=== PATIENT | male | born 1980 | race Caucasian/White ===

== ENCOUNTER 2023-04-11 19:41 | Outpatient (OUT) | payer OTHER, SELFPAY | END 2023-04-11 19:42 | disposition home or self-care (01) | LOC: SLEEP 19:42 | PROVIDERS: PCP Family Medicine; Visit Provider Family Medicine | DX: G47.33 Obstructive sleep apnea (adult) (pediatric) (principal) | CPT/HCPCS: 95810 ==

== ENCOUNTER 2023-05-09 20:54 | Outpatient (OUT) | payer OTHER, SELFPAY ==
--- OUTSIDE RECORDS SUMMARY | 2023-05-09 20:58 | XMS_ITS | CCD ---
Author Name Unknown Address [address] [place] [address] Organization [facility] Care Team Providers Care Birth Attendant Name Role Phone DORON MONTAÑO Unavailable Unavailable KARMEN LUNDBERG Unavailable Unavailable DORON MONTAÑO Unavailable Unavailable KARMEN LUNDBERG Unavailable Unavailable Salbador Ramirez Primary Care Provider JAMES, DR SALBADOR Glover Primary Care Unavailable MABLE, DR PERAZA Attending Unavailable GRILLIS, DR PERAZA Consulting Unavailable GRILLIS, DR PERAZA Admitting Unavailable GRILLIS, DR PERAZA Admitting Unavailable NADERER, DR SALBADOR Glover Primary Care Unavailable MABLE, DR PREAZA Attending Unavailable MABLE, DR PERAZA Consulting Unavailable AGUBOSIM, LUMA Consulting Unavailable SHEILA GUTIERREZ Consulting Unavailable Salbador Ramirez Primary Care Provider Salbador Ramirez Primary Care Provider CHANA CHANDRA Attending Unavailable SALBADOR RAMIREZ Primary Care Unavailable LOKI BASURTO Referring Unavailable LOKI BASURTO Attending Unavailable SALBADOR RAMIREZ Primary Care Unavailable TOAN CHU Admitting Unavailable SALBADOR RAMIREZ Primary Care Unavailable TOAN CHU Attending Unavailable SALBADOR RAMIREZ Attending Unavailable MD Salbador Ramirez Primary Care Provider MD Salbador Ramirez Attending Provider Salbador Ramirez Primary Care Unavailable Salbador Ramirez Attending Unavailable Salbador Ramirez Admitting Unavailable Salbador Ramirez Primary Care Unavailable Salbador Ramirez Consulting Unavailable Shaikh Larsen Admitting Unavailable Shaikh Larsen Attending Unavailable Salbador Ramirez Attending Unavailable Salbador Ramirez Admitting Unavailable Salbador Ramirez Primary Care Unavailable Medications Current Medications Medication Drug Class(es) Dates Sig (Normalized) Sig (Original) acetaminophen 500 mg oral tablet (12 sources) Start: 01-31-2022 End: 02-15-2022 take 2 tablets by mouth every six hours as needed for pain, then take 1-2 tablets by mouth every six hours as needed for pain acetaminophen (TYLENOL) 500 mg tablet Take 2 tablets by mouth every 6 hours for 5 days, THEN 1-2 tablets every 6 hours as needed for pain for up to 10 days. 90 tablet 0 01/31/2022 02/15/2022 Active Start: 03-07-2021 take 2 tablets by mo uth every four hours as needed acetaminophen (TYLENOL) 325 mg tablet Take 2 tablets by mouth every 4 hours as needed for pain. Two (2) X 325 mg tablets = 650 mg 0 03/07/2021 Active take 2 tablets by mo uth every six hours as needed acetaminophen (TYLENOL) 325 mg tablet Take 650 mg by mouth every 6 hours as needed. 0 Active Comment on above: Take 650 mg by mouth every 6 hours as needed. Take 2 tablets by mo uth every 4 hours as needed for pain. Two (2) X 325 mg tablets = 650 mg Take 2 tablets by mo uth every 6 hours for 5 days, THEN 1-2 tablets every 6 hours as needed for pain for up to 10 days. ibuprofen 200 mg oral tablet (7 sources) Nonsteroidal Anti-inflammatory Drug Start: 2 End: 2 take 3 tablets by mouth every eight hours as needed for pain, then take 1-3 tablets by mouth every six hours as needed for pain, then take 1 tablet by mouth at mealtime as needed for pain ibuprofen (MOTRIN) 200 mg tablet Take 3 tablets by mouth every 8 hours for 3 days, THEN 1-3 tablets every 6 hours as needed for pain for up to 10 days. Can start taking 8 hours after your surgery (slight delay to reduce risk of bleeding). Can alternate with Tylenol (i.e.taking one or the other every 3-4 hours to stay ahead of pain). Do not take if also taking other NSAIDs (aspirin, Toradol, Naproxyn/Aleve, meloxicam/Mobic). Do not take on an empty stomach (take with food).. 90 tablet 0 01/31/2022 02/13/2022 Active ibuprofen (MOTRI N) 200 mg tablet Take 200 mg by mouth as needed. 0 Active Comment on above: Take 200 mg by mouth as needed. Take 3 tablets by mo uth every 8 hours for 3 days, THEN 1-3 tablets every 6 hours as needed for pain for up to 10 days. Can start taking 8 hours after your surgery (slight delay to reduce risk of bleeding). Can alternate with Tylenol (i.e.taking one or the other every 3-4 hours to stay ahead of pain). Do not take if also taking other NSAIDs (aspirin, Toradol, Naproxyn/Aleve, meloxicam/Mobic). Do not take on an empty stomach (take with food).. ondansetron 4 mg oral tablet (1 source) Serotonin-3 Receptor Antagonist Start: 2 End: 2 take 1 tablet by mouth every eight hours as needed ondansetron (ZOFRAN) 4 mg tablet Take 1 tablet by mouth every 8 hours as needed for nausea/vomiting for up to 5 days. 8 tablet 0 01/31/2022 02/05/2022 Active Comment on above: Take 1 tablet by gavin th every 8 hours as needed for nausea/vomiting for up to 5 days. perflutren lipid microspheres 1.3 mL in NaCl (PF) 0.9% 10 mL injection (DEFINITY) (3 sources) Start: 1 End: 3 perflutren lipid microspheres 1.3 mL in NaCl (PF) 0.9% 10 mL injection (DEFINITY) sennosides, mcc 8.6 mg oral tablet (2 sources) Start: 2 End: 2 take 1 tablet by mouth every twelve hours as needed senna (SENOKOT) 8.6 mg tab Take 1 tablet by mouth twice daily as needed for constipation for up to 15 days. 30 tablet 0 01/31/2022 02/15/2022 Active Comment on above: Take 1 tablet by gavin th twice daily as needed for constipation for up to 15 days. 125 ml sodium chloride 9 mg/ml prefilled syringe (3 sources) Start: 1 End: 3 sodium chloride 0.9 % (flush) 10 mL (BD POSIFLUSH) Completed/Discontinued Medications Medication Drug Class(es) Dates Sig (Normalized) Sig (Original) alpha lipoic acid-biotin 600 mg- 450 mcg TbER (5 sources) alpha lipoic acid-biotin 600 mg- 450 mcg TbER Take by mouth. 0 Active Comment on above: Take by mouth. atorvastatin 40 mg oral tablet (5 sources) HMG-CoA Reductase Inhibitor atorvastatin (LIPITOR) 40 mg tablet Take 40 mg by mouth. 0 Active Comment on above: Take 40 mg by mouth. cephalexin 500 mg oral capsule (5 sources) Cephalosporin Antibacterial Start: 02-18-2021 cephALEXin (KEFLEX) 500 mg capsule Take 1 capsule daily for 10 days 20 capsule 0 02/18/2021 Active Comment on above: Take 1 capsule daily for 10 days dapagliflozin 10 mg oral tablet (5 sources) Sodium-Glucose Cotransporter 2 Inhibitor take 1 tablet by mouth once daily at breakfast dapagliflozin (FARXIGA) 10 mg tablet Take by mouth daily with breakfast. 0 Active Comment on above: Take by mouth daily with breakfast. docusate sodium 100 mg oral capsule (5 sources) Start: 03-07-2021 take 1 capsule by mouth every twelve hours as needed docusate sodium (COLACE) 100 mg capsule Take 1 capsule by mouth twice daily as needed for constipation. 10 capsule 0 03/07/2021 Active Comment on above: Take 1 capsule by mo [facility] twice daily as needed for constipation. glipiZIDE 10 mg oral tablet (5 sources) Sulfonylurea take 2 tablets by mouth twice daily before mealtime glipiZIDE (GLUCOTROL) 10 mg tablet Take 20 mg by mouth twice daily before meals. 0 Active Comment on above: Take 20 mg by mouth twice daily before meals. lisinopril 10 mg oral tablet (5 sources) Angiotensin Converting Enzyme Inhibitor take 1 tablet by mouth once daily lisinopril (ZESTRIL, PRINIVIL) 10 mg tablet Take 10 mg by mouth once daily. 0 Active Comment on above: Take 10 mg by mouth once daily. 24 hr metFORMIN hydrochloride 500 mg extended release oral tablet (5 sources) Biguanide Start: 02-07-2021 take 1 tablet by mouth twice daily metFORMIN ER (GLUCOPHAGE XR) 500 mg 24 hr tablet Take 1 tablet by mouth twice daily. 0 02/07/2021 Active Comment on above: Take 1 tablet by gavin th twice daily. oxyCODONE hydrochloride 5 mg oral tablet (3 sources) Opioid Agonist Start: 01-31-2022 take 1 tablet by mouth every six hours as needed for pain oxyCODONE IR (ROXICODONE) 5 mg immediate release tablet Indications: Acute post-operative pain Take 1 tablet by mouth every 6 hours as needed for pain. 5 tablet 0 01/31/2022 Active Comment on above: Take 1 tablet by gavin th every 6 hours as needed for pain. pioglitazone 15 mg oral tablet (5 sources) Peroxisome Proliferator Receptor alpha Agonist, Peroxisome Proliferator Receptor gamma Agonist, Thiazolidinedione take 1 tablet by mouth once daily pioglitazone (ACTOS) 15 mg tablet Take 15 mg by mouth once daily. 0 Active Comment on above: Take 15 mg by mouth once daily. Problems Active Problems Problem Classification Problem Date Documented Date Episodic/Chronic Diabetes mellitus without complication (6 sources) Type 2 diabetes mellitus without complication; Translations: [Type 2 diabetes mellitus without complications] Onset: 10-14-2020 12-15-2020 Chronic Disorders of lipid metabolism (6 sources) Hyperlipidemia; Translations: [Hyperlipidemia, unspecified] Onset: 10-14-2020 12-15-2020 Chronic Essential hypertension (6 sources) Hypertensive disorder; Translations: [Essential (primary) hypertension] Onset: 10-14-2020 12-15-2020 Chronic Other and unspecified benign neoplasm (1 source) Other benign neoplasm of skin of trunk; Translations: [Dermatofibroma of back] Onset: 09-12-2022 Episodic Other nutritional; endocrine; and metabolic disorders (5 sources) Severe obesity; Translations: [Morbid (severe) obesity due to excess calories] Onset: 12-15-2020 12-15-2020 Chronic Other nutritional; endocrine; and metabolic disorders (1 source) Morbid (severe) obesity due to excess calories; Translations: [MORBID SEVERE OBES D/T EXCESS DANIKA] Onset: 10-14-2020 Chronic Other nutritional; endocrine; and metabolic disorders (1 source) Body mass index (BMI) 40.0-44.9, adult; Translations: [BODY MASS INDEX BMI 40.0-44.9 ADULT] Onset: 10-14-2020 Chronic Residual codes; unclassified (1 source) Postoperative state; Translations: [Other specified postprocedural states] Episodic Unclassified (1 source) CONTACT W/AND (SUSP) EXPOS COVID-19; Translations: [CONTACT W/AND (SUSP) EXPOS COVID-19] Onset: 10-08-2020 Unclassified (1 source) Encounter for general adult medical examination without abnormal findings; Translations: [Encounter for general adult medical examination without abnormal findings] Onset: 03-30-2023 Unclassified (1 source) Low back pain, unspecified; Translations: [Low back pain, unspecified] Onset: 08-03-2022 Past or Other Problems Problem Classification Problem Date Documented Date Episodic/Chronic Complications of surgical procedures or medical care (5 sources) Difficult intubation; Translations: [Failed or difficult intubation, subsequent encounter] Onset: 02-25-2021 02-25-2021 Episodic Inflammatory conditions of male genital organs (2 sources) Orchitis; Translations: [Epididymitis] Onset: 11-16-2016 Episodic Other aftercare (1 source) detention (current) use of oral hypoglycemic drugs; Translations: [PANTOGRAPH I ENGRAVER USE ORAL HYPOGLYCEMIC DX] Onset: 10-14-2020 Episodic Other aftercare (1 source) Other predatory animal exterminator (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 therapy; Translations: [OTH [facility] CURRENT DRUG THERAPY] Onset: 10-14-2020 Episodic Other nervous system disorders (6 sources) Acute postoperative pain; Translations: [Other acute postprocedural pain] Onset: 03-07-2021 03-07-2021 Episodic Other non-epithelial cancer of skin (4 sources) Malignant neoplasm of scalp; Translations: [Other specified malignant neoplasm of skin of scalp and neck] Onset: 10-14-2020 Episodic Other skin disorders (3 sources) Epidermal cyst; Translations: [EPIDERMAL CYST] Onset: 10-06-2020 Episodic Other skin disorders (1 source) Pilar cyst; Translations: [PILAR CYST] Onset: 10-08-2020 Episodic Residual codes; unclassified (5 sources) History of clinical finding in subject; Translations: [Personal history of other specified conditions] Onset: 02-25-2021 02-25-2021 Episodic Residual codes; unclassified (1 source) Other specified postprocedural states; Translations: [S/P flap graft] Onset: 01-31-2022 Episodic Screening and history of mental health and substance abuse codes (5 sources) Ex-smoker; Translations: [Personal history of nicotine dependence] Onset: 02-25-2021 02-25-2021 Episodic Results Test Name Value Interpretation Reference Range Facility A1C with Estimated Average Megan patton 03-30-2023 Glucose [Mass/Vol] 255 mg/dL Normal [facility] Comment on above: Result Comment: PERF ORMED BY: [place] [address] PATHOLOGIST DEICER INSPECTOR PNEUMATIC MARII BRO M.D. Performed By: #### D IFF CBC, [id number], A1C WTH eA, TSH3, BMP, HEPATIC, LDLD, URMACRERAT, LIPID #### [facility] [address] HbA1c (Bld) [Mass fraction] 10.5 % High 4.3-5.6 [facility] Comment on above: Result Comment: Incr eased risk for diabetes: 5.7 - 6.4 diabetes: >6.4 glycemic control for adults with diabetes: <7.0 Performed By: #### D IFF CBC, [id number], A1C WTH eA, TSH3, BMP, HEPATIC, LDLD, URMACRERAT, LIPID #### [facility] [address] Alanine aminotransferase [En zymatic activity/volume] in Serum or PlasmaOrdered By: Salbador Ramirez on 03-30-2023 ALT [Catalytic activity/Vol] 35 U/L 7-52 [facility] Albumin [Mass/volume] in Ser um or Plasma by Bromocresol green (BCG) dye binding methoOrdered By: Salbador Ramirez on 03-30-2023 Albumin BCG dye [Mass/Vol] 4.6 g/dL 3.5-5.7 [facility] Alkaline phosphatase [Enzyma tic activity/volume] in Serum or PlasmaOrdered By: Salbador Ramirez on 03-30-2023 ALP [Catalytic activity/Vol] 56 U/L 34-104 [facility] Aspartate aminotransferase [ Enzymatic activity/volume] in Serum or PlasmaOrdered By: Salbador Ramirez on 03-30-2023 AST [Catalytic activity/Vol] 24 U/L 13-39 [facility] Band form neutrophils/100 WB C Manual cnt (Bld)Ordered By: Salbador Ramirez on 03-30-2023 Band form neutrophils/100 WBC (Bld) 8 % 0-5 [facility] Basic Metabolic Panelon 03-19 Anion gap [Moles/Vol] 14.2 mmol/L Normal 6.0-15.0 [facility] Comment on above: Performed By: #### D IFF CBC, [id number], A1C WTH eA, TSH3, BMP, HEPATIC, LDLD, URMACRERAT, LIPID #### [facility] [address] Calcium [Mass/Vol] 10.2 mg/dL Normal 8.6-10.3 [facility] Comment on above: Performed By: #### D IFF CBC, [id number], A1C WTH eA, TSH3, BMP, HEPATIC, LDLD, URMACRERAT, LIPID #### [facility] [address] Chloride [Moles/Vol] 105 mmol/L Normal 98-107 [facility] Comment on above: Performed By: #### D IFF CBC, [id number], A1C WTH eA, TSH3, BMP, HEPATIC, LDLD, URMACRERAT, LIPID #### [facility] [address] CO2 [Moles/Vol] 22.3 mmol/L Normal 21.0-31.0 [facility] Comment on above: Performed By: #### D IFF CBC, [id number], A1C WTH eA, TSH3, BMP, HEPATIC, LDLD, URMACRERAT, LIPID #### [facility] [address] [place] [address] [place] Creatinine [Mass/Vol] 0.82 mg/dL Normal 0.70-1.30 [facility] Comment on above: Performed By: #### D IFF CBC, [id number], A1C WTH eA, TSH3, BMP, HEPATIC, LDLD, URMACRERAT, LIPID #### [facility] [address] [place] [address] [place] GFR/1.73 sq M.predicted MDRD (S/P/Bld) [Vol rate/Area] mL/min/{1.73_m2} Normal [facility] Comment on above: Performed By: #### D IFF CBC, [id number], A1C WTH eA, TSH3, BMP, HEPATIC, LDLD, URMACRERAT, LIPID #### [facility] [address] [place] [address] [place] Glucose [Mass/Vol] 161 mg/dL High 70-100 [facility] Comment on above: Result Comment: [facility] Glucose Reference Range is dependent on time and content of last meal. Glucose of more than 200 mg/dL in a nonstressed, ambulatory subject supports the diagnosis of Diabetes Mellitus. ADA recommended reference range Performed By: #### D IFF CBC, [id number], A1C WTH eA, TSH3, BMP, HEPATIC, LDLD, URMACRERAT, LIPID #### [facility] [address] [place] [address] [place] Potassium [Moles/Vol] 4.5 mmol/L Normal 3.5-5.1 [facility] Comment on above: Performed By: #### D IFF CBC, [id number], A1C WTH eA, TSH3, BMP, HEPATIC, LDLD, URMACRERAT, LIPID #### [facility] [address] [place] [address] [place] Sodium [Moles/Vol] 137 mmol/L Normal 136-145 [facility] Comment on above: Performed By: #### D IFF CBC, [id number], A1C WTH eA, TSH3, BMP, HEPATIC, LDLD, URMACRERAT, LIPID #### [facility] [address] [place] [address] [place] Urea nitrogen [Mass/Vol] 26 mg/dL High 7-25 [facility] Comment on above: Performed By: #### D IFF CBC, [id number], A1C WTH eA, TSH3, BMP, HEPATIC, LDLD, URMACRERAT, LIPID #### [place] [address] [facility] Basophils Auto (Bld) [#/Vol] Ordered By: Salbador Ramirez on 03-30-2023 Basophils (Bld) [#/Vol] N/A [facility] Basophils/100 WBC Auto (Bld) Ordered By: Salbador Ramirez on 03-30-2023 Basophils/100 WBC (Bld) N/A [facility] Basophils/100 WBC Manual cnt (Bld)Ordered By: Salbador Ramirez on 03-30-2023 Basophils/100 WBC (Bld) 1 % 0-2 [facility] Bilirubin.direct [Mass/volum e] in Serum or PlasmaOrdered By: Salbador Ramirez on 03-30-2023 Bilirubin.direct [Mass/Vol] 0.10 mg/dL 0.03-0.18 [facility] Bilirubin.total [Mass/volume ] in Serum or PlasmaOrdered By: Salbador Ramirez on 03-30-2023 Bilirubin [Mass/Vol] 0.7 mg/dL 0.3-1.0 [facility] Calcium [Mass/volume] in Ser um or PlasmaOrdered By: Salbador Ramirez on 03-30-2023 Calcium [Mass/Vol] 10.2 mg/dL 8.6-10.3 [facility] Carbon dioxide, total [Moles /volume] in Serum or PlasmaOrdered By: Salbador Ramirez on 03-30-2023 CO2 [Moles/Vol] 22.3 mmol/L 21.0-31.0 [facility] Chloride [Moles/volume] in S gianni or PlasmaOrdered By: Salbador Ramirez on 03-30-2023 Chloride [Moles/Vol] 105 mmol/L 98-107 [facility] Cholesterol [Mass/volume] in Serum or PlasmaOrdered By: Salbador Ramirez on 03-30-2023 Cholesterol [Mass/Vol] 140 mg/dL 140-200 [facility] Comment on above: Chol less than 200 m g/dl low riskChol 201-239 mg/dl borderline riskChol 240 mg/dl and greater high risk Cholesterol in LDL Calc [Mas s/Vol]Ordered By: Salbador Ramirez on 03-30-2023 Cholesterol in LDL [Mass/Vol] TNP [facility] Comment on above: Test not performed Cholesterol in LDL [Mass/vol ume] in Serum or PlasmaOrdered By: Salbador Ramirez on 03-30-2023 Cholesterol in LDL [Mass/Vol] 56 mg/dL 0-100 [facility] Comment on above: LDL ATP III CLASSIFI CATIONLDL less than 100 mg/dL OptimalLDL 100-129 mg/dL Near or above optimalLDL 130-159 mg/dL Borderline highLDL 160-189 mg/dL HighLDL greater than 189 mg/dL Very high Cholesterol in VLDL Calc [Ma ss/Vol]Ordered By: Salbador Ramirez on 03-30-2023 Cholesterol in VLDL [Mass/Vol] 93 mg/dL [facility] Creatinine [Mass/volume] in Serum or PlasmaOrdered By: Salbador Ramirez on 03-30-2023 Creatinine [Mass/Vol] 0.82 mg/dL 0.70-1.30 [facility] Creatinine [Mass/volume] in UrineOrdered By: Salbador Ramirez on 03-30-2023 Creatinine (U) [Mass/Vol] 115.0 mg/dL 14.0-26.0 [facility] Diff and CBCon 03-30-2023 Band form neutrophils/100 WBC (Bld) 8 % High 0-5 [facility] Comment on above: Performed By: #### D IFF CBC, [id number], A1C WTH eA, TSH3, BMP, HEPATIC, LDLD, URMACRERAT, LIPID #### [facility] [address] [place] [address] [place] Basophils/100 WBC (Bld) 1 % Normal 0-2 [facility] Comment on above: Performed By: #### D IFF CBC, [id number], A1C WTH eA, TSH3, BMP, HEPATIC, LDLD, URMACRERAT, LIPID #### [facility] [address] [place] [address] [place] Eosinophils/100 WBC (Bld) 1 % Normal 1-3 [facility] Comment on above: Performed By: #### D IFF CBC, [id number], A1C WTH eA, TSH3, BMP, HEPATIC, LDLD, URMACRERAT, LIPID #### [facility] [address] Erythrocyte distribution width (RBC) [Ratio] 12.7 % Normal 12.0-14.8 [facility] Comment on above: Performed By: #### D IFF CBC, [id number], A1C WTH eA, TSH3, BMP, HEPATIC, LDLD, URMACRERAT, LIPID #### [facility] [address] Giant Platelet Tally 1 /100{WBC} Normal [facility] Comment on above: Performed By: #### D IFF CBC, [id number], A1C WTH eA, TSH3, BMP, HEPATIC, LDLD, URMACRERAT, LIPID #### [address] Hematocrit (Bld) [Volume fraction] 46.1 % Normal 38.8-50.0 [facility] Comment on above: Performed By: #### D IFF CBC, [id number], A1C WTH eA, TSH3, BMP, HEPATIC, LDLD, URMACRERAT, LIPID #### [facility] [address] [place] [address] Hemoglobin (Bld) [Mass/Vol] 15.9 g/dL Normal 13.0-17.0 [facility] Comment on above: Performed By: #### D IFF CBC, [id number], A1C WTH eA, TSH3, BMP, HEPATIC, LDLD, URMACRERAT, LIPID #### [address] Lymphocytes/100 WBC (Bld) 24 % Normal 18-42 [facility] Comment on above: Performed By: #### D IFF CBC, [id number], A1C WTH eA, TSH3, BMP, HEPATIC, LDLD, URMACRERAT, LIPID #### [address] MCH (RBC) [Entitic mass] 29.6 pg Normal 27.5-35.2 [facility] Comment on above: Performed By: #### D IFF CBC, [id number], A1C WTH eA, TSH3, BMP, HEPATIC, LDLD, URMACRERAT, LIPID #### [facility] [address] MCV (RBC) [Entitic vol] 85.9 fL Normal 83.5-101 [facility] Comment on above: Performed By: #### D IFF CBC, [id number], A1C WTH eA, TSH3, BMP, HEPATIC, LDLD, URMACRERAT, LIPID #### [facility] [address] Mean Corpuscular HGB Conc 34.5 g/dL Normal 32.5-35.6 [facility] Comment on above: Performed By: #### D IFF CBC, [id number], A1C WTH eA, TSH3, BMP, HEPATIC, LDLD, URMACRERAT, LIPID #### [place] [address] [place] Monocytes/100 WBC (Bld) 13 % High 2-11 [facility] Comment on above: Performed By: #### D IFF CBC, [id number], A1C WTH eA, TSH3, BMP, HEPATIC, LDLD, URMACRERAT, LIPID #### [address] Platelet Estimate Normal Normal Normal [facility] Comment on above: Performed By: #### D IFF CBC, [id number], A1C WTH eA, TSH3, BMP, HEPATIC, LDLD, URMACRERAT, LIPID #### [address] Platelet mean volume (Bld) [Entitic vol] 9.6 fL Normal 6.6-10.1 [facility] Comment on above: Performed By: #### D IFF CBC, [id number], A1C WTH eA, TSH3, BMP, HEPATIC, LDLD, URMACRERAT, LIPID #### [address] Platelet Morphology Normal Normal Normal [facility] Comment on above: Result Comment: PERF ORMED BY: [place] [address] PATHOLOGIST DEICER INSPECTOR PNEUMATIC MARII BRO M.D. Performed By: #### D IFF CBC, [id number], A1C WTH eA, TSH3, BMP, HEPATIC, LDLD, URMACRERAT, LIPID #### [facility] [address] [place] [address] Platelets (Bld) [#/Vol] 149 10*3/uL Low 150-450 [facility] Comment on above: Performed By: #### D IFF CBC, [id number], A1C WTH eA, TSH3, BMP, HEPATIC, LDLD, URMACRERAT, LIPID #### [facility] [address] [place] [address] RBC (Bld) [#/Vol] 5.37 10*6/uL Normal 3.90-5.[address] [facility] Comment on above: Performed By: #### D IFF CBC, [id number], A1C WTH eA, TSH3, BMP, HEPATIC, LDLD, URMACRERAT, LIPID #### [facility] [address] [place] [address] RBC morphology finding Nom (Bld) Normal Normal Normal [facility] Comment on above: Performed By: #### D IFF CBC, [id number], A1C WTH eA, TSH3, BMP, HEPATIC, LDLD, URMACRERAT, LIPID #### [facility] [address] [place] [address] Reactive Lymphocytes 3 % Normal 0-12 [facility] Comment on above: Performed By: #### D IFF CBC, [id number], A1C WTH eA, TSH3, BMP, HEPATIC, LDLD, URMACRERAT, LIPID #### [facility] [address] [place] [address] Segmented neutrophils/100 WBC (Bld) 51 % Normal 50-70 [facility] Comment on above: Performed By: #### D IFF CBC, [id number], A1C WTH eA, TSH3, BMP, HEPATIC, LDLD, URMACRERAT, LIPID #### [facility] [address] [place] [address] [place] WBC (Bld) [#/Vol] 5.2 10*3/uL Normal 4.1-10.5 [facility] Comment on above: Performed By: #### D IFF CBC, [id number], A1C WTH eA, TSH3, BMP, HEPATIC, LDLD, URMACRERAT, LIPID #### [facility] [address] Eosinophils Auto (Bld) [#/Vo l]Ordered By: Salbador Ramirez on 03-30-2023 Eosinophils (Bld) [#/Vol] N/A [facility] Eosinophils/100 WBC Auto (Bl d)Ordered By: Salbador Ramirez on 03-30-2023 Eosinophils/100 WBC (Bld) N/A [facility] Eosinophils/100 WBC Manual c nt (Bld)Ordered By: Salbador Ramirez on 03-30-2023 Eosinophils/100 WBC (Bld) 1 % 1-3 [facility] Erythrocyte distribution wid th Auto (RBC) [Ratio]Ordered By: Salbador Ramirez on 03-30-2023 Erythrocyte distribution width (RBC) [Ratio] 12.7 % 12.0-14.8 [facility] Giant platelets/100 leukocyt es [Ratio] in Blood by Manual countOrdered By: Salbador Ramirez on 03-30-2023 Giant platelets/100 WBC Manual cnt (Bld) [Ratio] 1 /100{WBC} [facility] Globulin Calc (S) [Mass/Vol] Ordered By: Salbador Ramirez on 03-30-2023 Globulin (S) [Mass/Vol] 2.3 g/dL [facility] Glucose [Mass/volume] in Ser um or PlasmaOrdered By: Salbador Ramirez on 03-30-2023 Glucose [Mass/Vol] 161 mg/dL 70-100 [facility] Comment on above: ADA recommended refe rence rangeRandom Glucose Reference Range is dependent on time and content of last meal. Glucose of more than 200 mg/dL in a nonstressed, ambulatory subject supports the diagnosis of Diabetes Mellitus. Glucose mean value [Mass/vol ume] in Blood Estimated from glycated hemoglobinOrdered By: Salbador Ramirez on 03-30-2023 Average glucose Estimated from glycated hemoglobin (Bld) [Mass/Vol] 255 mg/dL [facility] Hematocrit Auto (Bld) [Volum e fraction]Ordered By: Salbador Ramirez on 03-30-2023 Hematocrit (Bld) [Volume fraction] 46.1 % 38.8-50.0 [facility] Hemoglobin A1c percentageOrd ered By: Salbador Ramirez on 03-30-2023 HbA1c (Bld) [Mass fraction] 10.5 % 4.3-5.6 [facility] Comment on above: Increased risk for d iabetes: 5.7 - 6.4diabetes: >6.4glycemic control for adults with diabetes: <7.0 Hemoglobin [Mass/volume] in BloodOrdered By: Salbador Ramirez on 03-30-2023 Hemoglobin (Bld) [Mass/Vol] 15.9 g/dL 13.0-17.0 [facility] Hepatic Panelon 03-30-2023 Albumin [Mass/Vol] 4.6 g/dL Normal 3.5-5.7 [facility] Comment on above: Performed By: #### D IFF CBC, [id number], A1C WTH eA, TSH3, BMP, HEPATIC, LDLD, URMACRERAT, LIPID #### [facility] [address] Albumin/Globulin [Mass ratio] 2.0 {ratio} Normal [facility] Comment on above: Performed By: #### D IFF CBC, [id number], A1C WTH eA, TSH3, BMP, HEPATIC, LDLD, URMACRERAT, LIPID #### [facility] [address] [place] [address] [place] ALP [Catalytic activity/Vol] 56 U/L Normal 34-104 [facility] Comment on above: Performed By: #### D IFF CBC, [id number], A1C WTH eA, TSH3, BMP, HEPATIC, LDLD, URMACRERAT, LIPID #### [facility] [address] [place] [address] [place] ALT [Catalytic activity/Vol] 35 U/L Normal 7-52 [facility] Comment on above: Performed By: #### D IFF CBC, [id number], A1C WTH eA, TSH3, BMP, HEPATIC, LDLD, URMACRERAT, LIPID #### [facility] [address] AST [Catalytic activity/Vol] 24 U/L Normal 13-39 [facility] Comment on above: Performed By: #### D IFF CBC, [id number], A1C WTH eA, TSH3, BMP, HEPATIC, LDLD, URMACRERAT, LIPID #### [facility] [address] Bilirubin [Mass/Vol] 0.7 mg/dL Normal 0.3-1.0 [facility] Comment on above: Performed By: #### D IFF CBC, [id number], A1C WTH eA, TSH3, BMP, HEPATIC, LDLD, URMACRERAT, LIPID #### [facility] [address] Bilirubin,Indirect 0.6 mg/dL Normal [facility] Comment on above: Performed By: #### D IFF CBC, [id number], A1C WTH eA, TSH3, BMP, HEPATIC, LDLD, URMACRERAT, LIPID #### [facility] [address] Bilirubin.indirect [Mass/Vol] 0.10 mg/dL Normal 0.03-0.18 [facility] Comment on above: Performed By: #### D IFF CBC, [id number], A1C WTH eA, TSH3, BMP, HEPATIC, LDLD, URMACRERAT, LIPID #### [facility] [address] Globulin (S) [Mass/Vol] 2.3 g/dL Normal [facility] Comment on above: Performed By: #### D IFF CBC, [id number], A1C WTH eA, TSH3, BMP, HEPATIC, LDLD, URMACRERAT, LIPID #### [facility] [address] [place] [id number] [facility] Protein [Mass/Vol] 6.9 g/dL Normal 6.4-8.9 [facility] Comment on above: Performed By: #### D IFF CBC, [id number], A1C WTH eA, TSH3, BMP, HEPATIC, LDLD, URMACRERAT, LIPID #### [facility] [address] [place] [id number] [facility] LDL Cholesterol Measuredon 0 03-30-2023 LDL Cholesterol Measured 56 mg/dL Normal 0-100 [facility] Comment on above: Result Comment: LDL ATP III CLASSIFICATION LDL less than 100 mg/dL Optimal LDL 100-129 mg/dL Near or above optimal LDL 130-159 mg/dL Borderline high LDL 160-189 mg/dL High LDL greater than 189 mg/dL Very high Performed By: #### D IFF CBC, [id number], A1C WTH eA, TSH3, BMP, HEPATIC, LDLD, URMACRERAT, LIPID #### [facility] [address] [place] [id number] [facility] Leukocytes [#/volume] correc nicolás for nucleated erythrocytes in Blood by Automated counOrdered By: Salbador Ramirez on 03-30-2023 WBC corrected for nucl RBC Auto (Bld) [#/Vol] 5.2 10*3/uL 4.1-10.5 [facility] Lipid Panelon 03-30-2023 Cholesterol [Mass/Vol] 140 mg/dL Normal 140-200 [facility] Comment on above: Result Comment: Chol less than 200 mg/dl low risk Chol 201-239 mg/dl borderline risk Chol 240 mg/dl and greater high risk Performed By: #### D IFF CBC, [id number], A1C WTH eA, TSH3, BMP, HEPATIC, LDLD, URMACRERAT, LIPID #### [facility] [address] [place] [id number] [facility] Cholesterol in HDL [Mass/Vol] 24 mg/dL Normal 23-92 [facility] Comment on above: Result Comment: HDL CHOL ATP-III CLASSIFICATION Cardiovascular Risk HDL > or equal to 60 mg/dL LOW HDL < 40 mg/dL HIGH Performed By: #### D IFF CBC, [id number], A1C WTH eA, TSH3, BMP, HEPATIC, LDLD, URMACRERAT, LIPID #### [facility] [address] Cholesterol.total/Sofi sterol in HDL [Mass ratio] 5.8 {ratio} Normal <5.0 [facility] Comment on above: Performed By: #### D IFF CBC, [id number], A1C WTH eA, TSH3, BMP, HEPATIC, LDLD, URMACRERAT, LIPID #### [facility] [address] LDL Cholesterol,Calculated Not performed Normal 0-100 [facility] Comment on above: Performed By: #### D IFF CBC, [id number], A1C WTH eA, TSH3, BMP, HEPATIC, LDLD, URMACRERAT, LIPID #### [facility] [address] Triglyceride w/Reflex 467 mg/dL High 0-149 [facility] Comment on above: Result Comment: TRIG ATP III CLASSIFICATION TRIG less than 150 mg/dL Normal TRIG 150-199 mg/dL Borderline high TRIG 200-500 mg/dL High TRIG greater than 500 mg/dL Very high Standard traceable to the Center for Disease Conrtrol and Prevention (CDC) test method. If the triglyceride result is greater than 400, LDLC and related calculations cannot be calculated and resulted. Performed By: #### D IFF CBC, [id number], A1C WTH eA, TSH3, BMP, HEPATIC, LDLD, URMACRERAT, LIPID #### [facility] [address] [place] [id number] [facility] VLDL CHOLESTEROL 93 mg/dL Normal [facility] Comment on above: Performed By: #### D IFF CBC, [id number], A1C WTH eA, TSH3, BMP, HEPATIC, LDLD, URMACRERAT, LIPID #### [facility] [address] [place] [id number] [facility] Lymphocytes Auto (Bld) [#/Vo l]Ordered By: Salbador Ramirez on 03-30-2023 Lymphocytes (Bld) [#/Vol] N/A [facility] Lymphocytes/100 WBC Auto (Bl d)Ordered By: Salbador Ramirez on 03-30-2023 Lymphocytes/100 WBC (Bld) N/A [facility] Lymphocytes/100 WBC Manual c nt (Bld)Ordered By: Salbador Ramirez on 03-30-2023 Lymphocytes/100 WBC (Bld) 24 % 18-42 [facility] MCH Auto (RBC) [Entitic mass ]Ordered By: Salbador Ramirez on 03-30-2023 MCH (RBC) [Entitic mass] 29.6 pg 27.5-35.2 [facility] MCHC Auto (RBC) [Mass/Vol]Or dered By: Salbador Ramirez on 03-30-2023 MCHC (RBC) [Mass/Vol] 34.5 g/dL 32.5-35.6 [facility] MCV Auto (RBC) [Entitic vol] Ordered By: Salbador Ramirez on 03-30-2023 MCV (RBC) [Entitic vol] 85.9 fL 83.5-101 [facility] MicroAlb Creat Ratio,Uon Albumin DL <= 20 mg/L (U) [Mass/Vol] 2.1 mg/dL High 0.0-1.8 [facility] Comment on above: Performed By: #### D IFF CBC, [id number], A1C WTH eA, TSH3, BMP, HEPATIC, LDLD, URMACRERAT, LIPID #### [facility] [address] [place] [address] [place] Creatinine, Urine (Random) 115.0 mg/dL High 14.0-26.0 [facility] Comment on above: Performed By: #### D IFF CBC, [id number], A1C WTH eA, TSH3, BMP, HEPATIC, LDLD, URMACRERAT, LIPID #### [facility] [address] [place] [id number] [facility] Microalbumin/Creatinine Ratio 18.0 mg/g Normal 0.0-30.0 [facility] Comment on above: Result Comment: 30-3 00 mg/g indicates an increased risk for diabetic nephropathy. Greater than 300 mg/g is consistent with clinical nephropathy. (Am. J. Kidney Disease 1995, 25:107) PERFORMED BY: [facility] [address] [place] [address] PATHOLOGIST DEICER INSPECTOR PNEUMATIC MARII BRO M.D. Performed By: #### D IFF CBC, [id number], A1C WTH eA, TSH3, BMP, HEPATIC, LDLD, URMACRERAT, LIPID #### [facility] [address] Microalbumin [Mass/volume] i n UrineOrdered By: Salbador Ramirez on 03-30-2023 Albumin DL <= 20 mg/L (U) [Mass/Vol] 2.1 mg/dL 0.0-1.8 [facility] Monocytes Auto (Bld) [#/Vol] Ordered By: Salbador Ramirez on 03-30-2023 Monocytes (Bld) [#/Vol] N/A [facility] Monocytes/100 WBC Auto (Bld) Ordered By: Salbador Ramirez on 03-30-2023 Monocytes/100 WBC (Bld) N/A [facility] Monocytes/100 WBC Manual cnt (Bld)Ordered By: Salbador Ramirez on 03-30-2023 Monocytes/100 WBC (Bld) 13 % 2-11 [facility] Neutrophils Auto (Bld) [#/Vo l]Ordered By: Salbador Ramirez on 03-30-2023 Neutrophils (Bld) [#/Vol] N/A [facility] Neutrophils/100 WBC Auto (Bl d)Ordered By: Salbador Ramirez on 03-30-2023 Neutrophils/100 WBC (Bld) N/A [facility] No Panel InformationOrdered By: Salbador Ramirez on 03-30-2023 Estimated GFR (CKD-EPI) > 60.0 mL/Min [facility] Creatinine Clearance (Chem N/A [facility] Nucleated erythrocytes [Pres ence] in Blood by Automated countOrdered By: Salbador Ramirez on 03-30-2023 Nucleated RBC Auto Ql (Bld) N/A [facility] Platelet adequacy [Presence] in Blood by Light microscopyOrdered By: Salbador Ramirez on 03-30-2023 Platelets LM Ql (Bld) Normal Normal [facility] Platelet mean volume Auto (B ld) [Entitic vol]Ordered By: Salbador Ramirez on 03-30-2023 Platelet mean volume (Bld) [Entitic vol] 9.6 fL 6.6-10.1 [facility] Platelet morphology finding [Identifier] in BloodOrdered By: Salbador Ramirez on 03-30-2023 Platelet morphology finding Nom (Bld) Normal Normal [facility] Platelets Auto (Bld) [#/Vol] Ordered By: Salbador Ramirez on 03-30-2023 Platelets (Bld) [#/Vol] 149 10*3/uL 150-450 [facility] Potassium [Moles/volume] in Serum or PlasmaOrdered By: Salbador Ramirez on 03-30-2023 Potassium [Moles/Vol] 4.5 mmol/L 3.5-5.1 [facility] Protein [Mass/volume] in Ser um or PlasmaOrdered By: Salbador Ramirez on 03-30-2023 Protein [Mass/Vol] 6.9 g/dL 6.4-8.9 [facility] RBC Auto (Bld) [#/Vol]Ordere d By: Salbador Ramirez on 03-30-2023 RBC (Bld) [#/Vol] 5.37 10*6/uL 3.90-5.[address] [facility] RBC morphologyOrdered By: Gabi Ramirez on 03-30-2023 RBC morphology finding Nom (Bld) Normal Normal [facility] Segmented neutrophils/100 WB C Manual cnt (Bld)Ordered By: Salbador Ramirez on 03-30-2023 Segmented neutrophils/100 WBC (Bld) 51 % 50-70 [facility] Serum or plasma albumin/glob ulin mass ratioOrdered By: Salbador Ramirez on 03-30-2023 Albumin/Globulin [Mass ratio] 2.0 {ratio} [facility] Serum or plasma anion gap de terminationOrdered By: Salbador Ramirez on 03-30-2023 Anion gap [Moles/Vol] 14.2 mmol/L 6.0-15.0 [facility] Serum or plasma high density lipoprotein (HDL) cholesterol measurementOrdered By: Salbador Ramirez on 03-30-2023 Cholesterol in HDL [Mass/Vol] 24 mg/dL 23-92 [facility] Comment on above: HDL CHOL ATP-III CLA SSIFICATION Cardiovascular RiskHDL > or equal to 60 mg/dL LOWHDL < 40 mg/dL HIGH Serum or plasma non-glucuron idated bilirubin measurement (mass/volume)Ordered By: Salbador Ramirez on 03-30-2023 Bilirubin.indirect [Mass/Vol] 0.6 mg/dL [facility] Serum or plasma total choles terol/high density lipoprotein (HDL) cholesterol mass ratOrdered By: Salbador Ramirez on 03-30-2023 Cholesterol.total/Sofi sterol in HDL [Mass ratio] 5.8 {ratio} <5.0 [facility] Sodium [Moles/volume] in Ser um or PlasmaOrdered By: Salbador Ramirez on 03-30-2023 Sodium [Moles/Vol] 137 mmol/L 136-145 [facility] Thyroid Stimulating Hormoneo n 03-30-2023 TSH Qn 1.53 m[IU]/L Normal 0.45-5.33 [facility] Comment on above: Performed By: #### D IFF CBC, [id number], A1C WTH eA, TSH3, BMP, HEPATIC, LDLD, URMACRERAT, LIPID #### [facility] [address] [place] [address] Thyrotropin [Units/volume] i n Serum or PlasmaOrdered By: Salbador Ramirez on 03-30-2023 TSH Qn 1.53 m[IU]/L 0.45-5.33 [facility] Triglyceride [Mass/volume] i n Serum or PlasmaOrdered By: Salbador Ramirez on 03-30-2023 Triglyceride [Mass/Vol] 467 mg/dL 0-149 [facility] Comment on above: If the triglyceride result is greater than 400, LDLC and related calculations cannot be calculated and resulted.TRIG ATP III CLASSIFICATIONTRIG less than 150 mg/dL NormalTRIG 150-199 mg/dL Borderline highTRIG 200-500 mg/dL High TRIG greater than 500 mg/dL Very highStandard traceable to the Center for Disease Conrtrol and Prevention (CDC) test method. Urea nitrogen [Mass/volume] in Serum or PlasmaOrdered By: Salbador Ramirez on 03-30-2023 Urea nitrogen [Mass/Vol] 26 mg/dL 7 [facility] Urine microalbumin/creatinin e mass ratioOrdered By: Salbador Ramirez on 03-30-2023 Albumin/Creatinine DL <= 20 mg/L (U) [Mass ratio] 18.0 mg/g 0.0-30.0 [facility] Comment on above: 30-300 mg/g indicate s an increased risk for diabetic nephropathy. Greater than 300 mg/g is consistent with clinical nephropathy. (Am. J. Kidney Disease 1995, 25:107) Variant lymphocytes/100 WBC Manual cnt (Bld)Ordered By: Salbador Ramirez on 03-30-2023 Variant lymphocytes/100 WBC (Bld) 3 % 0-12 [facility] Vitamin D 25 Hydroxy Totalon 03-30-2023 Vitamin D 25 Hydroxy Total 28.2 ng/mL Low 30-100 [facility] Comment on above: Result Comment: JE MIN D STATUS 25(OH)VITAMIN D RANGE (ng/mL) Deficient <20 Insufficient 20 to <30 Sufficient 30 to 100 Reference: Faiza MF,Christina NC, Marisol CASTILLO, et al. Evaluation,treatment, and prevention of vitamin D deficiency; an Endocrine Society clinical practice guideline. JCEM. 2010; 96(7):1911-30. PERFORMED BY: [place] [address] PATHOLOGIST DEICER INSPECTOR PNEUMATIC MARII BRO M.D. Performed By: #### D IFF CBC, [id number], A1C WTH eA, TSH3, BMP, HEPATIC, LDLD, URMACRERAT, LIPID #### [facility] [address] Vitamin D+Metabolites [Mass/ volume] in Serum or PlasmaOrdered By: Salbador Ramirez on 03-30-2023 Vitamin D+Metabolites [Mass/Vol] 28.2 ng/mL 30-100 [facility] Comment on above: VITAMIN D STATUS 25( [place])VITAMIN D RANGE (ng/mL) Deficient <20 Insufficient 20 to <30Sufficient 30 to 100Reference: Faiza MF,Christina NC, Marisol CASTILLO, et al. Evaluation,treatment, and prevention of vitamin D deficiency; an Endocrine Society clinical practice guideline. JCEM. 2010; 96(7):1911-30. WBC Auto (Bld) [#/Vol]Ordere d By: Salbador Ramirez on 03-30-2023 WBC (Bld) [#/Vol] 5.2 10*3/uL 4.1-10.5 [facility] CNOVon 09-12-2022 CNOV Office Visit (DERBMN ) KARMEN CARLOS ([id number]) 1980 M Date Time Provider Department 09/12/22 6:40 PM LOKI BASURTO During your visit today, we recorded the following information about you: Loki Basurto MD 09/23/2022 1:37 PM Signed EST PATIENT LV: 07/26/2021- Dr. Basurto Chief Complaint: Lesion of concern History of Present Ilness: Karmen Carlos is a 42 year old male Patient is here for: Lesion of concern 1) growth of concern Location: right upper back Duration: few months Symptoms: betancur, itchy Current treatment: none Past treatments: none Patient went to a primary care provider and was given a muscle relaxer. Xray was performed. 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 Skin per HPI. No other new/concerning skin growth. Physical Exam: General: well appearing, of stated age, in no acute distress Neurology: alert and oriented times three Psychiatry: in a happy mood Skin: Brady skin type: II Skin exam performed of face, scalp, ears, eyelids, lips, neck, chest, abdomen, back, bilateral upper extremities, hands, fingers, fingernails, bilateral lower extremities, feet, toes, toenails. Skin exam normal with the exception of: - His right scalp has a well healing flap with redundant skin at the point of rotation - the surrounding skin is unremarkable - His left lateral scalp has a well healing STSG - His right lateral upper back has a < 1cm firm brown papule with a dimple sign Assessment and Plan: 1. 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 Dermatofibroma, right upper back -Discussed benign etiology in length -likely not related to the discomfort in his back 3. Sensation of burning and pain on the back -No evidence of concerning lesion on exam today -Recommend following up with PCP Return to clinic every 1 year for a follow up or sooner if something concerning arises. The documentation for this note was completed by Yasmine Smith RN acting as scribe for Loki Basurto MD. September 12, 2022 5:37 PM. I agree with the Chief Complaint, ROS, and Past Histories independently gathered by the clinical support associate and the remaining scribed note accurately describes my personal service to the patient. Loki Basurto MD September 12, 2022 Referring Provider: LOKI BASURTO [[id number]] Allergies As of Date: 09/12/2022 (No Known Allergies) Date Reviewed: 09/12/2022 Reviewed by: Yasmine Smith RN - Fully Assessed Reason for Visit: LESION, SKIN [936] Primary Visit Diagnosis:Dermatofibro ma of back [D23.5] Other Visit Diagnosis:Dermatofibro sarcoma protuberans of scalp [C44.49] Prescriptions as of 09/23/2022 - oxyCODONE IR (ROXICODONE) 5 mg immediate release tablet Take 1 tablet by mouth every 6 hours as needed for pain. - acetaminophen (TYLENOL) 325 mg tablet Take 2 tablets by mouth every 4 hours as needed for pain. Two (2) X 325 mg tablets = 650 mg - docusate sodium (COLACE) 100 mg capsule Take 1 capsule by mouth twice daily as needed for constipation. - dapagliflozin (FARXIGA) 10 mg tablet Take by mouth daily with breakfast. - acetaminophen (TYLENOL) 325 mg tablet Take 650 mg by mouth every 6 hours as needed. - metFORMIN ER (GLUCOPHAGE XR) 500 mg 24 hr tablet Take 1 tablet by mouth twice daily. - cephALEXin (KEFLEX) 500 mg capsule Take 1 capsule daily for 10 days - alpha lipoic acid-biotin 600 mg- 450 mcg TbER Take by mouth. - atorvastatin (LIPITOR) 40 mg tablet Take 40 mg by mouth. - glipiZIDE (GLUCOTROL) 10 mg tablet Take 20 mg by mouth twice daily before meals. - ibuprofen (MOTRIN) 200 mg tablet Take 200 mg by mouth as needed. - lisinopril (ZESTRIL, PRINIVIL) 10 mg tablet Take 10 mg by mouth once daily. - pioglitazone (ACTOS) 15 mg tablet Take 15 mg by mouth once daily. Problem List As Of Date 09/12/2022 Noted Resolved HTN (hypertension) [I10] 12/15/2020 HLD (hyperlipidemia) [E78.5] 12/15/2020 Type 2 diabetes mellitus without complication, *12/15/2020 Class 3 severe obesity due to excess calories w*12/15/2020 Former smoker [Z87.891] 02/25/2021 History of tachycardia [Z87.898] 02/25/2021 At risk for difficult intubation, subsequent en*02/25/2021 Acute post-operative pain [G89.18] 03/07/2021 Disposition: Return in about 1 year (around 09/13/2023), or if symptoms worsen or fail to improve. Follow-up and Disposition History for Encounter Date Provider Department Center 09/12/2022 [id number] BASURTOdg Mayela (more content not included)... [facility] A[facility] with Estimated Average G pooja 08-04-2022 Glucose [Mass/Vol] 292 mg/dL Normal [facility] Comment on above: Order Comment: PT IS FASTING Result Comment: PERF ORMED BY: [facility] [address] [place] [address] PATHOLOGIST DEICER INSPECTOR PNEUMATIC MARII BRO M.D. Performed By: #### D IFF CBC, [id number], A1C WTH eA, TSH3, BMP, HEPATIC, LDLD, URMACRERAT, LIPID #### [facility] [address] HbA1c (Bld) [Mass fraction] 11.8 % High 4.3-5.6 [facility] Comment on above: Order Comment: PT IS FASTING Result Comment: Incr eased risk for diabetes: 5.7 - 6.4 diabetes: >6.4 glycemic control for adults with diabetes: <7.0 Performed By: #### D IFF CBC, [id number], A1C WTH eA, TSH3, BMP, HEPATIC, LDLD, URMACRERAT, LIPID #### [facility] [address] Basic Metabolic Panelon 05-1 Anion gap [Moles/Vol] 12.1 mmol/L Normal 6.0-15.0 [facility] Comment on above: Order Comment: PT IS FASTING Performed By: #### D IFF CBC, [id number], A1C WTH eA, TSH3, BMP, HEPATIC, LDLD, URMACRERAT, LIPID #### [facility] [address] Calcium [Mass/Vol] 9.2 mg/dL Normal 8.6-10.3 [facility] Comment on above: Order Comment: PT IS FASTING Performed By: #### D IFF CBC, [id number], A1C WTH eA, TSH3, BMP, HEPATIC, LDLD, URMACRERAT, LIPID #### [facility] [address] Chloride [Moles/Vol] 102 mmol/L Normal 98-107 [facility] Comment on above: Order Comment: PT IS FASTING Performed By: #### D IFF CBC, [id number], A1C WTH eA, TSH3, BMP, HEPATIC, LDLD, URMACRERAT, LIPID #### [facility] [address] CO2 [Moles/Vol] 27.8 mmol/L Normal 21.0-31.0 [facility] Comment on above: Order Comment: PT IS FASTING Performed By: #### D IFF CBC, [id number], A1C WTH eA, TSH3, BMP, HEPATIC, LDLD, URMACRERAT, LIPID #### [facility] [address] Creatinine [Mass/Vol] 0.76 mg/dL Normal 0.70-1.30 [facility] Comment on above: Order Comment: PT IS FASTING Performed By: #### D IFF CBC, [id number], A1C WTH eA, TSH3, BMP, HEPATIC, LDLD, URMACRERAT, LIPID #### [facility] [address] [place] [address] [place] GFR/1.73 sq M.predicted MDRD (S/P/Bld) [Vol rate/Area] mL/min/{1.73_m2} [facility] Comment on above: Order Comment: PT IS FASTING Performed By: #### D IFF CBC, [id number], A1C WTH eA, TSH3, BMP, HEPATIC, LDLD, URMACRERAT, LIPID #### [facility] [address] Glucose [Mass/Vol] 256 mg/dL High 70-100 [facility] Comment on above: Order Comment: PT IS FASTING Result Comment: [place] Glucose Reference Range is dependent on time and content of last meal. Glucose of more than 200 mg/dL in a nonstressed, ambulatory subject supports the diagnosis of Diabetes Mellitus. ADA recommended reference range Performed By: #### D IFF CBC, [id number], A1C WTH eA, TSH3, BMP, HEPATIC, LDLD, URMACRERAT, LIPID #### [facility] [address] [place] [address] [place] Potassium [Moles/Vol] 4.9 mmol/L Normal 3.5-5.1 [facility] Comment on above: Order Comment: PT IS FASTING Performed By: #### D IFF CBC, [id number], A1C WTH eA, TSH3, BMP, HEPATIC, LDLD, URMACRERAT, LIPID #### [facility] [address] Sodium [Moles/Vol] 137 mmol/L Normal 136-145 [facility] Comment on above: Order Comment: PT IS FASTING Performed By: #### D IFF CBC, [id number], A1C WTH eA, TSH3, BMP, HEPATIC, LDLD, URMACRERAT, LIPID #### [facility] [address] Urea nitrogen [Mass/Vol] 17 mg/dL Normal 7-25 [facility] Comment on above: Order Comment: PT IS FASTING Performed By: #### D IFF CBC, [id number], A1C WTH eA, TSH3, BMP, HEPATIC, LDLD, URMACRERAT, LIPID #### [address] Complete Blood Count Auto Di ffon 08-04-2022 Basophils (Bld) [#/Vol] 0.0 10*3/uL Normal 0.0-0.2 [facility] Comment on above: Order Comment: PT IS FASTING Result Comment: PERF ORMED BY: [place] [address] PATHOLOGIST DEICER INSPECTOR PNEUMATIC MARII BRO M.D. Performed By: #### P SAS, [id number], LDLD, A1C WTH eA, LIPID, BMP, HEPATIC, TSH3, CBC #### [address] Basophils/100 WBC (Bld) 1.0 % Normal . [facility] Comment on above: Order Comment: PT IS FASTING Performed By: #### P SAS, [id number], LDLD, A1C WTH eA, LIPID, BMP, HEPATIC, TSH3, CBC #### [address] Eosinophils (Bld) [#/Vol] 0.1 10*3/uL Normal 0.0-0.45 [facility] Comment on above: Order Comment: PT IS FASTING Performed By: #### P SAS, [id number], LDLD, A1C WTH eA, LIPID, BMP, HEPATIC, TSH3, CBC #### [place] [address] [place] Eosinophils/100 WBC (Bld) 1.8 % Normal . [facility] Comment on above: Order Comment: PT IS FASTING Performed By: #### P SAS, [id number], LDLD, A1C WTH eA, LIPID, BMP, HEPATIC, TSH3, CBC #### [address] Erythrocyte distribution width (RBC) [Ratio] 12.9 % Normal 12.0-14.8 [facility] Comment on above: Order Comment: PT IS FASTING Performed By: #### P SAS, [id number], LDLD, A1C WTH eA, LIPID, BMP, HEPATIC, TSH3, CBC #### [address] Hematocrit (Bld) [Volume fraction] 42.8 % Normal 38.8-50.0 [facility] Comment on above: Order Comment: PT IS FASTING Performed By: #### P SAS, [id number], LDLD, A1C WTH eA, LIPID, BMP, HEPATIC, TSH3, CBC #### [address] Hemoglobin (Bld) [Mass/Vol] 14.9 g/dL Normal 13.0-17.0 [facility] Comment on above: Order Comment: PT IS FASTING Performed By: #### P SAS, [id number], LDLD, A1C WTH eA, LIPID, BMP, HEPATIC, TSH3, CBC #### [address] Lymphocytes (Bld) [#/Vol] 1.4 10*3/uL Normal 1.00-4.8 [facility] Comment on above: Order Comment: PT IS FASTING Performed By: #### P SAS, [id number], LDLD, A1C WTH eA, LIPID, BMP, HEPATIC, TSH3, CBC #### [place] [address] [place] Lymphocytes/100 WBC (Bld) 32.7 % Normal . [facility] Comment on above: Order Comment: PT IS FASTING Performed By: #### P SAS, [id number], LDLD, A1C WTH eA, LIPID, BMP, HEPATIC, TSH3, CBC #### [facility] [address] MCH (RBC) [Entitic mass] 29.1 pg Normal 27.5-35.2 [facility] Comment on above: Order Comment: PT IS FASTING Performed By: #### P SAS, [id number], LDLD, A1C WTH eA, LIPID, BMP, HEPATIC, TSH3, CBC #### [facility] [address] MCV (RBC) [Entitic vol] 83.4 fL Low 83.5-101 [facility] Comment on above: Order Comment: PT IS FASTING Performed By: #### P SAS, [id number], LDLD, A1C WTH eA, LIPID, BMP, HEPATIC, TSH3, CBC #### [facility] [address] Mean Corpuscular HGB Conc 34.9 g/dL Normal 32.5-35.6 [facility] Comment on above: Order Comment: PT IS FASTING Performed By: #### P SAS, [id number], LDLD, A1C WTH eA, LIPID, BMP, HEPATIC, TSH3, CBC #### [facility] [address] Monocytes (Bld) [#/Vol] 0.3 10*3/uL Normal 0.0-0.8 [facility] Comment on above: Order Comment: PT IS FASTING Performed By: #### P SAS, [id number], LDLD, A1C WTH eA, LIPID, BMP, HEPATIC, TSH3, CBC #### [facility] [address] Monocytes/100 WBC (Bld) 7.5 % Normal . [facility] Comment on above: Order Comment: PT IS FASTING Performed By: #### P SAS, [id number], LDLD, A1C WTH eA, LIPID, BMP, HEPATIC, TSH3, CBC #### [facility] [address] Neutrophils (Bld) [#/Vol] 2.5 10*3/uL Normal 1.8-7.7 [facility] Comment on above: Order Comment: PT IS FASTING Performed By: #### P SAS, [id number], LDLD, A1C WTH eA, LIPID, BMP, HEPATIC, TSH3, CBC #### [facility] [address] Neutrophils/100 WBC (Bld) 57.0 % Normal . [facility] Comment on above: Order Comment: PT IS FASTING Performed By: #### P SAS, [id number], LDLD, A1C WTH eA, LIPID, BMP, HEPATIC, TSH3, CBC #### [facility] [address] NRBC% 0.2 /100{WBC} Normal 0-0.5 [facility] Comment on above: Order Comment: PT IS FASTING Performed By: #### P SAS, [id number], LDLD, A1C WTH eA, LIPID, BMP, HEPATIC, TSH3, CBC #### [address] Platelet mean volume (Bld) [Entitic vol] 9.0 fL Normal 6.6-10.1 [facility] Comment on above: Order Comment: PT IS FASTING Performed By: #### P SAS, [id number], LDLD, A1C WTH eA, LIPID, BMP, HEPATIC, TSH3, CBC #### [facility] [address] [place] [address] [place] Platelets (Bld) [#/Vol] 134 10*3/uL Low 150-450 [facility] Comment on above: Order Comment: PT IS FASTING Performed By: #### P SAS, [id number], LDLD, A1C WTH eA, LIPID, BMP, HEPATIC, TSH3, CBC #### [address] RBC (Bld) [#/Vol] 5.13 10*6/uL Normal 3.90-5.[address] [facility] Comment on above: Order Comment: PT IS FASTING Performed By: #### P SAS, [id number], LDLD, A1C WTH eA, LIPID, BMP, HEPATIC, TSH3, CBC #### [facility] [address] WBC (Bld) [#/Vol] 4.3 10*3/uL Normal 4.1-10.5 [facility] Comment on above: Order Comment: PT IS FASTING Performed By: #### P SAS, [id number], LDLD, A1C WTH eA, LIPID, BMP, HEPATIC, TSH3, CBC #### [facility] [address] Hepatic Panelon 08-04-2022 Albumin [Mass/Vol] 4.0 g/dL Normal 3.5-5.7 [facility] Comment on above: Order Comment: PT IS FASTING Performed By: #### D IFF CBC, [id number], A1C WTH eA, TSH3, BMP, HEPATIC, LDLD, URMACRERAT, LIPID #### [facility] [address] Albumin/Globulin [Mass ratio] 2.0 {ratio} Normal [facility] Comment on above: Order Comment: PT IS FASTING Performed By: #### D IFF CBC, [id number], A1C WTH eA, TSH3, BMP, HEPATIC, LDLD, URMACRERAT, LIPID #### [facility] [address] ALP [Catalytic activity/Vol] 48 U/L Normal 34-104 [facility] Comment on above: Order Comment: PT IS FASTING Performed By: #### D IFF CBC, [id number], A1C WTH eA, TSH3, BMP, HEPATIC, LDLD, URMACRERAT, LIPID #### [facility] [address] [place] [id number] [facility] ALT [Catalytic activity/Vol] 28 U/L Normal 7-52 [facility] Comment on above: Order Comment: PT IS FASTING Performed By: #### D IFF CBC, [id number], A1C WTH eA, TSH3, BMP, HEPATIC, LDLD, URMACRERAT, LIPID #### [facility] [address] AST [Catalytic activity/Vol] 16 U/L Normal 13-39 [facility] Comment on above: Order Comment: PT IS FASTING Performed By: #### D IFF CBC, [id number], A1C WTH eA, TSH3, BMP, HEPATIC, LDLD, URMACRERAT, LIPID #### [facility] [address] Bilirubin [Mass/Vol] 0.7 mg/dL Normal 0.3-1.0 [facility] Comment on above: Order Comment: PT IS FASTING Performed By: #### D IFF CBC, [id number], A1C WTH eA, TSH3, BMP, HEPATIC, LDLD, URMACRERAT, LIPID #### [facility] [address] Bilirubin,Indirect 0.6 mg/dL Normal [facility] Comment on above: Order Comment: PT IS FASTING Performed By: #### D IFF CBC, [id number], A1C WTH eA, TSH3, BMP, HEPATIC, LDLD, URMACRERAT, LIPID #### [facility] [address] Bilirubin.indirect [Mass/Vol] 0.10 mg/dL Normal 0.03-0.18 [facility] Comment on above: Order Comment: PT IS FASTING Performed By: #### D IFF CBC, [id number], A1C WTH eA, TSH3, BMP, HEPATIC, LDLD, URMACRERAT, LIPID #### [facility] [address] Globulin (S) [Mass/Vol] 2.0 g/dL Normal [facility] Comment on above: Order Comment: PT IS FASTING Performed By: #### D IFF CBC, [id number], A1C WTH eA, TSH3, BMP, HEPATIC, LDLD, URMACRERAT, LIPID #### [facility] [address] Protein [Mass/Vol] 6.0 g/dL Low 6.4-8.9 [facility] Comment on above: Order Comment: PT IS FASTING Performed By: #### D IFF CBC, [id number], A1C WTH eA, TSH3, BMP, HEPATIC, LDLD, URMACRERAT, LIPID #### [facility] [address] [place] [address] [facility] LDL Cholesterol Measuredon 0 08-04-2022 LDL Cholesterol Measured 55 mg/dL Normal 0-100 [facility] Comment on above: Order Comment: PT IS FASTING Result Comment: LDL ATP III CLASSIFICATION LDL less than 100 mg/dL Optimal LDL 100-129 mg/dL Near or above optimal LDL 130-159 mg/dL Borderline high LDL 160-189 mg/dL High LDL greater than 189 mg/dL Very high Performed By: #### D IFF CBC, [id number], A1C WTH eA, TSH3, BMP, HEPATIC, LDLD, URMACRERAT, LIPID #### [facility] [address] [place] [id number] [facility] Lipid Panelon 08-04-2022 Cholesterol [Mass/Vol] 133 mg/dL Low 140-200 [facility] Comment on above: Order Comment: PT IS FASTING Result Comment: Chol less than 200 mg/dl low risk Chol 201-239 mg/dl borderline risk Chol 240 mg/dl and greater high risk Performed By: #### D IFF CBC, [id number], A1C WTH eA, TSH3, BMP, HEPATIC, LDLD, URMACRERAT, LIPID #### [facility] [address] [place] [id number] [facility] Cholesterol in HDL [Mass/Vol] 26 mg/dL Low 29-71 [facility] Comment on above: Order Comment: PT IS FASTING Result Comment: HDL CHOL ATP-III CLASSIFICATION Cardiovascular Risk HDL > or equal to 60 mg/dL LOW HDL < 40 mg/dL HIGH Performed By: #### D IFF CBC, [id number], A1C WTH eA, TSH3, BMP, HEPATIC, LDLD, URMACRERAT, LIPID #### [facility] [address] [place] [id number] [facility] Cholesterol.total/Sofi sterol in HDL [Mass ratio] 5.1 {ratio} Normal <5.0 [facility] Comment on above: Order Comment: PT IS FASTING Performed By: #### D IFF CBC, [id number], A1C WTH eA, TSH3, BMP, HEPATIC, LDLD, URMACRERAT, LIPID #### [facility] [address] LDL Cholesterol,Calculated Not performed Normal 0-100 [facility] Comment on above: Order Comment: PT IS FASTING Performed By: #### D IFF CBC, [id number], A1C WTH eA, TSH3, BMP, HEPATIC, LDLD, URMACRERAT, LIPID #### [facility] [address] Triglyceride w/Reflex 483 mg/dL High 0-149 [facility] Comment on above: Order Comment: PT IS FASTING Result Comment: TRIG ATP III CLASSIFICATION TRIG less than 150 mg/dL Normal TRIG 150-199 mg/dL Borderline high TRIG 200-500 mg/dL High TRIG greater than 500 mg/dL Very high Standard traceable to the Center for Disease Conrtrol and Prevention (CDC) test method. If the triglyceride result is greater than 400, LDLC and related calculations cannot be calculated and resulted. Performed By: #### D IFF CBC, [id number], A1C WTH eA, TSH3, BMP, HEPATIC, LDLD, URMACRERAT, LIPID #### [facility] [address] VLDL CHOLESTEROL 96 mg/dL Normal [facility] Comment on above: Order Comment: PT IS FASTING Performed By: #### D IFF CBC, [id number], A1C WTH eA, TSH3, BMP, HEPATIC, LDLD, URMACRERAT, LIPID #### [facility] [address] [place] [address] [place] Microalbumin, Urine (Random) on 08-04-2022 Albumin DL <= 20 mg/L (U) [Mass/Vol] 3.9 mg/dL High 0.0-1.8 [facility] Comment on above: Result Comment: PERF ORMED BY: [place] [address] PATHOLOGIST DEICER INSPECTOR PNEUMATIC MARII BRO M.D. Performed By: #### D IFF CBC, [id number], A1C WTH eA, TSH3, BMP, HEPATIC, LDLD, URMACRERAT, LIPID #### [address] PSA Screen (Yearly Only)on 0 08-04-2022 PSA Screen (Yearly Only) 0.300 ng/mL Normal 0.000-4.000 [facility] Comment on above: Order Comment: PT IS FASTING Result Comment: PERF ORMED BY: [place] [address] PATHOLOGIST DEICER INSPECTOR PNEUMATIC MARII BRO M.D. Performed By: #### D IFF CBC, [id number], A1C WTH eA, TSH3, BMP, HEPATIC, LDLD, URMACRERAT, LIPID #### [facility] [address] [place] [address] Thyroid Stimulating Hormoneo n 08-04-2022 TSH Qn 2.22 m[IU]/L Normal 0.45-5.33 [facility] Comment on above: Order Comment: PT IS FASTING Performed By: #### D IFF CBC, [id number], A1C WTH eA, TSH3, BMP, HEPATIC, LDLD, URMACRERAT, LIPID #### [place] [id number] [facility] Vitamin D 25 Hydroxy Totalon 08-04-2022 Vitamin D 25 Hydroxy Total 17.2 ng/mL Low 30-100 [facility] Comment on above: Order Comment: PT IS FASTING Result Comment: JE MIN D STATUS 25(OH)VITAMIN D RANGE (ng/mL) Deficient <20 Insufficient 20 to <30 Sufficient 30 to 100 Reference: Faiza MF,Christina NC, Marisol CASTILLO, et al. Evaluation,treatment, and prevention of vitamin D deficiency; an Endocrine Society clinical practice guideline. JCEM. 2010; 96(7):1911-30. PERFORMED BY: [place] [id number] PATHOLOGIST DEICER INSPECTOR PNEUMATIC MARII BRO M.D. Performed By: #### D IFF CBC, [id number], A1C WTH eA, TSH3, BMP, HEPATIC, LDLD, URMACRERAT, LIPID #### [facility] [address] [place] [id number] [facility] XR lumbar spine 2-3V*on 07-17 XR lumbar spine 2-3V* [facility] [address] [place] [address] [place] [address] XRay Report Signed Patient: Karmen Carlos MR#: [id number] : 1980 Acct:[id number] Age/Sex: 42 / M ADM Date: 08/03/22 Loc: XD Room: Type: [facility] Attending Dr: Shaikh Chava RINCON Copies to: Shaikh Cahva MD Ordering Provider: Shaikh Chava MD Date of Service: 08/03/22 XR/XR lumbar spine 2-3V*: .. ([id number]) XR/XR thoracic spine 3V*: /// THORACIC SPINE - - 2 views, lumbar spine 2 views CLINICAL HISTORY: Mid to lower back pain for one month COMPARISON: None FINDINGS: Thoracic spine: Vertebral body heights appear maintained. Scattered endplate degenerative changes. Pedicles appear intact. Lumbar spine: Vertebral body heights appear maintained. Scattered endplate and facet joint degenerative changes with mild disc space narrowing L2-L3. XR/XR thoracic spine 3V* IMPRESSION: DEGENERATIVE CHANGES INVOLVING THE THORACIC AND LUMBAR SPINE WITHOUT ACUTE BONY PROCESS. Impression dictated by: Giancarlo Wolf Jr., D.ONatalia08/03/2022 3:41 PM Dictation Location: [place] [address] Transcribed By: [facility] 08/03/22 154 Dictated By: Giancarlo Wolf Jr, DO 08/03/22 154 Signed By: 08/03/22 154 [facility] Eyad 06-29-2022 DHARMESH Telephone (DPQ) KARMEN CARLOS ([id number]) 1980 M Date Time Provider Department 06/29/22 LOKI BASURTO During your visit today, we recorded the following information about you: Asia Carrizales 06/29/2022 3:17 PM Signed Left VM / Sent MyCharts About getting a appt with per Staff Message Allergies As of Date: 06/29/2022 (No Known Allergies) Date Reviewed: 01/31/2022 Reviewed by: Felecia Hoff RN - Fully Assessed Reason for Visit: Appointment [186] Prescriptions as of 06/29/2022 - oxyCODONE IR (ROXICODONE) 5 mg immediate release tablet Take 1 tablet by mouth every 6 hours as needed for pain. - acetaminophen (TYLENOL) 325 mg tablet Take 2 tablets by mouth every 4 hours as needed for pain. Two (2) X 325 mg tablets = 650 mg - docusate sodium (COLACE) 100 mg capsule Take 1 capsule by mouth twice daily as needed for constipation. - dapagliflozin (FARXIGA) 10 mg tablet Take by mouth daily with breakfast. - acetaminophen (TYLENOL) 325 mg tablet Take 650 mg by mouth every 6 hours as needed. - metFORMIN ER (GLUCOPHAGE XR) 500 mg 24 hr tablet Take 1 tablet by mouth twice daily. - cephALEXin (KEFLEX) 500 mg capsule Take 1 capsule daily for 10 days - alpha lipoic acid-biotin 600 mg- 450 mcg TbER Take by mouth. - atorvastatin (LIPITOR) 40 mg tablet Take 40 mg by mouth. - glipiZIDE (GLUCOTROL) 10 mg tablet Take 20 mg by mouth twice daily before meals. - ibuprofen (MOTRIN) 200 mg tablet Take 200 mg by mouth as needed. - lisinopril (ZESTRIL, PRINIVIL) 10 mg tablet Take 10 mg by mouth once daily. - pioglitazone (ACTOS) 15 mg tablet Take 15 mg by mouth once daily. Problem List As Of Date 06/29/2022 Noted Resolved HTN (hypertension) [I10] 12/15/2020 HLD (hyperlipidemia) [E78.5] 12/15/2020 Type 2 diabetes mellitus without complication, *12/15/2020 Class 3 severe obesity due to excess calories w*12/15/2020 Former smoker [Z87.891] 02/25/2021 History of tachycardia [Z87.898] 02/25/2021 At risk for difficult intubation, subsequent en*02/25/2021 Acute post-operative pain [G89.18] 03/07/2021 Encounter Status:Closed by ASIA CARRIZALES on 06/29/22 [facility] CNOVSPon 02-13-2022 CNOVSP Visit (SP) Office ([place]) KARMEN CARLOS ([id number]) 1980 M Date Time Provider Department 02/13/22 9:00 AM CHANA CHANDRA During your visit today, we recorded the following information about you: Temperature Pulse Respiration Blood pressure 97.6 degrees 94/minute 20/minute 162/111 Chana Chandra APRN.CNP 02/13/2022 9:20 AM Signed Post-op Note DATE: February 13, 2022 CHIEF COMPLAINT: Post-op evaluation HPI: Karmen Carlos is a 41 year old male who is here for follow-up 13 days s/p 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 Patient presents today and is doing well since surgery. He is happy with how things are progressing. His biggest concern is his graft site from initial surgery in 02/2021 where there is a surgical clip that is protruding. He feels it is becoming more visible/noticeable over the last month. He has had mild discomfort and has noticed some drainage, clear-white in color. He denies any fevers or chills. He has been applying Bacitracin to the incision daily. REVIEW OF SYSTEMS: GENERAL:Negative for malaise, significant weight loss and fever SKIN: See HPI PAIN: No pain presently Denies fevers, chills, erythema, induration, fluctuance, hematoma, seroma, purulent drainage, odor. PHYSICAL EXAM: BP 162/111 Pulse 94 Temp 36.4 ?C (97.6 ?F) (Oral) Resp 20 SpO2 96% GENERAL: Patient is a well-nourished , appearing stated age, resting comfortably, breathing regularly. No acute distress. Lymph: No Submandibular, cervical, supraclavicular, or axillary lymphadenopathy present Right scalp incision well approximated, c/d/i, absorbable sutures intact Left scalp former skin graft site fully healed No erythema, drainage, seroma/hematoma No s/s of infection No s/s of DVT: No redness, swelling or warmth, no calf/foot/leg pain or pain with ambulation. ASSESSMENT/PLAN: Karmen Carlos is a 41 year old male who is here for follow-up 13 days s/p 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 -Sutures are absorbable -Discussed that the ligaclip at the skin graft site will continue to work its way out, and can be removed once it is more visible. Patient to contact office if the clip hasn't worked its way out in the next month -No heavy lifting > 10 lbs x 2 weeks -No swimming or bathing or submerging in water until wounds are completely healed -May shower gently wash with baby shampoo or gentle soap and water, pat dry. -May discontinue use of bacitracin and switch to Vaseline/Aquaphor -Apply Vaseline/Aquaphor to incisions and leave open to air. May apply gauze to protect clothes -Wash and change dressings daily -Apply Sunscreen daily -May apply silicone scar gel at 3-4 weeks post op as long as incision is healing well -May massage scar at 3-4 weeks post op to help break down scar tissue and help soften/flatten any raised or puckered edges -Continue follow up with Dr. Basurto [facility]: - recommend regular dermatology follow-up for FBSE - Q3 months for 2 years, Q6 months for 5 years and Q1 year for the rest of his/her life Call [phone] or go to the Emergency Department if any of these symptoms arise: -Fever or chills -Increased drainage -Green, yellow or pus like drainage -Foul odor -Increased pain -Hardness around the wound -Redness, warmth or swelling of the surrounding tissue -Color change to the wound Follow up PRN with any questions/concerns or if the clip at graft site doesn't work its way out Office number: [phone] (option 3) The patient is seen and examined by Chana Chandra APRN.CNP and the following reflects her service. Scribed by Citlaly Padgett RN I agree with the Chief Complaint, ROS, and Past Histories independently gathered by the clinical support associate and the remaining scribed note accurately describes my personal service to the patient. Chana Chandra APRN.CNP February 13, 2022 9:20 AM Chana Chandra APRN.CNP 02/13/2022 9:16 AM Signed -Sutures are absorbable -Discussed that the ligaclip at the skin graft site will continue to work its way out, and can be removed once it is more visible. Patient to contact office if the clip hasn't worked its way out in the next month -No heavy lifting > 10 lbs x 2 weeks -No swimming or bathing or submerging in water until wounds are completely healed -May shower gently wash with baby shampoo or gentle soap and water, pat dry. -May discontinue use of bacitracin and switch to Vaseline/Aquaphor -Apply Vaseline/Aquaphor to incisions and leave open to air. May apply gauze to protect clothes -Wash and change dressings daily -Apply Sunscreen daily -May apply silicone scar gel at 3-4 weeks post op as long as incision is healing well -May massage scar at 3-4 weeks post op to help b (more content not included)... Normal [facility] BRIEF OP NOTon 01-31-2022 BRIEF OP NOT HNO ID: [id number] Author: Agatha Rawls MD Service: Plastic Surgery Author Type: Resident Type: Brief Op Note Filed: 01/31/2022 8:38 AM Note Text: BRIEF OPERATIVE NOTE PLASTIC AND RECONSTRUCTIVE SURGERY LOG ID: [id number] Surgery/Procedure Date: 01/31/2022 Incision/Procedure Start Time: 8:04 AM Incision Close/Procedure End Time: 8:29 AM Surgeon(s)/Procedurali st(s) and Tar Roofer(s): Surgeon(s) and Role: * Toan Chu MD - Primary * Agatha Rawls MD - Resident - Assisting No Additional Staff Procedure(s): Excision of scalp standing cone Anesthesia: Local Findings: Standing cone of right scalp measuring 8 cm in length Estimated Blood Loss: 5 mL IV Fluids: none Mckeon: No Urine Output: Not Measured Drains: None Specimens: None Implants: None Complications: None Pre-Op/Pre-Procedure Diagnosis: Right scalp standing cone Post-Op/Post-Procedure Diagnosis: Same Post-operative Plan: Discharge home Bacitracin and primapore SIGNATURE: Agatha Rawls MD, MPH PATIENT NAME: Karmen Carlos DATE: January 31, 2022 TIME: 8:33 AM PAGER/CONTACT #: [phone] Normal [facility] HISTORY PHYSICALon HISTORY PHYSICAL HNO ID: [id number] Author: Toan Chu MD Service: Plastic Surgery Author Type: Physician Type: HANDP Filed: 01/31/2022 7:43 AM Note Text: UPDATED HISTORY AND PHYSICAL EXAMINATION SERVICE DATE: 01/31/2022 SERVICE TIME: 7:00am PHYSICAL EXAM MUST BE COMPLETED ON ADMISSION The History and Physical (completed in the past 30 days) has been reviewed and the patient has been examined. The contents accurately reflect the patient's condition with the following additions or revisions since the HANDP was completed. Examination indicates no changes. CV: RRR. Normal S1 and S2 Pulm: CTAB. No wheezing or rhonchi This HANDP can be found in the Electronic Medical Record attached below. 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 Patient presents today to discuss revision of scalp flap. States he is doing well. Patient was evaluated by Dr. Basurto in July 2021 where he was cleared to wear a hat and stop using ointment on the scalp. Patient is accompanied today by spouse, they are happy with how the graft site and flap have healed. They deny any concerns aside from seeking revision of the puckered/raised area of the scalp flap. Previously underwent: 02/18/2021: MOHS with Dr. Basurto. Clear margins achieved. 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 Basurto. Margins were not clear Meds and allergies reviewed in [facility]. REVIEW OF SYSTEMS: PAIN ASSESSMENT: Negative for pain, history of chronic pain, or current treatment for a chronic pain condition. GENERAL: No weight loss, malaise or fevers RESPIRATORY: Negative for cough, hemoptysis, wheezing, COPD, dyspnea or shortness of breath CARDIOVASCULAR: Negative for chest pain, leg swelling, hypertension, CHF or palpitations MUSCULOSKELETAL: Negative for joint pain or swelling, back pain or muscle pain SKIN: See HPI NEURO: No history of headaches, syncope, paralysis, seizures or tremorsREVIEW OF SYSTEMS PMH: PAST MEDICAL HISTORY No past medical history on file. PSH: PAST SURGICAL HISTORY PAST SURGICAL HISTORY Procedure Laterality Date VASECTOMY UNI/BI SPX W/POSTOP SEMEN EXAMS MEDICATIONS: Current Outpatient Medications on File Prior to Visit Medication Sig acetaminophen (TYLENOL) 325 mg tablet Take 2 tablets by mouth every 4 hours as needed for pain. Two (2) X 325 mg tablets = 650 mg docusate sodium (COLACE) 100 mg capsule Take 1 capsule by mouth twice daily as needed for constipation. dapagliflozin (FARXIGA) 10 mg tablet Take by mouth daily with breakfast. acetaminophen (TYLENOL) 325 mg tablet Take 650 mg by mouth every 6 hours as needed. metFORMIN ER (GLUCOPHAGE XR) 500 mg 24 hr tablet Take 1 tablet by mouth twice daily. cephALEXin (KEFLEX) 500 mg capsule Take 1 capsule daily for 10 days alpha lipoic acid-biotin 600 mg- 450 mcg TbER Take by mouth. atorvastatin (LIPITOR) 40 mg tablet Take 40 mg by mouth. glipiZIDE (GLUCOTROL) 10 mg tablet Take 20 mg by mouth twice daily before meals. ibuprofen (MOTRIN) 200 mg tablet Take 200 mg by mouth as needed. lisinopril (ZESTRIL, PRINIVIL) 10 mg tablet Take 10 mg by mouth once daily. pioglitazone (ACTOS) 15 mg tablet Take 15 mg by mouth once daily. Current Facility-Administered Medications on File Prior to Visit Medication perflutren lipid microspheres 1.3 mL in NaCl (PF) 0.9% 10 mL injection (DEFINITY) sodium chloride 0.9 % (flush) 10 mL (BD POSIFLUSH) ALLERGIES: ALLERGIES ALLERGIES No Known Allergies PHYSICAL EXAM: BP 157/91 Pulse 96 Temp 36.6 ?C (97.8 ?F) (Oral) Resp 20 SpO2 99% GENERAL: Patient is a well-nourished , appearing stated age, resting comfortably, breathing regularly. No acute distress. Lymph: No Submandibular, cervical, supraclavicular, axillary, or inguinal lymphadenopathy present Skin: Skin color, texture, turgor normal. 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 Patient's surgical sites are well healed. He is 6 months out from most recent surgery and presents today to discuss scalp flap revision. At this time, after discussing with the patient and reviewing their history, I believe the patient is a good candidate for surgical intervention. I discussed modalities of operative intervention and (more content not included)... Normal [facility] OPERATIVE NOon 01-31-2022 OPERATIVE NO HNO ID: [id number] Author: Agatha Rawls MD Service: Plastic Surgery Author Type: Resident Type: Operative Report Filed: 01/31/2022 8:49 AM Note Text: Attestation signed by Toan Chu MD at 01/31/2022 9:26 AM Teaching statement: I was active and involved in all critical portions of the case. Toan Chu MD OPERATIVE REPORT PLASTIC AND RECONSTRUCTIVE SURGERY Log ID: [id number] Surgery/Procedure Date: 01/31/2022 Incision/Procedure Start Time: 8:04 AM Incision Close/Procedure End Time: 8:29 AM Surgeon(s)/Procedurali st(s) and Tar Roofer(s): Surgeon(s) and Role: * Toan Chu MD - Primary * Agatha Rawls MD - Resident - Assisting No Additional Staff Pre-Op/Pre-Procedure Diagnosis: Right scalp flap standing cone deformity Post-Op/Post-Procedure Diagnosis: Same as preoperative diagnosis. Anesthesia: Local Procedure/Operation: Excision of right scalp standing cone deformity Complex primary closure, 8cm Operative Indications: The patient is a 41 year old male with history of dermatofibrosarcoma s/p Mohs and reconstruction with right superficial temporal fasciocutaneous scalp pedicled flap and STSG to left scalp donor site on 03/07/21. He now presents with right scalp standing cone deformity. Patient elected to undergo aforementioned procedure following discussion of risks, benefits, and alternatives. Description of Procedure: The patient was brought to the operating room and placed in supine position. Timeouts were performed using both pre-induction and pre-incision safety checklists to verify correct patient, procedure, site, and additional critical information prior to beginning the procedure. Local anesthesia was performed with injection of 10 mL of 1:100,00 lidocaine with epinephrine circumferentially around the standing cone deformity. Surgical sites were prepped and draped in the normal sterile fashion. Attention was turned to the standing cone deformity. A 15 blade was used to incision the anterior portion of the deformity. Dissection was carried out to the periosteum. Care was taken to not violate the periosteum. The remaining incision was carried out throughout the posterior portion of the deformity, again to the level of the periosteum. The skin and underlying subcutaneous and soft tissue was excised with ease. Electrocautery was utilized to ensure meticulous hemostasis. 3-0 vicryl sutures were placed in a buried fashion to bring the wound edges together with minimal tension. Several 3-0 chromic sutures were placed in a horizontal mattress fashion and the skin edges were brought together with no tension. Bacitracin ointment and a primapore dressing were placed on the incision. All counts were correct. A debriefing checklist was completed to share information critical to postoperative care of the patient. The patient tolerated the procedure well and was taken to the postanesthesia care unit in stable condition. Operative Findings: Right scalp flap standing cone deformity measuring 2cm x 8 cm Estimated Blood Loss: 5 mL Specimens: None Drains: None Implantable Devices: None Complications: None Participation in Procedure: Dictated on behalf of the primary surgeon, Dr. Chu, who was present in the operating room for the olea components of the operation. I performed the remainder of the procedure, without direct supervision but with the primary surgeon readily available. SIGNATURE: Agatha Rawls MD PATIENT NAME: Karmen Carlos DATE: January 31, 2022 TIME: 8:42 AM PAGER/CONTACT #: [facility] KARMEN CARLOS ([id number]) 1980 Date Time Provider Department 03/02/21 TOAN CHU During your visit today, we recorded the following information about you: Keya Nielsen Ma 03/02/2021 1:17 PM Signed Patient needs to have an echo done possibly before his surgery scheduled for Sunday03/07/2021. He prefers to go to the [facility] and on a Sunday if possible. Can you see what you can do? Kapil Alberts 03/02/2021 1:55 PM Signed Called and lm for pt. Scheduled only available echo (other than tow) before 03/07/21. Pt is scheduled for 03/03/21 at [facility]. Sent [employer] message with this information as well Allergies As of Date: 03/02/2021 (No Known Allergies) Date Reviewed: 02/25/2021 Reviewed by: Evette Weldon PA-C - Fully Assessed Reason for Visit: Title Examiner - Other [3602] Prescriptions as of 03/02/2021 - dapagliflozin (FARXIGA) 10 mg tablet Take by mouth daily with breakfast. - acetaminophen (TYLENOL) 325 mg tablet Take 650 mg by mouth every 6 hours as needed. - metFORMIN ER (GLUCOPHAGE XR) 500 mg 24 hr tablet Take 1 tablet by mouth twice daily. - cephALEXin (KEFLEX) 500 mg capsule Take 1 capsule daily for 10 days - alpha lipoic acid-biotin 600 mg- 450 mcg TbER Take by mouth. - atorvastatin (LIPITOR) 40 mg tablet Take 40 mg by mouth. - glipiZIDE (GLUCOTROL) 10 mg tablet Take 20 mg by mouth twice daily before meals. - ibuprofen (MOTRIN) 200 mg tablet Take 200 mg by mouth as needed. - lisinopril (ZESTRIL, PRINIVIL) 10 mg tablet Take 10 mg by mouth once daily. - pioglitazone (ACTOS) 15 mg tablet Take 15 mg by mouth once daily. Facility-Administered Medications as of 03/02/2021 - perflutren lipid microspheres 1.3 mL in NaCl (PF) 0.9% 10 mL injection (DEFINITY) - sodium chloride 0.9 % (flush) 10 mL (BD POSIFLUSH) Problem List As Of Date 03/02/2021 Noted Resolved HTN (hypertension) [I10] 12/15/2020 HLD (hyperlipidemia) [E78.5] 12/15/2020 Type 2 diabetes mellitus without complication, *12/15/2020 Class 3 severe obesity due to excess calories w*12/15/2020 Former smoker [Z87.891] 02/25/2021 History of tachycardia [Z87.898] 02/25/2021 At risk for difficult intubation, subsequent en*02/25/2021 Encounter Status:Closed by KAPIL ALBERTS on 03/02/21 Normal [id number] Author: LEEANN Roche Service: Radiology Author Type: Certified Corporate [employer] Executive Type: Allied Health Filed: 12/15/2020 3:50 PM Note Text: Radiology Service Progress Note DATE OF SERVICE: December 15, 2020 TIME: 3:44 PM PATIENT IDENTITY VERIFICATION COMPLETED USING TWO (2) STANDARD IDENTIFIERS: Name and Date of confirmed by patient verbally and Name and Date of confirmed by identification band. FALL SCREENING: Has the patient had 2 falls in the last year or 1 fall with injury or currently using an Ambulatory Assistive Device (Walker, Cane, Wheelchair, Crutches, etc.)? No PATIENT GENDER DATA: Male PATIENT RELEVANT IMPLANT DATA REVIEWED: Yes ALLERGIES: Reviewed and unchanged CONTRAST ALLERGY: NO. EXAM: MRI - CONTRAST TYPE: GROUP II PERIPHERAL IV DATA: Ambulatory: A peripheral IV was started in the Right hand with a Angio cath: 24 gauge. RADIOLOGY DEPARTMENT: MR; Exam(s) Completed: Head: Routine Brain SIGNATURE: Jazzmine Hull Weixinhai PATIENT NAME: Karmen Carlos DATE: December 15, 2020 TIME: 3:44 PM [facility] MRI SKULL BASE WO/W IVCONon 12-15-2020 MRI SKULL BASE WO/W IVCON * * *Final Report* * * DATE OF EXAM: Dec 15 2020 3:52PM [id number] - MRI SKULL BASE WO/W IVCON / PROCEDURE REASON: multiple diagnoses * * * * Physician Interpretation * * * * EXAMINATION: MRI SKULL BASE WO/W IVCON HISTORY: Dermatofibrosarcoma protuberans Localized swelling, mass, and lump of head. TECHNIQUE: MRI brain routine protocol without and with contrast. M: [id number] MR Contrast: Dotarem Contrast Dose: 20 cc Route of Administration: IV COMPARISON: None. RESULT: No areas of restricted diffusion to suggest an acute parenchymal infarct. No evidence of acute intracranial hemorrhage within the constraints of the acquisition. There is heterogeneous T2 hyperintensity and fat stranding in the right parietal scalp. There is a more nodular area of T2 hyperintensity superficial to the outer table of the right parietal calvarium demonstrate enhancing on the fat-saturated postgadolinium T1 pulse sequence measuring up to 1.6 x 0.5 x 1.1 cm in greatest orthogonal dimensions (series 3 image 16). There are areas of cutaneous defect along the more superior right parietal scalp (series 8 image 54) that may be related to reported prior surgical removal/biopsy. There is normal signal intensity and subjacent right parietal calvarium and elsewhere within the imaged calvarium. There is no substantial brain parenchymal volume loss for patient's age. The ventricular system is normal in caliber. There is no midline shift. There are no extra-axial fluid collections. There is no evidence of enhancing intracranial mass or mass effect. The pituitary gland is not enlarged. The sellar region is within normal limits. Craniocervical junction is normal. Small retention cyst in the left maxillary antrum. Trivial mucosal thickening of the ethmoid complexes. There is minimal fluid in the right mastoid tip. The mastoid air cells are otherwise clear. Small, 0.5 cm cystic focus in the left pterygoid musculature without corresponding enhancement of indeterminate etiology. The imaged arterial and dural venous structures demonstrate presumed patency as evidenced by flow voids on spin echo sequence. IMPRESSION: Heterogeneous soft tissue stranding in the right parietal scalp with more nodular lesion along the outer table of the right parietal calvarium as outlined. Normal signal intensity in the parietal calvarium. Changes likely in part related to reported prior surgical removal/biopsy of reported dermatofibrosarcoma protuberans . No acute intracranial findings. Frame Bender: [facility] Transcribe Date/Time: Dec 15 2020 4:44P Dictated by : EVELYN JEROME DO This examination was interpreted and the report reviewed and electronically signed by: EVELYN JEROME DO on Dec 15 2020 4:56PM EST [id number] Normal [facility] POINT OF CARE GLUCOSEon 07-2 Glucose [Mass/Vol] 250 mg/dL Critically high 74-106 [facility] Comment on above: Performed By: #### P OCGLUC #### [facility] [address], [place] [address] Fariba Chrissy Glucose [Mass/Vol] 240 mg/dL Critically high -106 [facility] Comment on above: Performed By: #### P OCGLUC #### [facility] [address], [place] [address] Fariba Chrissy Glucose [Mass/Vol] 257 mg/dL Critically high 74-106 [facility] Comment on above: Performed By: #### P OCGLUC #### [facility] [address], [place] [address] Fariba Lowe [facility]on 09-16 SARS-CoV-2 (COVID-19) RNA SHAY+probe Ql (Unsp spec) Not detected Normal NOT DETECTED [facility] Comment on above: Result Comment: This test is not yet approved or cleared by the [place] FDA. When there are no FDA-approved or cleared tests available, and other criteria are met, FDA can make tests available under an emergency access mechanism called an Emergency Use Authorization (EUA). The EUA for this test is supported by the [place] of Health and Human Service's (HHS's) declaration that circumstances exist to justify the emergency use of in vitro diagnostics for the detection and/or diagnosis of the virus that causes COVID-19. This EUA will remain in effect (meaning this test can be used) for the duration of the COVID-19 declaration justifying emergency of IVDs, unless it is terminated or revoked by FDA (after which the test may no longer be used). When diagnostic testing is negative, the possibility of a false negative should be considered in the context of a patient's recent exposures and the presence of clinical signs and symptoms consistent with SARS-CoV-2. Performed By: #### C VDTBH #### [facility] [address], [place] [address] Fariba Lowe US SCROTUM AND TESTICLESon 0 11-17-2016 US SCROTUM AND TESTICLES FINAL REPORTEXAM: US SCROTUM AND TESTICLESHISTORY: Orchitis TECHNIQUE: Real time ultrasonographic imaging of the testicles and scrotum was formed.PRIORS: None.FINDINGS: The testicles are normal in size and shape bilaterally measuring 4.8 x 4.0 x 2.6 cm on the right and 5.1 x 3.5 x 2.6 cm on the left. There is normal flow to both testes without evidence of torsion.There is no evidence of testicular mass, cyst, or calcifications. The epididymides are normal in size and vascularity bilaterally. There is a complex right hydrocele. There is no significant varicocele. IMPRESSION: Impression: 1. Unremarkable testes without torsion or mass. 2. Complex right hydrocele. Interpreted by:Katy MonsivaisSigned by:Katy Monsivais11/17/16Final result Normal [facility] Cult,Urine,CCon 11-15-2016 Cult,Urine,CC Specimen Description .URINE Performed at [address] [place] [address] Special Requests .CLEAN CATCH URINE Performed at [address] [place] [address] Culture NO SIGNIFICANT GROWTH Performed at [address] [address] Report Status FINAL 11/15/2016 [facility] Comment on above: Performed By: #### C DOMONIQUE ####[address] [phone] [place] [address] Urinalysis w/ Microon 2016 ----- Normal [facility] Comment on above: Performed By: #### U AMIC ####[address] [place] [address] Acetaminophen mass conc TRACE Abnormal NEG [facility] Comment on above: Performed By: #### U AMIC ####[address] [place] [address] Bilirubin (direct) Negative Normal NEG [facility] Comment on above: Performed By: #### U AMIC ####[address] [place] [address] Hemoglobin mass conc (Bld) Negative Normal NEG [facility] Comment on above: Performed By: #### U AMIC ####[address] [place] [address] Nitrite,Ur Negative Normal NEG [facility] Comment on above: Performed By: #### U AMIC ####[facility] [place] [address] Turbidity CLEAR Normal CLEAR [facility] Comment on above: Performed By: #### U AMIC ####[address] [place] [address] Urine WBC's 0 TO 2 Normal 0-5 [facility] Comment on above: Performed By: #### U AMIC ####[address] [place] [address] Urine, color YELLOW Normal YEL [facility] Comment on above: Performed By: #### U AMIC ####[address] [place] [address] Urine, epithelial cells in sediment None Normal 0-5 [facility] Comment on above: Result Comment: Perf ormed at [facility] [address] [place] [address] Performed By: #### U AMIC ####[address] [place] [address] Urine, erythrocytes 0 TO 2 Normal 0-2 [facility] Comment on above: Performed By: #### U AMIC ####[address] [place] [address] Urine, glucose presence 3+ Abnormal NEG M [facility] Comment on above: Performed By: #### U AMIC ####[address] [place] [address] Urine, leukocyte esterase presence Negative Normal NEG [facility] Comment on above: Performed By: #### U AMIC ####[address] [place] [address] Urine, pH 5.5 [pH] Normal 5.0-9.0 [facility] Comment on above: Performed By: #### U AMIC ####[address] [place] [address] Urine, protein presence Negative Normal NEG M [facility] Comment on above: Performed By: #### U AMIC ####[address] [place] [address] Urine, specific gravity 1.020 Normal 1.010-1.020 [facility] Comment on above: Performed By: #### U AMIC ####[address] [place] [address] Urobilinogen,Ur Normal Normal NORM [facility] Comment on above: Performed By: #### U AMIC ####[address] [place] [address] Comment NOT REPORTED Normal [facility] Comment on above: Performed By: #### U AMIC ####[address] [place] [address] Epithelial, Renal NOT REPORTED Normal 0 [facility] Comment on above: Performed By: #### U AMIC ####[address] [place] [address] Mucus Strands NOT REPORTED Normal NONE [facility] Comment on above: Performed By: #### U AMIC ####[address] [place] [address] Other Observations NOT REPORTED Normal NREQ [facility] Comment on above: Performed By: #### U AMIC ####[address] [place] [address] Trichomonas NOT REPORTED Normal NONE [facility] Comment on above: Performed By: #### U AMIC ####[address] [place] [address] Urine, amorphous sediment presence in sediment NOT REPORTED Normal NONE [facility] Comment on above: Performed By: #### U AMIC ####[facility] [place] [address] Urine, bacteria in sediment NOT REPORTED Normal NONE [facility] Comment on above: Performed By: #### U AMIC ####[facility] [place] [address] Urine, casts in sediment NOT REPORTED Normal [facility] Comment on above: Performed By: #### U AMIC ####[facility] [place] [address] Urine, crystals in sediment NOT REPORTED Normal NONE [facility] Comment on above: Performed By: #### U AMIC ####[facility] [place] [address] Urine, yeast presence in sediment NOT REPORTED Normal NONE [facility] Comment on above: Performed By: #### U AMIC ####[address] [place] [address] Vital Signs Date Time Vital Sign Value Performing Clinician Faizan witt 02-13-2022 08:48-0500 Body temperature 97.59 [degF] Chana Chandra APRN.CNP Work Phone: [facility] 02-13-2022 08:48-0500 Diastolic blood pressure 111 mm[Hg] Chana Chandra APRN.LAW ENFORCEMENT DIRECTOR Work Phone: [facility] 02-13-2022 08:48-0500 Heart rate 94 /min Chana Chandra APRN.LAW ENFORCEMENT DIRECTOR Work Phone: [facility] 02-13-2022 08:48-0500 Respiratory rate 20 /min Chana Chandra APRN.LAW ENFORCEMENT DIRECTOR Work Phone: [facility] 02-13-2022 08:48-0500 SaO2% (BldA) [Mass fraction] 96 % Chana Chandra APRN.LAW ENFORCEMENT DIRECTOR Work Phone: [facility] 02-13-2022 08:48-0500 Systolic blood pressure 162 mm[Hg] Chana Chandra JABARI Work Phone: [facility] 01-31-2022 08:45-0500 Body temperature 97.7 [degF] Toan Chu MD Work Phone: [facility] 01-31-2022 08:45-0500 Diastolic blood pressure 76 mm[Hg] Toan Chu MD Work Phone: [facility] 01-31-2022 08:45-0500 Heart rate 96 /min Toan Chu MD Work Phone: [facility] 01-31-2022 08:45-0500 Respiratory rate 16 /min Toan Chu MD Work Phone: [facility] 01-31-2022 08:45-0500 Systolic blood pressure 139 mm[Hg] Toan Chu MD Work Phone: [facility] 01-31-2022 08:25-0500 SaO2% (BldA) [Mass fraction] 92 % Toan Chu MD Work Phone: [facility] 01-31-2022 07:32-0500 Body weight 147.5 kg Toan Chu MD Work Phone: [facility] 09-07-2021 08:34-0400 Body temperature 97.81 [degF] Toan Chu MD Work Phone: [facility] 09-07-2021 08:34-0400 Diastolic blood pressure 91 mm[Hg] Toan Chu MD Work Phone: [facility] 09-07-2021 08:34-0400 Heart rate 96 /min Toan Chu MD Work Phone: [facility] 09-07-2021 08:34-0400 Respiratory rate 20 /min Toan Chu MD Work Phone: [facility] 09-07-2021 08:34-0400 SaO2% (BldA) [Mass fraction] 99 % Toan Chu MD Work Phone: [facility] 09-07-2021 08:34-0400 Systolic blood pressure 157 mm[Hg] Toan Chu MD Work Phone: [facility] Encounters Encounter Date Encounter Type Care Provider Facility Start: 03-30-2023 End: 03-30-2023 ambulatory Salbador Ramirez Facility:[facility] Start: 03-30-2023 End: 03-30-2023 ambulatory MD Salbador Ramirez Work Phone: [facility] Work Phone: Start: 03-30-2023 End: 03-30-2023 Patient encounter procedure MD Salbador Ramirez Work Phone: [facility] [place] Work Phone: Start: 03-26-2023 End: 03-26-2023 ambulatory SALBADOR RAMIREZ Not Available Start: 09-12-2022 End: 09-13-2022 ambulatory LOKI BASURTO Facility:[facility] Start: 08-04-2022 End: 08-04-2022 ambulatory Salbador Ramirez Facility:[facility] Start: 08-03-2022 End: 08-03-2022 ambulatory Salbador Ramirez Facility:[facility] Start: 06-29-2022 Telephone encounter Loki casiano MD Work Phone: [facility] [place] Comment on above: Appointment Start: 02-13-2022 End: 02-13-2022 ambulatory Chana Chandra APRN.LAW ENFORCEMENT DIRECTOR Work Phone: Pl[facility] Surgery Comment on above: Post-operative state (Primary Dx) Start: 02-13-2022 End: 02-13-2022 Patient encounter procedure Chana Chandra APRN.LAW ENFORCEMENT DIRECTOR Work Phone: [facility] Start: 01-31-2022 ambulatory TOAN CHU Facility: [facility] Start: 01-31-2022 End: 01-31-2022 Subsequent hospital visit by physician Toan Chu MD Work Phone: Ambulatory Surgery Comment on above: 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] Start: 09-07-2021 End: 09-07-2021 ambulatory Toan Chu MD Work Phone: Plastic Surgery Comment on above: Dermatofibrosarcoma protuberans (Primary Dx); S/P flap graft Start: 09-07-2021 End: 09-07-2021 Patient encounter procedure Toan Chu MD Work Phone: [facility] Start: 07-26-2021 End: 07-26-2021 Patient encounter procedure Loki Basurto MD Work Phone: Dermatology Comment on above: Dermatofibrosarcoma protuberans of scalp (Primary Dx) Start: 10-08-2020 Encounter for prepro cedural cardiovascular examination DR KARMEN AKINS [facility] Start: 10-08-2020 Encounter for prepro cedural laboratory examination DR KARMEN AKINS [facility] Start: 10-06-2020 End: 10-06-[address] KARMEN AKINS Facility:[facility] Start: 10-01-2020 End: 10-02-[address] SALBADOR RAMIREZ Facility:[facility] Start: 10-01-2020 End: 10-02-2020 Encounter for preprocedural laboratory examination DR SALBADOR RAMIREZ Facility:[facility] Start: 11-16-2016 End: 11-17-2016 [facility] Start: 11-13-2016 End: 11-14-2016 [facility] Procedures Date Procedure Procedure Detail Performing Clinician Start: 01-31-2022 End: 01-31-2022 Delay flap/sectioning flap scalp arms/legs Toan Chu MD Work Phone: Start: 11-16-2016 Us scrotum & contents T EMMY MONTAÑO Start: 11-13-2016 URINE CULTURE CLEAN CATCH DORON MONTAÑO Start: 11-13-2016 URINALYSIS WITH MICROSCOPIC DORON MONTAÑO H/O: surgery S/P flap graft Toan Chu MD Work Phone: Plan of Treatment Date Care Activity Detail Author Start: 11-17-2022 Influenza vaccination INFLUENZA (Sea son Ended) [facility] Start: 03-19-2022 DEPRESSION ASSESSMENT DEPRESSION ASS ESSMENT [facility] Start: 11-17-2021 Influenza vaccination C [facility] Start: 04-27-2021 Hemoglobin A1c/Hemoglobin.total in Blood HBA1C [facility] Start: 03-19-2021 [facility] Start: 1997 HEPATITIS B (1 of 3 - Risk 3-dose series) HEPATITIS B (1 of 3 - Risk 3-dose series) [facility] Start: 1997 Urine microalbumin profile DTAP,TDAP,TD (1 - Tdap) [facility] Start: 1996 ANNUAL PCP TEAM CHRONIC DISEASE VISIT ANNUAL PCP TEAM CHRONIC DISEASE VISIT [facility] Start: 1996 BP CONTROLLED (<130/80) BP CONTROLLED (<130/80) [facility] Start: 1996 Hepatitis B surface antibody level LDL CHOLESTEROL [facility] Start: 1996 HEPATITIS C SCREENING HEPATITIS C SC REENING [facility] Start: 1996 HIV SCREENING HIV SCREENING [facility] Start: 1994 ONE PNEUMOVAX PRIOR TO AGE 65 ONE PNEUMOVAX PRIOR TO AGE 63 [facility] Start: 1990 Adult depression screening assessment DEPRESSION SCREENING [facility] Start: 1988 3 comp foot exam completed DIABETIC FOOT EXAM [facility] Start: 1988 Hepatitis B screening URINE AL BUMIN:CREATININE RATIO [facility] Start: 1988 Hepatitis C antibody , confirmatory test DILATED RETINAL EXAM [facility] Start: 1984 PNEUMOCOCCAL (1 - PCV) PNEUMOCOCCAL (1 - PCV) [facility] Start: 08-01-1983 COVID-19 VACCINE (#1) COVID-19 VACCI NE (#1) [facility] Start: 01-31-1979 COVID-19 VACCINE (#1) COVID-19 VACCI NE (#1) [facility] Start: 1978 HEPATITIS B (1 of 3 - 3-dose series) HEPATITIS B (1 of 3 - 3-dose series) [facility] End: 10-07-2022 Mri brain brain stem w/o contrast material MRI BRAIN WO IVCON Radiology Routine Dermatofibrosarcoma protuberans S/P flap graft 1 Occurrences starting 09/07/2021 until 10/07/2022 [facility] Work Phone: Comment on above: 1 Occurrences starti ng 09/07/2021 until 10/07/2022 [facility] Payers Date Payer Category Payer Self-pay 2020 Unknown MMO MMO [employer] [id number] 2020-Present [phone] [address] [place] [address] PPO [id number] 2020 Unknown [id number] 2016 Unknown [id number] 1978 Unknown [id number] 1978 Unknown [id number] 1978 Unknown [id number] 1959 Unknown [id number] Unknown [id number] Unknown [id number] Unknown [id number] Social History Date Type Detail Facility Start: 11-25-2020 Tobacco smoking stat us NHIS Ex-smoker [facility] End: 03-19-1999 History of tobacco use Current smoker [facility] End: 03-19-1999 History of tobacco use Cigarette Smoker [facility] Start: 11-25-2020 End: 03-31-2021 Cigarettes smoked current (pack per day) - Reported 1 [facility] Start: 11-25-2020 Tobacco use and exposure Maykel grimm smokeless tobacco user [facility] End: 09-23-2020 History of tobacco use User of smokeless tobacco [facility] Start: 03-31-2021 Alcohol intake Current drinke r of alcohol (finding) [facility] Start: 02-25-2021 History SDOH Alcohol Comment 6-7 beers several times per week [facility] Start: 1978 Sex Assigned At Male [facility] Start: 07-16-2021 End: 02-13-2022 Exposure to SARS-CoV-2 (event) Not sure [facility] Medical Equipment Procedure Code Equipment Code Equipment Origin al Text Equipment Identifier Dates Graft Soft Tissu e Frozen Cadaver - [id number] Start: 02-04-2021 Clinical Notes 07-26-2021 to 09-12-2022 Telephone Encounter - Asia Belllatrice - 06/29/2022 3:17 PM EDTPatient Dom Chandra APRN.LAW ENFORCEMENT DIRECTOR - 02/13/2022 9:00 AM ESTDischarge Instr - Other OrdersLoki Basurto MD - 07/26/2021 8:50 AM EDT Note Date & Type Note Facility 09-12-2022 Note HNO ID: [id number] Author: Loki Basurto MD Service: ? Author Type: Physician Type: Progress Notes Filed: 09/23/2022 1:37 PM Note Text: EST PATIENT LV: 07/26/2021- Dr. Basurto Chief Complaint: Lesion of concern History of Present Ilness: Karmen Carlos is a 42 year old male Patient is here for: Lesion of concern 1) growth of concern Location: right upper back Duration: few months Symptoms: betancur, itchy Current treatment: none Past treatments: none Patient went to a primary care provider and was given a muscle relaxer. Xray was performed. 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 Skin per HPI. No other new/concerning skin growth. Physical Exam: General: well appearing, of stated age, in no acute distress Neurology: alert and oriented times three Psychiatry: in a happy mood Skin: Brady skin type: II Skin exam performed of face, scalp, ears, eyelids, lips, neck, chest, abdomen, back, bilateral upper extremities, hands, fingers, fingernails, bilateral lower extremities, feet, toes, toenails. Skin exam normal with the exception of: - His right scalp has a well healing flap with redundant skin at the point of rotation - the surrounding skin is unremarkable - His left lateral scalp has a well healing STSG - His right lateral upper back has a < 1cm firm brown papule with a dimple sign Assessment and Plan: 1. 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 Dermatofibroma, right upper back -Discussed benign etiology in length -likely not related to the discomfort in his back 3. Sensation of burning and pain on the back -No evidence of concerning lesion on exam today -Recommend following up with PCP Return to clinic every 1 year for a follow up or sooner if something concerning arises. The documentation for this note was completed by Yasmine Smith RN acting as scribe for Loki Basurto MD. September 12, 2022 5:37 PM. I agree with the Chief Complaint, ROS, and Past Histories independently gathered by the clinical support associate and the remaining scribed note accurately describes my personal service to the patient. Loki Basurto MD September 12, 2022 [facility] 06-29-2022 Miscellaneous Notes Left VM / Sent MyCharts About getting a appt with per Staff Message documented in this encounter [facility] 02-13-2022 Note HNO ID: [id number] Author: Chana Chandra APRN.TONNY Service: ? Author Type: Nurse Practitioner Type: Progress Notes Filed: 02/13/2022 9:20 AM Note Text: Post-op Note DATE: February 13, 2022 CHIEF COMPLAINT: Post-op evaluation HPI: Karmen Carlos is a 41 year old male who is here for follow-up 13 days s/p 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 Patient presents today and is doing well since surgery. He is happy with how things are progressing. His biggest concern is his graft site from initial surgery in 02/2021 where there is a surgical clip that is protruding. He feels it is becoming more visible/noticeable over the last month. He has had mild discomfort and has noticed some drainage, clear-white in color. He denies any fevers or chills. He has been applying Bacitracin to the incision daily. REVIEW OF SYSTEMS: GENERAL:Negative for malaise, significant weight loss and fever SKIN: See HPI PAIN: No pain presently Denies fevers, chills, erythema, induration, fluctuance, hematoma, seroma, purulent drainage, odor. PHYSICAL EXAM: BP 162/111 Pulse 94 Temp 36.4 ?C (97.6 ?F) (Oral) Resp 20 SpO2 96% GENERAL: Patient is a well-nourished , appearing stated age, resting comfortably, breathing regularly. No acute distress. Lymph: No Submandibular, cervical, supraclavicular, or axillary lymphadenopathy present Right scalp incision well approximated, c/d/i, absorbable sutures intact Left scalp former skin graft site fully healed No erythema, drainage, seroma/hematoma No s/s of infection No s/s of DVT: No redness, swelling or warmth, no calf/foot/leg pain or pain with ambulation. ASSESSMENT/PLAN: Karmen Carlos is a 41 year old male who is here for follow-up 13 days s/p 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 -Sutures are absorbable -Discussed that the ligaclip at the skin graft site will continue to work its way out, and can be removed once it is more visible. Patient to contact office if the clip hasn't worked its way out in the next month -No heavy lifting > 10 lbs x 2 weeks -No swimming or bathing or submerging in water until wounds are completely healed -May shower gently wash with baby shampoo or gentle soap and water, pat dry. -May discontinue use of bacitracin and switch to Vaseline/Aquaphor -Apply Vaseline/Aquaphor to incisions and leave open to air. May apply gauze to protect clothes -Wash and change dressings daily -Apply Sunscreen daily -May apply silicone scar gel at 3-4 weeks post op as long as incision is healing well -May massage scar at 3-4 weeks post op to help break down scar tissue and help soften/flatten any raised or puckered edges -Continue follow up with Dr. Basurto Multi-Dimensional Care: - recommend regular dermatology follow-up for FBSE - Q3 months for 2 years, Q6 months for 5 years and Q1 year for the rest of his/her life Call [phone] or go to the Emergency Department if any of these symptoms arise: -Fever or chills -Increased drainage -Green, yellow or pus like drainage -Foul odor -Increased pain -Hardness around the wound -Redness, warmth or swelling of the surrounding tissue -Color change to the wound Follow up PRN with any questions/concerns or if the clip at graft site doesn't work its way out Office number: [phone] (option 3) The patient is seen and examined by Chana Chandra APRN.CNP and the following reflects her service. Scribed by Citlaly Padgett RN I agree with the Chief Complaint, ROS, and Past Histories independently gathered by the clinical support associate and the remaining scribed note accurately describes my personal service to the patient. Chana Chandra APRN.CNP February 13, 2022 9:20 AM [facility] 02-13-2022 Instructions Chana Chandra APRN.CNP - 02/13/2022 9:16 AM EST -Sutures are absorbable -Discussed that the ligaclip at the skin graft site will continue to work its way out, and can be removed once it is more visible. Patient to contact office if the clip hasn't worked its way out in the next month -No heavy lifting > 10 lbs x 2 weeks -No swimming or bathing or submerging in water until wounds are completely healed -May shower gently wash with baby shampoo or gentle soap and water, pat dry. -May discontinue use of bacitracin and switch to Vaseline/Aquaphor -Apply Vaseline/Aquaphor to incisions and leave open to air. May apply gauze to protect clothes -Wash and change dressings daily -Apply Sunscreen daily -May apply silicone scar gel at 3-4 weeks post op as long as incision is healing well -May massage scar at 3-4 weeks post op to help break down scar tissue and help soften/flatten any raised or puckered edges -Continue follow up with Dr. Basurto Multi-Dimensional Care: - recommend regular dermatology follow-up for FBSE - Q3 months for 2 years, Q6 months for 5 years and Q1 year for the rest of his/her life Call [phone] or go to the Emergency Department if any of these symptoms arise: -Fever or chills -Increased drainage -Green, yellow or pus like drainage -Foul odor -Increased pain -Hardness around the wound -Redness, warmth or swelling of the surrounding tissue -Color change to the wound Follow up PRN with any questions/concerns or if the clip at graft site doesn't work its way out Office number: [phone] (option 3) documented in this encounter [facility] 02-13-2022 History of Present illness Narrative Post-op Note DATE: February 13, 2022 CHIEF COMPLAINT: Post-op evaluation HPI: Karmen Carlos is a 41 year old male who is here for follow-up 13 days s/p 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 Patient presents today and is doing well since surgery. He is happy with how things are progressing. His biggest concern is his graft site from initial surgery in 02/2021 where there is a surgical clip that is protruding. He feels it is becoming more visible/noticeable over the last month. He has had mild discomfort and has noticed some drainage, clear-white in color. He denies any fevers or chills. He has been applying Bacitracin to the incision daily. REVIEW OF SYSTEMS: GENERAL:Negative for malaise, significant weight loss and fever SKIN: See HPI PAIN: No pain presently Denies fevers, chills, erythema, induration, fluctuance, hematoma, seroma, purulent drainage, odor. PHYSICAL EXAM: BP 162/111 Pulse 94 Temp 36.4 C (97.6 F) (Oral) Resp 20 SpO2 96% GENERAL: Patient is a well-nourished , appearing stated age, resting comfortably, breathing regularly. No acute distress. Lymph: No Submandibular, cervical, supraclavicular, or axillary lymphadenopathy present Right scalp incision well approximated, c/d/i, absorbable sutures intact Left scalp former skin graft site fully healed No erythema, drainage, seroma/hematoma No s/s of infection No s/s of DVT: No redness, swelling or warmth, no calf/foot/leg pain or pain with ambulation. ASSESSMENT/PLAN: Karmen Carlos is a 41 year old male who is here for follow-up 13 days s/p 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 -Sutures are absorbable -Discussed that the ligaclip at the skin graft site will continue to work its way out, and can be removed once it is more visible. Patient to contact office if the clip hasn't worked its way out in the next month -No heavy lifting > 10 lbs x 2 weeks -No swimming or bathing or submerging in water until wounds are completely healed -May shower gently wash with baby shampoo or gentle soap and water, pat dry. -May discontinue use of bacitracin and switch to Vaseline/Aquaphor -Apply Vaseline/Aquaphor to incisions and leave open to air. May apply gauze to protect clothes -Wash and change dressings daily -Apply Sunscreen daily -May apply silicone scar gel at 3-4 weeks post op as long as incision is healing well -May massage scar at 3-4 weeks post op to help break down scar tissue and help soften/flatten any raised or puckered edges -Continue follow up with Dr. Basurto Multi-Dimensional Care: - recommend regular dermatology follow-up for FBSE - Q3 months for 2 years, Q6 months for 5 years and Q1 year for the rest of his/her life Call [phone] or go to the Emergency Department if any of these symptoms arise: -Fever or chills -Increased drainage -Green, yellow or pus like drainage -Foul odor -Increased pain -Hardness around the wound -Redness, warmth or swelling of the surrounding tissue -Color change to the wound Follow up PRN with any questions/concerns or if the clip at graft site doesn't work its way out Office number: [phone] (option 3) The patient is seen and examined by Chana Chandra APRN.CNP and the following reflects her service. Scribed by Citlaly Padgett RN I agree with the Chief Complaint, ROS, and Past Histories independently gathered by the clinical support associate and the remaining scribed note accurately describes my personal service to the patient. Chana Chandra APRN.CNP February 13, 2022 9:20 AM documented in this encounter [facility] 01-31-2022 Hospital Discharge instructions Agatha Rawls MD - 01/31/2022 8:41 AM EST My Hospital Stay and Summary This is a summary of your hospital stay. Please read it carefully and share it with your family and healthcare providers. Date of Admission: 01/31/2022 Date of Discharge: 01/31/2022 Where I Will be Going after Discharge: Home My Doctors and Medical Team: My Main Hospital Doctor: Toan Chu MD My Primary Care Physician (Family Doctor): Salbador Ramirez MD Operations Performed While in the Hospital: 01/31/2022 - Procedure(s): Excision of right scalp standing cone Instructions for My Care at Home or Healthcare Facility These instructions explain what you or your critical care paramedic need to do to continue your care at home or at another healthcare facility Please go over these instructions with your nurse and critical care paramedic. If you are not sure about something, please ask. Symptoms or health problems to watch for after I leave the hospital: fever; chills; worsening pain; difficulty breathing; racing heartbeat; increasing incisional redness; incisional pus or drainage; nausea; vomiting; blood in stool; black or tarry stool; constipation; or other concerning symptom. Seek medical attention immediately. Pain management & Medications: Take Tylenol (acetaminophen) for pain. For severe pain, you may take prescription pain medication as directed, but please note that this may also contain Tylenol (e.g. Percocet). Do not take more than 4000mg of Tylenol (acetaminophen) from all sources daily. Do not drive or operate heavy machinery while taking narcotic pain medications (Percocet, Vicodin, Oxycodone, Hydrocodone). Note that all narcotic pain medication increase problems with constipation. Stool softeners and mild laxatives may be helpful. Do not take Motrin/Advil if you have a history of ulcer or stomach problems. If prescribed oral antibiotics (Keflex, Clindamycin, or others), please take prescription for full duration as instructed. You should not have any pills remaining once completed (refills are written for your convenience should the course need to be extended, but generally they are not required). Wound care: Keep surgical site clean and dry. You may remove the white dressing in 24 hours. After this it is okay to shower. Shower daily, letting soap and water run down over incisions, rinse and pat dry with a clean towel. Do not scrub your incisions. Reapply clean dressings. Do not submerge your incisions under water for 1-2 weeks (no swimming or baths, no dirty dish water). Some incisions are closed small adhesive strips (Steri-Strips) applied across the wound which should stay in place until they fall off on their own; you may shower with Steri-strips in place, but do not try to remove them. Alternatively, your incision may be covered with only a sterile medical glue, which will fall off on its own. Any non-absorbable sutures or chayito will be removed in clinic. You may use bacitracin or other anti-bacterial ointment as instructed. You may replace gauze over incisions if you have oozing, but leave underlying adhesive strips in place. It is normal to have oozing for 24-48 hours after surgery. Bandages are optional when they are no longer needed to protect your clothing from drainage. Some bruising/discoloration is to be anticipated at the surgical site (blue/purple to yellow) - this is normal. You may be discharged home with surgical drains. The nursing staff will instruct you and your family on the care and recording of drainage and more detailed information can be found at the end of this document. Avoid smoking or other tobacco products. Smoking tobacco impairs wound healing and increases the risks of post-operative complications. Diet (what I can eat): Regular Resume pre-hospital diet Activity and exercise: (When I can drive, return to work) Avoid strenuous activity. No heavy lifting (more than 10 lbs). OK to resume other usual activities as tolerated. Walking is encouraged and it's OK to use stairs. Do not drive while taking prescription pain medication. Additional instructions related to your procedure: Remove white primapore dressing in 24 hrs. Then okay to shower. Apply bacitracin to incision twice daily Follow-up appointment reminders: (A list of any scheduled appointments is at the end of this document) At your earliest convenience, please call [phone] to confirm or schedule a follow-up appointment with the office of Dr. Chu to be seen in clinic. Your existing appointments are listed below: Future Appointments Date Time [facility] 02/13/2022 9:00 AM Chana Chandra APRN.TONNY [place] When to call your surgeon: - If any signs of surgical site infection develop: redness, pus, pain, increased swelling or foul odor at the incision site, fever, cold and clammy skin, or confusion. - Consistent temperature above 101 F (38.3 C). Note that a low-grade temperature (less than 101 F) is normal after surgery and can be managed with Tylenol. - Rapid onset of severe pain. - Excessive bleeding (soaking through dressing). If you experience difficulty breathing and/or shortness of breath, seek immediate medical attention. If experiencing any of the above complications or if you have any questions, during business hours (8am to 5pm) call [phone] or after hours (including weekends) call [phone] ([facility]) and ask for the Plastic Surgery Resident / Fellow vocational rehabilitation administrator. If calling long distance, please use [phone] ([phone]). Test results not currently available (to be reviewed at follow-up): No pending results. documented in this encounter [facility] 01-31-2022 Surgical operation note BRIEF OPERATIVE NOTE PLASTIC & RECONSTRUCTIVE SURGERY LOG ID: [id number] Surgery/Procedure Date: 01/31/2022 Incision/Procedure Start Time: 8:04 AM Incision Close/Procedure End Time: 8:29 AM Surgeon(s)/Proceduralist(s) and Tar Roofer(s): Surgeon(s) and Role: * Toan Chu MD - Primary * Agatha Rawls MD - Resident - Assisting No Additional Staff Procedure(s): Excision of scalp standing cone Anesthesia: Local Findings: Standing cone of right scalp measuring 8 cm in length Estimated Blood Loss: 5 mL IV Fluids: none Mckeon: No Urine Output: Not Measured Drains: None Specimens: None Implants: None Complications: None Pre-Op/Pre-Procedure Diagnosis: Right scalp standing cone Post-Op/Post-Procedure Diagnosis: Same Post-operative Plan: Discharge home Bacitracin and primapore SIGNATURE: Agatha Rawls MD, MPH PATIENT NAME: Karmen Carlos DATE: January 31, 2022 TIME: 8:33 AM PAGER/CONTACT #: [phone] OPERATIVE REPORT PLASTIC & RECONSTRUCTIVE SURGERY Log ID: [id number] Surgery/Procedure Date: 01/31/2022 Incision/Procedure Start Time: 8:04 AM Incision Close/Procedure End Time: 8:29 AM Surgeon(s)/Proceduralist(s) and Tar Roofer(s): Surgeon(s) and Role: * Toan Chu MD - Primary * Agatha Rawls MD - Resident - Assisting No Additional Staff Pre-Op/Pre-Procedure Diagnosis: Right scalp flap standing cone deformity Post-Op/Post-Procedure Diagnosis: Same as preoperative diagnosis. Anesthesia: Local Procedure/Operation: Excision of right scalp standing cone deformity Complex primary closure, 8cm Operative Indications: The patient is a 41 year old male with history of dermatofibrosarcoma s/p Mohs and reconstruction with right superficial temporal fasciocutaneous scalp pedicled flap and STSG to left scalp donor site on 03/07/21. He now presents with right scalp standing cone deformity. Patient elected to undergo aforementioned procedure following discussion of risks, benefits, and alternatives. Description of Procedure: The patient was brought to the operating room and placed in supine position. Timeouts were performed using both pre-induction and pre-incision safety checklists to verify correct patient, procedure, site, and additional critical information prior to beginning the procedure. Local anesthesia was performed with injection of 10 mL of 1:100,00 lidocaine with epinephrine circumferentially around the standing cone deformity. Surgical sites were prepped and draped in the normal sterile fashion. Attention was turned to the standing cone deformity. A 15 blade was used to incision the anterior portion of the deformity. Dissection was carried out to the periosteum. Care was taken to not violate the periosteum. The remaining incision was carried out throughout the posterior portion of the deformity, again to the level of the periosteum. The skin and underlying subcutaneous and soft tissue was excised with ease. Electrocautery was utilized to ensure meticulous hemostasis. 3-0 vicryl sutures were placed in a buried fashion to bring the wound edges together with minimal tension. Several 3-0 chromic sutures were placed in a horizontal mattress fashion and the skin edges were brought together with no tension. Bacitracin ointment and a primapore dressing were placed on the incision. All counts were correct. A debriefing checklist was completed to share information critical to postoperative care of the patient. The patient tolerated the procedure well and was taken to the postanesthesia care unit in stable condition. Operative Findings: Right scalp flap standing cone deformity measuring 2cm x 8 cm Estimated Blood Loss: 5 mL Specimens: None Drains: None Implantable Devices: None Complications: None Participation in Procedure: Dictated on behalf of the primary surgeon, Dr. Chu, who was present in the operating room for the olea components of the operation. I performed the remainder of the procedure, without direct supervision but with the primary surgeon readily available. SIGNATURE: Agatha Rawls MD PATIENT NAME: Karmen Carlos DATE: January 31, 2022 TIME: 8:42 AM PAGER/CONTACT #: Associated attestation - Toan Chu MD - 01/31/2022 9:26 AM EST Teaching statement: I was active and involved in all critical portions of the case. Toan Chu MD documented in this encounter [facility] 01-31-2022 History and physical note UPDATED HISTORY AND PHYSICAL EXAMINATION SERVICE DATE: 01/31/2022 SERVICE TIME: 7:00am PHYSICAL EXAM MUST BE COMPLETED ON ADMISSION The History and Physical (completed in the past 30 days) has been reviewed and the patient has been examined. The contents accurately reflect the patient's condition with the following additions or revisions since the H&P was completed. Examination indicates no changes. CV: RRR. Normal S1 and S2 Pulm: CTAB. No wheezing or rhonchi This H&P can be found in the Electronic Medical Record attached below. 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 Patient presents today to discuss revision of scalp flap. States he is doing well. Patient was evaluated by Dr. Basurto in July 2021 where he was cleared to wear a hat and stop using ointment on the scalp. Patient is accompanied today by spouse, they are happy with how the graft site and flap have healed. They deny any concerns aside from seeking revision of the puckered/raised area of the scalp flap. Previously underwent: 02/18/2021: MOHS with Dr. Basurto. Clear margins achieved. 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 Basurto. Margins were not clear Meds and allergies reviewed in [facility]. REVIEW OF SYSTEMS: PAIN ASSESSMENT: Negative for pain, history of chronic pain, or current treatment for a chronic pain condition. GENERAL: No weight loss, malaise or fevers RESPIRATORY: Negative for cough, hemoptysis, wheezing, COPD, dyspnea or shortness of breath CARDIOVASCULAR: Negative for chest pain, leg swelling, hypertension, CHF or palpitations MUSCULOSKELETAL: Negative for joint pain or swelling, back pain or muscle pain SKIN: See HPI NEURO: No history of headaches, syncope, paralysis, seizures or tremorsREVIEW OF SYSTEMS PMH: PAST MEDICAL HISTORY No past medical history on file. PSH: PAST SURGICAL HISTORY PAST SURGICAL HISTORY Procedure Laterality Date VASECTOMY UNI/BI SPX W/POSTOP SEMEN EXAMS MEDICATIONS: Current Outpatient Medications on File Prior to Visit Medication Sig acetaminophen (TYLENOL) 325 mg tablet Take 2 tablets by mouth every 4 hours as needed for pain. Two (2) X 325 mg tablets = 650 mg docusate sodium (COLACE) 100 mg capsule Take 1 capsule by mouth twice daily as needed for constipation. dapagliflozin (FARXIGA) 10 mg tablet Take by mouth daily with breakfast. acetaminophen (TYLENOL) 325 mg tablet Take 650 mg by mouth every 6 hours as needed. metFORMIN ER (GLUCOPHAGE XR) 500 mg 24 hr tablet Take 1 tablet by mouth twice daily. cephALEXin (KEFLEX) 500 mg capsule Take 1 capsule daily for 10 days alpha lipoic acid-biotin 600 mg- 450 mcg TbER Take by mouth. atorvastatin (LIPITOR) 40 mg tablet Take 40 mg by mouth. glipiZIDE (GLUCOTROL) 10 mg tablet Take 20 mg by mouth twice daily before meals. ibuprofen (MOTRIN) 200 mg tablet Take 200 mg by mouth as needed. lisinopril (ZESTRIL, PRINIVIL) 10 mg tablet Take 10 mg by mouth once daily. pioglitazone (ACTOS) 15 mg tablet Take 15 mg by mouth once daily. Current Facility-Administered Medications on File Prior to Visit Medication perflutren lipid microspheres 1.3 mL in NaCl (PF) 0.9% 10 mL injection (DEFINITY) sodium chloride 0.9 % (flush) 10 mL (BD POSIFLUSH) ALLERGIES: ALLERGIES ALLERGIES No Known Allergies PHYSICAL EXAM: BP 157/91 Pulse 96 Temp 36.6 C (97.8 F) (Oral) Resp 20 SpO2 99% GENERAL: Patient is a well-nourished , appearing stated age, resting comfortably, breathing regularly. No acute distress. Lymph: No Submandibular, cervical, supraclavicular, axillary, or inguinal lymphadenopathy present Skin: Skin color, texture, turgor normal. 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 Patient's surgical sites are well healed. He is 6 months out from most recent surgery and presents today to discuss scalp flap revision. At this time, after discussing with the patient and reviewing their history, I believe the patient is a good candidate for surgical intervention. I discussed modalities of operative intervention and rationale for excision of right scalp standing cone, to address scalp flap deformity. They were counseled on perioperative routine and surgical plan, and all of their questions were addressed to their understanding prior to electing for surgery. I answered all the patient's questions in detail and addressed their concerns; patient showed clear understanding prior to electing for surgery. I also reviewed the risks, benefits, alternatives, and recovery of surgery. PLAN: Plan will be for excision of right scalp standing cone IC obtained Under local Will order an MRI brain for patient to obtain 1 year out, ~February 2022 Follow up 7-10 days after surgery UPDATED HISTORY AND PHYSICAL EXAMINATION SERVICE DATE: 01/31/2022 SERVICE TIME: 7:43 AM PHYSICAL EXAM MUST BE COMPLETED ON ADMISSION The History and Physical (completed in the past 30 days) has been reviewed and the patient has been examined. The contents accurately reflect the patient's condition with the following additions or revisions since the H&P was completed. Examination indicates no changes. This H&P can be found in the attached. SIGNATURE: Toan Chu MD PATIENT NAME: Karmen Carlos DATE: January 31, 2022 TIME: 7:43 AM documented in this encounter [facility] 09-07-2021 History of Present illness Narrative Images from the original note were not included. 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 Patient presents today to discuss revision of scalp flap. States he is doing well. Patient was evaluated by Dr. Basurto in July 2021 where he was cleared to wear a hat and stop using ointment on the scalp. Patient is accompanied today by spouse, they are happy with how the graft site and flap have healed. They deny any concerns aside from seeking revision of the puckered/raised area of the scalp flap. Previously underwent: 02/18/2021: MOHS with Dr. Basurto. Clear margins achieved. 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 Basurto. Margins were not clear Meds and allergies reviewed in [facility]. REVIEW OF SYSTEMS: PAIN ASSESSMENT: Negative for pain, history of chronic pain, or current treatment for a chronic pain condition. GENERAL: No weight loss, malaise or fevers RESPIRATORY: Negative for cough, hemoptysis, wheezing, COPD, dyspnea or shortness of breath CARDIOVASCULAR: Negative for chest pain, leg swelling, hypertension, CHF or palpitations MUSCULOSKELETAL: Negative for joint pain or swelling, back pain or muscle pain SKIN: See HPI NEURO: No history of headaches, syncope, paralysis, seizures or tremorsREVIEW OF SYSTEMS PMH: No past medical history on file. PSH: PAST SURGICAL HISTORY Procedure Laterality Date VASECTOMY UNI/BI SPX W/POSTOP SEMEN EXAMS MEDICATIONS: Current Outpatient Medications on File Prior to Visit Medication Sig acetaminophen (TYLENOL) 325 mg tablet Take 2 tablets by mouth every 4 hours as needed for pain. Two (2) X 325 mg tablets = 650 mg docusate sodium (COLACE) 100 mg capsule Take 1 capsule by mouth twice daily as needed for constipation. dapagliflozin (FARXIGA) 10 mg tablet Take by mouth daily with breakfast. acetaminophen (TYLENOL) 325 mg tablet Take 650 mg by mouth every 6 hours as needed. metFORMIN ER (GLUCOPHAGE XR) 500 mg 24 hr tablet Take 1 tablet by mouth twice daily. cephALEXin (KEFLEX) 500 mg capsule Take 1 capsule daily for 10 days alpha lipoic acid-biotin 600 mg- 450 mcg TbER Take by mouth. atorvastatin (LIPITOR) 40 mg tablet Take 40 mg by mouth. glipiZIDE (GLUCOTROL) 10 mg tablet Take 20 mg by mouth twice daily before meals. ibuprofen (MOTRIN) 200 mg tablet Take 200 mg by mouth as needed. lisinopril (ZESTRIL, PRINIVIL) 10 mg tablet Take 10 mg by mouth once daily. pioglitazone (ACTOS) 15 mg tablet Take 15 mg by mouth once daily. Current Facility-Administered Medications on File Prior to Visit Medication perflutren lipid microspheres 1.3 mL in NaCl (PF) 0.9% 10 mL injection (DEFINITY) sodium chloride 0.9 % (flush) 10 mL (BD POSIFLUSH) ALLERGIES: ALLERGIES No Known Allergies PHYSICAL EXAM: BP 157/91 Pulse 96 Temp 36.6 C (97.8 F) (Oral) Resp 20 SpO2 99% GENERAL: Patient is a well-nourished , appearing stated age, resting comfortably, breathing regularly. No acute distress. Lymph: No Submandibular, cervical, supraclavicular, axillary, or inguinal lymphadenopathy present Skin: Skin color, texture, turgor normal. 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 Patient's surgical sites are well healed. He is 6 months out from most recent surgery and presents today to discuss scalp flap revision. At this time, after discussing with the patient and reviewing their history, I believe the patient is a good candidate for surgical intervention. I discussed modalities of operative intervention and rationale for excision of right scalp standing cone, to address scalp flap deformity. They were counseled on perioperative routine and surgical plan, and all of their questions were addressed to their understanding prior to electing for surgery. I answered all the patient's questions in detail and addressed their concerns; patient showed clear understanding prior to electing for surgery. I also reviewed the risks, benefits, alternatives, and recovery of surgery. PLAN: 1. Plan will be for excision of right scalp standing cone 2. IC obtained 3. Under local 4. Will order an MRI brain for patient to obtain 1 year out, ~February 2022 5. Follow up 7-10 days after surgery Citlaly Padgett RN Staff note: I reviewed the information obtained and documented by the nurse. I examined the patient and evaluated all available films and pertinent documents. We discussed the case and I agree with the plans as outlined in this note. Scribe Attestation: By signing my name below, I, Giancarlo Mihaela, attest that this documentation has been prepared under the direction and in the presence of Toan Chu M.D. Electronically Signed:buddy Conley, September 07, 2021 8:26 AM I, Toan Chu MD, personally performed the services described in this documentation. All medical record entries made by the scribe were at my direction and in my presence. I have reviewed the chart and agree that the record reflects my personal performance and is accurate and complete 09/08/2021 9:09 AM documented in this encounter [facility] 07-26-2021 History of Present illness Narrative Chief Complaint: follow up LV: 02/18/21 for MOHS on posterior scalp for DERMATOFIBROSARCOMA PROTUBERANS History of Present Ilness: Karmen Carlos is a 40 year old male Patient is here for: 1) Follow up DERMATOFIBROSARCOMA PROTUBERANS - posterior scalp - MOHS on 02/18/21 - repaired with fasciocutaneous scalp rotation flap and split thickness skin graft to flap donor site with Dr. Chu - healing well Current treatment: vaseline Specialty Problems None Review of Systems: Constitutional: Denies fever, chills, night sweats, unintentional weight loss. Skin per HPI. No other new/concerning skin growth. Physical Exam: General: well appearing, of stated age, in no acute distress Neurology: alert and oriented times three Psychiatry: in a happy mood Skin: Brady skin type: II Skin exam performed of face, scalp, ears, eyelids, lips, neck, chest, abdomen, back, bilateral upper extremities, hands, fingers, fingernails, bilateral lower extremities, feet, toes, toenails. Skin exam normal with the exception of: - His right scalp has a well healing flap with redundant skin at the point of rotation - the surrounding skin is unremarkable - His left lateral scalp has a well healing STSG - No lymphadenopathy in bilateral neck Assessment and Plan: 1. 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 Chu in the next 1-2 months Plan: - recommend returning in 6 months for a wound check - every 6 mo for 2 years The documentation for this note was completed by Sarah Whalen RN acting as scribe for Loki Basurto MD. July 26, 2021 8:52 AM. Sarah Whalen RN I agree with the Chief Complaint, ROS, and Past Histories independently gathered by the clinical support associate and the remaining scribed note accurately describes my personal service to the patient. Loki Basurto MD July 26, 2021 documented in this encounter [facility] Evaluation note Diagnosis Dermatofibrosarcoma protuberans of scalp- Primary Other specified malignant neoplasm of scalp and skin of neck [facility] Diagnosis Dermatofibrosarcoma protuberans- Primary Other specified malignant neoplasm of skin, site unspecified S/P flap graft Other postprocedural status [facility] Diagnosis Acute post-operative pain- Primary [facility] Diagnosis Post-operative state- Primary Other postprocedural status [facility] noteNo assessment information availableProm[facility] Work Phone: Reason for visit Narrative* Auth/Cert Specialty Diagnoses / Procedures Referred By Diane t Referred To Contact [facility] Diagnoses Dermatofibrosarcoma protuberans S/P flap graft Procedures DELAY/SECTN FLAP SCALP,ARM,LEG FLAP DELAY SCALP OR SECTIONING [facility] [address] [place] [address] Referral ID Status Reason Start Date Expiration Date Visits Re quested Visits Authorized [id number] 1 1 [facility] Summary Purpose Family History No Family History Records FoundNo Family History Records FoundNo Family History Records FoundNo Family History Records FoundNo Family History Records FoundNo Family History Records Found Advance Directives No Advanced Directives Records FoundDocuments on File Type Date Recorded 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 Advance Directive(s) 02/25/2021 2:56 PM Advance Directive(s) 01/19/2021 12:12 PM Advance Directive(s) 12/15/2020 11:53 AM Advance Directive(s) 12/15/2020 10:47 AM Documents on File Type Date Recorded 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 Advance Directive(s) 02/25/2021 2:56 PM Advance Directive(s) 01/19/2021 12:12 PM Advance Directive(s) 12/15/2020 11:53 AM Advance Directive(s) 12/15/2020 10:47 AM Documents on File Type Date Recorded 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 Advance Directive(s) 12/15/2020 10:47 AM Documents on File Type Date Recorded 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 Advance Directive(s) 12/15/2020 10:47 AM Advance Directive Response Recorded Date/ Time Advance Directives No August 03 8:17am Reason for Referral Specialty Diagnoses / Procedures Referred By Diane mayers Referred To Contact [facility] Diagnoses Dermatofibrosarcoma protuberans S/P flap graft Procedures MRI BRAIN WO IVCON MRI BRAIN BRAIN [place] [id number] [place] [id number] [facility] Referral ID Status Reason Start Date Expiration Date Visits Requested Visits Authorized [id number] Pending Review Auto-Generat ed Referral 09/07/2021 10/07/2022 1 1 Chief Complaint and Reason for Visit Chief Complaint z00.00/e55.9/e11.65 Additional Source Comments (unrecognized sect ion and content) No Status Records FoundNo Status Records FoundNo Status Records FoundNo Status Records FoundNo Status Records FoundNo Status Records Found INFORMATION SOURCE (unrecogn ized section and content) DATE CREATED AUTHOR 09/12/2017 [facility] DATE CREATED AUTHOR AUTHOR'S ORGANIZ ATION 03/03/2021 [facility] DATE CREATED AUTHOR AUTHOR'S ORGANIZ ATION 08/19/2021 [facility] DATE CREATED AUTHOR AUTHOR'S ORGANIZ ATION 09/23/2022 [facility] DATE CREATED AUTHOR AUTHOR'S ORGANIZ ATION 03/27/2023 [facility] DATE CREATED AUTHOR AUTHOR'S ORGANIZ ATION 04/09/2023 [facility] Source Comments (unrecognize d section and content) In the event this informatio n is protected by the Federal Confidentiality of Alcohol and Drug Abuse Patient Records regulations: The Federal rules restrict any use of the information to criminally investigate or prosecute any alcohol or drug abuse patient.[facility] the event this information is protected by the Federal Confidentiality of Alcohol and Drug Abuse Patient Records regulations: The Federal rules restrict any use of the information to criminally investigate or prosecute any alcohol or drug abuse patient.[facility] the event this information is protected by the Federal Confidentiality of Alcohol and Drug Abuse Patient Records regulations: The Federal rules restrict any use of the information to criminally investigate or prosecute any alcohol or drug abuse patient.[facility] the event this information is protected by the Federal Confidentiality of Alcohol and Drug Abuse Patient Records regulations: The Federal rules restrict any use of the information to criminally investigate or prosecute any alcohol or drug abuse patient.[facility] the event this information is protected by the Federal Confidentiality of Alcohol and Drug Abuse Patient Records regulations: The Federal rules restrict any use of the information to criminally investigate or prosecute any alcohol or drug abuse patient.[facility] Reason for Visit (unrecogniz ed section and content) Reason Comments Follow Up Reason Comments Established Patient Reason Comments Appointment Care Teams (unrecognized sec tion and content) Birth Attendant Relationship Specialty Start Date End Date JamesSalbador [address] [place] [address] PCP - General Family Practice 12/15/20 Birth Attendant Relationship Specialty Start Date End Date Salbador Ramirez [address] [place] [address] PCP - General Family Practice 12/15/20 Birth Attendant Relationship Specialty Start Date End Date Salbador Ramirez [address] [place] [address] PCP - General Family Medicine 12/15/20 Birth Attendant Relationship Specialty Start Date End Date Salbador Ramirez [address] [place] [address] PCP - General Family Medicine 12/15/20 Birth Attendant Relationship Specialty Start Date End Date Nickogopisirisha Salbador Glover [address] [place] [address] PCP - General Family Medicine 12/15/20 Team Status: Active Member Role Status Dates Salbador Ramirez MD Primary Care Provider Active Team Status: Inactive Member Role Status Dates Salbador Ramirez MD Primary Care Provider, Attending Pro vider Active PRN Active and Recently Administ ered Medications (unrecognized section and content) Medication Order 01/29/2022 01/30/2022 01/31/2022 bacitracin 500 unit/gram topical ointment (CANCELED) X (OR/PROCEDURE) PRN, Starting on Sun01/31/22 at 0815, Until Sun01/31/22 at 0844, Intraprocedure 0815 (Given - Provid er: Agatha Rawls MD - Comment: topically applied to surgical site, scalp) lidocaine 1%-EPINEPHrine 1:100,000 injection (CANCELED) X (OR/PROCEDURE) PRN, Starting on Sun01/31/22 at 0758, Until Sun01/31/22 at 0844, Intraprocedure 0758 (Given - Provid er: Agatha Rawls MD - Comment: right scalp)0829 (Given - Provider: Agatha Rawls MD - Comment: right scalp) NaCl 0.9% irrigation solution (CANCELED) X (OR/PROCEDURE) PRN, Starting on Sun01/31/22 at 0802, Until Sun01/31/22 at 0844, Intraprocedure 0802 (Given - Provid er: Agatha Rawls MD) Goals (unrecognized section and content) Goals may be documented in a n alternate section FOR RECORDS PERTAINING TO PATIENTS WHO ARE OR HAVE BEEN ENROLLED IN A CHEMICAL DEPENDENCY/SUBSTANCEABUSE PROGRAM, SOME INFORMATION MAY BE OMITTED. This clinical summary was aggregated from multiple sources. Caution should be exercised in using it in the provision of clinical care. This summary normalizes information from multiple sources, and as a consequence, information in this document may materially change the coding, format and clinical context of patient data. In addition, data may be omitted in some cases. CLINICAL DECISIONS SHOULD BE BASED ON THE PRIMARY CLINICAL RECORDS. [facility]. provides no warranty or guarantee of the accuracy or completeness of information in this document.
== END 2023-05-09 20:55 | disposition home or self-care (01) ==
LOC: SLEEP 20:55
PROVIDERS: PCP Family Medicine; Visit Provider Family Medicine
DX: G47.33 Obstructive sleep apnea (adult) (pediatric) (principal)
CPT/HCPCS: 95811

== ENCOUNTER 2024-11-06 11:19 | Outpatient (OUT) | payer OTHER, SELFPAY ==
--- OUTSIDE RECORDS SUMMARY | 2024-11-04 15:15 | XMS_ITS | Encounter Summary ---
Author Organization [facility] Address [address] [place] [address] Care Team Providers Care Glaucoma Specialist Name Role Phone Salbador Mcnally MD Unavailable Salbador Mcnally MD Primary Care Provider [phone] Reason for Visit * Reason Comments Arm Pain Right arm Encounter Details Date Type Department Care Team (Late st Contact Info) Description 11/04/2024 3:15 PM EDT Office Visit [facility] [address] [place] [address] Salbador Mcnally MD [address] [place] [address] Cervical spondylosis with radiculopathy (Primary Dx); Type 2 diabetes mellitus with hyperglycemia, without long-term current use of insulin (HCC); Benign hypertension ; Annual physical exam Social History Tobacco Use Types Packs/Day Years Used Date Smoking Tobacco: Former Cigarettes 2 - 2011 Smokeless Tobacco: Never Sex and Gender Information Value Date Recorded Sex Assigned at Not on file Legal Sex Male 7:31 PM EDT Gender Identity Not on file Sexual Orientation Not on file documented as of this encounter Last Filed Vital Signs Vital Sign Reading Time Taken Comments Blood Pressure 168/86 11/04/2024 3:04 PM EDT Pulse 103 11/04/2024 3:04 PM EDT Temperature 36.4 C (97.5 F) 11/04/2024 3:04 PM EDT Respiratory Rate 22 11/04/2024 3:04 PM EDT Oxygen Saturation 97% 11/04/2024 3:04 PM EDT Inhaled Oxygen Concentration - - Weight 140 kg (309 lb) 11/04/2024 3:04 PM EDT Height 182.9 cm (6') 11/04/2024 3:04 PM EDT Body Mass Index 41.91 11/04/2024 3:04 PM EDT documented in this encounter Progress Notes * Salbador Mcnally MD - 11/04/2024 4:36 PM EDTAssociated Problem(s): Type 2 diabetes mellitus with hyperglycemia, without long-term current use of insulin (HCC) Not checking BS and due for A1C. * Salbador Mcnally MD - 11/04/2024 4:36 PM EDTAssociated Problem(s): Benign hypertension BP elevated but c/o pain. Monitor BP PRN. Discussed DASH diet. * Salbador Mcnally MD - 11/04/2024 4:36 PM EDTAssociated Problem(s): Cervical spondylosis with radiculopathy Symptoms likely related to cervical pathology and suggestive of pinched nerve. Check x-ray neck andstart PT. Start celebrex and lycrica for pain. If no improvement will need MRI. * Salbador Mcnally MD - 11/04/2024 3:15 PM EDT Images from the original note were not included. Subjective Patient ID: Jonas Clark is a 44 y.o. male who presents for Arm Pain (Right arm). C/o right arm pain for several weeks. Seen 05/22 complaining of pain in right shoulder after tossing a bucket in back truck. At the time given prednisone and had x-ray shoulder. Pain improved after fewdays and did not take prednisone. X- ray with mild OA. 10/17 stretched and felt severe pain in right shoulder and side of neck. Stiffness in neck and decreased ROM. Pain on side neck down into top shoulder. C/o pain in upper arm and down to elbow. Pain radiates down forearm into wrist. Right thumb, index, and middle finger constantly numb. Notice if sit with arms at side or resting in vehicle pain and numbness worse. Feels better if up and moving. Reports history of cervical DDD and previously told vertebrae moved in relationship to another. Review of Systems Constitutional: Negative for fatigue. Respiratory: Negative for cough, shortness of breath and wheezing. Cardiovascular: Negative for chest pain and palpitations. Gastrointestinal: Negative for abdominal pain, diarrhea, nausea and vomiting. Genitourinary: Negative for dysuria. Objective Physical Exam Constitutional: General: He is not in acute distress. Appearance: Normal appearance. HENT: Head: Normocephalic. Right Ear: Tympanic membrane and ear canal normal. Left Ear: Tympanic membrane and ear canal normal. Eyes: Extraocular Movements: Extraocular movements intact. Pupils: Pupils are equal, round, and reactive to light. Cardiovascular: Rate and Rhythm: Normal rate and regular rhythm. Heart sounds: No murmur heard. No friction rub. No gallop. Pulmonary: Breath sounds: Normal breath sounds. No wheezing, rhonchi or rales. Abdominal: General: Bowel sounds are normal. There is no distension. Palpations: Abdomen is soft. Tenderness: There is no abdominal tenderness. There is no guarding or rebound. Musculoskeletal: Left lower leg: No edema. Neurological: Mental Status: He is alert. Assessment/Plan Problem List Items Addressed This Visit Benign hypertension BP elevated but c/o pain. Monitor BP PRN. Discussed DASH diet. Annual physical exam Relevant Orders Comprehensive metabolic panel CBC and differential Lipid panel PSA TSH Type 2 diabetes mellitus with hyperglycemia, without long-term current use of insulin (HCC) Not checking BS and due for A1C. Relevant Orders Microalbumin / creatinine, urine ratio Hemoglobin A1c Cervical spondylosis with radiculopathy - Primary Symptoms likely related to cervical pathology and suggestive of pinched nerve. Check x-ray neck andstart PT. Start celebrex and lycrica for pain. If no improvement will need MRI. Relevant Medications celecoxib (CeleBREX) 200 MG capsule pregabalin (Lyrica) 75 MG capsule Other Relevant Orders XR cervical spine 2 or 3 views documented in this encounter Plan of Treatment Upcoming Encounters Date Type Department Care Team (Late st Contact Info) Description 12/16/2024 10:30 AM EDT Office Visit [facility] [address] [place] [address] Salbador Mcnally MD [address] [place] [address] Scheduled Orders Name Type Priority Associated Diagnoses Orde r Schedule XR cervical spine 2 or 3 views Imaging Routine Cervical spondylosis with radiculopathy Expected: 11/04/2024, Expires: 11/04/2025 Microalbumin / creatinine, urine ratio Lab Routine Type 2 diabetes mellitus with hyperglycemia, without long-term current use of insulin (HCC) Expected: 11/04/2024 (Approximate), Expires: 11/04/2025 Comprehensive metabolic panel Lab Routine Annual physical exam Expected: 11/04/2024 (Approximate), Expires: 11/04/2025 CBC and differential Lab Routine Annual physical exam Expected: 11/04/2024 (Approximate), Expires: 11/04/2025 Lipid panel Lab Routine Annual physical exam Expected: 11/04/2024 (Approximate), Expires: 11/04/2025 PSA Lab Routine Annual physical exam Expected: 11/04/2024 (Approximate), Expires: 11/04/2025 TSH Lab Routine Annual physical exam Expected: 11/04/2024 (Approximate), Expires: 11/04/2025 Hemoglobin A1c Lab Routine Type 2 diabetes mellitus with hyperglycemia, without long-term current use of insulin (HCC) Expected: 11/04/2024 (Approximate), Expires: 11/04/2025 documented as of this encounter Visit Diagnoses Diagnosis Cervical spondylosis with radiculopathy- Primary Cervical spondylosis with myelopathy Type 2 diabetes mellitus with hyperglycemia, without long-term current use of insulin (HCC) Benign hypertension Essential hypertension, benign Annual physical exam Routine general medical examination at a health care facility documented in this encounter Care Teams Glaucoma Specialist Relationship Specialty Start Date End Date Salbador Mcnally MD [address] [place] [id number] PCP - Medical [place] [employer] 03/19/22 03/18/99 Salbador Mcnally MD [address] [place] [phone] PCP - General Family Medicine 05/22/24 documented as of this encounter
--- OUTSIDE RECORDS SUMMARY | 2024-11-06 11:23 | XMS_ITS | Clinical Summary ---
Author Organization [facility] Address [address] [place] [address] Care Team Providers Care Navigating Officer Name Role Phone Salbador Mcnally MD Unavailable Salbador Mcnally MD Primary Care Provider [phone] Allergies No known active allergies Medications cholecalciferol (Vitamin D-3) 50 MCG (1999) tablet Take 2,000 Units by mouth in the morning. Active atorvastatin (Lipitor) 40 MG tabletIndications :Type 2 diabetes mellitus with microalbuminuria, without long-term current use of insulin (HCC) Take 1 tablet (40 mg) by mouth at bedtime 30 tablet 09/11/19 24 Active pioglitazone (Actos) 45 MG tabletIndications :Type 2 diabetes mellitus with hyperglycemia, without long-term current use of insulin (HCC) TAKE 1 TABLET BY MOUTH ONCE DAILY IN THE MORNING 30 tablet 10/29/19 24 Active glipiZIDE (Glucotrol) 10 MG tabletIndications :Type 2 diabetes mellitus with hyperglycemia (HCC) TAKE 2 TABLETS BY MOUTH TWICE DAILY 120 tablet 5 03/04/20 24 Active metFORMIN XR (Glucophage-XR) 500 MG 24 hr tabletIndications :Type 2 diabetes mellitus with hyperglycemia (HCC) TAKE 2 TABLETS BY MOUTH TWICE DAILY 120 tablet 5 04/22/19 25 Active lisinopril 30 MG tabletIndications :Benign hypertension TAKE 1 TABLET BY MOUTH ONCE DAILY IN THE MORNING 30 tablet 5 06/24/19 25 Active celecoxib (CeleBREX) 200 MG capsuleIndication s:Cervical spondylosis with radiculopathy Take 1 capsule (200 mg) by mouth in the morning and 1 capsule (200 mg) before bedtime. Take with food. 60 capsule 3 11/05/19 25 Active pregabalin (Lyrica) 75 MG capsuleIndication s:Cervical spondylosis with radiculopathy Take 1 capsule (75 mg) by mouth in the morning and 1 capsule (75 mg) before bedtime. 60 capsule 2 11/05/19 25 025 Active dapagliflozin (Farxiga) 10 MG Take 10 mg by mouth in the morning. 025 Discontinued semaglutide (Ozempic, 0.25 or 0.5 MG/DOSE,) 2 MG/1.5ML solution pen-injectorIndic ations:Type 2 diabetes mellitus with microalbuminuria, without long-term current use of insulin (HCC) 0.25 mg SC weekly x 4 weeks, then 0.5 mg weekly 1 each 3 04/02/19 24 025 Discontinued Active Problems Problem Noted Date Diagnosed Date Cervical spondylosis with radiculopathy 11/05/19 Assessment & Plan (11/04/2024 4:36 PM EDT): Symptoms likely related to cervical pathology and suggestive of pinched nerve. Check x-ray neck and start PT. Start celebrex and lycrica for pain. If no improvement will need MRI. Rotator cuff injury, right, initial encounter Assessment & Plan (05/22/2024 4:26 PM EST): Appears to have rotator cuff injury and check x-ray to assess for OA or signs of impingement. Treat with prednisone. Handout with ROM exercises to patient. If no improvement will need MRI or ortho. Class 3 severe obesity due t o excess calories with serious comorbidity and body mass index (BMI) of 40.0 to 44.9 in adult 05/22/2024 Assessment & Plan (05/22/2024 4:26 PM EST): Weight loss indicated. Type 2 diabetes mellitus wit h hyperglycemia, without long-term current use of insulin 05/22/2024 Assessment & Plan (11/04/2024 4:36 PM EDT): Not checking BS and due for A1C. Assessment & Plan (05/22/2024 4:27 PM EST): Warned prednisone will elevated BS. Dyslipidemia 05/22/2024 Benign hypertension 03/26/2023 Assessment & Plan (11/04/2024 4:36 PM EDT): BP elevated but c/o pain. Monitor BP PRN. Discussed DASH diet. Assessment & Plan (03/26/2023 3:30 PM EST): BP very high and increase lisinopril. Monitor BP PRN. Discussed DASH diet. DDD (degenerative disc disease), thoracic 2023 Type 2 diabetes mellitus wit h microalbuminuria, without long-term current use of insulin 03/26/2023 Assessment & Plan (03/26/2023 3:31 PM EST): Not checking BS and due for A1C. Stick to ADA diet and limit carbs. Vitamin D deficiency 03/26/2023 Annual physical exam 03/26/2023 Assessment & Plan (03/26/2023 3:30 PM EST): Due for labs. Discussed proper diet and regular aerobic exercise. Need aerobic exercise 5-6 days a week for 30 minutes at a time. Smaller portions and limit total calories. Colonoscopy after age 45. Tetanus every 10 years. Advised not to smoke. Discussed daily Aspirin therapy. WOO (obstructive sleep apnea) 03/26/2023 Assessment & Plan (03/26/2023 3:31 PM EST): Diagnosed years ago and having worsening symptoms. Refer for sleep study. Resolved Problems Problem Noted Date Diagnosed Date Resolved Date Internal derangement of right shoulder 05/22/2024 11/04/2024 Assessment & Plan (05/22/2024 4:26 PM EST): Appears to have rotator cuff injury and check x-ray to assess for OA or signs of impingement. Treat with prednisone. Handout with ROM exercises to patient. If no improvement will need MRI or ortho. Encounters Date Type Department Care Team Description 11/04/2024 3:15 PM EDT Office Visit [facility] [address] [place] [phone] Salbador Mcnally MD Cervical spondylosis with radiculopathy (Primary Dx); Type 2 diabetes mellitus with hyperglycemia, without long-term current use of insulin (HCC); Benign hypertension ; Annual physical exam 11/04/2024 Bamboo flowsheet [facility] [address] [phone] Salbador Mcnally MD from Last 3 Months Family History Medical History Relation Name Comments No Known Problems Father No Known Problems Mother Relation Name Status Comments Father Mother Social History Tobacco Use Types Packs/Day Years Used Date Smoking Tobacco: Former Cigarettes 2 2011 Smokeless Tobacco: Never Tobacco Cessation:Counseling Given: Not Answered Sex and Gender Information Value Date Recorded Sex Assigned at Not on file Legal Sex Male 7:31 PM EDT Gender Identity Not on file Sexual Orientation Not on file Last Filed Vital Signs Vital Sign Reading [...] Mass Index 41.91 11/04/2024 3:04 PM EDT Plan of Treatment Upcoming Encounters Date Type Department Care Team (Late st Contact Info) Description 12/16/2024 10:30 AM EDT Office Visit [facility] [address] [place] [address] Salbador Mcnally MD [address] [place] [place] [address] Health Maintenance Due Date Last Done Comments CT Colonography 1978 Colonoscopy 1978 Colorectal Cancer Screening 1978 FIT-DNA 1978 FIT 1978 FOBT 1978 Sigmoidoscopy 1978 Diabetes: Retinopathy Screening 1988 Diabetes: Hemoglobin A1C 09/28/2023 024, 03/30/2023, 01/25/2021, Additional history exists Diabetes: Urine Protein Screening 03/30/2024 024, 03/30/2023 Influenza Vaccine (#1) 2024 Procedures Procedure Name Priority Date/Time Associated Diagnosis Comments MICROALBUMIN / CREATININE URINE RATIO Routine 03/30/2023 11:33 AM EST HEMOGLOBIN A1C WITH EAG Routine 03/30/2023 11:33 AM EST from Last 3 Months or Most Recently Relevant to Health Maintenance Results * (ABNORMAL) Hemoglobin a1c with eag (03/30/2023 11:33 AM EST) HEMOGLOBIN A1C 10.5(H) 4.3 - 5.6 % 03/30/2023 1:10 PM [facility] Comment: Increased risk for diabetes: 5.7 - 6.4 diabetes: >6.4 glycemic control for adults with diabetes: <7.0 ESTIMATED AVERAGE GLUCOSE 255 mg/dL 03/30/2023 1:10 PM [facility] Other 03/30/2023 11:3 3 AM EST 03/30/2023 11:33 AM EST Salbador Mcnally MD LAB BLOOD ORDERABLES Final Resul t [facility] [address] [place] [address], [facility] [address] [place] [address] * (ABNORMAL) Microalbumin / creatinine urine ratio (03/30/2023 11:33 AM EST) MICROALBUMIN, URINE 2.1(H) 0.0 - 1.8 mg/dL 03/30/2023 1:31 PM [facility] CREATININE, URINE (RANDOM) 115.0(H) 14.0 - 26.0 mg/dL 03/30/2023 1:31 PM [facility] MICROALBUMIN/CR EATININE RATIO 18.0 0.0 - 30.0 mg/g 03/30/2023 1:31 PM [facility] Comment: 30-300 mg/g indicates an increased risk for diabetic nephropathy. Greater than 300 mg/g is consistent with clinical nephropathy. (Am. J. Kidney Disease 1995, 25:107) Other 03/30/2023 11:3 3 AM EST 03/30/2023 11:33 AM EST Salbador Mcnally MD LAB URINE ORDERABLES Final Resul t [facility] [address] [place] [address], [facility] [address] [place] [address] from Last 3 Months or Most Recently Relevant to Health Maintenance Insurance [employer] Care Teams Navigating Officer Relationship Specialty Start Date End Date Salbador Mcnally MD [address] [place] [address] PCP - Medical [place] [employer] 03/19/22 03/18/99 Salbador Mcnally MD [address] [place] [address] PCP - General Family Medicine 05/22/24
--- OUTSIDE RECORDS SUMMARY | 2024-11-06 11:23 | XMS_ITS | Encounter Summary ---
Author Organization [facility] Address [address] [place] [address] Care Team Providers Care Loft Worker Name Role Phone Salbador Mcnally MD Primary Care Provider [phone] Source Comments In the event this information is protected by the Federal Confidentiality of Alcohol and Drug AbusePatient Records regulations: The Federal rules restrict any use of the information to criminally investigate or prosecute any alcohol or drug abuse patient.[facility] Encounter Details Date Type Department Care Team (Late st Contact Info) Description 02/25/2021 Get Medical Advice Plastic Surgery [address] [place] [id number] Lewis Adair MD [address] [place] [address] Scheduled Procedure for 03/07/21 Social History Tobacco Use Types Packs/Day Years Used Date Smoking Tobacco: Former Cigarettes 1 10 0 03/19/1989 - 03/19/1999 Smokeless Tobacco: Former Quit: 09/23/2020 Alcohol Use Standard Drinks/Week Comments Yes 2 (1 standard drink = 0.6 oz pure alcohol) 6-7 beers several times per week Area Deprivation Index Answer Date Deon rded National Score (1-100), lower number is lower ri sk Not on file 12/15/2020 State Score (1-10), lower number is lower risk N ot on file 12/15/2020 Data from: https://www.neighborhoodatlas.medicine.[facility].edu/. Last address used for calculation Not on file 12/15/2020 Sex and Gender Information Value Date Recorded Sex Assigned at Male 01/27/2021 10:03 AM EST Legal Sex Male 10:58 AM EST Gender Identity Male 01/27/2021 10:03 AM EST Sexual Orientation Straight 01/27/2021 10 :03 AM EST COVID-19 Exposure Response Date Recorded In the last month, have you been in contact with someone who was confirmed or suspected to have Coronavirus / COVID-19? No / Unsure 02/25/2021 11:37 AM EST documented as of this encounter Plan of Treatment Not on file documented as of this encounter Visit Diagnoses Not on filedocumented in this encounter Care Teams Loft Worker Relationship Specialty Start Date End Date Salbador Mcnally MD [address] [place] [address] PCP - General Family Medicine 12/15/20 documented as of this encounter
--- OUTSIDE RECORDS SUMMARY | 2024-11-06 11:23 | XMS_ITS | Clinical Summary ---
Author Organization [email or web address] Address [id number] [address] [place] [address] Care Team Providers Care Seaming Inspector Name Role Phone Salbador Mcnally MD Primary Care Provider Allergies No known active allergies Medications ibuprofen (ADVIL,MOTRIN) 200 mg tablet Take 200 mg by mouth. Active metFORMIN (GLUCOPHAGE) 500 mg tablet Take 500 mg by mouth. Active glipiZIDE (GLUCOTROL) 10 mg tablet Take 20 mg by mouth 2 (two) times a day before meals. Active lisinopriL (PRINIVIL,ZESTRI L) 10 mg tablet Take 10 mg by mouth daily. Active atorvastatin (LIPITOR) 40 mg tablet Take 40 mg by mouth daily. Active pioglitazone (ACTOS) 15 mg tablet Take 15 mg by mouth daily. Active calcium citrate-vitamin D2 250 mg-2.5 mcg (100 unit) per tablet Take 1 tablet by mouth 2 (two) times a day. Active alpha lipoic acid-biotin 600 mg- 450 mcg tablet extended release Take by mouth. Active Active Problems No known active problems Family History Relation Name Status Comments Brother Alive Daughter Alive Father Alive Mother Alive Sister Alive Son 1 Alive Son 2 Alive Social History Tobacco Use Types Packs/Day Years Used Date Smoking Tobacco: Former Smokeless Tobacco: Current Snuff Alcohol Use Standard Drinks/Week Comments Yes 15 (1 standard drink = 0.6 oz pu re alcohol) Childcare Answer Date Recorded Childcare Unknown 08/28/2018 Employment Answer Date Recorded Employment Unknown 08/28/2018 Sex and Gender Information Value Date Recorded Sex Assigned at Not on file Legal Sex Male 11:56 AM EDT Gender Identity Not on file Sexual Orientation Not on file Last Filed Vital Signs Vital Sign Reading Time Taken Comments Blood Pressure 126/78 09/27/2020 3:29 PM EDT Pulse - - Temperature 35.8 C (96.4 F) 10/14/2020 9:46 AM EDT Respiratory Rate - - Oxygen Saturation - - Inhaled Oxygen Concentration - - Weight 146.1 kg (322 lb) 10/14/2020 9:46 AM EDT Height 182.9 cm (6') 10/14/2020 9:46 AM EDT Body Mass Index 43.67 10/14/2020 9:46 AM EDT Plan of Treatment Health Maintenance Due Date Last Done Comments Depression Screening 1990 Tobacco Screening 1990 Adult BMI Screening 1996 DTaP,Tdap and Td Vaccines (1 - Tdap) 1997 Influenza Vaccine 11/17/2024 Medical Devices Not on file Insurance [employer] Care Teams Seaming Inspector Relationship Specialty Start Date End Date Salbador Mcnally MD PCP - General Family Medicine 09/02/20
--- OUTSIDE RECORDS SUMMARY | 2024-11-06 11:23 | XMS_ITS | Encounter Summary ---
Author Organization [facility] Address [address] [place], [place] [id number] Care Team Providers Care Machine I Coremaker Name Role Phone Salbador Mcnally MD Primary Care Provider [phone] Source Comments In the event this information is protected by the Federal Confidentiality of Alcohol and Drug AbusePatient Records regulations: The Federal rules restrict any use of the information to criminally investigate or prosecute any alcohol or drug abuse patient.[facility] Encounter Details Date Type Department Care Team (Late st Contact Info) Description 07/19/2022 Get Medical Advice Dermatology [address] [place] [address] Angus Basurto MD [address] [place] [address] Follow Up Social History Tobacco Use Types Packs/Day Years Used Date Smoking Tobacco: Former Cigarettes 1 10 0 03/19/1989 - 03/19/1999 Smokeless Tobacco: Former Quit: 09/23/2020 Alcohol Use Standard Drinks/Week Comments Yes 2 (1 standard drink = 0.6 oz pure alcohol) 6-7 beers several times per week Area Deprivation Index Answer Date Deon rded National Score (1-100), lower number is lower ri 87 04/01/2022 State Score (1-10), lower number is lower risk N ot on file 04/01/2022 Data from: https://www.neighborhoodatlas.medicine.[facility].edu/. Last address used for calculation [address] 04/01/2022 Sex and Gender Information Value Date Recorded Sex Assigned at Male 01/27/2021 10:03 AM EST Legal Sex Male 10:58 AM EST Gender Identity Male 01/27/2021 10:03 AM EST Sexual Orientation Straight 01/27/2021 10 :03 AM EST documented as of this encounter Plan of Treatment Not on file documented as of this encounter Visit Diagnoses Not on filedocumented in this encounter Care Teams Machine I Coremaker Relationship Specialty Start Date End Date Salbador Mcnally MD [address] [place] [address] PCP - General Family Medicine 12/15/20 documented as of this encounter
--- OUTSIDE RECORDS SUMMARY | 2024-11-06 11:23 | XMS_ITS | Encounter Summary ---
Author Organization [facility] Address [address] [place] [address] Care Team Providers Care Boilermaker Fitter Name Role Phone Salbador Mcnally MD Primary Care Provider [phone] Salbador Mcnally MD Unavailable Salbador Mcnally MD Primary Care Provider [phone] Encounter Details Date Type Department Care Team (Late Contact Info) Description 04/23/2023 Orders Only [facility] [address] [place] [address] Salbador Mcnally MD [address] [place] [address] Social History Tobacco Use Types Packs/Day Years Used Date Smoking Tobacco: Former Cigarettes 2 15 7 - 2011 Smokeless Tobacco: Never Sex and Gender Information Value Date Recorded Sex Assigned at Not on file Legal Sex Male 7:31 PM EDT Gender Identity Not on file Sexual Orientation Not on file documented as of this encounter Plan of Treatment Upcoming Encounters Date Type Department Care Team (Late st Contact Info) Description 12/16/2024 10:30 AM EDT Office Visit [facility] [address] [place] [address] Salbador Mcnally MD [address] [place] [address] documented as of this encounter Procedures Procedure Name Priority Date/Time Associated Diagnosis Comments C-PAP TITRATION SLEEP STUDY Routine 04/23/2023 2:39 PM EST documented in this encounter Results * C-PAP TITRATION SLEEP STUDY (04/23/2023 2:39 PM EST) Anatomical Region Laterality Modality Radiographic Hilaria ging Salbador Mcnally MD IMG XR PROCEDURES Final Result documented in this encounter Visit Diagnoses Not on filedocumented in this encounter Care Teams Boilermaker Fitter Relationship Specialty Start Date End Date Salbador Mcnally MD PCP - General Family Medicine 02/21/23 05/21/24 Salbador Mcnally MD [address] [place] [address] PCP - Medical [employer] 03/19/22 03/18/99 Salbador Mcnally MD [address] [place] [address] PCP - General Family Medicine 05/22/24 documented as of this encounter
--- OUTSIDE RECORDS SUMMARY | 2024-11-06 11:23 | XMS_ITS | Encounter Summary ---
Author Organization [facility] Address [address] [place] [address] Care Team Providers Care Die Cutter Name Role Phone Salbador Mcnally MD Unavailable Salbador Mcnally MD Primary Care Provider [phone] Encounter Details Date Type Department Care Team (Late Contact Info) Description 05/28/2024 External Result Encounter [facility] External Department Unsolicited Salbador Mcnally MD [address] [place] [address] Social History Tobacco Use Types Packs/Day Years [...] Encounters Date Type Department Care Team (Late Contact Info) Description 12/16/2024 10:30 AM EDT [facility] [address] [place] [address] Salbador Mcnally MD [address] [place] [address] documented as of this encounter Procedures Procedure Name Priority Date/Time Associated Diagnosis Comments XR SHOULDER 2+ VIEWS RIGHT 05/28/2024 4:11 PM EDT documented in this encounter Results * XR shoulder 2+ views right (05/28/2024 4:11 PM EDT) Anatomical Region Laterality Modality Upper Extremities, Shoulder Right Radi ographic Imaging 05/28/2024 4:11 PM EDT Impressions 05/28/2024 4:15 PM EDT MILD DEGENERATIVE CHANGES OF THE RIGHT SHOULDER WITHOUT ACUTE BONY PROCESS. Impression dictated by: Giancarlo Wolf Jr., D.ONatalia05/28/2024 4:12 PM Dictation Location: [id number]-[id number] Transcribed By: PWS 05/28/24 1612 Dictated By: Giancarlo Wolf Jr, DO 05/28/24 1611 Signed By: <Electronically signed by Giancarlo Wolf Jr, DO in OV> 05/28/24 1612 Narrative 05/28/2024 4:[address] [facility] [place] [id number] XRay Report Signed Patient: Jonas Clark MR#: [id number] : 1980 Acct:[id number] Age/Sex: 43 / M ADM Date: 05/28/24 Loc: XD Room: Type: REG CLI Attending Dr: Salbador Mcnally MD Copies to: Salbador Mcnally MD Ordering Provider: Salbador Mcnally MD Date of Service: 05/28/24 XR/XR shoulder RT min 2V*: [id number] RIGHT SHOULDER - - 3 views CLINICAL HISTORY: Pain in right shoulder radiating down right arm for 2 weeks COMPARISON: None FINDINGS: Mild degenerative changes of the AC joint. Mild degenerative changes along the humeral head without acute bony process. XR/XR shoulder RT min 2V* Procedure Note Giancarlo Wolf Jr., MD - 05/28/2024 [place] [address] XRay Report Signed Patient: Jonas Clark JMR#: [id number] : 1980Acct:[id number] Age/Sex: 43 / MADM Date: 05/28/24 Loc: XD Room:Type: REG CLI Attending Dr: Salbador Mcnally MD Copies to: Salbador Mcnally MD Ordering Provider: Salbador Mcnally MD Date of Service: 05/28/24 XR/XR shoulder RT min 2V*: [id number] RIGHT SHOULDER - - 3 views CLINICAL HISTORY: Pain in right shoulder radiating down right arm for 2weeks COMPARISON: None FINDINGS: Mild degenerative changes of the AC joint. Mild degenerative changesalong the humeral head without acute bony process. XR/XR shoulder RT min 2V* IMPRESSION: MILD DEGENERATIVE CHANGES OF THE RIGHT SHOULDER WITHOUT ACUTE BONYPROCESS. Impression dictated by: Giancarlo Wolf Jr., D.ONatalia05/28/2024 4:12 PM Dictation Location: [facility]--19 Transcribed By: [facility] 05/28/24 1612 Dictated By: Giancarlo Wolf Jr, DO 05/28/24 1611 Signed By: <Electronically signed by Giancarlo Wolf Jr, DO inOV> 05/28/24 1612 Salbador Mcnally MD IMG XR PROCEDURES Final Result documented in this encounter Visit Diagnoses Not on filedocumented in this encounter Care Teams Die Cutter Relationship Specialty Start Date End Date Salbador Mcnally MD [address] [place] [address] PCP - Medical [employer] 03/19/22 03/18/99 Salbador Mcnally MD [address] [place] [address] PCP - General Family Medicine 05/22/24 documented as of this encounter
--- OUTSIDE RECORDS SUMMARY | 2024-11-06 11:23 | XMS_ITS | Encounter Summary ---
Author Organization [facility] Address [facility] [place] [address] Care Team Providers Care Power Plant Technician Name Role Phone Salbador Mcnally MD Primary Care Provider [phone] Source Comments In the event this information is protected by the Federal Confidentiality of Alcohol and Drug AbusePatient Records regulations: The Federal rules restrict any use of the information to criminally investigate or prosecute any alcohol or drug abuse patient.[facility] Encounter Details Date Type Department Care Team (Late st Contact Info) Description 05/27/2021 Get Medical Advice Plastic Surgery [address] [place] [address] Romy Banks APRN.[employer] [address] [place] [address] Follow up with dermatology Social History Tobacco Use Types Packs/Day Years [...] N ot on file 12/15/2020 Data from: https://www.neighborhoodatlas.medicine.[facility].edu/. Last address used for calculation Not on [...] have Coronavirus / COVID-19? No / Unsure 05/11/2021 2:11 PM EST documented as of this encounter Plan of Treatment Not on file documented as of this encounter Visit Diagnoses Not on filedocumented in this encounter Care Teams Power Plant Technician Relationship Specialty Start Date End Date Salbador Mcnally MD [address] [place] [address] PCP - General Family Medicine 12/15/20 documented as of this encounter
--- OUTSIDE RECORDS SUMMARY | 2024-11-06 11:23 | XMS_ITS | Clinical Summary ---
Author Organization [facility] Address [address] [place], [place] [address] Care Team Providers Care Biological Lab Technician Name Role Phone Salbador Mcnally MD Primary Care Provider [phone] Allergies No known active allergies Medications alpha lipoic acid-biotin 600 mg- 450 mcg TbER Take by mouth. Active atorvastatin (LIPITOR) 40 mg tablet Take 40 mg by mouth. Active glipiZIDE (GLUCOTROL) 10 mg tablet Take 20 mg by mouth twice daily before meals. Active ibuprofen (MOTRIN) 200 mg tablet Take 200 mg by mouth as needed. Active lisinopril (ZESTRIL, PRINIVIL) 10 mg tablet Take 10 mg by mouth once daily. Active pioglitazone (ACTOS) 15 mg tablet Take 15 mg by mouth once daily. Active cephALEXin (KEFLEX) 500 mg capsule Take 1 capsule daily for 10 days 20 capsule 02/18/2021 Active dapagliflozin (FARXIGA) 10 mg tablet Take by mouth daily with breakfast. Active acetaminophen (TYLENOL) 325 mg tablet Take 650 mg by mouth every 6 hours as needed. Active metFORMIN ER (GLUCOPHAGE XR) 500 mg 24 hr tablet Take 1 tablet by mouth twice daily. 02/07/2021 Active acetaminophen (TYLENOL) 325 mg tablet Take 2 tablets by mouth every 4 hours as needed for pain. Two (2) X 325 mg tablets = 650 mg 0 03/07/2021 Active docusate sodium (COLACE) 100 mg capsule Take 1 capsule by mouth twice daily as needed for constipation . 10 capsule 03/07/2021 Active oxyCODONE IR (ROXICODONE) 5 mg immediate release tabletIndicatio ns:Acute post-operative pain Take 1 tablet by mouth every 6 hours as needed for pain. 5 tablet 01/31/2022 Active Active Problems Problem Noted Date Diagnosed Date Acute post-operative pain 03/07/2021 Former smoker 02/25/2021 Assessment & Plan (02/25/2021 4:48 PM EST): Assessment: quit 1999, 1 ppd x 10 years History of tachycardia 02/25/2021 Assessment & Plan (02/25/2021 5:01 PM EST): Assessment: patient has a history of post-op tachycardia after 02/04/2021 surgery. Required prolonged PACU stay. Patient's HR 93 BPM today on pulse oximeter. Clinically on exam with mild tachycardia, regular rhythm. Asymptomatic. At risk for difficult intubation, subsequent enc ounter 02/25/2021 Assessment & Plan (02/25/2021 4:55 PM EST): Assessment: patient denies history of difficult intubation, but does report that he had an awake intubation for his most recent surgery. Does have thick neck, MP3-4 airway. Per records reviewed 02/04/2021 - MP4, full ROM, short thyromental distance, small mouth opening, noncompliant submandibular space on pre-op assessment. Record states George ETT, oral 7.5, fiberoptic HTN (hypertension) 12/15/2020 Assessment & Plan (02/25/2021 4:45 PM EST): Assessment: on Lisinopril. BP today 136/76. Stable to proceed Assessment & Plan (12/15/2020 11:30 AM EDT): Assessment: on Lisinopril BP today: 154/98 HLD (hyperlipidemia) 12/15/2020 Assessment & Plan (02/25/2021 4:44 PM EST): Assessment: on Lipitor Assessment & Plan (12/15/2020 11:31 AM EDT): Assessment: Lipitor Type 2 diabetes mellitus wit hout complication, without long-term current use of insulin 12/15/2020 Assessment & Plan (02/25/2021 4:56 PM EST): Assessment: on Metformin, Actos, Farxiga and Glipizide. Most recent Hgb A1C 01/25/2021 was 8.9% which prompted patient starting Farxiga. Patient does not check home glucose readings. Encouraged patient to start to do so whilst explaining the risks and concerns with uncontrolled diabetes. Random glucose checked today was 225. Patient will be pending DOS glucose. Assessment & Plan (12/17/2020 1:20 PM EDT): Assessment: managed with Actos and metformin. HgbA1c: 9.0 (12/15/2020) TE sent to Dr Adair and Ms Banks to see if OK to proceed. Class 3 severe obesity due t o excess calories without serious comorbidity with body mass index (BMI) of 40.0 to 44.9 in adult 12/15/2020 Assessment & Plan (02/25/2021 4:44 PM EST): Assessment: BMI 43 Assessment & Plan (12/15/2020 11:47 AM EDT): Assessment: Body mass index is 44.35 kg/m . Family History Medical History Relation Comments No Known Problems Father No Known Problems Mother Relation Status Comments Father Alive Mother Alive Social History Tobacco Use Types Packs/Day Years Used Date Smoking Tobacco: Former Cigarettes 1 10 0 03/19/1989 - 03/19/1999 Smokeless Tobacco: Former Quit: 09/23/2020 Alcohol Use Standard Drinks/Week Comments Yes 2 (1 standard drink = 0.6 oz pure alcohol) 6-7 beers several times per week Area Deprivation Index Answer Date Deon rded National Score (1-100), lower number is lower ri sk 84 09/12/2022 State Score (1-10), lower number is lower risk 8 09/12/2022 Data from: https://www.neighborhoodatlas.medicine.[facility].edu/. Last address used for calculation [address] 09/12/2022 Sex and Gender Information Value Date Recorded Sex Assigned at Male 01/27/2021 10:03 AM EST Legal Sex Male 10:58 AM EST Gender Identity Male 01/27/2021 10:03 AM EST Sexual Orientation Straight 01/27/2021 10 :03 AM EST Last Filed Vital Signs Vital Sign Reading Time Taken Comments Blood Pressure 162/111 02/13/2022 8:48 AM EST Pulse 94 02/13/2022 8:48 AM EST Temperature 36.4 C (97.6 F) 02/13/2022 8:48 AM EST Respiratory Rate 20 02/13/2022 8:48 AM EST Oxygen Saturation 96% 02/13/2022 8:4 8 AM EST Inhaled Oxygen Concentration - - Weight 147.5 kg (325 lb 2.9 oz) 01/31/2022 7:32 AM EST Height 182.9 cm (6') 03/07/2021 7:10 AM EST Per patient Body Mass Index 44.1 03/07/2021 7:10 AM EST Plan of Treatment Health Maintenance Due Date Last Done Comments Diabetic Foot Exam 1988 Dilated Retinal Exam 1988 Urine Albumin:Creatinine Ratio 1988 Annual PCP Team Chronic Disease Visit 1996 Anxiety Screening 1996 Depression Screening 1996 HIV Screening 1996 Hepatitis C Screening 1996 LDL Cholesterol 1996 DTaP,Tdap,Td Vaccine (1 - Tdap) 1997 Hepatitis B Vaccine (1 of 3 - 19+ 3-dose series) 1997 Pneumococcal Vaccine (1 of 2 - PCV) 1997 HbA1C 04/27/2021 01/25/2021, 12/15/2020 CT Colonography 08/01/2023 Cologuard (FIT-DNA) 08/01/2023 Colonoscopy 08/01/2023 Colorectal Cancer Screening 08/01/2023 Fecal Occult Blood 08/01/2023 Sigmoidoscopy 08/01/2023 Influenza Vaccine (#1) 2024 Medical Devices Implanted Type Area Tobacco Classer Device Identifier Shelf Expiration Date Model / Serial / Lot Graft Soft Tissue Frozen Cadaver - [id number] Implanted:Qty: 1 on 02/04/2021 by Ness Hardy DO at [facility] Graft Right: Scalp [employer]O [employer]OURCE 08/22/2025 [id number] / [id number] / [id number] Procedures Procedure Name Priority Date/Time Associated Diagnosis Comments HEMOGLOBIN A1C Routine 01/25/2021 1:32 PM EST 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 Hypertension, unspecified type Hyperlipidemia, unspecified hyperlipidemia type Type 2 diabetes mellitus without complication, without long-term current use of insulin ([facility]) Class 3 severe obesity due to excess calories without serious comorbidity with body mass index (BMI) of 40.0 to 44.9 in adult (HCC) from Last 3 Months or Most Recently Relevant to Health Maintenance Results * (ABNORMAL) HGB A1C (01/25/2021 1:32 PM EST) Hemoglobin A1C 8.9(H) 4.3 - 5.6 % 01/26/2021 5:14 AM EST [facility] [employer] Comment: [place] Diabetes Association guidelines indicate that patients with HgbA1c in the range 5.7-6.4% are at increased risk for development of diabetes, and intervention by lifestyle modification may be beneficial. HgbA1c greater or equal to 6.5% is considered diagnostic of diabetes. Estimated Average Glucose 209 mg/dL 01/26/2021 5:14 AM EST [facility] [employer] Comment: eAG: (Estimated average glucose) is a calculated value from HgbA1c and is outreach representative of the average blood glucose level in the last 2-3 month period. Blood WHOLE BLOOD SPECIMEN / Unknown 01/25/2021 1:32 PM EST 01/25/2021 1:34 PM EST us Rosalina Ward MICROWAVE SUPERVISOR.[employer]CR[employer] SUPERINTENDENT LABORATORY Fin al Result [facility] [address] [place] [address] [facility] [address] [place] [address] from Last 3 Months or Most Recently Relevant to Health Maintenance Insurance O [employer] PPO Advance Directives Documents on File Type Date Recorded Patient Maintenance Mechanic Elevators Expl anation Advance Directive(s) 12/15/2020 10:47 AM Care Teams Biological Lab Technician Relationship Specialty Start Date End Date Salbador Mcnally MD [address] [place] [address] PCP - General Family Medicine 12/15/20
--- OUTSIDE RECORDS SUMMARY | 2024-11-06 11:23 | XMS_ITS | Encounter Summary ---
Author Organization [facility] Address [address] [place], [place] [address] Care Team Providers Care Car Detailer Name Role Phone Salbador Mcnally MD Primary Care Provider [phone] Source Comments In the event this information is protected by the Federal Confidentiality of Alcohol and Drug AbusePatient Records regulations: The Federal rules restrict any use of the information to criminally investigate or prosecute any alcohol or drug abuse patient.[facility] Encounter Details Date Type Department Care Team (Late st Contact Info) Description 05/29/2021 Get Medical Advice Dermatology [address] [place] [address] Angus Basurto MD [address] [place] [address] Follow up appointment Social History Tobacco Use Types Packs/Day Years [...] N ot on file 12/15/2020 Data from: https://www.neighborhoodatlas.medicine.[facility].edu/. Last address used for calculation Not [...] on filedocumented in this encounter Care Teams Car Detailer Relationship Specialty Start Date End Date Salbador Mcnally MD [address] [place] [address] PCP - General Family Medicine 12/15/20 documented as of this encounter
--- OUTSIDE RECORDS SUMMARY | 2024-11-06 11:23 | XMS_ITS | Encounter Summary ---
Author Organization [facility] Address [address] [place] [address] Care Team Providers Care Clock Repairer Name Role Phone Salbador Mcnally MD Primary Care Provider [phone] Source Comments In the event this information is protected by the Federal Confidentiality of Alcohol and Drug AbusePatient Records regulations: The Federal rules restrict any use of the information to criminally investigate or prosecute any alcohol or drug abuse patient.[facility] Encounter Details Date Type Department Care Team (Late st Contact Info) Description 05/30/2021 Patient Msg Plastic Surgery [address] [place] [id number] Provider, [facility] revision of scalp Social History Tobacco Use Types Packs/Day Years [...] N ot on file 12/15/2020 Data from: https://www.neighborhoodatlas.[facility]/. Last address used for calculation Not on [...] on filedocumented in this encounter Care Teams Clock Repairer Relationship Specialty Start Date End Date Salbador Mcnally MD [address] [place] [address] PCP - General Family Medicine 12/15/20 documented as of this encounter
--- OUTSIDE RECORDS SUMMARY | 2024-11-06 11:23 | XMS_ITS | Encounter Summary ---
Author Organization [facility] Address [id number] [place] [address] Care Team Providers Care Ultrasound Applications Specialist Name Role Phone Salbador Mcnally MD Primary Care Provider [phone] Encounter Details Date Type Department Care Team (Late st Contact Info) Description 10/27/2020 [facility] [address] [place] [phone] External, Scanning Provider Social History Tobacco Use Types Packs/Day Years [...] on file Sexual Orientation Not on file COVID-19 Exposure Response Date Recorded In the last month, have you been in contact with someone who was confirmed or suspected to have Coronavirus / COVID-19? No / Unsure 10/14/2020 9:29 AM EDT documented as of this encounter Miscellaneous Notes * Telephone Encounter - Jazzmine Whelan - 10/27/2020 9:36 AM EDT Message was left to change appointment to 10.28.20 due to needed to be seen by pfk. Pt never received the message and came for appt originally scheduled on 10.27.20. Pt was unhappy, drove an hour and a half to get here and patients took the day off. I left appt on 10.28.20 just in case they choose to come back. I was going to reach out to them a little bit later today to try to get them rescheduled but they were adamant that they were going to go back to their original doctor. Will update accordingly documented in this encounter Plan of Treatment Not on file documented as of this encounter Visit Diagnoses Not on filedocumented in this encounter Care Teams Ultrasound Applications Specialist Relationship Specialty Start Date End Date Salbador Mcnally MD PCP - General Family Medicine 09/02/20 documented as of this encounter
--- OUTSIDE RECORDS SUMMARY | 2024-11-06 11:23 | XMS_ITS | Encounter Summary ---
Author Organization [facility] Address [address] [place], [place] [address] Care Team Providers Care Returned Telephone Equipment Appraiser Name Role Phone Salbador Mcnally MD Primary Care Provider [phone] Source Comments In the event this information is protected by the Federal Confidentiality of Alcohol and Drug AbusePatient Records regulations: The Federal rules restrict any use of the information to criminally investigate or prosecute any alcohol or drug abuse patient.[facility] Encounter Details Date Type Department Care Team (Late st Contact Info) Description 03/02/2021 Patient Msg Cardiology [address] [place] [address] ProviderIke Echo scheduled 03/03/21 at [facility] Social History Tobacco Use Types Packs/Day Years [...] N ot on file 12/15/2020 Data from: https://www.neighborhoodatlas.medicine.[facility].edu/. Last address used for calculation Not on [...] on filedocumented in this encounter Care Teams Returned Telephone Equipment Appraiser Relationship Specialty Start Date End Date Salbador Mcnally MD [address] [place] [address] PCP - General Family Medicine 12/15/20 documented as of this encounter
--- OUTSIDE RECORDS SUMMARY | 2024-11-06 11:23 | XMS_ITS | Encounter Summary ---
Author Organization [facility] Address [address] [facility] [place] [address] Care Team Providers Care Adult Ministries Director Name Role Phone Salbador Mcnally MD Unavailable Salbador Mcnally MD Primary Care Provider [phone] Encounter Details Date Type Department Care Team (Late Contact Info) Description 11/04/2024 Bamboo flowsheet [facility] [address] [place] [phone] Salbador Mcnally MD [address] [place] [address] Social History Tobacco Use Types Packs/Day Years Used Date Smoking Tobacco: Former Cigarettes 2 2011 Smokeless Tobacco: Never Sex and Gender Information Value Date Recorded Sex Assigned at Not on file Legal Sex Male 7:31 PM EDT Gender Identity Not on file Sexual Orientation Not on file documented as of this encounter Plan of Treatment Upcoming Encounters Date Type Department Care Team (Late Contact Info) Description 12/16/2024 10:30 AM EDT Office Visit [facility] [address] [place] [address] Salbador Mcnally MD [address] [place] [address] documented as of this encounter Visit Diagnoses Not on filedocumented in this encounter Care Teams Adult Ministries Director Relationship Specialty Start Date End Date Salbador Mcnally MD [address] [place] [address] PCP - Medical [employer] 03/19/22 03/18/99 Salbador Mcnally MD [address] [place] [address] PCP - General Family Medicine 05/22/24 documented as of this encounter
--- OUTSIDE RECORDS SUMMARY | 2024-11-06 11:23 | XMS_ITS | Clinical Summary ---
Author Organization [facility] Address [address] [place] [address], [address] [place] [address] Care Team Providers Care Informatics Manager Name Role Phone NeerajJonas Megan CALERO Primary Care Provider [phone] Allergies No known active allergies Medications SITagliptin (JANUVIA) 100 MG tablet Take 100 mg by mouth daily Active ibuprofen (ADVIL;MOTRIN) 200 MG tablet Take 200 mg by mouth every 6 hours as needed for Pain Active glimepiride (AMARYL) 1 MG tablet Take 1 mg by mouth every morning (before breakfast) Active metFORMIN (GLUCOPHAGE) 500 MG tablet Take 500 mg by mouth 2 times daily (with meals) Active glucose blood test strips (ASCENSIA AUTODISC ;ONE TOUCH ULTRA TEST ) strip 1 each by In Vitro route daily As needed. Active Cyanocobalamin (VITAMIN B 12 PO) Take by mouth Active Active Problems Problem Noted Date Diagnosed Date Testicular discomfort 11/01/2016 Epididymitis 11/01/2016 Family History Relation Name Status Comments Father Alive Maternal Grandfather Maternal Grandmother Alive Mother Alive Paternal Grandfather Paternal Grandmother Social History Tobacco Use Types Packs/Day Years Used Date Smoking Tobacco: Former Cigarettes 2 12 Smokeless Tobacco: Current Chew Tobacco Cessation:Ready to Q uit: Yes Alcohol Use Standard Drinks/Week Comments Yes 0 (1 standard drink = 0.6 oz pur e alcohol) weekly Sex and Gender Information Value Date Recorded Sex Assigned at Not on file Legal Sex Male 7:39 PM EST Gender Identity Not on file Sexual Orientation Not on file Last Filed Vital Signs Vital Sign Reading Time Taken Comments Blood Pressure 112/80 11/13/2016 3:58 PM EDT Pulse - - Temperature 36.9 C (98.5 F) 11/13/2016 3:58 PM EDT Respiratory Rate - - Oxygen Saturation - - Inhaled Oxygen Concentration - - Weight 140.2 kg (309 lb) 11/13/2016 3:58 PM EDT Height 182.9 cm (6') 11/13/2016 3:58 PM EDT Body Mass Index 41.91 11/13/2016 3:58 PM EDT Plan of Treatment Not on file Insurance [facility] Care Teams Informatics Manager Relationship Specialty Start Date End Date Jonas Pickard DO [address] [place] [id number] PCP - General Family Medicine 11/13/16
--- OUTSIDE RECORDS SUMMARY | 2024-11-06 11:23 | XMS_ITS | Encounter Summary ---
Author Organization [facility] Address [address] [facility] [place] [address] Care Team Providers Care Supervisor [employer] Name Role Phone Salbador Mcnally MD Primary Care Provider [phone] Salbador Mcnally MD Unavailable Salbador Mcnally MD Primary Care Provider [phone] Encounter Details Date Type Department Care Team (Late Contact Info) Description 05/16/2023 Orders Only [facility] [address] [place] [id number] Salbador Mcnally MD [address] [place] [phone] Social History Tobacco Use Types Packs/Day Years [...] Office Visit [facility] [address] [place] [phone] Salbador Mcnally MD [address] [place] [phone] documented as of this encounter Procedures Procedure Name Priority Date/Time Associated Diagnosis Comments SCANNED LABS Routine 05/16/2023 2:00 PM EST documented in this encounter Results * SCANNED LABS (05/16/2023 2:00 PM EST) Salbador Mcnally MD LAB CHG PERFORMABLES Final Resul t documented in this encounter Visit Diagnoses Not on filedocumented in this encounter Care Teams Supervisor [employer] Relationship Specialty Start Date End Date Salbador Mcnally MD PCP - General Family Medicine 02/21/23 05/21/24 Salbador Mcnally MD [address] [place] [address] PCP - Medical [facility] 03/19/22 03/18/99 Salbador Mcnally MD [address] [place] [address] PCP - General Family Medicine 05/22/24 documented as of this encounter
--- OUTSIDE RECORDS SUMMARY | 2024-11-06 11:26 | XMS_ITS | CCD ---
Author Organization [facility] Care Team Providers Care M48 M60 Armor Crewman Name Role Phone DORON MONTAÑO Unavailable Unavailable KARMEN LUNDBERG Unavailable Unavailable DORON MONTAÑO Unavailable Unavailable KARMEN LUNDBERG Unavailable Unavailable Salbador Ramirez Primary Care Provider [phone] JAMES, DR FUENTES A Primary Care Unavailable MABLE, DR PERAZA Attending Unavailable GRILLIS, DR PERAZA Consulting Unavailable GRILLIS, DR PERAZA Admitting Unavailable GRILLIS, DR PERAZA Admitting Unavailable NADERER, DR SALBADOR Glover Primary Care Unavailable GRILLIS, DR PERAZA Attending Unavailable GRILLIS, DR PERAZA Consulting Unavailable AGUBOSIM, LUMA Consulting Unavailable LONG, SHEILA Consulting Unavailable Salbador Ramirez Primary Care Provider Salbador Ramirez Primary Care Provider CHANA CHANDRA Attending Unavailable SALBADOR RAMIREZ Primary Care Unavailable LOKI BASURTO Referring Unavailable LOKI BASURTO Attending Unavailable SALBADOR RAMIREZ Primary Care Unavailable TOAN CHU Admitting Unavailable SALBADOR RAMIREZ Primary Care Unavailable TOAN CHU Attending Unavailable MD Salbador Ramirez Primary Care Provider [phone] MD Salbador Ramirez Attending Provider Salbador Ramirez MD Primary Care Provider Salbador Ramirez MD Attending Provider Salbador Ramirez Attending Unavailable Salbador Ramirez Primary Care Unavailable Salbador Ramirez Admitting Unavailable Salbador Ramirez MD Unavailable Salbador Ramirez MD Primary Care Provider SALBADOR RAMIREZ Attending Unavailable SALBADOR RAMIREZ Attending Unavailable Medications Current Medications Medication Drug Class(es) [...] for pain for up to 10 days. atorvastatin 40 mg oral tablet (8 sources) HMG-CoA Reductase Inhibitor Start: 4 take 1 tablet by mouth at bedtime atorvastatin (Lipitor) 40 MG tablet Indications: Type 2 diabetes mellitus with microalbuminuria, without long-term current use of insulin (HCC) Take 1 tablet (40 mg) by mouth at bedtime 30 tablet 11 09/11/2023 Active atorvastatin (LI PITOR) 40 mg tablet Take 40 mg by mouth. 0 Active Comment on above: Take 40 mg by mouth. celecoxib 200 mg oral capsule (2 sources) Nonsteroidal Anti-inflammatory Drug Start: 025 take 1 capsule by mouth in the morning celecoxib (CeleBREX) 200 MG capsule Indications: Cervical spondylosis with radiculopathy Take 1 capsule (200 mg) by mouth in the morning and 1 capsule (200 mg) before bedtime. Take with food. 60 capsule 3 11/04/2024 Active cholecalciferol 0.05 mg oral tablet (3 sources) Vitamin D take 1 tablet by mouth in the morning cholecalciferol (Vitamin D-3) 50 MCG (1999 UT) tablet Take 2,000 Units by mouth in the morning. Active glipiZIDE 10 mg oral tablet (8 sources) Sulfonylurea Start: 024 take 2 tablets by mouth twice daily glipiZIDE (Glucotrol) 10 MG tablet Indications: Type 2 diabetes mellitus with hyperglycemia (HCC) TAKE 2 TABLETS BY MOUTH TWICE DAILY 120 tablet 5 03/04/2024 Active take 2 tablets by mo uth twice daily before mealtime glipiZIDE (GLUCOTROL) 10 mg tablet Take 20 mg by mouth twice daily before meals. 0 Active Comment on above: Take 20 mg by mouth twice daily before meals. ibuprofen 200 mg oral tablet (7 sources) [...] on an empty stomach (take with food).. lisinopril 30 mg oral tablet (8 sources) Angiotensin Converting Enzyme Inhibitor Start: 5 take 1 tablet by mouth once daily in the morning lisinopril 30 MG tablet Indications: Benign hypertension TAKE 1 TABLET BY MOUTH ONCE DAILY IN THE MORNING 30 tablet 5 06/23/2024 Active take 1 tablet by mouth once amrik y lisinopril (ZESTRIL, PRINIVIL) 10 mg tablet Take 10 mg by mouth once daily. 0 Active Comment on above: Take 10 mg by mouth once daily. 24 hr metFORMIN hydrochloride 500 mg extended release oral tablet (8 sources) Biguanide Start: 5 take 2 tablets by mouth twice daily metFORMIN XR (Glucophage-XR) 500 MG 24 hr tablet Indications: Type 2 diabetes mellitus with hyperglycemia (HCC) TAKE 2 TABLETS BY MOUTH TWICE DAILY 120 tablet 5 04/22/2024 Active Start: 02-07-2021 take 1 tablet by gavin th twice daily metFORMIN ER (GLUCOPHAGE XR) 500 mg 24 hr tablet Take 1 tablet by mouth twice daily. 0 02/07/2021 Active Comment on above: Take 1 tablet by gavin th twice daily. ondansetron 4 mg oral tablet (1 source) Serotonin-3 Receptor Antagonist Start: End: take 1 tablet by mouth every eight [...] 10 mL injection (DEFINITY) (3 sources) Start: End: perflutren lipid microspheres 1.3 mL in NaCl (PF) 0.9% 10 mL injection (DEFINITY) pioglitazone 45 mg oral tablet (8 sources) Peroxisome Proliferator Receptor alpha Agonist, Peroxisome Proliferator Receptor gamma Agonist, Thiazolidinedione Start: take 1 tablet by mouth once daily in the morning pioglitazone (Actos) 45 MG tablet Indications: Type 2 diabetes mellitus with hyperglycemia, without long-term current use of insulin (HCC) TAKE 1 TABLET BY MOUTH ONCE DAILY IN THE MORNING 30 tablet 5 10/29/2023 Active take 1 tablet by mouth once amrik y pioglitazone (ACTOS) 15 mg tablet Take 15 mg by mouth once daily. 0 Active Comment on above: Take 15 mg by mouth once daily. pregabalin 75 mg oral capsule (2 sources) Start: 5 End: 5 take 1 capsule by mouth in the morning pregabalin (Lyrica) 75 MG capsule Indications: Cervical spondylosis with radiculopathy Take 1 capsule (75 mg) by mouth in the morning and 1 capsule (75 mg) before bedtime. 60 capsule 2 11/04/2024 02/02/2025 Active sennosides, intermediate 8.6 mg oral tablet (2 sources) Start: 2 End: 2 take 1 tablet by mouth every twelve hours as needed senna (SENOKOT) 8.6 mg tab Take 1 tablet by mouth twice daily as needed for constipation for up to 15 days. 30 tablet 0 01/31/2022 02/15/2022 Active Comment on above: Take 1 tablet by gavin twice daily as needed for constipation for [...] Active Comment on above: Take by mouth. cephalexin 500 mg oral capsule (5 sources) Cephalosporin Antibacterial Start: 02-18-2021 cephALEXin (KEFLEX) 500 mg capsule Take 1 capsule daily for 10 days 20 capsule 0 02/18/2021 Active Comment on above: Take 1 capsule daily for 10 days dapagliflozin 10 mg oral tablet (8 sources) Sodium-Glucose Cotransporter 2 Inhibitor End: 11-04-2024 take 10 mg by mouth in the morning dapagliflozin (Farxiga) 10 MG Take 10 mg by mouth in the morning. 11/04/2024 Discontinued Comment on above: Take by mouth daily with breakfast. docusate sodium 100 mg oral capsule (5 sources) Start: 03-07-2021 take 1 capsule by mouth every twelve hours as needed docusate sodium (COLACE) 100 mg capsule Take 1 capsule by mouth twice daily as needed for constipation. 10 capsule 0 03/07/2021 Active Comment on above: Take 1 capsule by mo [facility] twice daily as needed for constipation. oxyCODONE hydrochloride 5 mg oral tablet (3 sources) Opioid Agonist Start: 01-31-2022 take 1 tablet by mouth every six hours as needed for pain oxyCODONE IR (ROXICODONE) 5 mg immediate release tablet Indications: Acute post-operative pain Take 1 tablet by mouth every 6 hours as needed for pain. 5 tablet 0 01/31/2022 Active Comment on above: Take 1 tablet by gavin every 6 hours as needed for pain. 0.25 mg, 0.5 mg dose 1.5 ml semaglutide 1.34 mg/ml pen injector (3 sources) Start: 04-02-2023 End: 11-04-2024 semaglutide (Ozempic, 0.25 or 0.5 MG/DOSE,) 2 MG/1.5ML solution pen-injector Indications: Type 2 diabetes mellitus with microalbuminuria, without long-term current use of insulin (HCC) 0.25 mg SC weekly x 4 weeks, then 0.5 mg weekly 1 each 3 04/02/2023 11/04/2024 Discontinued Problems Active Problems Problem Classification Problem Date Documented Date Episodic/Chronic Diabetes mellitus with complications (8 sources) Type 2 diabetes mellitus; Translations: [Type 2 diabetes mellitus with other diabetic kidney complication] Onset: 03-26-2023 04-02-2023 Chronic Diabetes mellitus without complication (6 sources) Type 2 diabetes mellitus without complication; Translations: [Type 2 diabetes mellitus without complications] Onset: 10-14-2020 12-15-2020 Chronic Disorders of lipid metabolism (9 sources) Hyperlipidemia; Translations: [Hyperlipidemia, unspecified] Onset: 10-14-2020 12-15-2020 Chronic Essential hypertension (11 sources) Hypertensive disorder; Translations: [Essential (primary) hypertension] Onset: 10-14-2020 12-15-2020 Chronic Nutritional deficiencies (3 sources) Vitamin D deficiency; Translations: [Vitamin D deficiency, unspecified] Onset: 03-26-2023 03-26-2023 Chronic Other and unspecified benign neoplasm (1 source) Other benign neoplasm of skin of trunk; Translations: [Dermatofibroma of back] Onset: 09-12-2022 Episodic Other injuries and conditions due to external causes (1 source) Unspecified injury of muscle(s) and tendon(s) of the rotator cuff of right shoulder, initial encounter; Translations: [Unspecified injury of muscle(s) and tendon(s) of the rotator cuff of right shoulder, initial encounter] Onset: 05-28-2024 Episodic Other nutritional; endocrine; and metabolic disorders (8 sources) Severe obesity; Translations: [Morbid (severe) obesity [...] ADULT] Onset: 10-14-2020 Chronic Residual codes; unclassified (3 sources) Obstructive sleep apnea syndrome; Translations: [Obstructive sleep apnea (adult) (pediatric)] Onset: 03-26-2023 03-26-2023 Chronic Residual codes; unclassified (1 source) Postoperative state; Translations: [Other specified postprocedural states] Episodic Spondylosis; intervertebral disc disorders; other back problems (7 sources) Degeneration of thoracic intervertebral disc; Translations: [Other intervertebral disc degeneration, thoracic region] Onset: 03-26-2023 03-26-2023 Chronic Unclassified (1 source) CONTACT W/AND (SUSP) EXPOS COVID-19; Translations: [CONTACT W/AND (SUSP) EXPOS COVID-19] Onset: 10-08-2020 Past or Other Problems Problem Classification Problem Date Documented Date Episodic/Chronic Complications of surgical procedures or medical care (5 sources) Difficult intubation; Translations: [Failed or difficult intubation, subsequent encounter] Onset: 02-25-2021 02-25-2021 Episodic Inflammatory conditions of male genital organs (2 sources) Orchitis; Translations: [Epididymitis] Onset: 11-16-2016 Episodic Other aftercare (1 source) manager terminal (current) use of oral hypoglycemic drugs; Translations: [FPC USE ORAL HYPOGLYCEMIC DX] Onset: 10-14-2020 Episodic Other aftercare (1 source) Other skilled nursing (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 therapy; Translations: [OTH LINE DRIVER CURRENT DRUG THERAPY] Onset: 10-14-2020 Episodic Other injuries and conditions due to external causes (3 sources) Injury of right rotator cuff; Translations: [Unspecified injury of muscle(s) and tendon(s) of the rotator cuff of right shoulder, initial encounter] Onset: 05-22-2024 05-22-2024 Episodic Other nervous system disorders (6 sources) Acute postoperative pain; Translations: [Other acute postprocedural pain] Onset: 03-07-2021 03-07-2021 Episodic Other non-epithelial cancer of skin (4 sources) Malignant neoplasm of scalp; Translations: [Other specified malignant neoplasm of skin of scalp and neck] Onset: 10-14-2020 Episodic Other non-traumatic joint disorders (3 sources) Derangement of right shoulder joint; Translations: [Other specific joint derangements of right shoulder, not elsewhere classified] Onset: 05-22-2024 Resolved: 11-04-2024 05-22-2024 Chronic Other skin disorders (3 sources) Epidermal cyst; [...] Test Name Value Interpretation Reference Range Facility X-ray reportOrdered By: Augustine Wolf on 05-28-2024 Study report [facility] Main [address] [address] XRay Report Signed Patient: Karmen Carlos MR#: [id number] : 1980 Acct:[id number] Age/Sex: 43 / M ADM Date: 2 5 Loc: XD Room: Type: [facility] CLI Attending Dr: Salbador Ramirez MD Copies to: Salbador Ramirez MD~ Ordering Provider: Salbador Ramirez MD Date of Service: 05/28/24 XR/XR shoulder [...] PROCESS. Impression dictated by: Giancarlo Wolf Jr., D.O.05/28/2024 4:12 PM Dictation Location: [place] [address] Transcribed By: [facility] 05/28/24 1612 Dictated By: Giancarlo Wolf Jr, DO 05/28/24 1611 Signed By: 05/28/24 1612 [facility] XR shoulder RT min 2V*on XR shoulder RT min 2V* [address] [address] XRay Report Signed Patient: Karmen Carlos MR#: [id number] : 1980 Acct:[id number] Age/Sex: 43 / M ADM Date: 05/28/24 Loc: XD Room: Type: [facility] CLI Attending Dr: Salbador Ramirez MD Copies to: Salbador Ramirez MD Ordering Provider: Salbador Ramirez MD Date of Service: 05/28/24 XR/XR shoulder [...] Wolf Jr., D.ONatalia05/28/2024 4:12 PM Dictation Location: [place] [address] Transcribed By: [facility] 05/28/24 1612 Dictated By: Giancarlo Wolf Jr, DO 05/28/24 1611 Signed By: 05/28/24 1612 Normal [facility] Alanine aminotransferase [En zymatic activity/volume] in Serum or PlasmaOrdered By: Salbador Ramirez on 03-30-2023 ALT [Catalytic activity/Vol] 35 U/L 7-52 [facility] Albumin [Mass/volume] in Ser um or Plasma by Bromocresol green (BCG) dye binding methoOrdered By: Salbador Ramirez on 03-30-2023 Albumin BCG dye [Mass/Vol] 4.6 g/dL 3.5-5.7 [facility] Alkaline phosphatase [Enzyma tic activity/volume] in Serum or PlasmaOrdered By: Salbador Ramirez on 03-30-2023 ALP [Catalytic activity/Vol] 56 U/L 34-104 [facility] Aspartate aminotransferase [ Enzymatic activity/volume] in Serum or PlasmaOrdered By: Salbador Ramirez on 03-30-2023 AST [Catalytic activity/Vol] 24 U/L 13-39 [facility] Band form neutrophils/100 WB C Manual cnt (Bld)Ordered By: Salbador Ramirez on 03-30-2023 Band form neutrophils/100 WBC (Bld) 8 % 0-5 [facility] Basophils Auto (Bld) [#/Vol] Ordered By: Salbador Ramirez on 03-30-2023 Basophils (Bld) [#/Vol] N/A [facility] Basophils/100 WBC Auto (Bld) Ordered By: Salbador Ramirez on 03-30-2023 Basophils/100 WBC (Bld) N/A [facility] Basophils/100 WBC Manual cnt (Bld)Ordered By: Salbador Ramirez on 03-30-2023 Basophils/100 WBC (Bld) 1 % 0-2 [facility] Bilirubin.direct [Mass/volum e] in Serum or PlasmaOrdered By: Salbador Ramirez on 03-30-2023 Bilirubin.direct [Mass/Vol] 0.10 mg/dL 0.03-0.18 [facility] Bilirubin.total [Mass/volume ] in Serum or PlasmaOrdered By: Salbador Ramirez on 03-30-2023 Bilirubin [Mass/Vol] 0.7 mg/dL 0.3-1.0 [facility] Calcium [Mass/volume] in Ser um or PlasmaOrdered By: Salbador Ramirez on 03-30-2023 Calcium [Mass/Vol] 10.2 mg/dL 8.6-10.3 [facility] Carbon dioxide, total [Moles /volume] in Serum or PlasmaOrdered By: Salbador Ramirez on 03-30-2023 CO2 [Moles/Vol] 22.3 mmol/L 21.0-31.0 [facility] Chloride [Moles/volume] in S gianni or PlasmaOrdered By: Salbador Ramirez on 03-30-2023 Chloride [Moles/Vol] 105 mmol/L 98-107 [facility] Cholesterol [Mass/volume] in Serum or PlasmaOrdered By: Salbador Ramirez on 03-30-2023 Cholesterol [Mass/Vol] 140 mg/dL 140-200 [facility] Comment on above: Chol less than 200 m g/dl low riskChol 201-239 mg/dl borderline riskChol 240 mg/dl and greater high risk Cholesterol in LDL Calc [Mas s/Vol]Ordered By: Salbador Ramirez on 03-30-2023 Cholesterol in LDL [Mass/Vol] TNP [facility] Comment on above: Test not performed Cholesterol in LDL [Mass/vol ume] in Serum or PlasmaOrdered By: Salbador Ramirez on 03-30-2023 Cholesterol in LDL [Mass/Vol] 56 mg/dL 0-100 [facility] Comment on above: LDL ATP III CLASSIFI CATIONLDL less than 100 mg/dL OptimalLDL 100-129 mg/dL Near or above optimalLDL 130-159 mg/dL Borderline highLDL 160-189 mg/dL HighLDL greater than 189 mg/dL Very high Cholesterol in VLDL Calc [Ma ss/Vol]Ordered By: Salbador Ramirez on 03-30-2023 Cholesterol in VLDL [Mass/Vol] 93 mg/dL [facility] Creatinine [Mass/volume] in Serum or PlasmaOrdered By: Salbador Ramirez on 03-30-2023 Creatinine [Mass/Vol] 0.82 mg/dL 0.70-1.30 [facility] Creatinine [Mass/volume] in UrineOrdered By: Salbador Ramirez on 03-30-2023 Creatinine (U) [Mass/Vol] 115.0 mg/dL 14.0-26.0 [facility] Eosinophils Auto (Bld) [#/Vo l]Ordered By: Salbador Ramirez on 03-30-2023 Eosinophils (Bld) [#/Vol] N/A [facility] Eosinophils/100 WBC Auto (Bl d)Ordered By: Salbador Ramirez on 03-30-2023 Eosinophils/100 WBC (Bld) N/A [facility] Eosinophils/100 WBC Manual c nt (Bld)Ordered By: Salbador Ramirez on 03-30-2023 Eosinophils/100 WBC (Bld) 1 % 1-3 [facility] Erythrocyte distribution wid th Auto (RBC) [Ratio]Ordered By: Salbador Ramirez on 03-30-2023 Erythrocyte distribution width (RBC) [Ratio] 12.7 % 12.0-14.8 [facility] Giant platelets/100 leukocyt es [Ratio] in Blood by Manual countOrdered By: Salbador Ramirez on 03-30-2023 Giant platelets/100 WBC Manual cnt (Bld) [Ratio] 1 /100{WBC} [facility] Globulin Calc (S) [Mass/Vol] Ordered By: Salbador Ramirez on 03-30-2023 Globulin (S) [Mass/Vol] 2.3 g/dL [facility] Glucose [Mass/volume] in Ser um or PlasmaOrdered By: Salbador Ramirez on 03-30-2023 Glucose [Mass/Vol] 161 mg/dL 70-100 [facility] Comment on above: ADA recommended refe rence rangeRandom Glucose Reference Range is dependent on time and content of last meal. Glucose of more than 200 mg/dL in a nonstressed, ambulatory subject supports the diagnosis of Diabetes Mellitus. Glucose mean value [Mass/vol ume] in Blood Estimated from glycated hemoglobinOrdered By: Salbador Ramirez on 03-30-2023 Average glucose Estimated from glycated hemoglobin (Bld) [Mass/Vol] 255 mg/dL [facility] Hematocrit Auto (Bld) [Volum e fraction]Ordered By: Salbador Ramirez on 03-30-2023 Hematocrit (Bld) [Volume fraction] 46.1 % 38.8-50.0 [facility] Hemoglobin A1c percentageOrd ered By: Salbador Ramirez on 03-30-2023 HbA1c (Bld) [Mass fraction] 10.5 % 4.3-5.6 [facility] Comment on above: Increased risk for d iabetes: 5.7 - 6.4diabetes: >6.4glycemic control for adults with diabetes: <7.0 Hemoglobin [Mass/volume] in BloodOrdered By: Salbador Ramirez on 03-30-2023 Hemoglobin (Bld) [Mass/Vol] 15.9 g/dL 13.0-17.0 [facility] Leukocytes [#/volume] correc nicolás for nucleated erythrocytes in Blood by Automated counOrdered By: Salbador Ramirez on 03-30-2023 WBC corrected for nucl RBC Auto (Bld) [#/Vol] 5.2 10*3/uL 4.1-10.5 [facility] Lymphocytes Auto (Bld) [#/Vo l]Ordered By: Salbador Ramirez on 03-30-2023 Lymphocytes (Bld) [#/Vol] N/A [facility] Lymphocytes/100 WBC Auto (Bl d)Ordered By: Salbador Ramirez on 03-30-2023 Lymphocytes/100 WBC (Bld) N/A [facility] Lymphocytes/100 WBC Manual c nt (Bld)Ordered By: Salbador Ramirez on 03-30-2023 Lymphocytes/100 WBC (Bld) 24 % 18-42 [facility] MCH Auto (RBC) [Entitic mass ]Ordered By: Salbador Ramirez on 03-30-2023 MCH (RBC) [Entitic mass] 29.6 pg 27.5-35.2 [facility] MCHC Auto (RBC) [Mass/Vol]Or dered By: Salbador Ramirez on 03-30-2023 MCHC (RBC) [Mass/Vol] 34.5 g/dL 32.5-35.6 [facility] MCV Auto (RBC) [Entitic vol] Ordered By: Salbador Ramirez on 03-30-2023 MCV (RBC) [Entitic vol] 85.9 fL 83.5-101 [facility] Microalbumin [Mass/volume] i n UrineOrdered By: Salbador Ramirez on 03-30-2023 Albumin DL <= 20 mg/L (U) [Mass/Vol] 2.1 mg/dL 0.0-1.8 [facility] Monocytes Auto (Bld) [#/Vol] Ordered By: Salbador Ramirez on 03-30-2023 Monocytes (Bld) [#/Vol] N/A [facility] Monocytes/100 WBC Auto (Bld) Ordered By: Salbador Ramirez on 03-30-2023 Monocytes/100 WBC (Bld) N/A [facility] Monocytes/100 WBC Manual cnt (Bld)Ordered By: Salbador Ramirez on 03-30-2023 Monocytes/100 WBC (Bld) 13 % 2-11 [facility] Neutrophils Auto (Bld) [#/Vo l]Ordered By: Salbador Ramirez on 03-30-2023 Neutrophils (Bld) [#/Vol] N/A [facility] Neutrophils/100 WBC Auto (Bl d)Ordered By: Salbador Ramirez on 03-30-2023 Neutrophils/100 WBC (Bld) N/A [facility] No Panel InformationOrdered By: Salbador Ramirez on 03-30-2023 Estimated GFR (CKD-EPI) > 60.0 mL/Min [facility] Creatinine Clearance (Chem N/A [facility] Nucleated erythrocytes [Pres ence] in Blood by Automated countOrdered By: Salbador Ramirez on 03-30-2023 Nucleated RBC Auto Ql (Bld) N/A [facility] Platelet adequacy [Presence] in Blood by Light microscopyOrdered By: Salbador Ramirez on 03-30-2023 Platelets LM Ql (Bld) Normal Normal [facility] Platelet mean volume Auto (B ld) [Entitic vol]Ordered By: Salbador Ramirez on 03-30-2023 Platelet mean volume (Bld) [Entitic vol] 9.6 fL 6.6-10.1 [facility] Platelet morphology finding [Identifier] in BloodOrdered By: Salbador Ramirez on 03-30-2023 Platelet morphology finding Nom (Bld) Normal Normal [facility] Platelets Auto (Bld) [#/Vol] Ordered By: Salbador Ramirez on 03-30-2023 Platelets (Bld) [#/Vol] 149 10*3/uL 150-450 [facility] Potassium [Moles/volume] in Serum or PlasmaOrdered By: Salbador Ramirez on 03-30-2023 Potassium [Moles/Vol] 4.5 mmol/L 3.5-5.1 [facility] Protein [Mass/volume] in Ser um or PlasmaOrdered By: Salbador Ramirez on 03-30-2023 Protein [Mass/Vol] 6.9 g/dL 6.4-8.9 [facility] RBC Auto (Bld) [#/Vol]Ordere d By: Salbador Ramirez on 03-30-2023 RBC (Bld) [#/Vol] 5.37 10*6/uL 3.90-5.60 [facility] RBC morphologyOrdered By: Gabi Ramirez on 03-30-2023 RBC morphology finding Nom (Bld) Normal Normal [facility] Segmented neutrophils/100 WB C Manual cnt (Bld)Ordered By: Salbador Ramirez on 03-30-2023 Segmented neutrophils/100 WBC (Bld) 51 % 50-70 [facility] Serum or plasma albumin/glob ulin mass ratioOrdered By: Salbador Ramirez on 03-30-2023 Albumin/Globulin [Mass ratio] 2.0 {ratio} [facility] Serum or plasma anion gap de terminationOrdered By: Salbador Ramirez on 03-30-2023 Anion gap [Moles/Vol] 14.2 mmol/L 6.0-15.0 [facility] Serum or plasma high density lipoprotein (HDL) cholesterol measurementOrdered By: Salbador Ramirez on 03-30-2023 Cholesterol in HDL [Mass/Vol] 24 mg/dL 23-92 [facility] Comment on above: HDL CHOL ATP-III CLA SSIFICATION Cardiovascular RiskHDL > or equal to 60 mg/dL LOWHDL < 40 mg/dL HIGH Serum or plasma non-glucuron idated bilirubin measurement (mass/volume)Ordered By: Salbador Ramirez on 03-30-2023 Bilirubin.indirect [Mass/Vol] 0.6 mg/dL [facility] Serum or plasma total choles terol/high density lipoprotein (HDL) cholesterol mass ratOrdered By: Salbador Ramirez on 03-30-2023 Cholesterol.total/Sofi sterol in HDL [Mass ratio] 5.8 {ratio} <5.0 [facility] Sodium [Moles/volume] in Ser um or PlasmaOrdered By: Salbador Ramirez on 03-30-2023 Sodium [Moles/Vol] 137 mmol/L 136-145 [facility] Thyrotropin [Units/volume] i n Serum or PlasmaOrdered By: Salbador Ramirez on 03-30-2023 TSH Qn 1.53 m[IU]/L 0.45-5.33 [facility] Triglyceride [Mass/volume] i n Serum or PlasmaOrdered By: Salbador Ramirez on 03-30-2023 Triglyceride [Mass/Vol] 467 mg/dL 0-149 [facility] Comment on above: If the triglyceride [...] on 03-30-2023 Urea nitrogen [Mass/Vol] 26 mg/dL 7-25 [facility] Urine microalbumin/creatinin e mass ratioOrdered By: Salbador Ramirez on 03-30-2023 Albumin/Creatinine DL <= 20 mg/L (U) [Mass ratio] 18.0 mg/g 0.0-30.0 [facility] Comment on above: 30-300 mg/g indicate s an increased risk for diabetic nephropathy. Greater than 300 mg/g is consistent with clinical nephropathy. (Am. J. Kidney Disease 1995, 25:107) Variant lymphocytes/100 WBC Manual cnt (Bld)Ordered By: Salbador Ramirez on 03-30-2023 Variant lymphocytes/100 WBC (Bld) 3 % 0-12 [facility] Vitamin D+Metabolites [Mass/ volume] in Serum or PlasmaOrdered By: Salbador Ramirez on 03-30-2023 Vitamin D+Metabolites [Mass/Vol] 28.2 ng/mL 30-100 [facility] Comment on above: VITAMIN D STATUS 25( [place])VITAMIN D RANGE (ng/mL) Deficient <20 Insufficient 20 to <30Sufficient 30 to 100Reference: Faiza MF,Christina KIMBLE, Marisol CASTILLO, et al. Evaluation,treatment, and prevention of vitamin D deficiency; an Endocrine Society clinical practice guideline. JCEM. 2010; 96(7):1911-30. WBC Auto (Bld) [#/Vol]Ordere d By: Salbador Ramirez on 03-30-2023 WBC (Bld) [#/Vol] 5.2 10*3/uL 4.1-10.5 [facility] CNOVon 09-12-2022 CNOV Office Visit (LISSYBMN ) KARMEN CARLOS ([id number]) 1980 M Date Time Provider Department 09/12/22 [...] Past Histories independently gathered by the clinical windows support engineer and the remaining scribed note accurately describes my personal service to the patient. Loki Basurto MD September 12, 2022 Referring Provider: LOKI BASURTO [[id number]] Allergies As of Date: 09/12/2022 (No Known [...] for Encounter Date Provider Department Center 09/12/2022 [id number]-NOOBZLOKI BASURTO A Bldg Jakeou (more content not included)... Normal [facility] CNPNon 06-29-2022 CNPN Telephone (DPQ) KARMEN CARLOS ([id number]) 1980 M Date Time Provider Department 06/29/22 LOKI BASURTO DPQ During your visit today, we recorded the following information about you: Asia Carrizales 06/29/2022 3:17 PM Signed Left VM / Sent [employer] About getting a appt with per Staff Message Allergies As of Date: 06/29/2022 (No Known Allergies) Date Reviewed: 01/31/2022 Reviewed by: Felecia Hoff, ISSA - Fully Assessed Reason for Visit: Appointment [...] Encounter Status:Closed by ASIA CARRIZALES on 06/29/22 [facility] CNOVSPon 02-13-2022 CNOVSP Visit (SP) Office (PLASCA) BREANNAKARMEN MITCHELL ([id number]) 1980 M Date Time Provider Department 02/13/22 [...] for the rest of his/her life Call [phone] or go to the Emergency Department if [...] doesn't work its way out Office number: [phone] (option 3) The patient is seen and examined by Chana Chandar APRN.CNP and the following reflects her service. Scribed by Citlaly Padgett RN I agree with the Chief Complaint, ROS, and Past Histories independently gathered by the clinical windows support engineer and the remaining scribed note accurately describes [...] help b (more content not included)... Normal [facility] BRIEF OP NOTon 01-31-2022 BRIEF OP NOT HNO ID: [id number] Author: Agatha Rawls MD Service: Plastic Surgery Author Type: Resident Type: Brief Op Note Filed: 01/31/2022 8:38 AM Note Text: BRIEF OPERATIVE NOTE PLASTIC AND RECONSTRUCTIVE SURGERY LOG ID: [id number] Surgery/Procedure Date: 01/31/2022 Incision/Procedure Start Time: 8:04 AM Incision Close/Procedure End Time: 8:29 AM Surgeon(s)/Procedurali st(s) and Production Line Solderer(s): Surgeon(s) and Role: * Toan Chu MD [...] 31, 2022 TIME: 8:33 AM PAGER/CONTACT #: [phone] Normal [facility] HISTORY PHYSICALon HISTORY PHYSICAL HNO ID: [id number] Author: Toan Chu MD Service: Plastic Surgery [...] intervention and (more content not included)... Normal [facility] OPERATIVE NOon 01-31-2022 OPERATIVE NO HNO ID: [id number] Author: Agatha Rawls MD Service: Plastic Surgery Author Type: Resident Type: Operative Report Filed: 01/31/2022 8:49 AM Note Text: Attestation signed by Toan Chu MD at 01/31/2022 9:26 AM Teaching statement: I was active and involved in all critical portions of the case. Toan Chu MD OPERATIVE REPORT PLASTIC AND RECONSTRUCTIVE SURGERY Log ID: [id number] Surgery/Procedure Date: 01/31/2022 Incision/Procedure Start Time: 8:04 AM Incision Close/Procedure End Time: 8:29 AM Surgeon(s)/Procedurali st(s) and Production Line Solderer(s): Surgeon(s) and Role: * Toan Chu MD [...] 31, 2022 TIME: 8:42 AM PAGER/CONTACT #: Barb [facility] Eyad 03-02-2021 DHARMESH Telephone (AVPANE) KARMEN CARLOS ([id number]) 1980 Date Time Provider Department 03/02/21 TOAN CHU During your visit today, we recorded the following information about you: Keya Nielsen Gabi 03/02/2021 1:17 PM Signed Patient needs to have an echo done possibly before his surgery scheduled for Sunday03/07/2021. He prefers to go to the [facility] and on a Sunday if possible. Can you see what you can do? Kapil Alberts 03/02/2021 1:55 PM Signed Called and lm for pt. Scheduled only available echo (other than [facility]) before 03/07/21. Pt is scheduled for 03/03/21 at [facility]. Sent [employer] 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 [[id number]] Prescriptions as of 03/02/2021 [...] Encounter Status:Closed by KAPIL ALBERTS on 03/02/21 [facility] HEALTHon 12-15-2020 ALLIED [facility] HNO ID: [id number] Author: LEEANN Roche Service: Radiology Author Type: Wrapper Off Type: Allied Health Filed: 12/15/2020 3:50 PM [...] MR; Exam(s) Completed: Head: Routine Brain SIGNATURE: LEEANN Bravo PATIENT NAME: Karmen Carlos DATE: December 15, 2020 TIME: 3:44 PM [facility] MRI SKULL BASE WO/W IVCONon 12-15-2020 MRI SKULL BASE WO/W IVCON * * *Final Report* * * DATE OF EXAM: Dec 15 2020 3:52PM [facility] 0319 - MRI SKULL BASE WO/W IVCON [...] dermatofibrosarcoma protuberans . No acute intracranial findings. Mine Exploration Engineer: PSCB Transcribe Date/Time: Dec 15 2020 4:44P Dictated by : EVELYN JEROME DO This examination was interpreted and the report reviewed and electronically signed by: EVELYN JEROME DO on Dec 15 2020 4:56PM EST [id number] [facility] POINT OF CARE GLUCOSEon 07-2 Glucose [Mass/Vol] 250 mg/dL Critically high 74-106 T [facility] Comment on above: Performed By: #### P OCGLUC #### [facility] [address] [address] Fariba Lowe Glucose [Mass/Vol] 240 mg/dL Critically high 74-106 [facility] Comment on above: Performed By: #### P OCGLUC #### [facility] [address] [address] Fariba Lowe Glucose [Mass/Vol] 257 mg/dL Critically high 74-106 [facility] Comment on above: Performed By: #### P OCGLUC #### [facility] [address] [address] Fariba Lowe Covid-19 PCR (CVDTB)on 09-16 SARS-CoV-2 (COVID-19) RNA SHAY+probe Ql (Unsp spec) Not detected Normal NOT DETECTED [facility] Comment on above: Result Comment: This test is not yet approved or cleared by the [place] FDA. When there are no FDA-approved or cleared tests available, and other criteria are met, FDA can make tests available under an emergency access mechanism called an Emergency Use Authorization (EUA). The EUA for this test is supported by the Cable Worker Helper of Health and Human Service's (HHS's) declaration [...] SARS-CoV-2. Performed By: #### C VDTBH #### [facility] [address] [place] [address] Fariba Lowe US SCROTUM AND TESTICLESon 0 [...] Interpreted by:Katy MonsivaisSigned by:Katy Monsivais11/17/16Final result Normal [facility] Cult,Urine,CCon 11-15-2016 Cult,Urine,CC Specimen Description .URINE Performed at [address] [place] [address] Special Requests .CLEAN CATCH URINE Performed at [address] [place] [address] Culture NO SIGNIFICANT GROWTH Performed at [address] [address] Report Status FINAL 11/15/2016 Normal [facility] Comment on above: Performed By: #### C DOMONIQUE ####[address] [phone] [place] [address] Urinalysis w/ Microon 2016 ----- Normal [facility] Comment on above: Performed By: #### U AMIC ####[address] [place] [address] Acetaminophen mass conc TRACE Abnormal NEG [facility] Comment on above: Performed By: #### U AMIC ####[address] [place] [address] Bilirubin (direct) Negative Normal NEG [facility] Comment on above: Performed By: #### U AMIC ####[address] [place] [address] Hemoglobin mass conc (Bld) Negative Normal NEG [facility] Comment on above: Performed By: #### U AMIC ####[address] [place] [address] Nitrite,Ur Negative Normal NEG [facility] Comment on above: Performed By: #### U AMIC ####[address] [place] [address] Turbidity CLEAR Normal CLEAR [facility] Comment on above: Performed By: #### U AMIC ####[address] [place] [address] Urine WBC's 0 TO 2 Normal 0-5 [facility] Comment on above: Performed By: #### U AMIC ####[address] [place] [address] Urine, color YELLOW Normal YEL [facility] Comment on above: Performed By: #### U AMIC ####[address] [place] [address] Urine, epithelial cells in sediment None Normal 0-5 [facility] Comment on above: Result Comment: Perf ormed at [address] [place] [address] Performed By: #### U AMIC ####[address] [place] [address] Urine, erythrocytes 0 TO 2 Normal 0-2 [facility] Comment on above: Performed By: #### U AMIC ####[address] [place] [address] Urine, glucose presence 3+ Abnormal NEG [facility] Comment on above: Performed By: #### U AMIC ####[address] [place] [address] Urine, leukocyte esterase presence Negative Normal NEG [facility] Comment on above: Performed By: #### U AMIC ####[address] [place] [address] Urine, pH 5.5 [pH] Normal 5.0-9.0 [facility] Comment on above: Performed By: #### U AMIC ####[address] [place] [address] Urine, protein presence Negative Normal NEG M [facility] Comment on above: Performed By: #### U AMIC ####[address] [place] [address] Urine, specific gravity 1.020 Normal 1.010-1.020 [facility] Comment on above: Performed By: #### U AMIC ####[address] [place] [address] Urobilinogen,Ur Normal Normal NORM [facility] Comment on above: Performed By: #### U AMIC ####[address] [place] [address] Comment NOT REPORTED Normal [facility] Comment on above: Performed By: #### U AMIC ####[address] [place] [address] Epithelial, Renal NOT REPORTED Normal 0 [facility] Comment on above: Performed By: #### U AMIC ####[address] [place] [address] Mucus Strands NOT REPORTED Normal NONE [facility] Comment on above: Performed By: #### U AMIC ####[address] [place] [address] Other Observations NOT REPORTED Normal NREQ [facility] Comment on above: Performed By: #### U AMIC ####[address] [place] [address] Trichomonas NOT REPORTED Normal NONE [facility] Comment on above: Performed By: #### U AMIC ####[address] [place] [address] Urine, amorphous sediment presence in sediment NOT REPORTED Normal NONE [facility] Comment on above: Performed By: #### U AMIC ####[address] [place] [address] Urine, bacteria in sediment NOT REPORTED Normal NONE [facility] Comment on above: Performed By: #### U AMIC ####[address] [place] [address] Urine, casts in sediment NOT REPORTED Normal [facility] Comment on above: Performed By: #### U AMIC ####[address] [place] [address] Urine, crystals in sediment NOT REPORTED Normal NONE [facility] Comment on above: Performed By: #### U AMIC ####[address] [place] [address] Urine, yeast presence in sediment NOT REPORTED Normal NONE [facility] Comment on above: Performed By: #### U AMIC ####[address] [place] [address] Vital Signs Date Time Vital Sign Value Performing Clinician Brenti litaugust 11-04-2024 15:04-0400 Body height 182.9 cm Salbador Ramirez MD Work Phone: [facility] 11-04-2024 15:04-0400 Body mass index (BMI) [Ratio] 41.91 kg/m2 Salbador Ramirez MD Work Phone: [facility] 11-04-2024 15:04-0400 Body temperature 97.5 [degF] Salbador Ramirez MD Work Phone: [facility] 11-04-2024 15:04-0400 Body weight 140.16 kg Salbador Ramirez MD Work Phone: [facility] 11-04-2024 15:04-0400 Diastolic blood pressure 86 mm[Hg] Salbador Ramirez MD Work Phone: [facility] 11-04-2024 15:04-0400 Heart rate 103 /min Salbador Ramirez MD Work Phone: [facility] 11-04-2024 15:04-0400 Respiratory rate 22 /min Salbador Ramirez MD Work Phone: [facility] 11-04-2024 15:04-0400 SaO2% (BldA) [Mass fraction] 97 % Salbador Ramirez MD Work Phone: [facility] 11-04-2024 15:04-0400 Systolic blood pressure 168 mm[Hg] Salbador Ramirez MD Work Phone: [facility] 02-13-2022 08:48-0500 Body temperature 97.59 [degF] Chana Chandra AEROSPACE PROJECT ENGINEER.CHEMICAL WASTE MANAGEMENT TECHNICIAN Work Phone: [facility] 02-13-2022 08:48-0500 Diastolic blood pressure 111 mm[Hg] Chana Chandra AEROSPACE PROJECT ENGINEER.CHEMICAL WASTE MANAGEMENT TECHNICIAN Work Phone: [facility] 02-13-2022 08:48-0500 Heart rate 94 /min Chana Chandra AEROSPACE PROJECT ENGINEER.CHEMICAL WASTE MANAGEMENT TECHNICIAN Work Phone: [facility] 02-13-2022 08:48-0500 Respiratory rate 20 /min Chana Chandra AEROSPACE PROJECT ENGINEER.CHEMICAL WASTE MANAGEMENT TECHNICIAN Work Phone: [facility] 02-13-2022 08:48-0500 SaO2% (BldA) [Mass fraction] 96 % Chana Chandra AEROSPACE PROJECT ENGINEER.CHEMICAL WASTE MANAGEMENT TECHNICIAN Work Phone: [facility] 02-13-2022 08:48-0500 Systolic blood pressure 162 mm[Hg] Chana Chandra AEROSPACE PROJECT ENGINEER.CHEMICAL WASTE MANAGEMENT TECHNICIAN Work Phone: [facility] 01-31-2022 08:45-0500 Body temperature 97.7 [degF] Toan Chu MD Work Phone: [facility] 01-31-2022 08:45-0500 Diastolic blood pressure 76 mm[Hg] Toan Chu MD Work Phone: [facility] 01-31-2022 08:45-0500 Heart rate 96 /min Toan Chu MD Work Phone: [facility] 01-31-2022 08:45-0500 Respiratory rate 16 /min Toan Chu MD Work Phone: [facility] 01-31-2022 08:45-0500 Systolic blood pressure 139 mm[Hg] Toan Chu MD Work Phone: [facility] 01-31-2022 08:25-0500 SaO2% (BldA) [Mass fraction] 92 % Toan Chu MD Work Phone: [facility] 01-31-2022 07:32-0500 Body weight 147.5 kg Toan Chu MD Work Phone: [facility] 09-07-2021 08:34-0400 Body temperature 97.81 [degF] Toan Chu MD Work Phone: [facility] 09-07-2021 08:34-0400 Diastolic blood pressure 91 mm[Hg] Toan Chu MD Work Phone: [facility] 09-07-2021 08:34-0400 Heart rate 96 /min Toan Chu MD Work Phone: [facility] 09-07-2021 08:34-0400 Respiratory rate 20 /min Toan Chu MD Work Phone: [facility] 09-07-2021 08:34-0400 SaO2% (BldA) [Mass fraction] 99 % Toan Chu MD Work Phone: [facility] 09-07-2021 08:34-0400 Systolic blood pressure 157 mm[Hg] Toan Chu MD Work Phone: [facility] Encounters Encounter Date Encounter Type Care Provider Facility Start: 11-04-2024 End: 11-04-2024 Office outpatient visit 25 minutes Salbador Ramirez MD Work Phone: [facility] Comment on above: Cervical spondylosis with radiculopathy (Primary Dx); Type 2 diabetes mellitus with hyperglycemia, without long-term current use of insulin (HCC); Benign hypertension ; Annual physical exam Start: 11-04-2024 End: 11-04-2024 Patient encounter procedure Salbador Ramirez MD Work Phone: [facility] Start: 11-04-2024 End: 11-04-2024 ambulatory SALBADOR RAMIREZ Not Available Start: 11-04-2024 End: 11-04-2024 Bamboo flowsheet Salbador Ramirez MD Work Phone: [facility] Start: 11-04-2024 End: 11-04-2024 Bamboo flowsheet Salbador Ramirez MD Work Phone: [facility] Start: 05-28-2024 End: 05-28-2024 Patient encounter procedure Salbador Ramirez MD Work Phone: [facility] [place] Work Phone: Start: 05-28-2024 End: 05-28-2024 ambulatory Salbador Ramirez MD Work Phone: [facility] Work Phone: Start: 05-22-2024 End: 05-22-2024 ambulatory SALBADOR RAMIREZ Not Available Start: 03-30-2023 End: 03-30-2023 ambulatory MD Salbador Ramirez Work Phone: [facility] Work Phone: Start: 03-30-2023 End: 03-30-2023 Patient encounter procedure MD Salbador Ramirez Work Phone: [facility] [place] Work Phone: Start: 03-26-2023 Patient encounter procedure Gabi Ramirez MD Work Phone: [facility] Start: 09-12-2022 End: 09-13-2022 ambulatory LOKI BASURTO Facility:[facility] Start: 06-29-2022 Telephone encounter Loki casiano MD Work Phone: [facility] [place] Comment on above: Appointment Start: 02-13-2022 End: 02-13-2022 ambulatory Chana Chandra APRN.CHEMICAL WASTE MANAGEMENT TECHNICIAN Work Phone: Plastic Surgery Comment on above: Post-operative state (Primary Dx) Start: 02-13-2022 End: 02-13-2022 Patient encounter procedure Chana Chandra APRN.CHEMICAL WASTE MANAGEMENT TECHNICIAN Work Phone: [facility] Start: 01-31-2022 ambulatory TOAN CHU Facility: [facility] Start: 01-31-2022 End: 01-31-2022 Subsequent hospital visit by physician Toan Chu MD Work Phone: Ambulatory Surgery Comment on above: 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] Start: 09-07-2021 End: 09-07-2021 ambulatory Toan Chu MD Work Phone: Plastic Surgery Comment on above: Dermatofibrosarcoma protuberans (Primary Dx); S/P flap graft Start: 09-07-2021 End: 09-07-2021 Patient encounter procedure Toan Chu MD Work Phone: [facility] Start: 07-26-2021 End: 07-26-2021 Patient encounter procedure Loki Basurto MD Work Phone: Dermatology Comment on above: Dermatofibrosarcoma protuberans of scalp (Primary Dx) Start: 10-08-2020 Encounter for prepro cedural cardiovascular examination DR KARMEN AKINS [facility] Start: 10-08-2020 Encounter for prepro cedural laboratory examination DR KARMEN AKINS [facility] Start: 10-06-2020 End: 10-06-[address] KARMEN AKINS Facility:[facility] Start: 10-01-2020 End: 10-02-[address] SALBADOR RAMIREZ Facility:[facility] Start: 10-01-2020 End: 10-02-2020 Encounter for preprocedural laboratory examination DR SALBADOR RAMIREZ Facility:[facility] Start: 11-16-2016 End: 11-17-2016 Ambulatory [facility] Start: 11-13-2016 End: 11-14-2016 Ambulatory [facility] Procedures Date Procedure Procedure Detail Performing Clinician Start: 05-28-2024 Plain X-ray of right shoulder Salbador Ramirez MD Work Phone: Start: 01-31-2022 End: 01-31-2022 Delay flap/sectioning flap scalp arms/legs Toan Chu MD Work Phone: Start: 11-16-2016 Us scrotum & contents T EMMY NGUYENAVIVA Start: 11-13-2016 URINE CULTURE CLEAN CATCH [facility] Start: 11-13-2016 URINALYSIS WITH MICROSCOPIC [facility] H/O: surgery S/P flap graft Toan Chu MD Work Phone: Plan of Treatment Date Care Activity Detail Author Start: 12-16-2024 End: 12-16-2024 Patient encounter procedure 12/16/2024 10:30 AM EDT Office Visit [facility] [address] [place] [phone] Salbador Ramirez MD [address] [place] [phone] [facility] Start: 11-17-2024 Influenza vaccination Influenza Vaccine (#1) [facility] Start: 11-04-2024 End: 11-04-2024 Patient encounter procedure 11/04/2024 3:15 PM EDT [facility] [address] [place] [address] Salbador Ramirez MD [address] [place] [id number] Arrived [facility] Comment on above: Arrived Start: 11-04-2024 End: 11-04-2025 CBC W Auto Differential panel - Blood CBC and differential Lab Routine Annual physical exam Expected: 11/04/2024 (Approximate), Expires: 11/04/2025 [facility] Comment on above: Expected: 11/04/2024 (Approximate), Expi res: 11/04/2025 Start: 11-04-2024 End: 11-04-2025 Comprehensive metabolic 2000 panel - Serum or Plasma Comprehensive metabolic panel Lab Routine Annual physical exam Expected: 11/04/2024 (Approximate), Expires: 11/04/2025 [facility] Comment on above: Expected: 11/04/2024 (Approximate), Expi res: 11/04/2025 Start: 11-04-2024 End: 11-04-2025 Hemoglobin A1c/Hemoglobin.total in Blood Hemoglobin A1c Lab Routine Type 2 diabetes mellitus with hyperglycemia, without long-term current use of insulin (HCC) Expected: 11/04/2024 (Approximate), Expires: 11/04/2025 [facility] Comment on above: Expected: 11/04/2024 (Approximate), Expi res: 11/04/2025 Start: 11-04-2024 End: 11-04-2025 Lipid 1996 panel - Serum or Plasma Lipid panel Lab Routine Annual physical exam Expected: 11/04/2024 (Approximate), Expires: 11/04/2025 [facility] Comment on above: Expected: 11/04/2024 (Approximate), Expi res: 11/04/2025 Start: 11-04-2024 End: 11-04-2025 Microalbumin/Creatinin e panel in random Urine Microalbumin / creatinine, urine ratio Lab Routine Type 2 diabetes mellitus with hyperglycemia, without long-term current use of insulin (HCC) Expected: 11/04/2024 (Approximate), Expires: 11/04/2025 [facility] Comment on above: Expected: 11/04/2024 (Approximate), Expi res: 11/04/2025 Start: 11-04-2024 End: 11-04-2025 Prostate specific Ag [Mass/volume] in Serum or Plasma PSA Lab Routine Annual physical exam Expected: 11/04/2024 (Approximate), Expires: 11/04/2025 [facility] Comment on above: Expected: 11/04/2024 (Approximate), Expi res: 11/04/2025 Start: 11-04-2024 End: 11-04-2025 Thyrotropin [Units/volume] in Serum or Plasma TSH Lab Routine Annual physical exam Expected: 11/04/2024 (Approximate), Expires: 11/04/2025 [facility] Comment on above: Expected: 11/04/2024 (Approximate), Expi res: 11/04/2025 Start: 11-04-2024 End: 11-04-2025 XR Cervical spine 2 or 3 Views XR cervical spine 2 or 3 views Imaging Routine Cervical spondylosis with radiculopathy Expected: 11/04/2024, Expires: 11/04/2025 [facility] Work Phone: Comment on above: Expected: 11/04/2024, Expires: Start: 03-30-2024 Urine screening for protein Diabetes: Urine Protein Screening [facility] Start: 09-28-2023 Hemoglobin A1c measurement Diabetes: Hemoglobin A1C [facility] Start: 11-17-2022 Influenza vaccination INFLUENZA (Season Ended) [facility] Start: 03-19-2022 DEPRESSION ASSESSMENT DEPRESSION ASSESSMENT [facility] Start: 11-17-2021 Influenza vaccination [facility] Start: 04-27-2021 Hemoglobin A1c/Hemoglobin.total in Blood HBA1C [facility] Start: 03-19-2021 DEPRESSION ASSESSMENT DEPRESSION ASSESSMENT [facility] Start: 1997 HEPATITIS B (1 of 3 - Risk 3-dose series) HEPATITIS B (1 of 3 - Risk 3-dose series) [facility] Start: 1997 Urine microalbumin profile DTAP,TDAP,TD (1 - Tdap) [facility] Start: 1996 ANNUAL PCP TEAM CHRONIC DISEASE VISIT ANNUAL PCP TEAM CHRONIC DISEASE VISIT [facility] Start: 1996 BP CONTROLLED (<130/80) BP CONTROLLED (<130/80) [facility] Start: 1996 Hepatitis B surface antibody level LDL CHOLESTEROL [facility] Start: 1996 HEPATITIS C SCREENING HEPATITIS C SCREENING [facility] Start: 1996 HIV SCREENING HIV SCREENING [facility] Start: 1994 ONE PNEUMOVAX PRIOR TO AGE 63 ONE PNEUMOVAX PRIOR TO AGE 63 [facility] Start: 1990 Adult depression screening assessment DEPRESSION SCREENING [facility] Start: 1988 3 comp foot exam completed DIABETIC FOOT EXAM [facility] Start: 1988 Glaucoma screening Diabetes: Retinopathy Screening [facility] Start: 1988 Hepatitis B screening URINE ALBUMIN:CREATININE RATIO [facility] Start: 1988 Hepatitis C antibody, confirmatory test DILATED RETINAL EXAM [facility] Start: 1984 PNEUMOCOCCAL (1 - PCV) PNEUMOCOCCAL (1 - PCV) [facility] Start: 08-01-1983 COVID-19 VACCINE (#1) COVID-19 VACCINE (#1) [facility] Start: 01-31-1979 COVID-19 VACCINE (#1) COVID-19 VACCINE (#1) [facility] Start: 1978 HEPATITIS B (1 of 3 - 3-dose series) HEPATITIS B (1 of 3 - 3-dose series) [facility] Start: 1978 Screening for malignant neoplasm of colon [facility] End: 10-07-2022 Mri brain brain stem w/o contrast material MRI BRAIN WO IVCON Radiology Routine Dermatofibrosarcoma protuberans S/P flap graft 1 Occurrences starting 09/07/2021 until 10/07/2022 [facility] Work Phone: Comment on above: 1 Occurrences starting 09/07/2021 until 10/07/2022 [facility] Payers Date Payer Category Payer Self-pay 2023 Private Health Insurance [employer] [id number] 2020 Unknown MMO MMO [employer] [id number] 2020-Present [phone] [address] [place] [address] PPO [id number] 2020 Unknown [id number] 2016 Unknown [id number] 1978 Unknown [id number] 1978 Unknown [id number] 1978 Unknown [id number] [id number] 1978 Unknown [id number] 1959 Unknown [id number] Unknown [id number] Social History Date Type Detail Facility Start: 11-25-2020 End: 03-26-2023 Tobacco smoking status NHIS Ex-smoker [facility] Start: 03-19-1996 End: 03-19-2011 History of tobacco use Current smoker [facility] Start: 03-19-1996 End: 03-19-2011 History of tobacco use Cigarette Smoker [facility] Start: 11-25-2020 End: 11-04-2024 Cigarettes smoked current (pack per day) - Reported 1 [facility] Start: 11-25-2020 Tobacco use and exposure Former smokeless tobacco user [facility] End: 09-23-2020 History of tobacco use User of smokeless tobacco [facility] Start: 03-31-2021 Alcohol intake Current drinke r of alcohol (finding) [facility] Start: 02-25-2021 History SDOH Alcohol Comment 6-7 beers several times per week [facility] Start: 1980 Sex Assigned At Male [facility] Start: 07-16-2021 End: 02-13-2022 Exposure to SARS-CoV-2 (event) Not sure [facility] Tobacco smoking stat us NHIS Unknown if ever smoked [facility] Work Phone: Start: 05-29-2024 Sex Male (finding) [facility] Start: 03-26-2023 Tobacco use and exposure Smokeless tobacco non-user [facility] Start: 05-22-2024 End: 11-04-2024 Tobacco use panel [facility] Start: 1980 Sex assigned at Not on file [facility] Medical Equipment Procedure Code Equipment Code Equipment Origin al Text Equipment Identifier Dates Graft Soft Tissu e Frozen Cadaver - [id number] Start: 02-04-2021 Clinical Notes 07-26-2021 to 11-04-2024 Salbador Ramirez MD - 11/04/2024 4:36 PM EDElizabeth Ramirez MD - 11/04/2024 4:36 PM Jose Ramirez MD - 11/04/2024 4:36 PM Jose Ramirez MD - 11/04/2024 3:15 PM EDTPatient Instructions Note Date & Type Note Facility 11-04-2024 History of Present illness Narrative Associated Problem(s): Type 2 diabetes mellitus with hyperglycemia, without long-term current use of insulin (HCC) Not checking BS and due for A1C. Associated Problem(s): Benign hypertension BP elevated but c/o pain. Monitor BP PRN. Discussed DASH diet. Associated Problem(s): Cervical spondylosis with radiculopathy Symptoms likely related to cervical pathology and suggestive of pinched nerve. Check x-ray neck and start PT. Start celebrex and lycrica for pain. If no improvement will need MRI. Images from the original note were not included. Subjective Patient ID: Karmen Carlos is a 44 y.o. male who presents for Arm Pain (Right arm). C/o right arm pain for several weeks. Seen / complaining of pain in right shoulder after tossing a bucket in back truck. At the time given prednisone and had x-ray shoulder. Pain improved after few days and did not take prednisone. X-ray with mild OA. 10/17 stretched and felt [...] or 3 views documented in this encounter [facility] 09-12-2022 Note HNO ID: [id number] Author: Loki Basurto MD Service: ? Author [...] Past Histories independently gathered by the clinical windows support engineer and the remaining scribed note accurately describes my personal service to the patient. Loki Basurto MD September 12, 2022 [facility] 06-29-2022 Miscellaneous Notes Left VM / Sent MyCharts About getting a appt with per Staff Message documented in this encounter [facility] 02-13-2022 Note HNO ID: [id number] Author: Chana Chandra APRN.CHEMICAL WASTE MANAGEMENT TECHNICIAN Service: ? Author Type: Nurse Practitioner Type: [...] for the rest of his/her life Call [phone] or go to the Emergency Department if [...] doesn't work its way out Office number: [phone] (option 3) The patient is seen and examined by Chana Chandra APRN.CNP and the following reflects her service. Scribed by Citlaly Padgett RN I agree with the Chief Complaint, ROS, and Past Histories independently gathered by the clinical windows support engineer and the remaining scribed note accurately describes my personal service to the patient. Chana Chandra APRN.CNP February 13, 2022 9:20 AM [facility] 02-13-2022 Instructions Chana Chandra APRN.CNP - 02/13/2022 [...] for the rest of his/her life Call [phone] or go to the Emergency Department if [...] doesn't work its way out Office number: [phone] (option 3) documented in this encounter [facility] 02-13-2022 History of Present illness Narrative [...] for the rest of his/her life Call [phone] or go to the Emergency Department if [...] doesn't work its way out Office number: [phone] (option 3) The patient is seen and examined by Chana Chandra APRN.CNP and the following reflects her service. Scribed by Citlaly Padgett RN I agree with the Chief Complaint, ROS, and Past Histories independently gathered by the clinical windows support engineer and the remaining scribed note accurately describes my personal service to the patient. Chana Chandra APRN.CNP February 13, 2022 9:20 AM documented in this encounter [facility] 01-31-2022 Hospital Discharge instructions Agatha Rawls [...] These instructions explain what you or your career and technology education teacher need to do to continue your care at home or at another healthcare facility Please go over these instructions with your nurse and career and technology education teacher. If you are not sure about something, [...] document) At your earliest convenience, please call [phone] to confirm or schedule a follow-up appointment with the office of Dr. Chu to be seen in clinic. Your existing appointments are listed below: Future Appointments Date Time [facility] Department [place] 02/13/2022 9:00 AM Chana Chandra APRN.CHEMICAL WASTE MANAGEMENT TECHNICIAN [facility] [place] When to call your surgeon: - If [...] during business hours (8am to 5pm) call [phone] or after hours (including weekends) call [phone] ([facility]) and ask for the Plastic Surgery Resident / Fellow sales professional. If calling long distance, please use [phone] ([phone]). Test results not currently available (to be reviewed at follow-up): No pending results. documented in this encounter [facility] 01-31-2022 Surgical operation note BRIEF OPERATIVE NOTE PLASTIC & RECONSTRUCTIVE SURGERY LOG ID: [id number] Surgery/Procedure Date: 01/31/2022 Incision/Procedure Start Time: 8:04 AM Incision Close/Procedure End Time: 8:29 AM Surgeon(s)/Proceduralist(s) and Production Line Solderer(s): Surgeon(s) and Role: * Toan Chu MD [...] 31, 2022 TIME: 8:33 AM PAGER/CONTACT #: [phone] OPERATIVE REPORT PLASTIC & RECONSTRUCTIVE SURGERY Log ID: [id number] Surgery/Procedure Date: 01/31/2022 Incision/Procedure Start Time: 8:04 AM Incision Close/Procedure End Time: 8:29 AM Surgeon(s)/Proceduralist(s) and Production Line Solderer(s): Surgeon(s) and Role: * Toan Chu MD [...] Toan Chu MD documented in this encounter [facility] 01-31-2022 History and physical note UPDATED [...] TIME: 7:43 AM documented in this encounter [facility] 09-07-2021 History of Present illness Narrative [...] not clear Meds and allergies reviewed in [facility]. REVIEW OF SYSTEMS: PAIN ASSESSMENT: Negative for [...] By signing my name below, I, Giancarlo Chairez, attest that this documentation has been prepared [...] 09/08/2021 9:09 AM documented in this encounter [facility] 07-26-2021 History of Present illness Narrative [...] Past Histories independently gathered by the clinical windows support engineer and the remaining scribed note accurately describes my personal service to the patient. 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 [facility] Diagnosis Dermatofibrosarcoma protuberans- Primary Other specified malignant neoplasm of skin, site unspecified S/P flap graft Other postprocedural status [facility] Diagnosis Acute post-operative pain- Primary [facility]* Diagnosis Post-operative state- Primary Other postprocedural status [facility] [place] noteNo assessment information availablePremier Health Work Phone: Evaluation note* Diagnosis Annual physical exam- Primary Routine general medical examination at a health care facility Type 2 diabetes mellitus with hyperglycemia, without long-term current use of insulin (HCC) Benign hypertension Essential hypertension, benign Vitamin D deficiency WOO (obstructive sleep apnea) Obstructive sleep apnea (adult) (pediatric) Rotator cuff injury, right, initial encounter- Primary Internal derangement of right shoulder Type 2 diabetes mellitus with hyperglycemia, without long-term current use of insulin (HCC) Class 3 severe obesity due to excess calories with serious comorbidity and body mass index (BMI) of 40.0 to 44.9 in adult ([facility]) Dyslipidemia Other and unspecified hyperlipidemia Type 2 diabetes mellitus with other specified complication (HCC) Cervical spondylosis with radiculopathy- Primary Cervical spondylosis with myelopathy Type 2 diabetes mellitus with hyperglycemia, without long-term current use of insulin (HCC) Benign hypertension Essential hypertension, benign Annual physical exam Routine general medical examination at a health care facility documented in this encounter DANNS Jose for visit Narrative* Auth/Cert Specialty Diagnoses / Procedures Referred By Contac t Referred To Contact [facility] Diagnoses Dermatofibrosarcoma protuberans S/P flap graft Procedures DELAY/SECTN FLAP SCALP,ARM,LEG FLAP DELAY SCALP OR SECTIONING [facility] [address] [place] [address] Referral ID Status Reason Start Date Expiration Date Visits Re quested Visits Authorized [id number] 1 1 [facility] Summary Purpose Family History No Family History Records FoundNo Family History Records FoundNo Family History Records FoundNo Family History Records FoundNo Family History Records FoundNo Family History Records Found Advance Directives No Advanced Directives Records FoundDocuments on File Type Date Recorded 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 Advance Directive(s) 02/25/2021 2:56 PM Advance Directive(s) 01/19/2021 12:12 PM Advance Directive(s) 12/15/2020 11:53 AM Advance Directive(s) 12/15/2020 10:47 AM Documents on File Type Date Recorded 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 Advance Directive(s) 02/25/2021 2:56 PM Advance Directive(s) 01/19/2021 12:12 PM Advance Directive(s) 12/15/2020 11:53 AM Advance Directive(s) 12/15/2020 10:47 AM Documents on File Type Date Recorded 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 Advance Directive(s) 12/15/2020 10:47 AM Documents on File Type Date Recorded 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 Advance Directive(s) 12/15/2020 10:47 AM Advance Directive Response Recorded Date/ Time Advance Directives No August 03 8:17am Advance Directive Response Recorded Date/ Time Advance Directives No August 03 9:17am Reason for Referral Specialty Diagnoses / Procedures Referred By Diane mayers Referred To Contact [facility] Diagnoses Dermatofibrosarcoma protuberans S/P flap graft Procedures MRI BRAIN WO IVCON MRI BRAIN BRAIN STEM [place] [address] [place] [address] Mr Imaging Referral ID Status Reason Start Date Expiration Date Visits Requested Visits Authorized [id number] Pending Review Auto-Generat ed Referral 09/07/2021 10/07/2022 1 1 Chief Complaint and Reason for Visit Chief Complaint z00.00/e55.9/e11.65 Chief Complaint Admit Date s46.001a May 28, 2024 11: 47am Additional Source Comments (unrecognized sect ion and content) No Status Records FoundNo Status Records FoundNo Status Records FoundNo Status Records FoundNo Status Records FoundNo Status Records Found INFORMATION SOURCE (unrecogn ized section and content) DATE CREATED AUTHOR 09/12/2017 [facility] DATE CREATED AUTHOR AUTHOR'S ORGANIZ ATION 03/03/2021 [facility] DATE CREATED AUTHOR AUTHOR'S ORGANIZ ATION 08/19/2021 [facility] DATE CREATED AUTHOR AUTHOR'S ORGANIZ ATION 09/23/2022 [facility] DATE CREATED AUTHOR AUTHOR'S ORGANIZ ATION 06/06/2024 [facility] DATE CREATED AUTHOR AUTHOR'S ORGANIZ ATION 11/06/2024 [facility] dical Specialists EPIC Source Comments (unrecognize d section and content) In the event this informatio n is protected by the Federal Confidentiality of Alcohol and Drug Abuse Patient Records regulations: The Federal rules restrict any use of the information to criminally investigate or prosecute any alcohol or drug abuse patient.[facility] the event this information is protected by the Federal Confidentiality of Alcohol and Drug Abuse Patient Records regulations: The Federal rules restrict any use of the information to criminally investigate or prosecute any alcohol or drug abuse patient.[facility] the event this information is protected by the Federal Confidentiality of Alcohol and Drug Abuse Patient Records regulations: The Federal rules restrict any use of the information to criminally investigate or prosecute any alcohol or drug abuse patient.[facility] the event this information is protected by the Federal Confidentiality of Alcohol and Drug Abuse Patient Records regulations: The Federal rules restrict any use of the information to criminally investigate or prosecute any alcohol or drug abuse patient.[facility] the event this information is protected by the Federal Confidentiality of Alcohol and Drug Abuse Patient Records regulations: The Federal rules restrict any use of the information to criminally investigate or prosecute any alcohol or drug abuse patient.[facility] Reason for Visit (unrecogniz ed section and content) Reason Comments Follow Up Reason Comments Established Patient Reason Comments Appointment Reason Comments Arm Pain Right arm Care Teams (unrecognized sec tion and content) M48 M60 Armor Crewman Relationship Specialty Start Date End Date Salbador Ramirez [address] [place] [address] PCP - General Family Practice 12/15/20 M48 M60 Armor Crewman Relationship Specialty Start Date End Date Salbador Ramirez [address] [place] [address] PCP - General Family Practice 12/15/20 M48 M60 Armor Crewman Relationship Specialty Start Date End Date Salbador Ramirez [address] [place] [address] PCP - General Family Medicine 12/15/20 M48 M60 Armor Crewman Relationship Specialty Start Date End Date Salbador Ramirez [address] [place] [address] PCP - General Family Medicine 12/15/20 M48 M60 Armor Crewman Relationship Specialty Start Date End Date Salbador Ramirez [address] [place] [address] PCP - General Family Medicine 12/15/20 Team Status: Active Member Role Status Dates Salbador Ramirez MD Primary Care Provider Active Team Status: Inactive Member Role Status Dates Salbador Ramirez MD Primary Care Provider, Attending Pro vider Active Team Status: Inactive Member Role Status Dates Salbador Ramirez MD Primary Care Provide r, Attending Provider Active Start: May 28, 2024 End: May 28, 2024 M48 M60 Armor Crewman Relationship Specialty Start Date End Date Salbador Ramirez MD [address] [place] [id number] PCP - Medical [place] [employer] 03/19/22 03/18/99 Salbador Ramirez MD [address] [place] [address] PCP - General Family Medicine 05/22/24 M48 M60 Armor Crewman Relationship Specialty Start Date End Date Salbador Ramirez MD [address] [place] [address] PCP - Medical [place] [employer] 03/19/22 03/18/99 Salbador Ramirez MD [address] [place] [address] PCP - General Family Medicine 05/22/24 PRN Active and Recently Administ ered Medications [...] may be documented in a n alternate sectionGoals may be documented in an alternate section FOR RECORDS PERTAINING TO PATIENTS [...] BE BASED ON THE PRIMARY CLINICAL RECORDS. [facility]. provides no warranty or guarantee of the accuracy or completeness of information in this document.
--- NOTE | 2024-11-06 11:28 | XR_ITS ---
[place] [id number] Patient Name: KARMEN CARLOS MRN: [id number] date: 1980 Sex: M Assigned Patient Location: [facility] Current Patient Location: [facility] Accession/Order Number: [id number] Exam Date: 11/06/2024 12:05 Report Date: 11/06/2024 12:07 At the request of: GINA RAMIREZ MD Procedure: XR cervical spine 2-3V CERVICAL SPINE 3 views: CLINICAL HISTORY: Cervical Spondylosis COMPARISON: None FINDINGS: Minimal reversal. C1-C7 visualized on the lateral view. No fracture or malalignment identified from C1 through C7. Overall mild scattered degenerative changes. No prevertebral soft tissue swelling. XR/XR cervical spine 2-3V IMPRESSION: Mild degenerative change. Impression dictated by: Ilan Cohen M.D. 11/06/2024 12:07 PM Dictation Location: [place] [address] Electronically authenticated by: [id number] Y Date: 11/06/2024 12:07
== END 2024-11-06 11:20 | disposition home or self-care (01) ==
PROVIDERS: PCP Family Medicine; Visit Provider Family Medicine
DX: M47.22 Other spondylosis with radiculopathy, cervical region (principal); M50.30 Other cervical disc degeneration, unspecified cervical region
CPT/HCPCS: 72040

== ENCOUNTER 2024-11-07 13:53 | Outpatient (RCR) | payer OTHER, SELFPAY | END 2024-12-26 08:13 | disposition home or self-care (01) | LOC: PT 13:53 | PROVIDERS: PCP Family Medicine; Visit Provider Family Medicine | DX: M54.2 Cervicalgia (principal); M77.11 Lateral epicondylitis, right elbow; S16.1XXS Strain of muscle, fascia and tendon at neck level, sequela | CPT/HCPCS: 97012; 97110; 97112; 97140; 97162; 97164 ==

== ENCOUNTER 2025-01-12 09:29 | Outpatient (OUT) | payer OTHER, SELFPAY ==
--- OUTSIDE RECORDS SUMMARY | 2024-12-30 11:27 | XMS_ITS | Continuity of Care Document ---
Author Organization [facility] Address [address] [place] [address] Phone Care Team Providers Care Therapeutic Sales Specialist Name Role Phone Salbador Mcnally MD Primary Care Provider Salbador Mcnally MD Attending Provider [phone] Care Teams Patient Care Team Team Status: Active Member Role Status Dates Salbador Mcnally MD Primary Care Provider Active Patient Care Team Team Status: Inactive Member Role Status Dates Salbador Mcnally MD Primary Care Provider Active S tart: December 30, 2024 End: December 30, 2024[facility] POONAM Mcnallyttending ProviderActiveStart: December 30, 2024 End: December 30, 2024 Chief Complaint and Reason for Visit Chief Complaint Admit Date follow up from cancelled appointment Oct víctor 2024 2:31pm Reason for Visit Admit Date Annual physical exam December 30, 2024 2:31pm Allergies, Adverse Reactions, Alerts Allergen Type Severity Reaction Last Updated Verified Status No Known Allergies Allergy Unknown December 30, 2024 2:56pmYesActive Social History Smoking Status Status Start Date End Date Date of Observa tion Ex-smoker (finding) December 30, 2024 2:58pm Observation Status Observation Response Date of Response Legal Sex Male (finding) Sex Assigned At 1980 Problems Active Problems Medical Problem Onset Date Status Class 3 severe obesity due t o excess calories with serious comorbidity and body mass index (BMI) of 40.0 to 44.9 in adult Unknown Active Cervical spondylosis with radiculopathy Unknown Active WOO (obstructive sleep apnea) Unknown Ac tive Unspecified injury of muscle (s) and tendon(s) of the rotator cuff of right shoulder, initial encounter Unknown Active Benign hypertension Unknown Active Dyslipidemia Unknown Active Annual physical exam Unknown Active DDD (degenerative disc disease), thoracic Unknow n Active Type 2 diabetes mellitus wit h microalbuminuria, without long-term current use of insulin Unknown Active Type 2 diabetes mellitus wit h hyperglycemia, without long-term current use of insulin Unknown Active Vitamin D deficiency Unknown Active Medications Medication Status Dose Units Route Directions Qty Days St art Date Stop Date End Date Instructions Adherence Celecoxib 200 mg capsule Active 200 MG PO Twice d aily December 15, 2024 12:00amTake with foodComplies with drug therapyAtorvastatin 40 mg hjrrwjDaaypf41EJBRMlatr at bedtimeSept2024 12:00amComplies with drug therapyGlipizide 10 mg puqpfoNvqaptgqwawz64PXZKTkvlg dailySept2024 12:00amOctober 2024 9:34amPioglitazone 45 mg ojvwnqLxbvfw11QMPN DailySept2024 12:00amComplies with drug therapyLisinopril 30 mg mjpcxwAxqhpl46TLUDNuxwvYlazeuqhr 29th, 2025 12:00amComplies with drug therapy Metformin 500 mg tablet extended release 21ndQavihz2894WDSMDafbu dailySept2024 12:00amComplies with drug therapyPregabalin 75 mg capsuleDiscontinued 75MGPOTwice dailySept2024 12:00amOctober 2024 2:57pm Cholecalciferol (Vitamin D3) 50 mcg (2,000 unit) drhlouCxgzllarjbak14DATSNXpatg December 15, 2024 12:00amOctober 2024 2:57pmGlipizide 10 mg tablet Zvelka42QIOXIzkik duvyh86Hnmlnod 2nd, 2025 9:32amComplies with drug therapy Vital Signs Vital Reading Result Reference Range Collection Date/Time Height 72 [in_i] December 30, 2024 2:99eqZzxkfa795.88 kgOct2024 2:56pmBody Dtznqjoteji21.5 [degF]97.6-99.0[facility] 2024 2:56pmHeart Wcuj627 /kie30-424 October 14th, 2025 2:56pmRespiratory rate18 /lmt78-06Ycrtdqw 14th, 2025 2:56pm Oxygen saturation by Pulse lgjhtnab43 %95-100December 30, 2024 2:56pmBP Fiaxwjti390 mm[Hg]100-140December 30, 2024 2:56pmBP Fbtidjiyw27 mm[Hg]60-100 December 30, 2024 2:56pmBMI (Body Mass Index)42.7 kg/w4Hvlohee2024 2:56pm Advance Directives Advance Directive Response Recorded Date/ Time Advance Directives No August 03 9:17am Insurance Providers Guarantor Jonas Alonso Eduardo Address [address] [facility] [address]Bxfnmtj Info.Home Phone: Payer Policy Id Subscriber's Name Subscriber Id Effectiv e Date Expiration Date [facility] [id number] Sary Flannery [id number] Encounters Encounter Location(s) Arrival/Admit Date Discharge/Depart Date Provider(s) Departed Physician/Prov ider Office Visit -[facility] Family Medicine Jon December 30, 2024 2:31pm December 30, 2024 3:27pm Salbador Mcnally MD Recent Diagnosis Onset Date Admit Date Annual physical exam Unknown December 2:31pm Assessments Diagnosis Onset Date Resolution Status Admit Date Annual physical exam acuteDecember 30, 2024 2:31pm
--- OUTSIDE RECORDS SUMMARY | 2025-01-12 09:32 | XMS_ITS | Clinical Summary ---
Author Organization [facility] Address [facility] [id number] [address] [place] [address] Care Team Providers Care Emergency Room Doctor Name Role Phone Salbador Mcnally MD Primary Care Provider [phone] Allergies No known active allergies Medications MedicationSigDispense QuantityRefillsLast FilledStart DateEnd DateStatus ibuprofen (ADVIL,MOTRIN) 200 mg tablet Take 200 mg by mouth.Active metFORMIN (GLUCOPHAGE) 500 mg tablet Take 500 mg by mouth.Active glipiZIDE (GLUCOTROL) 10 mg tablet Take 20 mg by mouth 2 (two) times a day before meals.Active lisinopriL (PRINIVIL,ZESTRIL) 10 mg tablet Take 10 mg by mouth daily.Active atorvastatin (LIPITOR) 40 mg tablet Take 40 mg by mouth daily.Active pioglitazone (ACTOS) 15 mg tablet Take 15 mg by mouth daily.Active calcium citrate-vitamin D2 250 mg-2.5 mcg (100 unit) per tablet Take 1 tablet by mouth 2 (two) times a day.Active alpha lipoic acid-biotin 600 mg- 450 mcg tablet extended release Take by mouth.Active Active Problems No known active problems Family History RelationNameStatusCommentsBrotherAliveDaughterAliveFatherAliveMotherAliveSister AliveSon 1AliveSon 2Alive Social History Tobacco UseTypesPacks/DayYears UsedDateSmoking Tobacco: FormerSmokeless Tobacco: CurrentSnuffAlcohol UseStandard Drinks/WmpcFmvbnuaeXvw50 (1 standard drink = 0.6 oz pure alcohol)ChildcareAnswerDate OwblutiqHcgepgspoIoxjaqx51/12/2019Employment AnswerDate XfwnwlnrSpfraltxicRxbtxfq06/12/2019Sex and Gender InformationValue Date RecordedSex Assigned at BirthNot on fileLegal KbfPqka0510/22/2014 11:56 AM EDTGender IdentityNot on fileSexual OrientationNot on file Last Filed Vital Signs Vital SignReadingTime TakenCommentsBlood Buzqawsz412/7807 3:29 PM EDT Pulse--Jvcrkhnebki58.8 ??C (96.4 ??F)10/14/2020 9:46 AM EDTRespiratory Rate-- Oxygen Saturation--Inhaled Oxygen Concentration--Yopidy181.1 kg (322 lb) 10/14/2020 9:46 AM DHCPeyzhr993.9 cm (6')10/14/2020 9:46 AM EDTBody Mass Index 43.67010/14/2020 9:46 AM EDT Plan of Treatment Health MaintenanceDue DateLast DoneCommentsDepression Ewdwphchj32/15/1991Tobacco Akfmhipwo71/15/1991Adult BMI Mqgsefwda15/15/1997DTaP,Tdap and Td Vaccines (1 - Tdap)1997Influenza Sxcmdxg3411/17/2024 Medical Devices Not on file Insurance Care Teams Team MemberRelationshipSpecialtyStart DateEnd Date Salbador Mcnally MD PCP - GeneralFamily Medicine09/02/20
--- OUTSIDE RECORDS SUMMARY | 2025-01-12 09:32 | XMS_ITS | Clinical Summary ---
Author Organization [facility] Healthcare Address [address] [place] [address] Care Team Providers Care Telecommunicator Name Role Phone Gina Ramirez MD Unavailable Gina Ramirez MD Primary Care Provider [phone] Allergies No known active allergies Medications MedicationSigDispense QuantityRefillsLast FilledStart DateEnd DateStatus cholecalciferol (Vitamin D-3) 50 MCG (1999) tablet Take 2,000 Units by mouth in the morning.Active atorvastatin (Lipitor) 40 MG tablet Indications:Type 2 diabetes mellitus with microalbuminuria, without long-term current use of insulin (HCC)Take 1 tablet (40 mg) by mouth at bedtime 30 tablet 11064Active pioglitazone (Actos) 45 MG tablet Indications:Type 2 diabetes mellitus with hyperglycemia, without long-term current use of insulin (HCC)TAKE 1 TABLET BY MOUTH ONCE DAILY IN THE MORNING 30 tablet 508/4Active glipiZIDE (Glucotrol) 10 MG tablet Indications:Type 2 diabetes mellitus with hyperglycemia (HCC)TAKE 2 TABLETS BY MOUTH TWICE DAILY 120 tablet 512/4Active metFORMIN XR (Glucophage-XR) 500 MG 24 hr tablet Indications:Type 2 diabetes mellitus with hyperglycemia (HCC)TAKE 2 TABLETS BY MOUTH TWICE DAILY 120 tablet 502/5Active lisinopril 30 MG tablet Indications:Benign hypertensionTAKE 1 TABLET BY MOUTH ONCE DAILY IN THE MORNING 30 tablet 504/5Active celecoxib (CeleBREX) 200 MG capsule Indications:Cervical spondylosis with radiculopathyTake 1 capsule (200 mg) by mouth in the morning and 1 capsule (200 mg) before bedtime. Take with food. 60 capsule 3085Active pregabalin (Lyrica) 75 MG capsule Indications:Cervical spondylosis with radiculopathyTake 1 capsule (75 mg) by mouth in the morning and 1 capsule (75 mg) before bedtime. 60 capsule 5Active Active Problems ProblemNoted DateDiagnosed DateCervical spondylosis with knrmmszqnoipl13/19/2025 Assessment & Plan (11/04/2024 4:36 PM EDT): Symptoms likely related to cervical pathology and suggestive of pinched nerve. Check x-ray neck andstart PT. Start celebrex and lycrica for pain. If no improvement will need MRI. Rotator cuff injury, right, initial wsijqwntz59/06/2025 Assessment & Plan (05/22/2024 4:26 PM EST): Appears to have rotator cuff injury and check x-ray to assess for OA or signs of impingement. Treatwith prednisone. Handout with ROM exercises to patient. If no improvement will need MRI or ortho. Class 3 severe obesity due to excess calories with serious comorbidity and body mass index (BMI) of40.0 to 44.9 in adult05/22/2024 Assessment & Plan (05/22/2024 4:26 PM EST): Weight loss indicated. Type 2 diabetes mellitus with hyperglycemia, without long-term current use of ijojjzl3405/22/2024 Assessment & Plan (11/04/2024 4:36 PM EDT): Not checking BS and due for A1C. Assessment & Plan (05/22/2024 4:27 PM EST): Warned prednisone will elevated BS. Fvsohiaxryql01/06/2025enign vkhkwiegydvo53/08/2024 Assessment & Plan (11/04/2024 4:36 PM EDT): BP elevated but c/o pain. Monitor BP PRN. Discussed DASH diet. Assessment & Plan (03/26/2023 3:30 PM EST): BP very high and increase lisinopril. Monitor BP PRN. Discussed DASH diet. DDD (degenerative disc disease), oxaivwzb12/08/2024Type 2 diabetes mellitus with microalbuminuria, without long-term current use of dcbsdai2303/26/2023 Assessment & Plan (03/26/2023 3:31 PM EST): Not checking BS and due for A1C. Stick to ADA diet and limit carbs. Vitamin D vazxdkwpfp81/08/2024nnual physical exam03/26/2023 Assessment & Plan (03/26/2023 3:30 PM EST): Due for labs. Discussed proper diet and regular aerobic exercise. Need aerobic exercise 5-6 days a week for 30 minutes at a time. Smaller portions and limit total calories. Colonoscopy after age 45. Tetanus every 10 years. Advised not to smoke. Discussed daily Aspirin therapy. WOO (obstructive sleep apnea)03/26/2023 Assessment & Plan (03/26/2023 3:31 PM EST): Diagnosed years ago and having worsening symptoms. Refer for sleep study. Resolved Problems ProblemNoted DateDiagnosed DateResolved DateInternal derangement of right golvmpzj31 Assessment & Plan (05/22/2024 4:26 PM EST): Appears to have rotator cuff injury and check x-ray to assess for OA or signs of impingement. Treatwith prednisone. Handout with ROM exercises to patient. If no improvement will need MRI or ortho. Encounters DateTypeDepartmentCare FepvWawcsjguqfh20/21/2025Results Follow-Up [facility] [address] [place] [phone] Gina Ramirez MD XR CERVICAL SPINE 2-3V11/06/2024linisync Result Encounter [facility] External Department Unsolicited Gina Ramirez MD 11/04/2024 3:15 PM EDTOffice Visit [facility] [address] [place] [address] Gina Ramirez MD Cervical spondylosis with radiculopathy (Primary Dx); Type 2 diabetes mellitus with hyperglycemia, without long-term current use of insulin (HCC); Benign hypertension ; Annual physical exam5Bamboo flowsheet [facility] [address] [place] [address] Gina Ramirez MD from Last 3 Months Family History Medical HistoryRelationNameCommentsNo Known ProblemsFatherNo Known Problems MotherRelationNameStatusCommentsFatherMother Social History Tobacco UseTypesPacks/DayYears UsedDateSmoking Tobacco: JzsubnLaowpebxce8106529 - 2011Smokeless Tobacco: Never Tobacco Cessation:Counseling Given: Not Answered Sex and Gender InformationValueDate RecordedSex Assigned at BirthNot on file Legal JruPkih1805/31/2022 7:31 PM EDTGender IdentityNot on fileSexual Orientation Not on file Last Filed Vital Signs Vital SignReadingTime TakenCommentsBlood Nqvjifcr036/8611/04/2024 3:04 PM EDT Xeans97016/19/2025 3:04 PM GFHEzuqmmozemq50.4 ??C (97.5 ??F)11/04/2024 3:04 PM EDTRespiratory Yisf746711/04/2024 3:04 PM EDTOxygen Sxxqcneluk19%11/04/2024 3:04 PM EDTInhaled Oxygen Concentration--Tmhymj411 kg (309 lb)11/04/2024 3:04 PM EDT Fbsbzc676.9 cm (6')11/04/2024 3:04 PM EDTBody Mass Index41.9111/04/2024 3:04 PM EDT Plan of Treatment Health MaintenanceDue DateLast DoneCommentsCT Jfgedkeuemzu36/15/1979Colonoscopy 1978Colorectal Cancer Tdmlhezyj92/15/1979FIT-DNA1978FIT1978 FOBT1978 6407Jeyguuwonwpmg29/15/1979Diabetes: Retinopathy Lphtfcgal87/15/1989 Diabetes: Hemoglobin A1C4003/30/2023, 03/30/2023, 01/25/2021, Additional history existsDiabetes: Urine Protein Eacmpoopa29/12/102096/02/2024, 03/30/2023 Influenza Vaccine (#1)2024 Procedures Procedure NamePriorityDate/TimeAssociated DiagnosisCommentsXR CERVICAL SPINE 2-3V11/06/2024 12:07 PM EDT MICROALBUMIN / CREATININE URINE UBTKPNzdbbxg01/12/2024 11:33 AM EST HEMOGLOBIN A1C WITH CWEFtwhgbs73/12/2024 11:33 AM EST from Last 3 Months or Most Recently Relevant to Health Maintenance Results * XR CERVICAL SPINE 2-3V (11/06/2024 12:07 PM EDT)Anatomical RegionLaterality ModalityOtherSpecimen (Source)Anatomical Location / LateralityCollection Method / VolumeCollection TimeReceived Time11/06/2024 12:07 PM EDT Narrative 11/06/2024 12:09 PM EDT [facility] ?[address] ? [place] [address] ?XRay Report ? Signed ? Patient: JONAS CARLOS ?MR#: [id number] ?? : 1980 ?Acct:[id number] ?? Age/Sex: 44 / M ?ADM Date: 11/06/24 ?? Loc: RAD ? Attending Dr: Gina Ramirez M.D. ? Ordering Physician: Gina Ramirez M.D. ?? Date of Service: 11/06/24 ?? Procedure(s): XR cervical spine 2-3V ?? Accession Number(s): [id number] ? cc: Gina Ramirez M.D. ? [facility] ? [address] ? [place] [address] ? Patient Name: ?? JONAS CARLOS ? MRN: [id number] ? date: 1980 ?Sex: M ?? Assigned Patient Location: RAD ?? Current Patient Location: RAD ?? Accession/Order Number: [id number] ?? Exam Date: 11/06/2024 ??12:05 ?Report Date: 11/06/2024 ??12:07 ? At the request of: ?? GINA ??NADERER ??MD ? Procedure: ??XR cervical spine 2-3V ? CERVICAL SPINE 3 views: ? CLINICAL HISTORY: Cervical Spondylosis ? COMPARISON: None ? FINDINGS: ? Minimal reversal. ??C1-C7 visualized on the lateral view. ??No fracture or ?? malalignment identified from C1 through C7. ??Overall mild scattered ?? degenerative changes. ??No prevertebral soft tissue swelling. ? XR/XR cervical spine 2-3V ?? IMPRESSION: ? Mild degenerative change. ? Impression dictated by: Ilan Cohen M.D. ??11/06/2024 12:07 PM ? Dictation Location: RADIO-PC-26 ? Electronically authenticated by: [id number] ??Y ?? Date: 11/06/2024 ??12:07 ? Dictated By: ?Ilan Cohen M.D. ? Signed By: ?11/06/249 ? DD/ 1207 ? TD/TT: ? Mobile Ui Developer: Procedure Note Radiology, Radiologist, - 11/06/2024 [place] [address] XRay Report Signed Patient: JONAS CARLOS R#: [id number] : 1980Acct:[id number] Age/Sex: 44 / MADM Date: 11/06/24 Loc: [facility] Attending Dr: Gina Ramirez M.D. Ordering Physician: Gina Ramirez M.D. Date of Service: 11/06/24 Procedure(s): XR cervical spine 2-3V Accession Number(s): [id number] cc: Gina Ramirez M.D. The [place] [id number] Patient Name: JONAS CARLOS MRN: [id number] date: 1980 Sex: M Assigned Patient Location: RAD Current Patient Location: RAD Accession/Order Number: [id number] Exam Date: 11/06/2024 12:05 Report Date: 11/06/2024 12:07 At the request of: GINA RAMIREZ MD Procedure: XR cervical spine 2-3V CERVICAL SPINE 3 views: CLINICAL HISTORY: Cervical Spondylosis COMPARISON: None FINDINGS: Minimal reversal. C1-C7 visualized on the lateral view. No fracture or malalignment identified from C1 through C7. Overall mild scattered degenerative changes. No prevertebral soft tissue swelling. XR/XR cervical spine 2-3V IMPRESSION: Mild degenerative change. Impression dictated by: Ilan Cohen M.D. 11/06/2024 12:07 PM Dictation Location: [place] [address] Electronically authenticated by: [id number] Y Date: 2:07 Dictated By: Ilan Cohen M.D. Signed By:11/06/24 1209 DD/ 1207 TD/TT: Mobile Ui Developer: Authorizing ProviderResult TypeResult Izabela Ramirez MDCLINISYNC IMAGING Final Result * (ABNORMAL) Hemoglobin a1c with eag (03/30/2023 11:33 AM EST)ComponentValueRef RangeTest MethodAnalysis TimePerformed AtPathologist SignatureHEMOGLOBIN A1C 10.5(H)4.3 - 5.6 %03/30/2023 1:10 PM [facility] CtrComment: Increased risk for diabetes: 5.7 - 6.4 diabetes: >6.4 glycemic control for adults with diabetes: <7.0 ESTIMATED AVERAGE VZVCJFA723xo/dL03/30/2023 1:10 PM [facility] CtrSpecimen (Source)Anatomical Location / LateralityCollection Method / VolumeCollection TimeReceived FnzrEeexz93/12/2024 11:33 AM EST03/30/2023 11:33 AM EST Narrative Authorizing ProviderResult TypeResult Izabela Ramirez [facility] BLOOD ORDERABLES Final ResultPerforming OrganizationAddressCity/State/ZIP CodePhone Number [facility] [address] [place] [address], [facility] [address] [place] [address] * (ABNORMAL) Microalbumin / creatinine urine ratio (03/30/2023 11:33 AM EST) ComponentValueRef RangeTest MethodAnalysis TimePerformed AtPathologist SignatureMICROALBUMIN, URINE2.1(H)0.0 - 1.8 mg/dL03/30/2023 1:31 PM [facility] CtrCREATININE, URINE (RANDOM)115.0(H)14.0 - 26.0 mg/dL03/30/2023 1:31 PM [facility] MICROALBUMIN/CREATININE RATIO18.00.0 - 30.0 mg/g003/30/2023 1:31 PM [facility] CtrComment: 30-300 mg/g indicates an increased risk for diabetic nephropathy. ??Greater than 300 mg/g is consistent with clinical nephropathy. ??(Am. J. Kidney Disease 1995, 25:107) Specimen (Source)Anatomical Location / LateralityCollection Method / Volume Collection TimeReceived FxmwMqrrw68/12/2024 11:33 AM EST03/30/2023 11:33 AM EST Narrative Authorizing ProviderResult TypeResult StatusMarc Uli RINCONLAB URINE ORDERABLES Final ResultPerforming OrganizationAddressCity/[facility] CodePhone Number [facility] [address] [place] [address], [facility] [address] [place] [address] from Last 3 Months or Most Recently Relevant to Health Maintenance Insurance Care Teams Team MemberRelationshipSpecialtyStart DateEnd Date Gina Ramirez MD [address] [place] [place] [phone] PCP - Medical [employer]03/19/2311 Gina Ramirez MD [address] [facility] [place] [phone] [facility] Medicine05/22/24
--- OUTSIDE RECORDS SUMMARY | 2025-01-12 09:32 | XMS_ITS | Clinical Summary ---
Author Organization [facility] Address [address] [place] [address], [address] [place] [address] Care Team Providers Care Tavern Operator Name Role Phone Jonas Pickard DO Primary Care Provider [phone] Allergies No known active allergies Medications MedicationSigDispense QuantityRefillsLast FilledStart DateEnd DateStatus SITagliptin (JANUVIA) 100 MG tablet Take 100 mg by mouth dailyActive ibuprofen (ADVIL;MOTRIN) 200 MG tablet Take 200 mg by mouth every 6 hours as needed for PainActive glimepiride (AMARYL) 1 MG tablet Take 1 mg by mouth every morning (before breakfast)Active metFORMIN (GLUCOPHAGE) 500 MG tablet Take 500 mg by mouth 2 times daily (with meals)Active glucose blood test strips (ASCENSIA AUTODISC ;ONE TOUCH ULTRA TEST ) strip 1 each by In Vitro route daily As needed.Active Cyanocobalamin (VITAMIN B 12 PO) Take by mouthActive Active Problems ProblemNoted DateDiagnosed DateTesticular fbtnimmxlk65/16/2017Epididymitis 11/01/2016 Family History RelationNameStatusCommentsFatherAliveMaternal GrandfatherDeceasedMaternal GrandmotherAliveMotherAlivePaternal GrandfatherDeceasedPaternal Grandmother Social History Tobacco UseTypesPacks/DayYears UsedDateSmoking Tobacco: WuatokUrkenbjsut610 Smokeless Tobacco: CurrentChew Tobacco Cessation:Ready to Q uit: Yes Alcohol UseStandard Drinks/WeekCommentsYes0 (1 standard drink = 0.6 oz pure alcohol)weeklySex and Gender InformationValueDate RecordedSex Assigned at Not on fileLegal IvzPmhm8804/28/2012 7:39 PM ESTGender IdentityNot on fileSexual OrientationNot on file Last Filed Vital Signs Vital SignReadingTime TakenCommentsBlood Ephfsiqk666/80011/13/2016 3:58 PM EDT Pulse--Usccnvesqvb63.9 ??C (98.5 ??F)11/13/2016 3:58 PM EDTRespiratory Rate-- Oxygen Saturation--Inhaled Oxygen Concentration--Yvbcep619.2 kg (309 lb) 11/13/2016 3:58 PM DZVOdgnrk604.9 cm (6')11/13/2016 3:58 PM EDTBody Mass Index 41.9111/13/2016 3:58 PM EDT Plan of Treatment Not on file Insurance Care Teams Team MemberRelationshipSpecialtyStart DateEnd Date Jonas Pickard DO [address] [place] [address] PCP - GeneralFamily Medicine11/13/16
--- OUTSIDE RECORDS SUMMARY | 2025-01-12 09:55 | XMS_ITS | CCD ---
Author Organization [facility]iniSyva Care Team Providers Care Assistant Floor Covering Printer Name Role Phone DORON MONTAÑO Unavailable Unavailable KARMEN LUNDBERG Unavailable Unavailable DORNO MONTAÑO Unavailable Unavailable KARMEN LUNDBERG Unavailable Unavailable Salbador Ramirez Primary Care Provider JAMES, DR SALBADOR Glover Primary Care Unavailable MANDEEPILLIS, DR PERAZA Attending Unavailable GRILLIS, DR PERAZA Consulting Unavailable GRILLIS, DR PERAZA Admitting Unavailable GRILLIS, DR PERAZA Admitting Unavailable NADERER, DR SALBADOR Glover [facility] Unavailable GRILLIS, DR PERAZA Attending Unavailable GRILLIS, DR PERAZA Consulting Unavailable AGUBOSIM, LUMA Consulting Unavailable LONG, SHEILA Consulting Unavailable Salbador Ramirez Primary Care Provider [phone] Salbador Ramirez Primary Care Provider CHANA CHANDRA Attending Unavailable SALBADOR RAMIREZ Primary Care Unavailable LOKI BASURTO Referring Unavailable LOKI BASURTO Attending Unavailable SALBADOR RAMIREZ Primary Care Unavailable TOAN CHU Admitting Unavailable SALBADOR RAMIREZ Primary Care Unavailable TOAN CHU Attending Unavailable MD Salbador Ramirez Primary Care Provider MD Salbador Ramirez Attending Provider Salbador Ramirez MD Primary Care Provider [phone] Salbador Ramirez MD Attending Provider [phone] Salbador Ramirez Attending Unavailable Salbador Ramirez Primary Care Unavailable Salbador Ramirez Admitting Unavailable Salbador Ramirez MD Unavailable Salbador Ramirez MD Primary Care Provider SALBADOR RAMIREZ Attending Unavailable SALBADOR RAMIREZ Attending Unavailable Salbador Ramirez MD Primary Care Provider Salbador Ramirez MD Attending Provider Medications Current Medications MedicationDrug Class(es)DatesSig (Normalized)Sig (Original)acetaminophen 500 mg oral tablet (12 sources)Start: 01-31-2022 End: 89-20-2875hrls 2 tablets by mouth every six hours as needed for pain, then take 1-2 tablets by mouth every six hours as needed for painacetaminophen (TYLENOL) 500 mg tablet Take 2 tablets by mouth every 6 hours for 5 days, THEN 1-2 tablets every 6 hours as needed for pain for up to 10 days. 90 tablet 0 01/31/2022 02/15/2022 ActiveStart: 18-80-6811yjjo 2 tablets by mouth every four hours as neededacetaminophen (TYLENOL) 325 mg tablet Take 2 tablets by mouth every 4 hours as needed for pain. Two(2) X 325 mg tablets = 650 mg 0 03/07/2021 Activetake 2 tablets by mouth every six hours as neededacetaminophen (TYLENOL) 325 mg tablet Take 650 mg by mouth every 6 hours as needed. 0 ActiveComment on above:Take 650 mg by mouth every 6 hours as needed.Take 2 tablets by mouth every 4 hours as needed for pain. Two (2) X 325 mg tablets = 650 mgTake 2 tablets by mouth every 6 hours for 5 days, THEN 1-2 tablets every 6 hours as needed for painfor up to 10 days.atorvastatin 40 mg oral tablet (10 sources)HMG-CoA Reductase InhibitorStart: 36-84-2305fywj 1 tablet by mouth once daily at bedtimeAtorvastatin 40 mg tablet Active 40 MG PO Daily at bedtime December 15, 2024 12:00am Complies with drug therapyStart: 08-37-6591jwsg 1 tablet by mouth at bedtimeatorvastatin (Lipitor) 40 MG tablet Indications: Type 2 diabetes mellitus with microalbuminuria, without long-term current use of insulin (HCC) Take 1 tablet (40 mg) by mouth at bedtime 30 tablet 11 09/11/2023 Activeatorvastatin (LIPITOR) 40 mg tablet Take 40 mg by mouth. 0 ActiveComment on above:Take 40 mg by mouth.celecoxib 200 mg oral capsule (4 sources)Nonsteroidal Anti-inflammatory DrugStart: 51-06-6464qjnv 1 capsule by mouth twice daily at mealtimeCelecoxib 200 mg capsule Active 200 MG PO Twice daily December 15, 2024 12:00am Take with food Complies with drug therapy Start: 30-33-9216yyya 1 capsule by mouth in the morningcelecoxib (CeleBREX) 200 MG capsule Indications: Cervical spondylosis with radiculopathy Take 1 capsule (200 mg) by mouth in the morning and 1 capsule (200 mg) before bedtime. Take with food. 60 capsule 3 11/04/2024 ActiveglipiZIDE 10 mg oral tablet (11 sources)SulfonylureaStart: 12-15-2024 End: 32-32-6434uckx 2 tablets by mouth twice dailyGlipizide 10 mg tablet Active 20 MG PO Twice daily 60 December 18, 2024 9:32am Complies with drug therapy Start: 90-57-6465uuwj 2 tablets by mouth twice dailyglipiZIDE (Glucotrol) 10 MG tablet Indications: Type 2 diabetes mellitus with hyperglycemia (HCC) TAKE 2 TABLETS BY MOUTH TWICE DAILY 120 tablet 5 03/04/2024 Activetake 2 tablets by mouth twice daily before mealtimeglipiZIDE (GLUCOTROL) 10 mg tablet Take 20 mg by mouth twice daily before meals. 0 ActiveComment on above:Take 20 mg by mouth twice daily before meals. ibuprofen 200 mg oral tablet (7 sources)Nonsteroidal Anti-inflammatory DrugStart: 01-31-2022 End: 10-47-1834nzqt 3 tablets by mouth every eight hours as needed for pain, then take 1-3 tablets by mouth every six hours as needed for pain, then take 1 tablet by mouth at mealtime as needed for painibuprofen (MOTRIN) 200 mg tablet Take 3 tablets by mouth every 8 hours for 3 days, THEN 1-3 tabletsevery 6 hours as needed for pain for [...] with food).. 90 tablet 0 01/31/2022 02/13/2022 Activeibuprofen (MOTRIN) 200 mg tablet Take 200 mg by mouth as needed. 0 ActiveComment on above:Take 200 mg by mouth as needed.Take 3 tablets by mouth every 8 hours for 3 days, THEN 1-3 tablets every 6 hours as needed for painfor up to 10 days. Can start taking 8 hours after your surgery (slight delay to reduce risk of bleeding). Can alternate with Tylenol (i.e.taking one or the other every 3-4 hours to stay ahead of pain). Do not take if also taking other NSAIDs (aspirin, Toradol, Naproxyn/Aleve, meloxicam/Mobic). Do not take on an empty stomach (take with food)..lisinopril 30 mg oral tablet (10 sources)Angiotensin Converting Enzyme InhibitorStart: 35-76-4712lwlm 1 tablet by mouth once dailyLisinopril 30 mg tablet Active 30 MG PO Daily December 15, 2024 12:00am Complies with drug therapyStart: 65-29-4314kgai 1 tablet by mouth once daily in the morninglisinopril 30 MG tablet Indications: Benign hypertension TAKE 1 TABLET BY MOUTH ONCE DAILY IN THE MORNING 30 tablet 5 06/23/2024 Activetake 1 tablet by mouth once dailylisinopril (ZESTRIL, PRINIVIL) 10 mg tablet Take 10 mg by mouth once daily. 0 ActiveComment on above:Take 10 mg by mouth once daily. osmotic 24 hr metFORMIN hydrochloride 500 mg extended release oral tablet (10 sources)BiguanideStart: 54-30-2093ysps 1 tablet by mouth twice daily Metformin 500 mg tablet extended release 24hr Active 1000 MG PO Twice daily December 15, 2024 12:00am Complies with drug therapyStart: 45-44-1378dvtz 2 tablets by mouth twice dailymetFORMIN XR (Glucophage-XR) 500 MG 24 hr tablet Indications: Type 2 diabetes mellitus with hyperglycemia (HCC) TAKE 2 TABLETS BY MOUTH TWICE DAILY 120 tablet 5 04/22/2024 ActiveStart: 50-63-7329foni 1 tablet by mouth twice dailymetFORMIN ER (GLUCOPHAGE XR) 500 mg 24 hr tablet Take 1 tablet by mouth twice daily. 0 02/07/2021 ActiveComment on above:Take 1 tablet by mouth twice daily.ondansetron 4 mg oral tablet (1 source)Serotonin-3 Receptor AntagonistStart: 01-31-2022 End: 50-58-8993mqsl 1 tablet by mouth every eight hours as neededondansetron (ZOFRAN) 4 mg tablet Take 1 tablet by mouth every 8 hours as needed for nausea/vomitingfor up to 5 days. 8 tablet 0 01/31/2022 02/05/2022 ActiveComment on above:Take 1 tablet by mouth every 8 hours as needed for nausea/vomiting for up to 5 days.perflutren lipid microspheres 1.3 mL in NaCl (PF) 0.9% 10 mL injection (DEFINITY) (3 sources)Start: 03-02-2021 End: 50-58-0279ztmgnabiwm lipid microspheres 1.3 mL in NaCl (PF) 0.9% 10 mL injection (DEFINITY)pioglitazone 45 mg oral tablet (10 sources)Peroxisome Proliferator Receptor alpha Agonist, Peroxisome Proliferator Receptor gamma Agonist, ThiazolidinedioneStart: 45-54-0950ydnw 1 tablet by mouth once dailyPioglitazone 45 mg tablet Active 45 MG PO Daily December 15, 2024 12:00am Complies with drug therapyStart: 90-16-6808urkp 1 tablet by mouth once daily in the morningpioglitazone (Actos) 45 MG tablet Indications: Type 2 diabetes mellitus with hyperglycemia, withoutlong-term current use of insulin (HCC) TAKE 1 TABLET BY MOUTH ONCE DAILY IN THE MORNING 30 tablet Activetake 1 tablet by mouth once dailypioglitazone (ACTOS) 15 mg tablet Take 15 mg by mouth once daily. 0 ActiveComment on above:Take 15 mg by mouth once daily. sennosides, senior care 8.6 mg oral tablet (2 sources)Start: 01-31-2022 End: 63-24-0836nxii 1 tablet by mouth every twelve hours as neededsenna (SENOKOT) 8.6 mg tab Take 1 tablet by mouth twice daily as needed for constipation for up to 15 days. 30 tablet 0 01/31/2022 02/15/2022 ActiveComment on above:Take 1 tablet by mouth twice daily as needed for constipation for up to 15 days.125 ml sodium chloride 9 mg/ml prefilled syringe (3 sources)Start: 03-02-2021 End: 13-54-0048lnolly chloride 0.9 % (flush) 10 mL (BD POSIFLUSH) Completed/Discontinued Medications MedicationDrug Class(es)DatesSig (Normalized)Sig (Original)alpha lipoic acid- biotin 600 mg- 450 mcg TbER (5 sources)alpha lipoic acid-biotin 600 mg- 450 mcg TbER Take by mouth. 0 Active Comment on above:Take by mouth.cephalexin 500 mg oral capsule (5 sources)Cephalosporin AntibacterialStart: 10-98-7066mwdkDAJKyu (KEFLEX) 500 mg capsule Take 1 capsule daily for 10 days 20 capsule 0 02/18/2021 Active Comment on above:Take 1 capsule daily for 10 dayscholecalciferol 0.05 mg oral tablet (5 sources)Vitamin DStart: 12-15-2024 End: 97-67-0434aivr 1 tablet by mouth once dailyCholecalciferol (Vitamin D3) 50 mcg (2,000 unit) tablet Discontinued 50 MCG PO Daily December 15, 2024 12:00am December 30, 2024 2:57pmtake 1 tablet by mouth in the morning cholecalciferol (Vitamin D-3) 50 MCG (2000 UT) tablet Take 2,000 Units by mouth in the morning. Activedapagliflozin 10 mg oral tablet (8 sources)Sodium-Glucose Cotransporter 2 Inhibitor End: 41-85-2129gexp 10 mg by mouth in the morningdapagliflozin (Farxiga) 10 MG Take 10 mg by mouth in the morning. 11/04/2024 DiscontinuedComment on above:Take by mouth daily with breakfast.docusate sodium 100 mg oral capsule (5 sources)Start: 05-80-0893wbct 1 capsule by mouth every twelve hours as needed docusate sodium (COLACE) 100 mg capsule Take 1 capsule by mouth twice daily as needed for constipation. 10 capsule 0 03/07/2021 ActiveComment on above:Take 1 capsule by mouth twice daily as needed for constipation.oxyCODONE hydrochloride 5 mg oral tablet (3 sources)Opioid AgonistStart: 76-86-4087ztyr 1 tablet by mouth every six hours as needed for painoxyCODONE IR (ROXICODONE) 5 mg immediate release tablet Indications: Acute post-operative pain Take1 tablet by mouth every 6 hours as needed for pain. 5 tablet 0 01/31/2022 ActiveComment on above:Take 1 tablet by mouth every 6 hours as needed for pain.pregabalin 75 mg oral capsule (4 sources)Start: 11-04-2024 End: 20-90-4689masx 1 capsule by mouth twice dailyPregabalin 75 mg capsule Discontinued 75 MG PO Twice daily December 15, 2024 12:00am December 30, 2024 2:57pm0.25 mg, 0.5 mg dose 1.5 ml semaglutide 1.34 mg/ml pen injector (3 sources)Start: 04-02-2023 End: 24-24-5775mkmqlzwxfsa (Ozempic, 0.25 or 0.5 MG/DOSE,) 2 MG/1.5ML solution pen-injector Indications: Type 2 diabetes mellitus with microalbuminuria, without long-term current use of insulin (HCC) 0.25 mg SC weekly x 4 weeks, then 0.5 mg weekly 1 each 3 04/02/2023 11/04/2024 Discontinued Problems Active Problems Problem ClassificationProblemDateDocumented DateEpisodic/ChronicDiabetes mellitus with complications (12 sources)Type 2 diabetes mellitus; Translations: [Type 2 diabetes mellitus with other diabetic kidney complication]Onset: 379520-00-8364Oazlskb Diabetes mellitus without complication (6 sources)Type 2 diabetes mellitus without complication; Translations: [Type 2 diabetes mellitus without complications]Onset: hronic Disorders of lipid metabolism (11 sources)Hyperlipidemia; Translations: [Hyperlipidemia, unspecified]Onset: 834883-04-3952RgpprtiHwglnszeq hypertension (13 sources)Hypertensive disorder; Translations: [Essential (primary) hypertension]Onset: 634521-77-3039WajgdifHkenwmghhbk deficiencies (5 sources)Vitamin D deficiency; Translations: [Vitamin D deficiency, unspecified]Onset: 140627-49-6014TpgceehWzpau and unspecified benign neoplasm (1 source)Other benign neoplasm of skin of trunk; Translations: [Dermatofibroma of back]Onset: 84-63-5139TfaixxhsTfpwu injuries and conditions due to external causes (1 source)Unspecified injury of muscle(s) and tendon(s) of the rotator cuff of right shoulder, initial encounter; Translations: [Unspecified injury of muscle(s) and tendon(s) of the rotator cuff of right shoulder, initial encounter]Onset: 34-17-1704LbinbqmyCtriy injuries and conditions due to external causes (1 source)Injury of tendon of the rotator cuff of shoulder; Translations: [Unspecified injury of muscle(s) and tendon(s) of the rotator cuff of right shoulder, initial encounter]41-22-8926GanebytdTlmlw nutritional; endocrine; and metabolic disorders (10 sources)Severe obesity; Translations: [Morbid (severe) obesity due to excess calories]Onset: 253597-93-8078HxnrppqGlgtj nutritional; endocrine; and metabolic disorders (1 source)Morbid (severe) obesity due to excess calories; Translations: [MORBID SEVERE OBES D/T EXCESS DANIKA]Onset: 19-71-4518ShlswwkIipta nutritional; endocrine; and metabolic disorders (1 source)Body mass index (BMI) 40.0-44.9, adult; Translations: [BODY MASS INDEX BMI 40.0-44.9 ADULT]Onset: 35-54-2815UwpnjpvXbcexusq codes; unclassified (5 sources)Obstructive sleep apnea syndrome; Translations: [Obstructive sleep apnea (adult) (pediatric)]Onset: 947757-05-9487KttbbxfPercbfks codes; unclassified (1 source)Postoperative state; Translations: [Other specified postprocedural states]EpisodicSpondylosis; intervertebral disc disorders; other back problems (11 sources)Degeneration of thoracic intervertebral disc; Translations: [Other intervertebral disc degeneration, thoracic region]Onset: 112450-81-2559 ChronicUnclassified (1 source)CONTACT W/AND (SUSP) EXPOS COVID-19; Translations: [CONTACT W/AND (SUSP) EXPOS COVID-19]Onset: 10-08-2020 Past or Other Problems Problem ClassificationProblemDateDocumented DateEpisodic/ChronicComplications of surgical procedures or medical care (5 sources)Difficult intubation; Translations: [Failed or difficult intubation, subsequent encounter]Onset: 750411-82-4165IoxdinxrLqmbhzvpibpq conditions of male genital organs (2 sources)Orchitis; Translations: [Epididymitis]Onset: 20-39-5345UwotgmyxOkiih aftercare (1 source)senior living (current) use of oral hypoglycemic drugs; Translations: [PENITENTIARY USE ORAL HYPOGLYCEMIC DX]Onset: 36-28-2174QaptcudmMndgj aftercare (1 source)Other detention (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 therapy; Translations: [OTH PENITENTIARY CURRENT DRUG THERAPY]Onset: 33-66-7869ZjhkssipPwyjk injuries and conditions due to external causes (4 sources)Injury of right rotator cuff; Translations: [Unspecified injury of muscle(s) and tendon(s) of the rotator cuff of right shoulder, initial encounter]Onset: 279482-25-8135JsqoqgveQndzo nervous system disorders (6 sources)Acute postoperative pain; Translations: [Other acute postprocedural pain]Onset: 580277-64-9967FxfgaltwAagop non-epithelial cancer of skin (4 sources)Malignant neoplasm of scalp; Translations: [Other specified malignant neoplasm of skin of scalp andneck]Onset: 15-35-0364EsmzvnahGsgam non-traumatic joint disorders (4 sources)Derangement of right shoulder joint; Translations: [Other specific joint derangements of right shoulder, not elsewhere classified]Onset: 05-22-2024 Resolved: 843221-10-6715XseaxypVjklw skin disorders (3 sources)Epidermal cyst; Translations: [EPIDERMAL CYST]Onset: 10-06-2020 EpisodicOther skin disorders (1 source)Pilar cyst; Translations: [PILAR CYST]Onset: 93-53-9428Fcgdvkqd Residual codes; unclassified (5 sources)History of clinical finding in subject; Translations: [Personal history of other specified conditions]Onset: 970932-79-5163Mnbkaklt Residual codes; unclassified (1 source)Other specified postprocedural states; Translations: [S/P flap graft] Onset: 89-58-6331AbvpeaiwDbfzkneki and history of mental health and substance abuse codes (5 sources)Ex-smoker; Translations: [Personal history of nicotine dependence] Onset: 368925-12-9412Wnkxrlko Results Test NameValueInterpretationReference RangeFacilityXR CERVICAL SPINE 2-3Von 84-63-1333[address] [place] [address] XRay Report Signed Patient: KARMEN CARLOS MR#: [id number] : 1980 Acct:[id number] Age/Sex: 44 / M ADM Date: 11/06/24 Loc: [facility] Attending Dr: Salbador Ramirez M.D. Ordering Physician: Salbador Ramirez M.D. Date of Service: 11/06/24 Procedure(s): XR cervical spine 2-3V Accession Number(s): [id number] cc: Salbador Ramirez M.D. [place] [id number] Patient Name: KARMEN CARLOS MRN: [facility]:[id number] date: 1980 Sex: M Assigned Patient Location: [facility] Current Patient Location: [facility] Accession/Order Number: [id number] Exam Date: 11/06/2024 12:05 Report Date: 11/06/2024 12:07 At the request of: SALBADOR RAMIREZ MD Procedure: XR cervical spine 2-3V [...] Cohen M.D. 11/06/2024 12:07 PM Dictation Location: [place] [address] Electronically authenticated by: [id number] Y Date: 11/06/2024 12:07 Dictated By: Ilan Cohen M.D. Signed By: 11/06/24 1209 DD/ 120 TD/TT: Marketing Analytics Analyst:TBHRadiology, Radiologist, - 11/06/2024 [facility] [place] [id number] XRay Report Signed Patient: KARMEN CARLOS MR#: [id number] : 1980 Acct:[id number] Age/Sex: 44 / M ADM Date: 11/06/24 Loc: RAD Attending Dr: Salbador Ramirez M.D. Ordering Physician: Salbador Ramirez M.D. Date of Service: 11/06/24 Procedure(s): XR cervical spine 2-3V Accession Number(s): [id number] cc: Salbador Ramirez M.D. [place] [id number] Patient Name: KARMEN CARLOS MRN: [facility]:[id number] date: 1980 Sex: M Assigned Patient Location: [facility] Current Patient Location: RAD Accession/Order Number: [id number] Exam Date: 11/06/2024 12:05 Report Date: 11/06/2024 12:07 At the request of: SALBADOR RAMIREZ MD Procedure: XR cervical spine 2-3V [...] Cohen M.D. 11/06/2024 12:07 PM Dictation Location: [place] [address] Electronically authenticated by: [id number] Y Date: 11/06/2024 12:07 Dictated By: Ilan Cohen M.D. Signed By: 11/06/24 1209 DD/ 1207 TD/TT: Marketing Analytics Analyst: [facility] HealthcareRadiology Study observation (narrative)[facility] HealthcareXR CERVICAL SPINE 2-3VOrdered By: Radiologist Radiology on 44-21-6223FN[facility] Work Phone: X-ray reportOrdered By: Giancarlo Wolf on 05-28-2024 Study reportST[facility] [place] [address] XRay Report Signed Patient: Karmen Carlos MR#: [id number] : 1980 Acct:[id number] Age/Sex: 43 / M ADM Date: 5 Loc: XD Room: Type: [facility] CLI Attending Dr: Salbador Ramirez MD Copies to: Salbador Ramirez MD~ Ordering Provider: Salbador Ramirez MD Date of Service: 05/28/24 XR/XR shoulder RT min 2V*: s46.001A RIGHT SHOULDER - - 3 views CLINICAL HISTORY: Pain in right shoulder radiating down right arm for 2 weeks COMPARISON: None FINDINGS: Mild degenerative changes of the AC joint. Mild degenerative changes along the humeral head withoutacute bony process. XR/XR shoulder RT min 2V* IMPRESSION: MILD DEGENERATIVE CHANGES OF THE RIGHT SHOULDER WITHOUT ACUTE BONY PROCESS. Impression dictated by: Steven Rivera Jr..ONatalia05/28/2024 4:12 PM Dictation Location: [place] [address] Transcribed By: [facility] 05/28/24 161 Dictated By: Giancarlo Wolf Jr, DO 05/28/24 1611 Signed By: 05/28/24 1612 [facility] HospitalXR shoulder RT min 2V*on 06-80-4930NC shoulder RT min 2V*[facility] [place] [address] XRay Report Signed Patient: Karmen Carlos MR#: [id number] : 1980 Acct:[id number] Age/Sex: 43 / M ADM Date: 05/28/24 Loc: XD Room: Type: [facility] CLI Attending Dr: Salbador Ramirez MD Copies [...] WITHOUT ACUTE BONY PROCESS. Impression dictated by: Steven Rivera Jr..O.05/28/2024 4:12 PM Dictation Location: RADIO-PC-19 Transcribed By: P[facility] 05/28/24 161 Dictated By: Giancarlo Wolf Jr, DO 05/28/24 161 Signed By: 05/28/24 161NoECU Health Duplin Hospital Physician GroupAlanine aminotransferase [Enzymatic activity/volume] in Serum or PlasmaOrdered By: Salbador Ramirez on 31-83-7456QDD [Catalytic activity/Vol]35 U/L7-52[facility] HospitalAlbumin [Mass/volume] in Serum or Plasma by Bromocresol green (BCG) dye binding methoOrdered By: Salbador Ramirez on 51-36-2338Xxdhpqr BCG dye [Mass/Vol]4.6 g/dL3.5-5.7FMercy Health St. Elizabeth Youngstown HospitalAlkaline phosphatase [Enzymatic activity/volume] in Serum or PlasmaOrdered By: Salbador Ramirez on 92-44-3187XBD [Catalytic activity/Vol]56 U/H99-408VjjkcbobyJ.W. Ruby Memorial HospitalAspartate aminotransferase [Enzymatic activity/volume] in Serum or PlasmaOrdered By: Salbador Rmairez on 93-01-7656SZW [Catalytic activity/Vol]24 U/T94-04AzxobsyivJ.W. Ruby Memorial HospitalBand form neutrophils/100 WBC Manual cnt (Bld)Ordered By: Salbador Ramirez on 87-80-9005Ezgr form neutrophils/100 WBC (Bld)8 %0-5FMercy Health St. Elizabeth [facility] HospitalBasophils Auto (Bld) [#/Vol]Ordered By: Salbador Ramirez on 03-30-2023 Basophils (Bld) [#/Vol]N/AFMercy Health St. Elizabeth Young[facility] HospitalBasophils/100 WBC Auto (Bld)Ordered By: Salbador Ramirez on 97-69-0785Ibfpkbacw/100 WBC (Bld)N/A [facility] HospitalBasophils/100 WBC Manual cnt (Bld)Ordered By: Salbador Ramirez on 83-94-0240Gqarkaffv/100 WBC (Bld)1 %0-2FMercy Health St. Elizabeth Young[facility] HospitalBilirubin.direct [Mass/volume] in Serum or PlasmaOrdered By: Salbador Ramirez on 77-48-5527Tkkschegr.direct [Mass/Vol]0.10 mg/dL0.03-0.18Fire[facility] Regional Medical CenterBilirubin.total [Mass/volume] in Serum or PlasmaOrdered By: Salbador Ramirez on 39-20-5320Wipijsiho [Mass/Vol]0.7 mg/dL0.3-1.0J.[facility]. [facility] HospitalCalcium [Mass/volume] in Serum or PlasmaOrdered By: Salbador Ramirez on 59-55-8687Dkdaajl [Mass/Vol]10.2 mg/dL8.6-10.3FMercy Health St. Elizabeth Young[facility] HospitalCarbon dioxide, total [Moles/volume] in Serum or PlasmaOrdered By: Salbador Ramirez on 62-45-0440AL7 [Moles/Vol]22.3 mmol/L21.0-31.0J.[facility]. [facility] Memorial HospitalChloride [Moles/volume] in Serum or PlasmaOrdered By: Salbador Ramirez on 52-14-9887Ujypvnop [Moles/Vol]105 mmol/W77-800BintgnmqmJ.W. Ruby Memorial HospitalCholesterol [Mass/volume] in Serum or PlasmaOrdered By: Salbador Ramirez on 34-70-9428Cslehdebkbj [Mass/Vol]140 mg/iS937-251XupaurbgeJ.W. Ruby Memorial HospitalComment on above:Chol less than 200 mg/dl low riskChol 201-239 mg/dl borderline riskChol 240 mg/dl and greater high riskCholesterol in LDL Calc [Mass/Vol]Ordered By: Salbador Ramirez on 03-74-6823Nrbqxufsxet in LDL [Mass/Vol] TNPJ.W. Ruby Memorial HospitalComment on above:Test not performed Cholesterol in LDL [Mass/volume] in Serum or PlasmaOrdered By: Salbador Ramirez on 24-05-2889Bgkjjuixrpg in LDL [Mass/Vol]56 mg/dL0-100J.W. Ruby Memorial HospitalComment on above:LDL ATP III CLASSIFICATIONLDL less than 100 mg/dL OptimalLDL 100-129 mg/dL Near or above xzgcqhoTHL017-022 mg/dL Borderline highLDL 160-189 mg/dL HighLDL greater than 189 mg/dL Very highCholesterol in VLDL Calc [Mass/Vol]Ordered By: Salbador Ramirez on 62-86-5635Lkkxsadmlhg in VLDL [Mass/Vol]93 mg/dLJ.W. Ruby Memorial HospitalCreatinine [Mass/volume] in Serum or PlasmaOrdered By: Salbador Ramirez on 11-97-6585Bedyaooumb [Mass/Vol]0.82 mg/dL0.70-1.30J.[facility]. Ruby Memorial HospitalCreatinine [Mass/volume] in Urine Ordered By: Salbador Ramirez on 43-32-1252Aenfriufre (U) [Mass/Vol]115.0 mg/dL 14.0-26.0J.W. Ruby Memorial HospitalEosinophils Auto (Bld) [#/Vol]Ordered By: Salbador Ramirez on 52-02-1672Sroukjkxkzr (Bld) [#/Vol]N/[facility] HospitalEosinophils/100 WBC Auto (Bld)Ordered By: Salbador Ramirez on 23-11-4325Uubovggalaw/100 WBC (Bld)N/[facility] Eosinophils/100 WBC Manual cnt (Bld)Ordered By: Salbador Ramirez on 03-30-2023 Eosinophils/100 WBC (Bld)1 %1-3FMercy Health St. Elizabeth Youngstown HospitalErythrocyte distribution width Auto (RBC) [Ratio]Ordered By: Salbador Ramirez on 03-30-2023 Erythrocyte distribution width (RBC) [Ratio]12.7 %12.0-14.8J.W. Ruby [facility] HospitalGiant platelets/100 leukocytes [Ratio] in Blood by Manual count Ordered By: Salbador Ramirez on 38-52-4731Grqsw platelets/100 WBC Manual cnt (Bld) [Ratio]1 /100{WBC}J.[facility]. [facility] HospitalGlobulin Calc (S) [Mass/Vol] Ordered By: Salbador Ramirez on 28-86-7707Kfpyrbqz (S) [Mass/Vol]2.3 g/dLJ.W. Ruby Memorial HospitalGlucose [Mass/volume] in Serum or PlasmaOrdered By: Salbador Ramirez on 45-89-5848Uvcxwvp [Mass/Vol]161 mg/lV71-393DqumvonbnJ.W. Ruby Memorial HospitalComment on above:ADA recommended reference rangeRandom Glucose Reference Range is dependent on time and content of last meal. Glucose of more than 200 mg/dL in a nonstressed, ambulatory subject supports the diagnosisof Diabetes Mellitus.Glucose mean value [Mass/volume] in Blood Estimated from glycated hemoglobinOrdered By: Salbador Ramirez on 69-62-3398Iesewji glucose Estimated from glycated hemoglobin (Bld) [Mass/Vol]255 mg/dLJ.W. Ruby Memorial Hospital Hematocrit Auto (Bld) [Volume fraction]Ordered By: Salbador Ramirez on 03-30-2023 Hematocrit (Bld) [Volume fraction]46.1 %38.8-50.0J[facility] HospitalHemoglobin A1c percentageOrdered By: Salbador Ramirez on 93-21-1176AyB6g (Bld) [Mass fraction]10.5 %4.3-5.6FMercy Health St. Elizabeth Youngstown HospitalComment on above: Increased risk for diabetes: 5.7 - 6.4diabetes: >6.4glycemic control for adults with diabetes: <7.0Hemoglobin [Mass/volume] in BloodOrdered By: Salbador Ramirez on 41-97-9272Yjkuznfhvt (Bld) [Mass/Vol]15.9 g/dL13.0-17.0J[facility] HospitalLeukocytes [#/volume] corrected for nucleated erythrocytes in Blood by Automated counOrdered By: Salbador Ramirez on 17-57-4812BER corrected for nucl RBC Auto (Bld) [#/Vol]5.2 10*3/uL4.1-10.5FMercy Health St. [facility] Hospital Lymphocytes Auto (Bld) [#/Vol]Ordered By: Salbador Ramirez on 26-41-2365Dqxiccoqtki (Bld) [#/Vol]N/[facility] HospitalLymphocytes/100 WBC Auto (Bld) Ordered By: Salbador Ramirez on 34-21-5310Uqhwufwvtab/100 WBC (Bld)N/[facility] HospitalLymphocytes/100 WBC Manual cnt (Bld)Ordered By: Salbador Ramirez on 25-79-5111Gwmoftvoefw/100 WBC (Bld)24 %18-42[facility] CenterH Auto (RBC) [Entitic mass]Ordered By: Salbador Ramirez on 43-91-0767MTN (RBC) [Entitic mass]29.6 pg27.5-35.2FMercy Health St. Elizabeth [facility] HospitalMCHC Auto (RBC) [Mass/Vol]Ordered By: Salbador Ramirez on 41-82-2931WNWE (RBC) [Mass/Vol]34.5 g/dL32.5-35.6FMercy Health St. Elizabeth [facility] HospitalMCV Auto (RBC) [Entitic vol]Ordered By: Salbador Ramirez on 13-07-5982JLU (RBC) [Entitic vol]85.9 fL83.5-101J.[facility]. [facility] HospitalMicroalbumin [Mass/volume] in Urine Ordered By: Salbador Ramirez on 28-97-8565Ubderor DL <= 20 mg/L (U) [Mass/Vol]2.1 mg/dL0.0-1.8J[facility] HospitalMonocytes Auto (Bld) [#/Vol]Ordered By: Salbador Ramirez on 32-63-3001Fzqiwuenb (Bld) [#/Vol]N/[facility] HospitalMonocytes/100 WBC Auto (Bld)Ordered By: Salbador Ramirez on 03-30-2023 Monocytes/100 WBC (Bld)N/[facility] HospitalMonocytes/100 WBC Manual cnt (Bld)Ordered By: Salbador Ramirez on 82-69-1544Xqvrjtrlv/100 WBC (Bld)13 %2-11J.[facility] HospitalNeutrophils Auto (Bld) [#/Vol]Ordered By: Salbador Ramirez on 75-75-5167Aonvujxlwrh (Bld) [#/Vol]N/[facility] HospitalNeutrophils/100 WBC Auto (Bld)Ordered By: Salbador Ramirez on 03-30-2023 Neutrophils/100 WBC (Bld)/[facility] HospitalNo Panel InformationOrdered By: Salbador Ramirez on 61-98-1334Mqbrwytdu GFR (CKD-EPI)> 60.0 mL/MinJ.W. Ruby Memorial HospitalPharmacy Creatinine Clearance (ChemN/A [facility] HospitalNucleated erythrocytes [Presence] in Blood by Automated countOrdered By: Salbador Ramirez on 75-16-9339Brmvsyqkq RBC Auto Ql (Bld) N/[facility] HospitalPlatelet adequacy [Presence] in Blood by Light microscopyOrdered By: Salbador Ramirez on 58-73-2201Zpbjpqinj LM Ql (Bld) NormalNoMercy Health St. Charles HospitalPlatelet mean volume Auto (Bld) [Entitic vol]Ordered By: Salbador Raimrez on 04-51-2622Stzcvnyq mean volume (Bld) [Entitic vol]9.6 fL6.6-10.1FMercy Health St. Elizabeth [facility] HospitalPlatelet morphology finding [Identifier] in BloodOrdered By: Salbador Ramirez on 10-61-8205Ajajujkg morphology finding Nom (Bld)NormalNoMercy Health St. Charles Hospital Platelets Auto (Bld) [#/Vol]Ordered By: Salbador Ramirez on 70-43-8375Qgwfxeiur (Bld) [#/Vol]149 10*3/uE926-176XpbublpuzJ.W. Ruby Memorial HospitalPotassium [Moles/volume] in Serum or PlasmaOrdered By: Salbador Ramirez on 61-69-2877Tthpkcfuk [Moles/Vol]4.5 mmol/L3.5-5.1FMercy Health St. Elizabeth [facility] HospitalProtein [Mass/volume] in Serum or PlasmaOrdered By: Salbador Ramirez on 62-61-6025Rqdvccg [Mass/Vol]6.9 g/dL6.4-8.9J.W. [facility] HospitalRBC Auto (Bld) [#/Vol] Ordered By: Salbador Ramirez on 30-66-2531EML (Bld) [#/Vol]5.37 10*6/uL3.90-5.60 [facility] HospitalRBC morphologyOrdered By: Salbador Ramirez on 40-39-4403MMH morphology finding Nom (Bld)NormalTogus VA Medical Centeregmented neutrophils/100 WBC Manual cnt (Bld)Ordered By: Salbador Ramirez on 96-61-4175Cdxhusbjw neutrophils/100 WBC (Bld)51 %50-70WVUMedicine Barnesville Hospitalerum or plasma albumin/globulin mass ratioOrdered By: Salbador Ramirez on 47-96-7253Jbelbqt/Globulin [Mass ratio]2.0 {ratio}[facility] Hospitalerum or plasma anion gap determinationOrdered By: Salbador Ramirez on 57-47-0287Yhkhc gap [Moles/Vol]14.2 mmol/L6.0-15.0WVUMedicine Barnesville Hospitalerum or plasma high density lipoprotein (HDL) cholesterol measurement Ordered By: Salbador Ramirez on 77-62-7315Aqeyddcdvpl in HDL [Mass/Vol]24 mg/dL23-92 [facility] HospitalComment on above:HDL CHOL ATP-III CLASSIFICATION Cardiovascular RiskHDL > or equal to 60 mg/dL LOWHDL < 40 mg/dL HIGHSerum or plasma non-glucuronidated bilirubin measurement (mass/volume) Ordered By: Salbador Ramirez on 65-61-6146Tdgdhqffo.indirect [Mass/Vol]0.6 mg/dL W[facility] Hospitalerum or plasma total cholesterol/high density lipoprotein (HDL) cholesterol mass ratOrdered By: Salbador Ramirez on 03-30-2023 Cholesterol.total/Cholesterol in HDL [Mass ratio]5.8 {ratio}<5.0WVUMedicine Barnesville Hospitalodium [Moles/volume] in Serum or PlasmaOrdered By: Salbador Ramirez on 90-26-2629Aiovkz [Moles/Vol]137 mmol/J367-401ZkzqgyuljJ.W. Ruby Memorial HospitalThyrotropin [Units/volume] in Serum or PlasmaOrdered By: Salbador Ramirez on 27-19-0838SZL Qn1.53 m[IU]/L0.45-5.33J.[facility]. [facility] HospitalTriglyceride [Mass/volume] in Serum or PlasmaOrdered By: Salbador Ramirez on 03-25-6610Gjehoxngabkx [Mass/Vol]467 mg/dL0-149[facility] Comment on above:If the triglyceride result is greater than 400, LDLC and related calculations cannot be calculated and resulted.TRIG ATP III CLASSIFICATIONTRIG less than 150 mg/dL NormalTRIG 150-199 mg/dL Borderline highTRIG 200-500 mg/dL High TRIG greater than 500 mg/dL Very highStandard traceable to the Center for Disease Conrtrol and Prevention (CDC) test method. Urea nitrogen [Mass/volume] in Serum or PlasmaOrdered By: Salbador Ramirez on 81-83-1800Ckbz nitrogen [Mass/Vol]26 mg/dL7-25[facility] Urine microalbumin/creatinine mass ratioOrdered By: Salbador Ramirez on 03-30-2023 Albumin/Creatinine DL <= 20 mg/L (U) [Mass ratio]18.0 mg/g0.0-30.0J.[facility]. [facility] HospitalComment on above:30-300 mg/g indicates an increased risk for diabetic nephropathy. Greater than 300 mg/g is consistent with clinical nephropathy. (Am. J. Kidney Disease 1995, 25:107)Variant lymphocytes/100 WBC Manual cnt (Bld)Ordered By: Salbador Ramirez on 38-95-2399Gkyabry lymphocytes/100 WBC (Bld)3 %0-J.[facility]. [facility] HospitalVitamin D+Metabolites [Mass/volume] in Serum or PlasmaOrdered By: Salbador Ramirez on 96-57-1236Dfdkfpp D+Metabolites [Mass/Vol]28.2 ng/kB42-275VjokrrbxpJ.W. Ruby Memorial HospitalComment on above:VITAMIN D STATUS 25(OH)VITAMIN D RANGE (ng/mL) Deficient <20 Insufficient 20 to <14Bukfrvvkvi77 to 100Reference: Faiza MF,Christina KIMBLE, Marisol CASTILLO, et al. Evaluation,treatment, and prevention of vitamin D deficiency; an Endocrine Society clinical practice guideline. JCEM. 2010; 96 (7):1911-30.WBC Auto (Bld) [#/Vol]Ordered By: Salbador Ramirez on 78-04-9951XFV (Bld) [#/Vol]5.2 10*3/uL4.1-10.5FMercy Health St. [facility] HospitalCNOVon 23-73-2189NNVYIlroyd Visit (CHUCKN) KARMEN CARLOS ([id number]) 1980 M Date Time Provider Department 09/12/22 [...] Histories independently gathered by the clinical support architect and the remaining scribed note accurately describes my personal service to the patient. 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] Prescriptions as of [...] for Encounter Date Provider Department Center 09/12/2022 [id number] BASURTOBMN Mn A Bldg Encou (more content not included)...NormalTriHealth Good Samaritan HospitalPNon 24-41-6023ANEKOkntsptcy (DPQ) KARMEN CARLOS ([id number]) 1980 M Date Time Provider Department 06/29/22 LOKI BASURTO DPQ During your visit today, we recorded the following information about you: Asia Sofie 06/29/2022 3:17 PM Signed Left VM / Sent [facility] About getting a appt with per Staff [...] 03/07/2021 Encounter Status:Closed by ASIA CARRIZALES on 06/29/22[facility] [id number] (SP) Office (PLASCA) KARMEN CARLOS ([id number]) 1980 M Date Time Provider Department 02/13/22 9:00 AM CHANA CHANDRA During your visit today, we recorded the following information about you: Temperature Pulse Respiration Blood pressure 97.6 degrees 94/minute 20/minute 162/111 Chana Chandra APRN.BENCH LAY OUT TECHNICIAN 02/13/2022 9:20 AM Signed Post-op Note DATE: [...] for the rest of his/her life Call [phone] or go to the Emergency Department if [...] doesn't work its way out Office number: [phone] (option 3) The patient is seen and examined by Chana Chandra APRN.CNP and the following reflects her service. Scribed by Citlaly Padgett RN I agree with the Chief Complaint, ROS, and Past Histories independently gathered by the clinical support architect and the remaining scribed note accurately describes [...] to help b (more content not included)... NormalCincinnati Children'S Hospital Medical CenterBRIEF OP NOTon 54-54-9757FDPIE OP NOTHNO ID: [id number] Author: Agatha Rawls MD Service: Plastic Surgery Author Type: Resident Type: Brief Op Note Filed: 01/31/2022 8:38 AM Note Text: BRIEF OPERATIVE NOTE PLASTIC AND RECONSTRUCTIVE SURGERY LOG ID: [id number] Surgery/Procedure Date: 01/31/2022 Incision/Procedure Start Time: 8:04 AM Incision Close/Procedure End Time: 8:29 AM Surgeon(s)/Proceduralist(s) and Form Tamper Operator(s): Surgeon(s) and Role: * Toan Chu MD [...] 31, 2022 TIME: 8:33 AM PAGER/CONTACT #: [phone] Clinic [facility] HISTORY PHYSICALon 17-00-6867OOLGVHZ PHYSICALHNO ID: [id number] Author: Toan Chu MD Service: Plastic Surgery [...] of operative intervention and (more content not included)...NormalBarn[facility]ville [facility] NOon 01-31-2022 OPERATIVE NOHNO ID: [id number] Author: Agatha Rawls MD Service: Plastic Surgery Author Type: Resident Type: Operative Report Filed: 01/31/2022 8:49 AM Note Text: Attestation signed by Toan Chu MD at 01/31/2022 9:26 AM Teaching statement: I was active and involved in all critical portions of the case. Toan Chu MD OPERATIVE REPORT PLASTIC AND RECONSTRUCTIVE SURGERY Log ID: [id number] Surgery/Procedure Date: 01/31/2022 Incision/Procedure Start Time: 8:04 AM Incision Close/Procedure End Time: 8:29 AM Surgeon(s)/Proceduralist(s) and Form Tamper Operator(s): Surgeon(s) and Role: * Toan Chu MD [...] 31, 2022 TIME: 8:42 AM PAGER/CONTACT #: [facility] Eyad [phone] (DEION) KARMEN CARLOS ([id number]) 1980 M Date Time Provider Department 03/02/21 TOAN CHU During your visit today, we recorded the following information about you: Keya Nielsen Ma 03/02/2021 1:17 PM Signed Patient needs to have an echo done possibly before his surgery scheduled for Sunday03/07/2021. He prefers to go to the [facility] and on a Sunday if possible. Can you see what you can do? Kapil Alberts 03/02/2021 1:55 PM Signed Called and lm for pt. Scheduled only available echo (other than [place]) before 03/07/21. Pt is scheduled for 03/03/21 at [facility]. Sent Datamolino message with this information as well Allergies As of Date: 03/02/2021 (No Known Allergies) Date Reviewed: 02/25/2021 Reviewed by: Evette Weldon PA-C - Fully Assessed Reason for Visit: Bit Sharpener Operator - Other [7132] Prescriptions as of 03/02/2021 - dapagliflozin (FARXIGA) [...] en*02/25/2021 Encounter Status:Closed by KAPIL ALBERTS on 03/02/21[facility] [id number] HEALTHHNO ID: [id number] Author: LEEANN Roche Tech Service: Radiology Author Type: Dusting And Brushing Machine Operator Type: Allied Health Filed: 12/15/2020 3:50 PM [...] Completed: Head: Routine Brain SIGNATURE: Jazzmine Hull order entry technician PATIENT NAME: Karmen Carlos DATE: December 15, 2020 TIME: 3:44 [facility] CenterMRI SKULL BASE WO/W IVCONon [id number] SKULL BASE WO/W IVCON* * *Final Report* * * DATE OF EXAM: Dec 15 2020 3:52PM [facility] 0319 - MRI SKULL BASE WO/W IVCON [...] dermatofibrosarcoma protuberans . No acute intracranial findings. Marketing Analytics Analyst: MONISHA Transcribe Date/Time: Dec 15 2020 4:44P Dictated by : EVELYN JEROME DO This examination was interpreted and the report reviewed and electronically signed by: EVELYN JEROME DO on Dec 15 2020 4:56PM EST [id number]_[id number] [facility] HospitalPOINT OF CARE GLUCOSEon 10-06-2020 Glucose [Mass/Vol]250 mg/dLCritically sowk86-271KnfMercy Health Lorain HospitalComment on above:Performed By: #### POCGLUC #### [facility] [address] [address] Fariba KarenGlucose [Mass/Vol]240 mg/dLCritically vlfl11-283DaiMercy Health Lorain HospitalComment on above:Performed By: #### POCGLUC #### [facility] [address] [address] Fariba KarenGlucose [Mass/Vol]257 mg/dLCritically knbi34-742QoiMercy Health Lorain HospitalComment on above:Performed By: #### POCGLUC #### [facility] [address] [place] [address] Fariba KarenCovid-19 PCR (CVDTBH)on 70-12-9991UTPD-CoV-2 (COVID-19) RNA SHAY+probe Ql (Unsp spec)Not detectedNormalNOT DETECTEDMercy Health Lorain Hospital Comment on above:Result Comment: This test is not yet approved or cleared by the [place] FDA. When there are no FDA-approved or cleared tests available, and other criteria are met, FDA can make tests available under an emergency access mechanism called an Emergency Use Authorization (EUA). The EUA for this test is supported by the [place] of Health and Human Service's (HHS's) declaration that circumstances exist to justify the emergency use of in vitro diagnostics for the detection and/or diagnosis of the virus that causes COVID- 19. This EUA will remain in effect (meaning [...] of clinical signs and symptoms consistent with SARS-CoV-2.Performed By: #### CVDTBH #### [facility] [address] [place] [address] Fariba Herndon SCROTUM AND TESTICLESon 09-51-1116PG SCROTUM AND TESTICLESFINAL REPORTEXAM: US SCROTUM AND TESTICLESHISTORY: Orchitis TECHNIQUE: [...] right hydrocele. Interpreted by:Katy MonsivaisSigned by:Katy Monsivais11/17/16Final resultNormalFostoria City HospitalCult,Urine,CCon 81-26-9483Gwzw,Urine,CCSpecimen Description .URINE Performed at [address] [place] [address] Special Requests .CLEAN CATCH URINE Performed at [address] [place] [address] Culture NO SIGNIFICANT GROWTH Performed at [address] [address] Report Status FINAL 11/15/2016NormalFostoria City HospitalComment on above: Performed By: #### CCUC ####[address] [place] [phone] [place] [address] Urinalysis w/ Microon 11-13-2016-----The Jewish HospitalComment on above:Performed By: #### UAMIC ####[address] [place] [address] Acetaminophen mass concTRACE AbnormalNEGMerFirelands Regional Medical Center HospitalComment on above:Performed By: #### UAMIC ####[address] [place] [address] Bilirubin (direct)NegativeNormalNEGMerFirelands Regional Medical Center HospitalComment on above: Performed By: #### UAMIC ####[address] [place] [address] Hemoglobin mass conc (Bld)NegativeNormalNEGMerFirelands Regional Medical Center HospitalComment on above:Performed By: #### UAMIC ####[address] [place] [address] Nitrite,UrNegativeNormalNEGMercy Gordon HospitalComment on above:Performed By: #### UAMIC ####[address] [place] [address] TurbidityCLEARNormal CLEAROur Lady Of Mercy Hospitalcy Gordon HospitalComment on above:Performed By: #### UAMIC ####[address] [place] [address] Urine WBC's0 TO 2 Normal0-5Mercy Gordon HospitalComment on above:Performed By: #### UAMIC ####[address] [place] [address] Urine, colorYELLOWNormalYELMercy Gordon HospitalComment on above:Performed By: #### UAMIC ####[address] [place] [address] Urine, epithelial cells in sedimentNoneNormal0-5Mercy Gordon HospitalComment on above:Result Comment: Performed at [address] [place] [id number] Performed By: #### UAMIC ####[address] [place] [address] Urine, erythrocytes0 TO 8Ieheie0-0Lavfm Gordon HospitalComment on above:Performed By: #### UAMIC ####[address] [place] [address] Urine, glucose presence3+AbnormalNEGMercy Gordon HospitalComment on above:Performed By: #### UAMIC ####[address] [place] [address] Urine, leukocyte esterase presenceNegativeNormalNEGMercy Gordon HospitalComment on above:Performed By: #### UAMIC ####[address] [place] [address] Urine, pH5.5 [pH]Normal 5.0-9.0Mercy Gordon HospitalComment on above:Performed By: #### UAMIC ####[address] [place] [address] Urine, protein presenceNegativeNormalNEGMercy Gordon HospitalComment on above:Performed By: #### UAMIC ####[address] [place] [address] Urine, specific gravity1.795Wmmiul3.010-1.020Mercy Gordon HospitalComment on above:Performed By: #### UAMIC ####[address] [place] [address] Urobilinogen,UrNormalNormalNORM [facility] HospitalComment on above:Performed By: #### UAMIC ####[address] [place] [address] CommentNOT REPORTED NormalMercy Gordon HospitalComment on above:Performed By: #### UAMIC ####[address] [place] [address] Epithelial, Renal NOT SEKNJXSMLikrmo0Jlnzi Gordon HospitalComment on above:Performed By: #### UAMIC ####[address] [place] [address] Mucus StrandsNOT REPORTEDNormalNONEMercy Gordon HospitalComment on above: Performed By: #### UAMIC ####[address] [place] [address] Other ObservationsNOT REPORTEDNormalNREQCleveland Clinic South Pointe Hospital Hospital Comment on above:Performed By: #### UAMIC ####[address] [place] [address] TrichomonasNOT REPORTEDNormalNONEMercy Gordon HospitalComment on above:Performed By: #### UAMIC ####[address] [place] [address] Urine, amorphous sediment presence in sedimentNOT REPORTEDNormalNONEMercy Gordon HospitalComment on above:Performed By: #### UAMIC ####[facility] Hospitalaug[facility] [address] [place] [address] Urine, bacteria in sedimentNOT REPORTEDNormal NONEMercy Gordon HospitalComment on above:Performed By: #### UAMIC ####[address] [place] [address] Urine, casts in sedimentNOT REPORTEDNormalMercy Gordon HospitalComment on above:Performed By: #### UAMIC ####[address] [place] [address] Urine, crystals in sedimentNOT REPORTEDNormalNONEMeSimpson General Hospital HospitalComment on above:Performed By: #### UAMIC ####[address] [place] [address] Urine, yeast presence in sediment NOT REPORTEDNormalNONEMeSimpson General Hospital HospitalComment on above:Performed By: #### UAMIC ####[address] [place] [address] Vital Signs Date TimeVital SignValuePerforming LdynyamqnSnzlrhkp60-65-3429 14:56-0400Body yisbey232.88 cmSalbador Ramirez MD Work Phone: [phone] [place], [place] 7511610-14-2025 14:56-0400 Body mass index (BMI) [Ratio]42.7 kg/m2Salbador Ramirez MD Work Phone: [phone] [place], [place] 7511610-14-2025 14:56-0400 Body ksfksagdcam28.5 [degF]Salbador Ramirez MD Work Phone: [phone] [place], [place] 75[address]10-14-2025 14:56-0400 Body sieuqb532.88 kgSalbador Ramirez MD Work Phone: [phone] [place], [place] 7511610-14-2025 14:56-0400 Diastolic blood afwbgeeb68 mm[Hg]Salbador Ramirez MD Work Phone: [phone] [place], [place] [address]10-14-2025 14:56-0400 Heart yabi847 /minSalbador Ramirez MD Work Phone: [phone] [place], [place] [address]10-14-2025 14:56-0400 Respiratory rate18 /minSalbador Ramirez MD Work Phone: [phone] [place], [place] [address]10-14-2025 14:56-0400 SaO2% (BldA) [Mass fraction]97 %Salbador Ramirez MD Work Phone: [phone] [place], [place] 75[address]10-14-2025 14:56-0400 Systolic blood acvgitgr919 mm[Hg]Salbador Ramirez MD Work Phone: [phone] [place], [place] 7511608-19-2025 15:04-0400 Body .9 cmSalbador Ramirez MD Work Phone: [phone] [place], [place] [address]Zzyxlfsauc12-51-4194 15:04-0400Body mass index (BMI) [Ratio]41.91 kg/m2Salbador Ramirez MD Work Phone: [phone] HospitalMhqjfvpqei61-58-3949 15:04-0400Body temperature 97.5 [degF]Salbador Ramirez MD Work Phone: [facility] HospitalYpnyaeueii38-87-5550 15:04-0400Body pouxqx668.16 kgSalbador Ramirez MD Work Phone: [facility] HospitalDbtagazrbx82-71-2548 15:04-0400Diastolic blood ealmqoec29 mm[Hg]Salbador Ramirez MD Work Phone: [facility] HospitalKplsckduse26-37-6194 15:04-0400Heart lxag681 /min Salbador Ramirez MD Work Phone: [address] [phone] 15:04-0400Respiratory rate22 /minSalbador Ramirez MD Work Phone: [address] [address]Pqoreymlas19-28-0389 15:04-7590YfN2% (BldA) [Mass fraction]97 %Salbador Ramirez MD Work Phone: [facility]' HospitalBnobnwqqmw86-76-7999 15:04-0400Systolic blood klauazkk200 mm[Hg]Salbador Ramirez MD Work Phone: [facility]' HospitalFlrbmzbmzi79-36-5381 08:48-0500Body temperature 97.59 [degF]Chana Chandra CHRISTIAN SCIENCE NURSE.BENCH LAY OUT TECHNICIAN Work Phone: [facility]11-28-2022 08:48-0500Diastolic blood gifpjjik914 mm[Hg]Chana Chandra CHRISTIAN SCIENCE NURSE.BENCH LAY OUT TECHNICIAN Work Phone: [facility]11-28-2022 08:48-0500Heart rate94 /min Chana Chandra CHRISTIAN SCIENCE NURSE.BENCH LAY OUT TECHNICIAN Work Phone: [address] [place] [address]-28-2022 08:48-0500Respiratory rate 20 /minChana Chandra CHRISTIAN SCIENCE NURSE.BENCH LAY OUT TECHNICIAN Work Phone: [address] [place] [address]-28-2022 08:48-1397ZvN5% (BldA) [Mass fraction]96 %Chana Chandra CHRISTIAN SCIENCE NURSE.BENCH LAY OUT TECHNICIAN Work Phone: [facility]11-28-2022 08:48-0500Systolic blood wmxtahjn768 mm[Hg]Chana Chandra BENCH LAY OUT TECHNICIAN Work Phone: [phone]11-15-2022 08:45-0500Body temperature 97.7 [degF]Toan Chu MD Work Phone: [phone]11-15-2022 08:45-0500Diastolic blood lrjgquot28 mm[Hg]Toan Chu MD Work Phone: [phone]11-15-2022 08:45-0500Heart rate96 /min Toan Chu MD Work Phone: [phone]11-15-2022 08:45-0500Respiratory rate 16 /minToan Chu MD Work Phone: [phone]11-15-2022 08:45-0500Systolic blood mm[Hg]Toan Chu MD Work Phone: [phone]11-15-2022 08:25-9523LkF9% (BldA) [Mass fraction]92 %Toan Chu MD Work Phone: [phone]11-15-2022 07:32-0500Body .5 kgToan Chu MD Work Phone: [phone]06-22-2022 08:34-0400Body temperature 97.81 [degF]Toan Chu MD Work Phone: [phone]06-22-2022 08:34-0400Diastolic blood ejdtgstx65 mm[Hg]Toan Chu MD Work Phone: [phone]06-22-2022 08:34-0400Heart rate96 /min Toan Chu MD Work Phone: [phone]06-22-2022 08:34-0400Respiratory rate 20 /minToan Chu MD Work Phone: [phone]06-22-2022 08:34-8775RfU6% (BldA) [Mass fraction]99 %Toan Chu MD Work Phone: [facility]06-22-2022 08:34-0400Systolic blood mm[Hg]Toan Chu MD Work Phone: [facility] Encounters Encounter DateEncounter TypeCare ProviderFacilityStart: 12-30-2024 End: 96-25-7104hqtjppxcwtMthy Naderer MD Work Phone: [facility] Work Phone: Start: 12-30-2024 End: 46-72-3739Ngetovn encounter procedureSalbador Ramirez MDST[facility] [place] Work Phone: Start: 11-06-2024 End: 47-04-4891Ecfxkucee Result EncounterSalbador Ramirez MD Work Phone: [facility] External Department UnsolicitedStart: 11-06-2024 End: 49-03-6130Tulqudjak Result EncounterSalbador Ramirez MD Work Phone: n[facility] External Department UnsolicitedStart: 11-04-2024 End: 41-94-7359Vuozcm outpatient visit 25 minutesSalbador Ramirez MD Work Phone: [facility] CWM FMComment on above:Cervical spondylosis with radiculopathy (Primary Dx); Type 2 diabetes mellitus with hyperglycemia, without long-term current use of insulin (HCC); Benign hypertension ; Annual physical examStart: 11-04-2024 End: 50-75-3591Cfczjdu encounter procedureSalbador Ramirez MD Work Phone: noms HealthcareStart: 11-04-2024 End: 26-29-4839ctrpgubjkeRHEL NADERERNot AvailableStart: 11-04-2024 End: 96-01-7790Qsmfbv flowsJose L Ramirez MD Work Phone: [facility] CWM FMStart: 11-04-2024 End: 56-28-0639Ezjaheklarissa Ramirez MD Work Phone: [facility] CWM FMStart: 05-28-2024 End: 36-63-0987Mwzibqd encounter procedureSalbador Ramirez MD Work Phone: [facility] [place] Work Phone: Start: 05-28-2024 End: 32-19-7512pslfcqxzhrJwmj Naderer MD Work Phone: [facility] Work Phone: Start: 05-22-2024 End: 45-25-4245iyxpmxuztpRQFJ NADERERNot AvailableStart: 03-30-2023 End: 87-24-1130mhcirutlazRC Marc Naderer Work Phone: [facility] Work Phone: Start: 03-30-2023 End: 94-16-7104Igbrayi encounter procedureMD Salbador Ramirez Work Phone: [facility] [place] Work Phone: Start: 65-16-2050Pnccqsb encounter procedureSalbador Ramirez MD Work Phone: noms HealthcareStart: 09-12-2022 End: 39-12-7328uhjfqenhjpUJQ G MEINEFacility:[facility] Hospitaltart: 21-31-0672Yykylabac encounterLoki Basurto MD Work Phone: [facility] Plastics InstituteComment on above: AppointmentStart: 02-13-2022 End: 77-58-4844xlrljaynsyIozkskTra Chandra APRN.CNP Work Phone: Plastic SurgeryComment on above:Post-operative state (Primary Dx)Start: 02-13-2022 End: 90-18-0649Iwtjwkc encounter Marek Chandra APRN.CNP Work Phone: [facility] MAINStart: 19-47-1780hkgbszslre TOAN GASTMANFacility: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]Start: 09-07-2021 End: 07-92-3018nnjhdtbdpdClspv Gastman MD Work Phone: Plastic SurgeryComment on above:Dermatofibrosarcoma protuberans (Primary Dx); S/P flap graftStart: 09-07-2021 End: 51-57-7162Rpnhfrj encounter procedureToan Chu MD Work Phone: [facility] MAINStart: 07-26-2021 End: 01-23-7146Goyfnrk encounter procedureLoki Basurto MD Work Phone: DermatologyComment on above:Dermatofibrosarcoma protuberans of scalp (Primary Dx)Start: 22-91-0137Lrtcpsyeq for preprocedural cardiovascular examinationDR KARMEN Borja [facility] HospitalStart: 35-63-9930Xqtvnwzyo for preprocedural laboratory examinationDR KARMEN AKINS [facility] HospitalStart: 10-06-2020 End: 88-91-7738zrpnzuvesqRL KARMEN Prietocility:M2Gjgyx: 10-01-2020 End: 39-04-7999ngvsavtbbmLD SALBADOR Glover NADERERFacility:C0Nodsi: 10-01-2020 End: 23-43-8725Jwjylterd for preprocedural laboratory examinationDR SALBADOR Glover NADERERFacility:A7Yxdsc: 11-16-2016 End: 91-71-6569XlmntdnvweFHRFKAMeritus Medical Center HospitalStart: 11-13-2016 End: 79-83-8932JcjiaivxzxJXSXDAPost [facility] Procedures DateProcedureProcedure DetailPerforming ClinicianStart: 04-08-7306ZK CERVICAL SPINE 2-3VMarc James RINCON Work Phone: Start: 33-32-5368Zawgr X-ray of right shoulderMarc James RINCON Work Phone: Start: 01-31-2022 End: 20-15-9540Zljgu flap/sectioning flap scalp arms/legsToan Chu MD Work Phone: Start: 82-58-5452Ok scrotum & contentsTHOMAS SABRA Start: 40-53-8976EOYRI CULTURE CLEAN CATCHTHOMAS ZAGERIEWSKIStart: 11-13-2016 URINALYSIS WITH MICROSCOPICTHOMAS ALEJANDROGERIEWSAVIVAH/O: surgeryS/P flap graftToan Chu MD Work Phone: Plan of Treatment DateCare ActivityDetailAuthorStart: 12-16-2024 End: 68-51-8158Wndgbbk encounter bszyfkyjd28/30/2025 10:30 AM EDT Office Visit [facility] [address] [place] [phone] Salbador Ramirez MD [address] [place] [phone] [facility] CW FMStart: 61-39-6022Nmrvpfixb vaccinationInfluenza Vaccine (#1)[facility] HealthcareStart: 11-04-2024 End: 08-77-0003Qshumoo encounter lmdwyvxve16/19/2025 3:15 PM EDT [facility] [address] [place] [phone] Salbador Ramirez MD [address] [place] [phone] ArrivedNOMS CWM FMComment on above:ArrivedStart: 11-04-2024 End: 43-32-8197PRN W Auto Differential panel - BloodCBC and differential Lab Routine Annual physical exam Expected: 11/04/2024 (Approximate), Expires: 0 11/04/2025[facility] HealthcareComment on above:Expected: 11/04/2024 (Approximate), Expires: 11/04/2025Start: 11-04-2024 End: 99-55-8164Myhbqbatitvvf metabolic 2000 panel - Serum or PlasmaComprehensive metabolic panel Lab Routine Annual physical exam Expected: 11/04/2024 (Approximate), Expires: 11/04/2025[facility] HealthcareComment on above:Expected: 11/04/2024 (Approximate), Expires: 11/04/2025Start: 11-04-2024 End: 35-93-3038Bypilsbjxk A1c/Hemoglobin.total in BloodHemoglobin A1c Lab Routine Type 2 diabetes mellitus with hyperglycemia, without long-term current use of insulin (HCC) Expected: 11/04/2024 (Approximate), Expires: 11/04/2025[facility] HealthcareComment on above:Expected: 11/04/2024 (Approximate), Expires: 11/04/2025Start: 11-04-2024 End: 87-56-5971Tjqcf 1996 panel - Serum or PlasmaLipid panel Lab Routine Annual physical exam Expected: 11/04/2024 (Approximate), Expires: 11/04/2025[facility] HealthcareComment on above:Expected: 11/04/2024 (Approximate), Expires: 11/04/2025Start: 11-04-2024 End: 53-41-5049Ecdftneulfgx/Creatinine panel in random UrineMicroalbumin / creatinine, urine ratio Lab Routine Type 2 diabetes mellitus with hyperglycemia, without long-term current use of insulin (HCC) Expected: 11/04/2024 (Approximate), Expires: 11/04/2025[facility] HealthcareComment on above:Expected: 11/04/2024 (Approximate), Expires: 11/04/2025Start: 11-04-2024 End: 20-82-3592Bfarskry specific Ag [Mass/volume] in Serum or PlasmaPSA Lab Routine Annual physical exam Expected: 11/04/2024 (Approximate), Expires: 11/04/2025[facility] HealthcareComment on above:Expected: 11/04/2024 (Approximate), Expires: 11/04/2025Start: 11-04-2024 End: 63-78-4659Cysjricychh [Units/volume] in Serum or PlasmaTSH Lab Routine Annual physical exam Expected: 11/04/2024 (Approximate), Expires: 11/04/2025[facility] HealthcareComment on above:Expected: 11/04/2024 (Approximate), Expires: 11/04/2025Start: 11-04-2024 End: 07-67-0903RS Cervical spine 2 or 3 ViewsXR cervical spine 2 or 3 views Imaging Routine Cervical spondylosis with radiculopathy Expected: 11/04/2024, Expires: 11/04/2025[facility] Work Phone: Comment on above:Expected: 11/04/2024, Expires: 11/04/2025Start: 62-01-0245Mlkxi screening for proteinDiabetes: Urine Protein ScreeningHarry S. Truman Memorial Veterans' HospitalStart: 05-88-4822Toxquosqvn A1c measurementDiabetes: Hemoglobin G3KWMFWHarry S. Truman Memorial Veterans' HospitalStart: 68-20-5607Xwdubwici vaccinationINFLUENZA (Season Ended)[facility]art: 75-82-2934ONPMMWDCLW ASSESSMENTDEPRESSION ASSESSMENTOhioHealth Van Wert Hospitaltart: 25-86-4993Loqmwzhej vaccinationMer[facility] Health St[facility] Start: 29-70-7593Npyjjdidwr A1c/Hemoglobin.total in WyzuvZLE2AUqtvwovdd Clinic Start: 79-27-0180CGVRPWGPMY ASSESSMENTDEPRESSION ASSESSMENTMercy Health St. [facility] Start: 76-22-1541GQRHFWRZT B (1 of 3 - Risk 3-dose series)HEPATITIS B (1 of 3 - Risk 3-dose series)[facility] Hospital[facility]art: 01-97-4426Kyslu microalbumin profile DTAP,TDAP,TD (1 - Tdap)[facility] Hospital[facility]art: 45-10-8522MADZIU PCP TEAM CHRONIC DISEASE VISITANNUAL PCP TEAM CHRONIC DISEASE VISITOhioHealth Van Wert Hospitaltart: 83-03-4507HK CONTROLLED (<130/80)BP CONTROLLED (<130/80)[facility] Hospitaltart: 81-17-2216Wxsvawrdi B surface antibody levelLDL CHOLESTEROLMercy Health St. [facility] Start: 10-94-4236DDEBTVRMI C SCREENINGHEPATITIS C SCREENINGMercy Health St. [facility] Start: 28-99-0443GLQ SCREENINGHIV SCREENINGOhioHealth Van Wert Hospitaltart: 14-63-2323WOO PNEUMOVAX PRIOR TO AGE 65ONE PNEUMOVAX PRIOR TO AGE 65[facility] Hospitaltart: 95-61-0723Sbutn depression screening assessmentDEPRESSION SCREENINGOhioHealth [facility] Hospitaltart: comp foot exam completedDIABETIC FOOT EXAMOhioHealth Van Wert Hospitaltart: 10-50-0784Uacgupse screeningDiabetes: Retinopathy ScreeningHarry S. Truman Memorial Veterans' HospitalStart: 44-47-4894Qnyxkdanx B screeningURINE ALBUMIN:CREATININE RATIO [facility]art: 25-84-8775Hhohrojjy C antibody, confirmatory testDILATED RETINAL EXAMOhioHealth Van Wert Hospitaltart: 45-85-3565WKFWUTPITOQM (1 - PCV)PNEUMOCOCCAL (1 - PCV)[facility]: 10-12-8554BXSTQ-19 VACCINE (#1)COVID-19 VACCINE (#1)[facility]: 53-29-2388DLRCV-19 VACCINE (#1)COVID-19 VACCINE (#1) [facility]: 15-61-2858IYJPADFNI B (1 of 3 - 3-dose series)HEPATITIS B (1 of 3 - 3-dose series)[facility] Hospitaltart: 48-07-4096Nvmapifrt for malignant neoplasm of [facility], operated by [facility] End: 35-22-5500Tad brain brain stem w/o contrast materialMRI BRAIN WO IVCON Radiology Routine Dermatofibrosarcoma protuberans S/P flap graft 1 Occur[facility] 09/07/2021 [facility] Work Phone: Comment on above:1 Occurrences starting 09/07/2021 until [facility]CTuscarawas [facility] Payers DatePayer CategoryPayerPolicy [id number] Health InsuranceMEDICAL MUTUAL Member Subscriber Plan / Payer (Effective 2023- Present) Name: Karmen Carlosember ID: [id number] Relation to Subscriber: Spouse Name: BALBIR CARLOS Date of : 1974 Address: [address] [place] [address] Payer ID: Not on file Type: Not on file Address: [address] [id number] MMO SUPERMED PLUS [id number] 2020-Present [phone] [address] [place] [address] [id number] [id number] [id number] 2.16.840.1.890593.3.579.[id number] 2.16.840.1.290631.3.57[id number] 2.16.840.1.547925.3.579.[id number] 2.16.840.1.378367.3.57[id number] 2.16.840.1.647948.3.579.2.531 Social History DateTypeDetailFacilityStart: 11-25-2020 End: 93-48-7173Jmmzmfr smoking status NHISEx-smokerOhioHealth Van Wert Hospitaltart: 03-19-1996 End: 26-48-7437Ostjggd of tobacco useCurrent smokerOhioHealth Van Wert Hospitaltart: 03-19-1996 End: 71-00-3317Mdnuaxt of tobacco useCigarette SmokerOhioHealth Van Wert Hospitaltart: 11-25-2020 End: 25-43-0870Eqgkaqtowc smoked current (pack per day) - Reaomxsm6Czmbfualr ClinicStart: 20-17-2207Hbkcfeu use and exposureFormer smokeless tobacco user [facility] End: 76-65-1073Dytkptw of tobacco useUser of smokeless tobaccoMercy Health St. [facility] Start: 47-72-7955Dysvuis intakeCurrent drinker of alcohol (finding)[facility]art: 87-66-9758Iydgkss SDOH Alcohol Comment6-7 beers several times per weekOhioHealth Van Wert Hospitaltart: 37-60-8632Xhh Assigned At BirthMalAshtab[facility] Start: 07-16-2021 End: 98-46-8331Huvrpevl to SARS-CoV-2 (event)Not sureMercy Health St. Elizabeth Boardman HospitalTobacco smoking status NHISUnknown if ever smokedDoctors Hospital Work Phone: Start: 77-58-4113GraKmeo (finding)[facility]tart: 49-09-6167Eycxbeb use and exposureSmokeless tobacco non-userCASTLEVIEW HOSPITAL HealthcareStart: 05-22-2024 End: 02-48-9549Ytibfrn use panelNONV HealthcareStart: 50-62-8826Xzz assigned at birthNot on [facility] Medical Equipment Procedure CodeEquipment CodeEquipment Original TextEquipment IdentifierDates Graft Soft Tissue Frozen Cadaver - [id number]: 02-04-2021 Clinical Notes 07-26-2021 to 11-04-2024 Note Date & KaxoVtdhYyhewvkp09-69-7080 History of Present illness Narrative* Salbador Ramirez MD - 11/04/2024 4:36 PM EDTAssociated Problem(s): Type 2 diabetes mellitus with hyperglycemia, without long-term current use of insulin (HCC) Not checking BS and due for A1C. * Salbador Ramirez MD - 11/04/2024 4:36 PM EDTAssociated Problem(s): Benign hypertension BP elevated but c/o pain. Monitor BP PRN. Discussed DASH diet. * aSlbador Ramirez MD - 11/04/2024 4:36 PM EDTAssociated Problem(s): Cervical spondylosis with radiculopathy Symptoms likely related to cervical pathology and suggestive of pinched nerve. Check x-ray neck andstart PT. Start celebrex and lycrica for pain. If no improvement will need MRI. * Salbador Ramirez MD - 11/04/2024 3:15 PM EDT Images [...] 2 or 3 views documented in this encounterHarry S. Truman Memorial Veterans' HospitalHklxkaumcx87-88-1310 NoteHNO ID: [id number] Author: Loki Basurto MD Service: ? Author [...] Histories independently gathered by the clinical support architect and the remaining scribed note accurately describes my personal service to the patient. Loki Basurto MD September 12[facility]04[facility] Miscellaneous Notes* Telephone Encounter - Asia Carrizales - 06/29/2022 3:17 PM EDT Left VM / Sent MyCharts About getting a appt with per Staff Message documented in this encounterMer[facility]11-28[facility]2022 NoteHNO ID: [id number] Author: Chana Chandra APRN.BENCH LAY OUT TECHNICIAN Service: ? Author Type: Nurse Practitioner [...] for the rest of his/her life Call [phone] or go to the Emergency Department if [...] doesn't work its way out Office number: [phone] (option 3) The patient is seen and examined by Chana Chandra APRN.CNP and the following reflects her service. Scribed by Citlaly Padgett RN I agree with the Chief Complaint, ROS, and Past Histories independently gathered by the clinical support architect and the remaining scribed note accurately describes my personal service to the patient. Chana Chandra APRN.CNP February 13, 2022 9:20 [facility]11-28-2022 Instructions* Patient Instructions* Chana Chandra APRN.CNP - 02/13/2022 9:16 AM [...] for the rest of his/her life Call [phone] or go to the Emergency Department if [...] doesn't work its way out Office number: [phone] (option 3) documented in this encounterMer[facility]11-28[facility]2022 History of Present illness Narrative* Chana Chandra APRN.CNP - 02/13/2022 9:00 AM EST Post-op Note DATE: February 13, 2022 CHIEF [...] for the rest of his/her life Call [phone] or go to the Emergency Department if [...] doesn't work its way out Office number: [phone] (option 3) The patient is seen and examined by Chana Chandra APRN.CNP and the following reflects her service. Scribed by Citlaly Padgett RN I agree with the Chief Complaint, ROS, and Past Histories independently gathered by the clinical support architect and the remaining scribed note accurately describes my personal service to the patient. Chana Chandra APRN.CNP February 13, 2022 9:20 AM documented in this encounterMer[facility]11[facility]2022 Hospital Discharge instructions* Discharge Instr - Other Orders* Agatha Rawls MD - 01/31/2022 8:41 AM EST My Hospital Stay and Summary This is a summary of your hospital stay. Please read it carefully and share it with your family andhealthcare providers. Date of Admission: 01/31/2022 Date of [...] These instructions explain what you or your home health care case manager need to do to continue your care at home or at another healthcare facility Please go over these instructions with your nurse and home health care case manager. If you are not sure about something, please ask. Symptoms or health problems to watch for after I leave the hospital: fever; chills; worsening pain;difficulty breathing; racing heartbeat; increasing incisional redness; incisional [...] document) At your earliest convenience, please call [phone] to confirm or schedule a follow-up appointment with the office of Dr. Chu to be seen in clinic. Your existing appointments are listed below: Future Appointments Date Time Provider Department Center 02/13/2022 9:00 AM Chana Chandra APRN.BENCH LAY OUT TECHNICIAN PLASCA Oh EMILEE [place] When to call your surgeon: - [...] during business hours (8am to 5pm) call [phone] or after hours (including weekends) call [phone] ([facility]) and ask for the Plastic Surgery Resident / Fellow linen controller. If calling long distance, please use [phone] ([phone]). Test results not currently available (to be reviewed at follow-up): No pending results. documented in this encounterMer[facility] St[facility]11-15-2022 Surgical operation note* Brief Op Note - Agatha Rawls MD - 01/31/2022 8:33 AM EST BRIEF OPERATIVE NOTE PLASTIC & RECONSTRUCTIVE SURGERY LOG ID: [id number] Surgery/Procedure Date: 01/31/2022 Incision/Procedure Start Time: 8:04 AM Incision Close/Procedure End Time: 8:29 AM Surgeon(s)/Proceduralist(s) and Form Tamper Operator(s): Surgeon(s) and Role: * Toan Chu MD [...] 31, 2022 TIME: 8:33 AM PAGER/CONTACT #: [phone] * Operative Report - Agatha Rawls MD - 01/31/2022 7:49 AM EST OPERATIVE REPORT PLASTIC & RECONSTRUCTIVE SURGERY Log ID: [id number] Surgery/Procedure Date: 01/31/2022 Incision/Procedure Start Time: 8:04 AM Incision Close/Procedure End Time: 8:29 AM Surgeon(s)/Proceduralist(s) and Form Tamper Operator(s): Surgeon(s) and Role: * Toan Chu MD [...] the periosteum. Care was taken to not violatethe periosteum. The remaining incision was carried out throughout the posterior portion of the deformity, again to the level of the periosteum. The skin and underlying subcutaneous and soft tissue was excised with ease. Electrocautery was utilized to ensure meticulous hemostasis. 3-0 vicryl sutureswere placed in a buried fashion to bring the wound edges together with minimal tension. Several 3-0chromic sutures were placed in a horizontal mattress [...] the primary surgeon, Dr. Chu, who was presentin the operating room for the olea components of the operation. I performed the remainder of the procedure, without direct supervision but with the primary surgeon readily available. SIGNATURE: Agtaha Rawls MD PATIENT NAME: Karmen Carlos DATE: January 31, 2022 TIME: 8:42 AM PAGER/CONTACT #: Associated attestation - Toan Chu MD - 01/31/2022 9:26 AM EST Teaching statement: I was active and involved in all critical portions of the case. Toan Chu MD documented in this encounterMer[facility]11-15-2022 History and physical note * Toan Chu MD - 01/31/2022 7:25 AM EST UPDATED HISTORY AND PHYSICAL EXAMINATION SERVICE DATE: 01/31/2022 SERVICE TIME: 7:00am PHYSICAL EXAM MUST BE COMPLETED ON ADMISSION The History and Physical (completed in the past 30 days) has been reviewed and the patient has beenexamined. The contents accurately reflect the patient's condition [...] every 4 hours as needed for pain. Two(2) X 325 mg tablets = 650 mg [...] left scalp on 03/07/21. Patient's surgical sites a re well healed. He is 6 months out [...] has been reviewed and the patient has beenexamined. The contents accurately reflect the patient's condition with the following additions or revisions since the H&P was completed. Examination indicates no changes. This H&P can be found in the attached. SIGNATURE: Toan Chu MD PATIENT NAME: Karmen Carlos DATE: January 31, 2022 TIME: 7:43 AM documented in this encounterMercy Health St[facility]06-22-2022 History of Present illness Narrative* Toan Chu MD - 09/07/2021 8:26 AM EDT Images from the original note were [...] every 4 hours as needed for pain. Two(2) X 325 mg tablets = 650 mg [...] left scalp on 03/07/21. Patient's surgical sites a re well healed. He is 6 months out [...] up 7-10 days after surgery Citlaly Padgett demurrage agent note: I reviewed the information obtained and [...] complete 09/08/2021 9:09 AM documented in this encounterMer[facility]05-10-2022 History of Present illness Narrative* Loki Basurto MD - 07/26/2021 8:50 AM EDT Chief Complaint: follow up LV: 02/18/21 for [...] Histories independently gathered by the clinical support architect and the remaining scribed note accurately describes my personal service to the patient. Loki Basurto MD July 26, 2021 documented in [address] encounterMer[facility] HospitalEvalunemours foundation note* Diagnosis Dermatofibrosarcoma protuberans of scalp- Primary Other specified malignant neoplasm of scalp and skin of neck documented in this encounter [facility] HospitalEvalunemours foundation note* Diagnosis Dermatofibrosarcoma protuberans- Primary Other specified malignant neoplasm of skin, site unspecified S/P flap graft Other postprocedural status documented in this encounter [facility] HospitalEvaluation note* Diagnosis Acute post-operative pain- Primary documented in this encounter [facility] HospitalEvalunemours foundation note* Diagnosis Post-operative state- Primary Other postprocedural status documented in this encounter [facility] HospitalEvaluation noteNo assessment information availableDoctors Hospital Work Phone: Evaluation note* Diagnosis Annual physical [...] hyperglycemia, without long-term current use of insulin ([facility]) Class 3 severe obesity due to excess calories with serious comorbidity and body mass index (BMI) of40.0 to 44.9 in adult ([facility]) Dyslipidemia Other and unspecified hyperlipidemia Type 2 diabetes mellitus with other specified complication ([facility]) Cervical spondylosis with radiculopathy- Primary Cervical spondylosis with myelopathy Type 2 diabetes mellitus with hyperglycemia, without long-term current use of insulin (HCC) Benign hypertension Essential hypertension, benign Annual physical exam Routine general medical examination at a health care facility documented in this encounter [facility] Diagnosis Onset Date Resolution Status Admit Date Annual physical exam acuteOctober 2024 2:31pm [facility] Work Phone: Reptnv for referral (narrative)No reason for referral information availableHarrison Community Hospital Work Phone: Rejehq for visit Narrative* Auth/CertSpecialty Diagnoses / ProceduresReferred By ContactReferred To ContactASC [facility] BE Diagnoses Dermatofibrosarcoma protuberans S/P flap graft Procedures DELAY/SECTN FLAP SCALP,ARM,LEG FLAP DELAY SCALP OR SECTIONING [facility] [address] [address] [place] [address] Referral IDStatusReasonStart DateExpiration DateVisits RequestedVisits [id number] [facility] Summary Purpose Family History No Family History Records FoundNo Family History Records FoundNo Family History Records FoundNo Family History Records FoundNo Family History Records FoundNo Family History Records Found Advance Directives TypeDate RecordedPatient RepresentativeExplanationAdvance Directive(s)02/25/2021 2:56 PMAdvance Directive(s)01/19/2021 12:12 PMAdvance Directive(s)12/15/2020 11:53 AMAdvance Directive(s)12/15/2020 10:47 AMTypeDate RecordedPatient RepresentativeExplanationAdvance Directive(s)02/25/2021 2:56 PMAdvance Directive(s)01/19/2021 12:12 PMAdvance Directive(s)12/15/2020 11:53 AMAdvance Directive(s)12/15/2020 10:47 AMTypeDate RecordedPatient RepresentativeExplanation Advance Directive(s)12/15/2020 10:47 AMTypeDate RecordedPatient Finishing Pan Operator ExplanationAdvance Directive(s)12/15/2020 10:47 AM Advance Directive Response Recorded Date/ Time Advance Directives No August 03 8:17am Advance Directive Response Recorded Date/ Time Advance Directives No August 03 9:17am Reason for Referral SpecialtyDiagnoses / ProceduresReferred By ContactReferred To ContactMR IMAGING Diagnoses Dermatofibrosarcoma protuberans S/P flap graft Procedures MRI BRAIN WO IVCON MRI BRAIN BRAIN STEM [place] [address] [place] [address] Mr Imaging Referral IDStatusReasonStart DateExpiration DateVisits RequestedVisits [id number] Review Auto-Generated Referral Chief Complaint and Reason for Visit Chief Complaint z00.00/e55.9/e11.65 Chief Complaint Admit Date s46.001a May 28, 2024 11: 47am Chief Complaint Admit Date follow up from cancelled appointment Oct víctor 2024 2:31pm Reason for Visit Admit Date Annual physical exam December 30, 2024 2:31pm Additional Source Comments (unrecognized sect ion and content) No Status Records FoundNo Status Records FoundNo Status Records FoundNo Status Records FoundNo Status Records FoundNo Status Records Found INFORMATION SOURCE (unrecogn ized section and content) DATE CREATED AUTHOR 09/12/2017 [facility] DATE CREATED AUTHOR AUTHOR'S ORGANIZ ATION 03/03/2021 [facility] DATE CREATED AUTHOR AUTHOR'S ORGANIZ ATION 08/19/2021 [facility] DATE CREATED AUTHOR AUTHOR'S ORGANIZ ATION 09/23/2022 [facility] DATE CREATED AUTHOR AUTHOR'S ORGANIZ ATION 06/06/2024 [facility] DATE CREATED AUTHOR AUTHOR'S ORGANIZ ATION 11/06/2024 [facility] EPIC Source Comments (unrecognize d section and content) In the event this informatio n is protected by the Federal Confidentiality of Alcohol and Drug Abuse Patient Records regulations: The Federal rules restrict any use of the information to criminally investigate or prosecute any alcohol or drug abuse patient.[facility] Hospital[facility] the event this information is protected by the Federal Confidentiality of Alcohol and Drug Abuse Patient Records regulations: The Federal rules restrict any use of the information to criminally investigate or prosecute any alcohol or drug abuse patient.[facility] HospitalIn the event this information is protected by the Federal Confidentiality of Alcohol and Drug Abuse Patient Records regulations: The Federal rules restrict any use of the information to criminally investigate or prosecute any alcohol or drug abuse patient.[facility] HospitalIn the event this information is protected by the Federal Confidentiality of Alcohol and Drug Abuse Patient Records regulations: The Federal rules restrict any use of the information to criminally investigate or prosecute any alcohol or drug abuse patient.[facility] HospitalIn the event this information is protected by the Federal Confidentiality of Alcohol and Drug Abuse Patient Records regulations: The Federal rules restrict any use of the information to criminally investigate or prosecute any alcohol or drug abuse patient.[facility] Reason for Visit (unrecogniz ed section and content) ReasonCommentsFollow UpReasonCommentsEstablished PatientReasonComments AppointmentReasonCommentsArm PainRight arm Care Teams (unrecognized sec tion and content) Team MemberRelationshipSpecialtyStart DateEnd Date Salbador Ramirez [address] [place] [address] PCP - GeneralFamily Practice12/15/20Team MemberRelationshipSpecialtyStart DateEnd Date Salbador Ramirez [address] [place] [address] PCP - GeneralFamily Practice12/15/20Team MemberRelationshipSpecialtyStart DateEnd Date Salbador Ramirez [address] [place] [address] PCP - GeneralFamily Medicine12/15/20Team MemberRelationshipSpecialtyStart DateEnd Date Salbador Ramirez [address] [place] [address] PCP - [facility]12/15/20Team MemberRelationshipSpecialtyStart DateEnd Date Salbador Ramirez [address] [place], [place] [id number] PCP - [facility]12/15/20 Team Status: Active Member Role Status Dates Salbador Ramirez MD Primary Care Provider Active Team Status: Inactive Member Role Status Dates Salbador Ramirez MD Primary Care Provider, Attending Pro vider Active Team Status: Inactive Member Role Status Dates Salbador Ramirez MD Primary Care Provide r, Attending Provider Active Start: May 28, 2024 End: May 28, 2024Team MemberRelationshipSpecialtyStart DateEnd Date Salbador Ramirez MD [address] [place] [address] PCP - [facility] [place] [facility]03/19/2311 Salbador Ramirez MD [address] [place] [address] PCP - [facility]05/22/24Team MemberRelationshipSpecialtyStart DateEnd Date Salbador Ramirez MD [address] [place] [address] PCP - [facility] [place] [facility]03/19/2311 Salbador Ramirez MD [address] [place] [address] PCP - [facility]05/22/24Team MemberRelationshipSpecialtyStart DateEnd Date Salbador Ramirez MD [address] [place] [address] PCP - Medical [facility]03/19/2311 Salbador Ramirez MD [address] [place] [address] [facility]24 Team Status: Inactive Member Role Status Dates Salbador Ramirez MD Primary Care Provider Active S tart: December 30, 2024 End: December 30, 2024Mar POONAM Ramirezttending ProviderActiveStart: December 30, 2024 End: December 30, 2024 PRN Active and Recently Administ ered Medications (unrecognized section and content) Medication Order bacitracin 500 unit/gram topical ointment (CANCELED) X (OR/PROCEDURE) PRN, Starting on Sun01/31/22 at 0815, Until Sun01/31/22 at 0844, Intraprocedure * 0815 (Given - Provider: Agatha Rawls MD - Comment: topically applied to surgical site, scalp) lidocaine 1%-EPINEPHrine 1:100,000 injection (CANCELED) X (OR/PROCEDURE) PRN, Starting on Sun01/31/22 at 0758, Until Sun01/31/22 at 0844, Intraprocedure * 0758 (Given - Provider: Agatha Rawls MD - Comment: right scalp) * 0829 (Given - Provider: Agatha Rawls MD - Comment: right scalp) NaCl 0.9% irrigation solution (CANCELED) X (OR/PROCEDURE) PRN, Starting on Sun01/31/22 at 0802, Until Sun01/31/22 at 0844, Intraprocedure * 0802 (Given - Provider: Agatha Rawls MD) Goals (unrecognized section and content) Goals may be documented in a n alternate sectionGoals may be documented in an alternate sectionGoals may be documented in an [...] BE BASED ON THE PRIMARY CLINICAL RECORDS. [facility] [employer] [facility]. provides no warranty or guarantee of the accuracy or completeness of information in this document.
[2025-01-12 10:07] LABS: Hematocrit 43.0 % (42.0-54.0); Hemoglobin 15.2 g/dL (14.0-18.0); Immature Granulocytes Abs Auto 0.03 10^3/uL (0.00-0.03); Immature Granulocytes Pct Auto 0.6 % (0.0-0.5); Lymphocytes Absolute Auto 1.4 10^3/uL (1.2-3.8); Mean Corpuscular HGB Conc 35.3 g/dL (29.9-35.2); Mean Corpuscular Hemoglobin 29.6 pg (25.9-34.0); Mean Corpuscular Volume 83.8 fL (80.0-94.0); Platelet Count 149 10^3/uL (150-450); Red Blood Count 5.13 10^6/uL (4.70-6.10); White Blood Count 4.9 10^3/uL (4.0-11.0)
[2025-01-12 10:35] LABS: Microalbum Creatinine Ratio Ur 26.4 mg/g (0.0-29.9)
[2025-01-12 10:53] LABS: Alanine Aminotransferase 54 U/L (16-63); Albumin Globulin Ratio 1.4; Albumin Level 3.9 g/dL (3.4-5.0); Alkaline Phosphatase 74 U/L (46-116); Anion Gap 14.1; Aspartate Amino Transferase 23 U/L (15-37); Blood Urea Nitrogen 14.0 mg/dL (7.0-18.0); Calcium 9.3 mg/dL (8.5-10.1); Carbon Dioxide 27.5 mmol/L (21.0-32.0); Chloride 99 mmol/L (98-107); Cholesterol 194 mg/dL (<=200); Estimated GFR (African America >60 (>=60 mL/min/1.73m^2); Estimated GFR (Non-African Ame >60 (>=60 mL/min/1.73m^2); Globulin 2.7 g/dL; Glucose 369 mg/dL (74-106); HDL Cholesterol 23 mg/dL (40-60); Potassium 4.6 mmol/L (3.5-5.1); Sodium 136 mmol/L (136-145); Thyroid Stimulating Hormone 1.386 uIU/mL (0.358-3.740); Total Protein 6.6 g/dL (6.4-8.2); Triglycerides 882 mg/dL (<=150); VLDL CHOLESTEROL 176.4 mg/dL
== END 2025-01-12 09:30 | disposition home or self-care (01) ==
LOC: LAB 09:29
PROVIDERS: PCP Family Medicine; Visit Provider Family Medicine
DX: Z00.00 Encounter for general adult medical examination without abnormal findings (principal); E11.65 Type 2 diabetes mellitus with hyperglycemia
CPT/HCPCS: 36415; 80053; 80061; 82043; 82570; 83721; 84443; 85025; G0103

== ENCOUNTER 2025-01-15 14:12 | Outpatient (OUT) | payer OTHER, SELFPAY ==
--- OUTSIDE RECORDS SUMMARY | 2025-01-15 14:16 | XMS_ITS | Clinical Summary ---
Author Organization [facility] Healthcare Address [address] [place] [address] Care Team Providers Care Machine Compositor Name Role Phone Gina Ramirez MD Unavailable Gina Ramirez MD Primary Care Provider [phone] Allergies No known active allergies Medications MedicationSigDispense [...] TABLETS BY MOUTH TWICE DAILY 120 tablet 512/174Active metFORMIN XR (Glucophage-XR) 500 MG 24 hr [...] Active Problems ProblemNoted DateDiagnosed DateCervical spondylosis with xzgufaafhlzap12/19/2025 Assessment & Plan (11/04/2024 4:36 PM EDT): Symptoms likely related to cervical pathology and suggestive of pinched nerve. Check x-ray neck andstart PT. Start celebrex and lycrica for pain. If no improvement will need MRI. Rotator cuff injury, right, initial ujyuluqgz03/06/2025 Assessment & Plan (05/22/2024 4:26 PM EST): [...] with hyperglycemia, without long-term current use of zgucjgg8105/22/2024 Assessment & Plan (11/04/2024 4:36 PM EDT): Not checking BS and due for A1C. Assessment & Plan (05/22/2024 4:27 PM EST): Warned prednisone will elevated BS. Kbdrkcoaoxoj06/06/2025enign fwkovzxenhnl18/08/2024 Assessment & Plan (11/04/2024 4:36 PM EDT): BP elevated but c/o pain. Monitor BP PRN. Discussed DASH diet. Assessment & Plan (03/26/2023 3:30 PM EST): BP very high and increase lisinopril. Monitor BP PRN. Discussed DASH diet. DDD (degenerative disc disease), qecdqdis57/08/2024Type 2 diabetes mellitus with microalbuminuria, without long-term current use of gqchepp8803/26/2023 Assessment & Plan (03/26/2023 3:31 PM EST): Not checking BS and due for A1C. Stick to ADA diet and limit carbs. Vitamin D yujsmfreel79/08/2024nnual physical exam03/26/2023 Assessment & Plan (03/26/2023 3:30 [...] ProblemNoted DateDiagnosed DateResolved DateInternal derangement of right czhfhyuk08 Assessment & Plan (05/22/2024 4:26 PM EST): Appears to have rotator cuff injury and check x-ray to assess for OA or signs of impingement. Treatwith prednisone. Handout with ROM exercises to patient. If no improvement will need MRI or ortho. Encounters DateTypeDepartmentCare ChopWwclyqrwkwl59/21/2025Results Follow-Up [facility] [place] [facility] [address] [place] [address] Gina Ramirez MD XR CERVICAL SPINE 2-3V11/06/2024linisync Result Encounter [facility] External Department Unsolicited Gina Ramirez MD 11/04/2024 3:15 PM EDTOffice Visit [facility] [place] [facility] [address] [place] [address] Gina Ramirez MD Cervical spondylosis with radiculopathy (Primary Dx); Type 2 diabetes mellitus with hyperglycemia, without long-term current use of insulin (HCC); Benign hypertension ; Annual physical exam5Bamboo flowsheet [facility] [address] [place] [address] Gina Ramirez MD from Last 3 Months Family History Medical HistoryRelationNameCommentsNo Known ProblemsFatherNo Known Problems MotherRelationNameStatusCommentsFatherMother Social History Tobacco UseTypesPacks/DayYears UsedDateSmoking Tobacco: CpimrvWfsdhpterp6607972 - 2011Smokeless Tobacco: Never Tobacco Cessation:Counseling Given: Not Answered Sex and Gender InformationValueDate RecordedSex Assigned at BirthNot on file Legal CvyIorw1505/31/2022 7:31 PM EDTGender IdentityNot on fileSexual Orientation Not on file Last Filed Vital Signs Vital SignReadingTime TakenCommentsBlood Acrdksfz808/8611/04/2024 3:04 PM EDT Hcqzv90814/19/2025 3:04 PM NPSVzmxnczfaaz71.4 ??C (97.5 ??F)11/04/2024 3:04 PM EDTRespiratory Mygz116911/04/2024 3:04 PM EDTOxygen Ursgcljoed87%11/04/2024 3:04 PM EDTInhaled Oxygen Concentration--Bdxjaz251 kg (309 lb)11/04/2024 3:04 PM EDT Czzcia960.9 cm (6')11/04/2024 3:04 PM EDTBody Mass Index41.9111/04/2024 3:04 PM EDT Plan of Treatment Health MaintenanceDue DateLast DoneCommentsCT Fnmtdtkoflgi95/15/1979Colonoscopy 1978Colorectal Cancer Osugefzpv37/15/1979FIT-DNA1978FIT1978 FOBT1978 8849Gycgubsxdfjtv65/15/1979Diabetes: Retinopathy Oardifwfy61/15/1989 Diabetes: Hemoglobin A1C4003/30/2023, 03/30/2023, 01/25/2021, Additional history existsDiabetes: Urine Protein Sqtinypaa90/12/108765/02/2024, 03/30/2023 Influenza Vaccine (#1)2024 Procedures Procedure NamePriorityDate/TimeAssociated DiagnosisCommentsXR CERVICAL SPINE 2-3V11/06/2024 12:07 PM EDT MICROALBUMIN / CREATININE URINE KWDVDIxdwwyg87/12/2024 11:33 AM EST HEMOGLOBIN A1C WITH QPQAkekfng47/12/2024 11:33 AM EST from Last 3 Months or Most Recently Relevant to Health Maintenance Results * XR CERVICAL SPINE 2-3V (11/06/2024 12:07 PM EDT)Anatomical RegionLaterality ModalityOtherSpecimen (Source)Anatomical Location / LateralityCollection Method / VolumeCollection TimeReceived Time11/06/2024 12:07 PM EDT Narrative 11/06/2024 12:09 PM EDT [facility] ?[address] ? [place] [address] ?XRay Report ? Signed ? Patient: JONAS CARLOS ?MR#: [id number] ?? : 1980 ?Acct:[id number] ?? Age/Sex: 44 / M ?ADM Date: 11/06/24 ?? Loc: RAD ? Attending Dr: Gina Ramirez M.D. ? Ordering Physician: Gina Ramirez M.D. ?? Date of Service: 11/06/24 ?? Procedure(s): XR cervical spine 2-3V ?? Accession Number(s): [id number] ? cc: Gina Ramirez M.D. ? [facility] ? [address] ? [place] [address] ? Patient Name: ?? JONAS CARLOS ? MRN: [id number] ? date: 1980 ?Sex: M ?? Assigned Patient Location: RAD ?? Current Patient Location: RAD ?? Accession/Order Number: [id number] ?? Exam Date: 11/06/2024 ??12:05 ?Report Date: [...] Dictation Location: RADIO-PC-26 ? Electronically authenticated by: [id number] ??Y ?? Date: 11/06/2024 ??12:07 ? Dictated By: ?Ilan Cohen M.D. ? Signed By: ?11/06/249 ? DD/ 1207 ? TD/TT: ? Environmental Services Aide: Procedure Note Radiology, Radiologist, - 11/06/2024 [place] [address] XRay Report Signed Patient: JONAS CARLOS R#: [id number] : 1980Acct:[id number] Age/Sex: 44 / MADM Date: 11/06/24 Loc: [facility] Attending Dr: Gina Ramirez M.D. Ordering Physician: Gina Ramirez M.D. Date of Service: 11/06/24 Procedure(s): XR cervical spine 2-3V Accession Number(s): [id number] cc: Gina Ramirez M.D. The [place] [id number] Patient Name: JONAS CARLOS MRN: [id number] date: 1980 Sex: M Assigned Patient Location: RAD Current Patient Location: RAD Accession/Order Number: [id number] Exam Date: 11/06/2024 12:05 Report Date: 11/06/2024 [...] Cohen M.D. 11/06/2024 12:07 PM Dictation Location: [place] [address] Electronically authenticated by: [id number] Y Date: 2:07 Dictated By: Ilan Cohen M.D. Signed By:11/06/24 1209 DD/ 1207 TD/TT: Environmental Services Aide: Authorizing ProviderResult TypeResult Izabela Ramirez MDCLINISYNC IMAGING Final Result * (ABNORMAL) Hemoglobin a1c with eag (03/30/2023 11:33 AM EST)ComponentValueRef RangeTest MethodAnalysis TimePerformed AtPathologist SignatureHEMOGLOBIN A1C 10.5(H)4.3 - 5.6 %03/30/2023 1:10 PM [facility] CtrComment: Increased risk for diabetes: 5.7 - 6.4 diabetes: >6.4 glycemic control for adults with diabetes: <7.0 ESTIMATED AVERAGE OGHWIJC915bu/dL03/30/2023 1:10 PM [facility] CtrSpecimen (Source)Anatomical Location / LateralityCollection Method / VolumeCollection TimeReceived ZumzYvjle72/12/2024 11:33 AM EST03/30/2023 11:33 AM EST Narrative Authorizing ProviderResult TypeResult Izabela Ramirez [facility] BLOOD ORDERABLES Final ResultPerforming OrganizationAddressCity/State/ZIP CodePhone Number [facility] [address] [place] [address], [facility] [address] [place] [address] * (ABNORMAL) Microalbumin / creatinine urine ratio (03/30/2023 11:33 AM EST) ComponentValueRef RangeTest MethodAnalysis TimePerformed AtPathologist SignatureMICROALBUMIN, URINE2.1(H)0.0 - 1.8 mg/dL03/30/2023 1:[address] [facility] CtrCREATININE, URINE (RANDOM)115.0(H)14.0 - 26.0 mg/dL03/30/2023 1:31 PM [facility] MICROALBUMIN/CREATININE RATIO18.00.0 - 30.0 mg/g003/30/2023 1:[address] [facility] CtrComment: 30-300 mg/g indicates an increased risk for diabetic nephropathy. ??Greater than 300 mg/g is consistent with clinical nephropathy. ??(Am. J. Kidney Disease 1995, 25:107) Specimen (Source)Anatomical Location / LateralityCollection Method / Volume Collection TimeReceived TaitYpfnn85/12/2024 11:33 AM EST03/30/2023 11:33 AM EST Narrative Authorizing ProviderResult TypeResult StatusMarc Uli RINCONLAB URINE ORDERABLES Final ResultPerforming OrganizationAddressCity/[facility] CodePhone Number [facility] [address] [place] [address], [facility] [address] [place] [address] from Last 3 Months or Most Recently Relevant to Health Maintenance Insurance Care Teams Team MemberRelationshipSpecialtyStart DateEnd Date Gina Ramirez MD [address] [place] [address] PCP - Medical [place] [facility]03/19/2311 Gina Ramirez MD [address] [facility] [place] [address] [facility] Medicine05/22/24
--- OUTSIDE RECORDS SUMMARY | 2025-01-15 14:16 | XMS_ITS | Clinical Summary ---
Author Organization [facility] Address [address] [place] [address], [address] [place] [address] Care Team Providers Care Storekeeper Engineering Name Role Phone Jonas Pickard DO Primary Care Provider [phone] Allergies No known active allergies Medications MedicationSigDispense [...] by mouthActive Active Problems ProblemNoted DateDiagnosed DateTesticular likesicqfj41/16/2017Epididymitis 11/01/2016 Family History RelationNameStatusCommentsFatherAliveMaternal GrandfatherDeceasedMaternal GrandmotherAliveMotherAlivePaternal GrandfatherDeceasedPaternal Grandmother Social History Tobacco UseTypesPacks/DayYears UsedDateSmoking Tobacco: OuoecpMnhuwappqg312 Smokeless Tobacco: CurrentChew Tobacco Cessation:Ready to Q uit: Yes Alcohol UseStandard Drinks/WeekCommentsYes0 (1 standard drink = 0.6 oz pure alcohol)weeklySex and Gender InformationValueDate RecordedSex Assigned at Not on fileLegal JijSzuh1404/28/2012 7:39 PM ESTGender IdentityNot on fileSexual OrientationNot on file Last Filed Vital Signs Vital SignReadingTime TakenCommentsBlood Jymoddgu658/80011/13/2016 3:58 PM EDT Pulse--Gbutuvpmtyx27.9 ??C (98.5 ??F)11/13/2016 3:58 PM EDTRespiratory Rate-- Oxygen Saturation--Inhaled Oxygen Concentration--Fvuzfp196.2 kg (309 lb) 11/13/2016 3:58 PM IRHCrfbaj070.9 cm (6')11/13/2016 3:58 PM EDTBody Mass Index 41.9111/13/2016 3:58 PM EDT Plan of Treatment Not on file Insurance Care Teams Team MemberRelationshipSpecialtyStart DateEnd Date Jonas Pickrad DO [address] [place] [address] PCP - GeneralFamily Medicine11/13/16
--- OUTSIDE RECORDS SUMMARY | 2025-01-15 14:16 | XMS_ITS | Clinical Summary ---
Author Organization [facility] [facility] Address [id number] [address] [place] [address] Care Team Providers Care Field Map Editor Name Role Phone Salbador Mcnalyl MD Primary Care Provider [phone] Allergies No known active allergies Medications MedicationSigDispense [...] UseTypesPacks/DayYears UsedDateSmoking Tobacco: FormerSmokeless Tobacco: CurrentSnuffAlcohol UseStandard Drinks/DxjiEbyssbzdGrk14 (1 standard drink = 0.6 oz pure alcohol)ChildcareAnswerDate DiiswvziYagmukputDfvidbg26/12/2019Employment AnswerDate FoctytxtYpxjlbwhdvGhfrcke77/12/2019Sex and Gender InformationValue Date RecordedSex Assigned at BirthNot on fileLegal DcnUoxm2610/22/2014 11:56 AM EDTGender IdentityNot on fileSexual OrientationNot on file Last Filed Vital Signs Vital SignReadingTime TakenCommentsBlood Yyaeyqdk456/7807 3:29 PM EDT Pulse--Otzljrlpnqo08.8 ??C (96.4 ??F)10/14/2020 9:46 AM EDTRespiratory Rate-- Oxygen Saturation--Inhaled Oxygen Concentration--Ybiugk923.1 kg (322 lb) 10/14/2020 9:46 AM XRUQvulwe881.9 cm (6')10/14/2020 9:46 AM EDTBody Mass Index 43.67010/14/2020 9:46 AM EDT Plan of Treatment Health MaintenanceDue DateLast DoneCommentsDepression Lefesxbai09/15/1991Tobacco Skdpxsmlr31/15/1991Adult BMI Eubigpjni84/15/1997DTaP,Tdap and Td Vaccines (1 - Tdap)1997Influenza Zzablsg0311/17/2024 Medical Devices Not on file Insurance Care Teams Team MemberRelationshipSpecialtyStart DateEnd Date Salbador Mcnally MD PCP - GeneralFamily Medicine09/02/20
--- OUTSIDE RECORDS SUMMARY | 2025-01-15 14:18 | XMS_ITS | CCD ---
Author Organization [facility] CliniSyri Care Team Providers Care Railroad Signal Operator Name Role Phone DORON MONTAÑO Unavailable Unavailable KARMEN LUNDBERG Unavailable Unavailable DORON MONTAÑO Unavailable Unavailable KARMEN LUNDBERG Unavailable Unavailable Salbador Ramirez Primary Care Provider [phone] [address], DR SALBADOR [facility] Unavailable [...] Unavailable MD Salbador Ramirez Primary Care Provider [phone] MD Salbador Ramirez Attending Provider Salbador Ramirez MD Primary Care Provider [phone] Salbador Ramirez MD Attending Provider [phone] Salbador Ramirez Attending Unavailable Salbador Ramirez Primary Care Unavailable Salbador Ramirez Admitting Unavailable Salbador Ramirez MD Unavailable Salbador Ramirez MD Primary Care Provider SALBADOR RAMIREZ Attending Unavailable SALBADOR RAMIREZ Attending Unavailable Salbador Ramirez MD Primary Care Provider Salbador Ramirez MD Attending Provider Medications Current Medications MedicationDrug Class(es)DatesSig (Normalized)Sig (Original)acetaminophen 500 mg oral tablet (12 sources)Start: 01-31-2022 End: 06-69-4324btmx 2 tablets by mouth every six hours as needed for pain, then take 1-2 tablets by mouth every six hours as needed for painacetaminophen (TYLENOL) 500 mg tablet Take 2 tablets by mouth every 6 hours for 5 days, THEN 1-2 tablets every 6 hours as needed for pain for up to 10 days. 90 tablet 0 01/31/2022 02/15/2022 ActiveStart: 07-65-6955mxfi 2 tablets by mouth every four hours [...] mg oral tablet (10 sources)HMG-CoA Reductase InhibitorStart: 62-13-0360npcp 1 tablet by mouth once daily at bedtimeAtorvastatin 40 mg tablet Active 40 MG PO Daily at bedtime December 15, 2024 12:00am Complies with drug therapyStart: 51-34-6724kkfx 1 tablet by mouth at bedtimeatorvastatin (Lipitor) 40 MG tablet Indications: Type 2 diabetes mellitus with microalbuminuria, without long-term current use of insulin (HCC) Take 1 tablet (40 mg) by mouth at bedtime 30 tablet 11 09/11/2023 Activeatorvastatin (LIPITOR) 40 mg tablet Take 40 mg by mouth. 0 ActiveComment on above:Take 40 mg by mouth.celecoxib 200 mg oral capsule (4 sources)Nonsteroidal Anti-inflammatory DrugStart: 51-08-1633ygln 1 capsule by mouth twice daily at mealtimeCelecoxib 200 mg capsule Active 200 MG PO Twice daily December 15, 2024 12:00am Take with food Complies with drug therapy Start: 15-55-3230tlct 1 capsule by mouth in the morningcelecoxib (CeleBREX) 200 MG capsule Indications: Cervical spondylosis with radiculopathy Take 1 capsule (200 mg) by mouth in the morning and 1 capsule (200 mg) before bedtime. Take with food. 60 capsule 3 11/04/2024 ActiveglipiZIDE 10 mg oral tablet (11 sources)SulfonylureaStart: 12-15-2024 End: 73-65-2404ctfo 2 tablets by mouth twice dailyGlipizide 10 mg tablet Active 20 MG PO Twice daily 60 December 18, 2024 9:32am Complies with drug therapy Start: 35-44-8421jovf 2 tablets by mouth twice dailyglipiZIDE (Glucotrol) [...] tablet (7 sources)Nonsteroidal Anti-inflammatory DrugStart: 01-31-2022 End: 54-95-3037bfhj 3 tablets by mouth every eight hours [...] oral tablet (10 sources)Angiotensin Converting Enzyme InhibitorStart: 35-96-9107zogf 1 tablet by mouth once dailyLisinopril 30 mg tablet Active 30 MG PO Daily December 15, 2024 12:00am Complies with drug therapyStart: 47-62-6316nxeo 1 tablet by mouth once daily in [...] mg extended release oral tablet (10 sources)BiguanideStart: 30-29-3615rrwv 1 tablet by mouth twice daily Metformin 500 mg tablet extended release 24hr Active 1000 MG PO Twice daily December 15, 2024 12:00am Complies with drug therapyStart: 97-07-9436jkfp 2 tablets by mouth twice dailymetFORMIN XR (Glucophage-XR) 500 MG 24 hr tablet Indications: Type 2 diabetes mellitus with hyperglycemia (HCC) TAKE 2 TABLETS BY MOUTH TWICE DAILY 120 tablet 5 04/22/2024 ActiveStart: 95-13-2983uubs 1 tablet by mouth twice dailymetFORMIN ER (GLUCOPHAGE XR) 500 mg 24 hr tablet Take 1 tablet by mouth twice daily. 0 02/07/2021 ActiveComment on above:Take 1 tablet by mouth twice daily.ondansetron 4 mg oral tablet (1 source)Serotonin-3 Receptor AntagonistStart: 01-31-2022 End: 51-53-9913bcnu 1 tablet by mouth every eight hours [...] mL injection (DEFINITY) (3 sources)Start: 03-02-2021 End: 54-92-6490zfdzewhfdy lipid microspheres 1.3 mL in NaCl (PF) 0.9% 10 mL injection (DEFINITY)pioglitazone 45 mg oral tablet (10 sources)Peroxisome Proliferator Receptor alpha Agonist, Peroxisome Proliferator Receptor gamma Agonist, ThiazolidinedioneStart: 73-66-4041vqng 1 tablet by mouth once dailyPioglitazone 45 mg tablet Active 45 MG PO Daily December 15, 2024 12:00am Complies with drug therapyStart: 86-75-4431chrf 1 tablet by mouth once daily in [...] 15 mg by mouth once daily. sennosides, skilled nursing 8.6 mg oral tablet (2 sources)Start: 01-31-2022 End: 49-32-7941kmeq 1 tablet by mouth every twelve hours as neededsenna (SENOKOT) 8.6 mg tab Take 1 tablet by mouth twice daily as needed for constipation for up to 15 days. 30 tablet 0 01/31/2022 02/15/2022 ActiveComment on above:Take 1 tablet by mouth twice daily as needed for constipation for up to 15 days.125 ml sodium chloride 9 mg/ml prefilled syringe (3 sources)Start: 03-02-2021 End: 27-38-2963itpmqn chloride 0.9 % (flush) 10 mL (BD POSIFLUSH) Completed/Discontinued Medications MedicationDrug Class(es)DatesSig (Normalized)Sig (Original)alpha lipoic acid- biotin 600 mg- 450 mcg TbER (5 sources)alpha lipoic acid-biotin 600 mg- 450 mcg TbER Take by mouth. 0 Active Comment on above:Take by mouth.cephalexin 500 mg oral capsule (5 sources)Cephalosporin AntibacterialStart: 46-48-7858nexlIXUZji (KEFLEX) 500 mg capsule Take 1 capsule daily for 10 days 20 capsule 0 02/18/2021 Active Comment on above:Take 1 capsule daily for 10 dayscholecalciferol 0.05 mg oral tablet (5 sources)Vitamin DStart: 12-15-2024 End: 97-03-3061hpxy 1 tablet by mouth once dailyCholecalciferol (Vitamin D3) 50 mcg (2,000 unit) tablet Discontinued 50 MCG PO Daily December 15, 2024 12:00am December 30, 2024 2:57pmtake 1 tablet by mouth in the morning cholecalciferol (Vitamin D-3) 50 MCG (2000 UT) tablet Take 2,000 Units by mouth in the morning. Activedapagliflozin 10 mg oral tablet (8 sources)Sodium-Glucose Cotransporter 2 Inhibitor End: 00-38-7158ljec 10 mg by mouth in the morningdapagliflozin (Farxiga) 10 MG Take 10 mg by mouth in the morning. 11/04/2024 DiscontinuedComment on above:Take by mouth daily with breakfast.docusate sodium 100 mg oral capsule (5 sources)Start: 82-34-8722lwmk 1 capsule by mouth every twelve hours as needed docusate sodium (COLACE) 100 mg capsule Take 1 capsule by mouth twice daily as needed for constipation. 10 capsule 0 03/07/2021 ActiveComment on above:Take 1 capsule by mouth twice daily as needed for constipation.oxyCODONE hydrochloride 5 mg oral tablet (3 sources)Opioid AgonistStart: 72-28-4520vbom 1 tablet by mouth every six hours as needed for painoxyCODONE IR (ROXICODONE) 5 mg immediate release tablet Indications: Acute post-operative pain Take1 tablet by mouth every 6 hours as needed for pain. 5 tablet 0 01/31/2022 ActiveComment on above:Take 1 tablet by mouth every 6 hours as needed for pain.pregabalin 75 mg oral capsule (4 sources)Start: 11-04-2024 End: 56-09-8933zfyk 1 capsule by mouth twice dailyPregabalin 75 mg capsule Discontinued 75 MG PO Twice daily December 15, 2024 12:00am December 30, 2024 2:57pm0.25 mg, 0.5 mg dose 1.5 ml semaglutide 1.34 mg/ml pen injector (3 sources)Start: 04-02-2023 End: 67-52-9753pbgiowxgwix (Ozempic, 0.25 or 0.5 MG/DOSE,) 2 MG/1.5ML [...] diabetes mellitus with other diabetic kidney complication]Onset: 840620-84-1050Eughgyk Diabetes mellitus without complication (6 sources)Type 2 diabetes mellitus without complication; Translations: [Type 2 diabetes mellitus without complications]Onset: hronic Disorders of lipid metabolism (11 sources)Hyperlipidemia; Translations: [Hyperlipidemia, unspecified]Onset: 790112-93-6393IxgoudeKxrtjuswi hypertension (13 sources)Hypertensive disorder; Translations: [Essential (primary) hypertension]Onset: 589112-86-0303NiihzxiQsclomybvqr deficiencies (5 sources)Vitamin D deficiency; Translations: [Vitamin D deficiency, unspecified]Onset: 683883-88-2849ImsxianBemue and unspecified benign neoplasm (1 source)Other benign neoplasm of skin of trunk; Translations: [Dermatofibroma of back]Onset: 48-12-2206TdgarerhXdtgq injuries and conditions due to external causes (1 source)Unspecified injury of muscle(s) and tendon(s) of the rotator cuff of right shoulder, initial encounter; Translations: [Unspecified injury of muscle(s) and tendon(s) of the rotator cuff of right shoulder, initial encounter]Onset: 15-38-7655NoltmzjaRoxrj injuries and conditions due to external causes (1 source)Injury of tendon of the rotator cuff of shoulder; Translations: [Unspecified injury of muscle(s) and tendon(s) of the rotator cuff of right shoulder, initial encounter]93-82-3564SftspwttHvngu nutritional; endocrine; and metabolic disorders (10 sources)Severe obesity; Translations: [Morbid (severe) obesity due to excess calories]Onset: 669123-78-9420FlcdbtjBmpmq nutritional; endocrine; and metabolic disorders (1 source)Morbid (severe) obesity due to excess calories; Translations: [MORBID SEVERE OBES D/T EXCESS DANIKA]Onset: 76-86-8364IjqwkoiHdral nutritional; endocrine; and metabolic disorders (1 source)Body mass index (BMI) 40.0-44.9, adult; Translations: [BODY MASS INDEX BMI 40.0-44.9 ADULT]Onset: 60-15-9741LwlgsgqFmjqrxdu codes; unclassified (5 sources)Obstructive sleep apnea syndrome; Translations: [Obstructive sleep apnea (adult) (pediatric)]Onset: 308677-27-8178BwpnnylWunhyyhb codes; unclassified (1 source)Postoperative state; Translations: [Other specified postprocedural states]EpisodicSpondylosis; intervertebral disc disorders; other back problems (11 sources)Degeneration of thoracic intervertebral disc; Translations: [Other intervertebral disc degeneration, thoracic region]Onset: 850551-31-6894 ChronicUnclassified (1 source)CONTACT W/AND (SUSP) EXPOS COVID-19; Translations: [CONTACT W/AND (SUSP) EXPOS COVID-19]Onset: 10-08-2020 Past or Other Problems Problem ClassificationProblemDateDocumented DateEpisodic/ChronicComplications of surgical procedures or medical care (5 sources)Difficult intubation; Translations: [Failed or difficult intubation, subsequent encounter]Onset: 390321-65-0924BmmvewnpIxrowuwqobkd conditions of male genital organs (2 sources)Orchitis; Translations: [Epididymitis]Onset: 93-62-6798ZnqjvllaGofjj aftercare (1 source)senior care (current) use of oral hypoglycemic drugs; Translations: [PENITENTIARY USE ORAL HYPOGLYCEMIC DX]Onset: 22-16-6114HykvxaypSairr aftercare (1 source)Other fdc (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 therapy; Translations: [OTH PENITENTIARY CURRENT DRUG THERAPY]Onset: 26-25-0850FxewciyuAvjpa injuries and conditions due to external causes (4 sources)Injury of right rotator cuff; Translations: [Unspecified injury of muscle(s) and tendon(s) of the rotator cuff of right shoulder, initial encounter]Onset: 254797-21-4861MzmkusplCnvum nervous system disorders (6 sources)Acute postoperative pain; Translations: [Other acute postprocedural pain]Onset: 204972-19-4088EpkgzmduXtjwu non-epithelial cancer of skin (4 sources)Malignant neoplasm of scalp; Translations: [Other specified malignant neoplasm of skin of scalp andneck]Onset: 03-98-2888NoognyozGuiwt non-traumatic joint disorders (4 sources)Derangement of right shoulder joint; Translations: [Other specific joint derangements of right shoulder, not elsewhere classified]Onset: 05-22-2024 Resolved: 479135-65-2091AjtajsjDmues skin disorders (3 sources)Epidermal cyst; Translations: [EPIDERMAL CYST]Onset: 10-06-2020 EpisodicOther skin disorders (1 source)Pilar cyst; Translations: [PILAR CYST]Onset: 91-99-3356Ndkkvvqj Residual codes; unclassified (5 sources)History of clinical finding in subject; Translations: [Personal history of other specified conditions]Onset: 760585-30-8618Iybssmju Residual codes; unclassified (1 source)Other specified postprocedural states; Translations: [S/P flap graft] Onset: 08-36-2672TkorwlzmIklramvyx and history of mental health and substance abuse codes (5 sources)Ex-smoker; Translations: [Personal history of nicotine dependence] Onset: 426964-78-1769Vdzxqqzl Results Test NameValueInterpretationReference RangeFacilityXR CERVICAL SPINE 2-3Von 58-26-7672[address] [place] [address] XRay Report Signed Patient: KARMEN CARLOS MR#: [id number] : 1980 Acct:[id number] Age/Sex: 44 / M ADM Date: 11/06/24 Loc: [facility] Attending Dr: Salbador Ramirez M.D. Ordering Physician: Salbador Ramirez M.D. Date of Service: 11/06/24 Procedure(s): XR cervical spine 2-3V Accession Number(s): [id number] cc: Salbador Ramirez M.D. [place] [id number] Patient Name: KARMEN CARLOS MRN: [facility]:[id number] date: 1980 Sex: M Assigned Patient Location: [facility] Current Patient Location: [facility] Accession/Order Number: [id number] Exam Date: 11/06/2024 12:05 Report Date: 11/06/2024 [...] Cohen M.D. 11/06/2024 12:07 PM Dictation Location: [place] [address] Electronically authenticated by: [id number] Y Date: 11/06/2024 12:07 Dictated By: Ilan Cohen M.D. Signed By: 11/06/24 1209 DD/ 120 TD/TT: Information Security Manager:TBHRadiology, Radiologist, - 11/06/2024 [facility] [place] [id number] XRay Report Signed Patient: KARMEN CARLOS MR#: [id number] : 1980 Acct:[id number] Age/Sex: 44 / M ADM Date: 11/06/24 Loc: RAD Attending Dr: Salbador Ramirez M.D. Ordering Physician: Salbador Ramirez M.D. Date of Service: 11/06/24 Procedure(s): XR cervical spine 2-3V Accession Number(s): [id number] cc: Salbador Ramirez M.D. [place] [id number] Patient Name: KARMEN CARLOS MRN: [id number] date: 1980 Sex: M Assigned Patient Location: [facility] Current Patient Location: RAD Accession/Order Number: [id number] Exam Date: 11/06/2024 12:05 Report Date: 11/06/2024 [...] Cohen M.D. 11/06/2024 12:07 PM Dictation Location: [place] [address] Electronically authenticated by: [id number] Y Date: 11/06/2024 12:07 Dictated By: Ilan Cohen M.D. Signed By: 11/06/24 1209 DD/ 1207 TD/TT: Information Security Manager: [facility] HealthcareRadiology Study observation (narrative)[facility] HealthcareXR CERVICAL SPINE 2-3VOrdered By: Radiologist Radiology on 24-65-4646[facility] Work Phone: X-ray reportOrdered By: Giancarlo Wolf on 05-28-2024 Study reportC[facility] [place] [address] XRay Report Signed Patient: Karmen Carlos MR#: [id number] : 1980 Acct:[id number] Age/Sex: 43 / M ADM Date: 5 Loc: XD Room: Type: [facility] CLI Attending Dr: Salbador Ramirez MD [...] Steven Rivera Jr..ONatalia05/28/2024 4:12 PM Dictation Location: [place] [address] Transcribed By: [facility] 05/28/24 161 Dictated By: Giancarlo Wolf Jr, DO 05/28/24 1611 Signed By: 05/28/24 1612 [facility] Valley HospitalXR shoulder RT min 2V*on 17-58-2299NV shoulder RT min 2V*[facility] [place] [address] XRay Report Signed Patient: Karmen Carlos MR#: [id number] : 1980 Acct:[id number] Age/Sex: 43 / M ADM Date: 05/28/24 Loc: XD Room: Type: [facility] CLI Attending Dr: Salbador Ramirez MD [...] Jr, DO 05/28/24 161 Signed By: 05/28/24 161NoOnslow Memorial Hospital Physician GroupAlanine aminotransferase [Enzymatic activity/volume] in Serum or PlasmaOrdered By: Salbador Ramirez on 14-94-8501ZHJ [Catalytic activity/Vol]35 U/L7-52[facility] HospitalAlbumin [Mass/volume] in Serum or Plasma by Bromocresol green (BCG) dye binding methoOrdered By: Salbador Ramirez on 25-43-6389Plkeyfq BCG dye [Mass/Vol]4.6 g/dL3.5-5.7FSelect Medical Specialty Hospital - TrumbullAlkaline phosphatase [Enzymatic activity/volume] in Serum or PlasmaOrdered By: Salbador Ramirez on 72-58-4442GGP [Catalytic activity/Vol]56 U/D17-694UlogdjnudBlanchard Valley Health System Blanchard Valley HospitalAspartate aminotransferase [Enzymatic activity/volume] in Serum or PlasmaOrdered By: Salbador Ramirez on 65-34-4604XOS [Catalytic activity/Vol]24 U/X21-00UudrwdbiqBlanchard Valley Health System [facility]anchard Valley HospitalBand form neutrophils/100 WBC Manual cnt (Bld)Ordered By: Salbador Ramirez on 73-22-0801Kgcm form neutrophils/100 WBC (Bld)8 %0-5FSelect Medical Specialty Hospital - TrumbullBasophils Auto (Bld) [#/Vol]Ordered By: Salbador Ramirez on 03-30-2023 Basophils (Bld) [#/Vol]N/AFSelect Medical Specialty Hospital - TrumbullBasophils/100 WBC Auto (Bld)Ordered By: Salbador Ramirez on 58-88-0899Zlxfgsldm/100 WBC (Bld)N/A [facility] HospitalBasophils/100 WBC Manual cnt (Bld)Ordered By: Salbador Ramirez on 18-20-3691Spzhlqzdo/100 WBC (Bld)1 %0-2FSelect Medical Specialty Hospital - TrumbullBilirubin.direct [Mass/volume] in Serum or PlasmaOrdered By: Salbador Ramirez on 26-61-9708Cwvzmlwvw.direct [Mass/Vol]0.10 mg/dL0.03-0.18Fire[facility] Regional Medical CenterBilirubin.total [Mass/volume] in Serum or PlasmaOrdered By: Salbador Ramirez on 16-05-9949Chucdhiue [Mass/Vol]0.7 mg/dL0.3-1.0[facility] HospitalCalcium [Mass/volume] in Serum or PlasmaOrdered By: Salbador Ramirez on 99-78-4004Jetowmw [Mass/Vol]10.2 mg/dL8.6-10.3FSelect Medical Specialty Hospital - TrumbullCarbon dioxide, total [Moles/volume] in Serum or PlasmaOrdered By: Salbador Ramirez on 85-76-4975UA7 [Moles/Vol]22.3 mmol/L21.0-31.0[facility] HospitalChloride [Moles/volume] in Serum or PlasmaOrdered By: Salbador Ramirez on 10-93-7408Ygqjkehe [Moles/Vol]105 mmol/K70-248CmimijnbtBlanchard Valley Health System [facility] Valley HospitalCholesterol [Mass/volume] in Serum or PlasmaOrdered By: Salbador Ramirez on 29-83-1609Lniadwhxstw [Mass/Vol]140 mg/sL747-333WdwhaaxtcBlanchard Valley Health System Blanchard Valley HospitalComment on above:Chol less than 200 mg/dl low riskChol 201-239 mg/dl borderline riskChol 240 mg/dl and greater high riskCholesterol in LDL Calc [Mass/Vol]Ordered By: Salbador Ramirez on 52-54-0066Kbhmyhzlunn in LDL [Mass/Vol] TNPBlanchard Valley Health System Blanchard Valley HospitalComment on above:Test not performed Cholesterol in LDL [Mass/volume] in Serum or PlasmaOrdered By: Salbador Ramirez on 73-65-8478Azvdkpakfbf in LDL [Mass/Vol]56 mg/dL0-100[facility] Valley HospitalComment on above:LDL ATP III CLASSIFICATIONLDL less than 100 mg/dL OptimalLDL 100-129 mg/dL Near or above frgeqxtQYG807-743 mg/dL Borderline highLDL 160-189 mg/dL HighLDL greater than 189 mg/dL Very highCholesterol in VLDL Calc [Mass/Vol]Ordered By: Salbador Ramirez on 89-68-2056Zaixgadmtou in VLDL [Mass/Vol]93 mg/dLBlanchard Valley Health System [facility] Valley HospitalCreatinine [Mass/volume] in Serum or PlasmaOrdered By: Salbador Ramirez on 24-74-5839Cpzqxosvmb [Mass/Vol]0.82 mg/dL0.70-1.30[facility] HospitalCreatinine [Mass/volume] in Urine Ordered By: Salbador Ramirez on 28-13-7567Wuntzltdei (U) [Mass/Vol]115.0 mg/dL 14.0-26.0[facility] Valley HospitalEosinophils Auto (Bld) [#/Vol]Ordered By: Salbador Ramirez on 05-50-9025Joutaaedwby (Bld) [#/Vol]N/[facility] HospitalEosinophils/100 WBC Auto (Bld)Ordered By: Salbador Ramirez on 06-13-1333Mojcotsljqm/100 WBC (Bld)N/[facility] Eosinophils/100 WBC Manual cnt (Bld)Ordered By: Salbador Ramirez on 03-30-2023 Eosinophils/100 WBC (Bld)1 %1-3FSelect Medical Specialty Hospital - TrumbullErythrocyte distribution width Auto (RBC) [Ratio]Ordered By: Salbador Ramirez on 03-30-2023 Erythrocyte distribution width (RBC) [Ratio]12.7 %12.0-14.8[facility] Valley HospitalGiant platelets/100 leukocytes [Ratio] in Blood by Manual count Ordered By: Salbador Ramirez on 40-94-1844Agfhl platelets/100 WBC Manual cnt (Bld) [Ratio]1 /100{WBC}[facility] Valley HospitalGlobulin Calc (S) [Mass/Vol] Ordered By: Salbador Ramirez on 19-55-2701Xllqwlhz (S) [Mass/Vol]2.3 g/dLBlanchard Valley Health System Blanchard Valley HospitalGlucose [Mass/volume] in Serum or PlasmaOrdered By: Salbador Ramirez on 24-93-9728Qqzhnfr [Mass/Vol]161 mg/gF27-023YfngllrggBlanchard Valley Health System Blanchard Valley HospitalComment on above:ADA recommended reference rangeRandom Glucose Reference Range is dependent on time and content of last meal. Glucose of more than 200 mg/dL in a nonstressed, ambulatory subject supports the diagnosisof Diabetes Mellitus.Glucose mean value [Mass/volume] in Blood Estimated from glycated hemoglobinOrdered By: Salbador Ramirez on 89-83-3068Vdhxdfx glucose Estimated from glycated hemoglobin (Bld) [Mass/Vol]255 mg/dLBlanchard Valley Health System [facility] Hematocrit Auto (Bld) [Volume fraction]Ordered By: Salbador Ramirez on 03-30-2023 Hematocrit (Bld) [Volume fraction]46.1 %38.8-50.0[facility] HospitalHemoglobin A1c percentageOrdered By: Salbador Ramirez on 60-63-0273BgM9v (Bld) [Mass fraction]10.5 %4.3-5.6FSelect Medical Specialty Hospital - TrumbullComment on above: Increased risk for diabetes: 5.7 - 6.4diabetes: >6.4glycemic control for adults with diabetes: <7.0Hemoglobin [Mass/volume] in BloodOrdered By: Salbador Ramirez on 87-62-2258Xfmrzbpgwo (Bld) [Mass/Vol]15.9 g/dL13.0-17.0[facility] HospitalLeukocytes [#/volume] corrected for nucleated erythrocytes in Blood by Automated counOrdered By: Salbador Ramirez on 66-03-6401RLE corrected for nucl RBC Auto (Bld) [#/Vol]5.2 10*3/uL4.1-10.5FSelect Medical Specialty Hospital - Trumbull Lymphocytes Auto (Bld) [#/Vol]Ordered By: Salbador Ramirez on 89-57-0040Jyhbuvciigo (Bld) [#/Vol]N/[facility] HospitalLymphocytes/100 WBC Auto (Bld) Ordered By: Salbador Ramirez on 91-87-8113Lzmdypcyocd/100 WBC (Bld)N/[facility] HospitalLymphocytes/100 WBC Manual cnt (Bld)Ordered By: Salbador Ramirez on 62-04-2701Tnqmgxvsfpj/100 WBC (Bld)24 %18-42[facility] HospitalH Auto (RBC) [Entitic mass]Ordered By: Salbador Ramirez on 41-22-8501XMF (RBC) [Entitic mass]29.6 pg27.5-35.2FSelect Medical Specialty Hospital - TrumbullMCHC Auto (RBC) [Mass/Vol]Ordered By: Salbador Ramirez on 49-46-4612QNGV (RBC) [Mass/Vol]34.5 g/dL32.5-35.6FSelect Medical Specialty Hospital - TrumbullMCV Auto (RBC) [Entitic vol]Ordered By: Salbador Ramirez on 56-20-6233FZL (RBC) [Entitic vol]85.9 fL83.5-101[facility] HospitalMicroalbumin [Mass/volume] in Urine Ordered By: Salbador Ramirez on 69-81-9426Eorpfeg DL <= 20 mg/L (U) [Mass/Vol]2.1 mg/dL0.0-1.8[facility] HospitalMonocytes Auto (Bld) [#/Vol]Ordered By: Salbador Ramirez on 09-60-6364Vljqehkhd (Bld) [#/Vol]N/[facility] HospitalMonocytes/100 WBC Auto (Bld)Ordered By: Salbador Ramirez on 03-30-2023 Monocytes/100 WBC (Bld)N/[facility] HospitalMonocytes/100 WBC Manual cnt (Bld)Ordered By: Salbador Ramirez on 78-24-8174Xdjpmerhe/100 WBC (Bld)13 %2-11[facility] HospitalNeutrophils Auto (Bld) [#/Vol]Ordered By: Salbador Ramirez on 03-86-2943Momqkgdszim (Bld) [#/Vol]N/[facility] HospitalNeutrophils/100 WBC Auto (Bld)Ordered By: Salbador Ramirez on 03-30-2023 Neutrophils/100 WBC (Bld)/[facility] HospitalNo Panel InformationOrdered By: Salbador Ramirez on 50-56-8948Wojzyytnx GFR (CKD-EPI)> 60.0 mL/MinBlanchard Valley Health System [facility]ard Valley HospitalPharmacy Creatinine Clearance (ChemN/A [facility] HospitalNucleated erythrocytes [Presence] in Blood by Automated countOrdered By: Salbador Ramirez on 08-54-4067Qxcdfslnu RBC Auto Ql (Bld) N/[facility]man HospitalPlatelet adequacy [Presence] in Blood by Light microscopyOrdered By: Salbador Ramirez on 61-42-7813Ypsorcgii LM Ql (Bld) NormalNoCoshocton Regional Medical CenterPlatelet mean volume Auto (Bld) [Entitic vol]Ordered By: Salbador Ramirez on 88-76-5848Raxnttuh mean volume (Bld) [Entitic vol]9.6 fL6.6-10.1FSelect Medical Specialty Hospital - TrumbullPlatelet morphology finding [Identifier] in BloodOrdered By: Salbador Ramirez on 37-65-1175Jnqvyiru morphology finding Nom (Bld)NormalNoCoshocton Regional Medical Center Platelets Auto (Bld) [#/Vol]Ordered By: Salbador Ramirez on 47-27-4473Acpwmibqm (Bld) [#/Vol]149 10*3/hL798-425RcoysjsnlBlanchard Valley Health System Bl[facility] Valley HospitalPotassium [Moles/volume] in Serum or PlasmaOrdered By: Salbador Ramirez on 40-86-4701Jqwfgiygr [Moles/Vol]4.5 mmol/L3.5-5.1FSelect Medical Specialty Hospital - TrumbullProtein [Mass/volume] in Serum or PlasmaOrdered By: Salbador Ramirez on 92-65-7253Chrskng [Mass/Vol]6.9 g/dL6.4-8.9[facility] Valley HospitalRBC Auto (Bld) [#/Vol] Ordered By: Salbador Ramirez on 90-16-6393WWC (Bld) [#/Vol]5.37 10*6/uL3.90-5.60 [facility] HospitalRBC morphologyOrdered By: Salbador Ramirez on 66-81-2769EBR morphology finding Nom (Bld)NormalDayton Children's Hospitalegmented neutrophils/100 WBC Manual cnt (Bld)Ordered By: Salbador Ramirez on 32-08-9108Nmkegwszy neutrophils/100 WBC (Bld)51 %50-70[facility] Centererum or plasma albumin/globulin mass ratioOrdered By: Salbador Ramirez on 48-79-3818Hdkcmmh/Globulin [Mass ratio]2.0 {ratio}[facility] Centererum or plasma anion gap determinationOrdered By: Salbador Ramriez on 34-87-0869Falpg gap [Moles/Vol]14.2 mmol/L6.0-15.0[facility] Centererum or plasma high density lipoprotein (HDL) cholesterol measurement Ordered By: Salbador Ramirez on 87-23-4548Rbbqtfbwquz in HDL [Mass/Vol]24 mg/dL23-92 [facility] Valley HospitalComment on above:HDL CHOL ATP-III CLASSIFICATION Cardiovascular RiskHDL > or equal to 60 mg/dL LOWHDL < 40 mg/dL HIGHSerum or plasma non-glucuronidated bilirubin measurement (mass/volume) Ordered By: Salbador Ramirez on 53-08-5605Viuafgadu.indirect [Mass/Vol]0.6 mg/dL [facility] Centererum or plasma total cholesterol/high density lipoprotein (HDL) cholesterol mass ratOrdered By: Salbador Ramirez on 03-30-2023 Cholesterol.total/Cholesterol in HDL [Mass ratio]5.8 {ratio}<5.0[facility] Medical Centerodium [Moles/volume] in Serum or PlasmaOrdered By: Salbador Ramirez on 20-05-4384Rjcpsd [Moles/Vol]137 mmol/E420-322IyjgmjocaBlanchard Valley Health System Bl[facility] Valley HospitalThyrotropin [Units/volume] in Serum or PlasmaOrdered By: Salbador Ramirez on 45-13-2208BDC Qn1.53 m[IU]/L0.45-5.33[facility] HospitalTriglyceride [Mass/volume] in Serum or PlasmaOrdered By: Salbador Ramirez on 02-95-0865Mtymsaaxhctc [Mass/Vol]467 mg/dL0-149[facility] Comment on above:If the triglyceride result [...] Serum or PlasmaOrdered By: Salbador Ramirez on 40-51-0326Xyrd nitrogen [Mass/Vol]26 mg/dL7-25[facility] Urine microalbumin/creatinine mass ratioOrdered By: Salbador Ramirez on 03-30-2023 Albumin/Creatinine DL <= 20 mg/L (U) [Mass ratio]18.0 mg/g0.0-30.0[facility] Valley HospitalComment on above:30-300 mg/g indicates an increased risk for diabetic nephropathy. Greater than 300 mg/g is consistent with clinical nephropathy. (Am. J. Kidney Disease 1995, 25:107)Variant lymphocytes/100 WBC Manual cnt (Bld)Ordered By: Salbador Ramirez on 50-86-0649Dmamtvk lymphocytes/100 WBC (Bld)3 %0-[facility] HospitalVitamin D+Metabolites [Mass/volume] in Serum or PlasmaOrdered By: Salbador Ramirez on 42-47-2604Rktikad D+Metabolites [Mass/Vol]28.2 ng/qR37-293WdtegdlxoBlanchard Valley Health System Bl[facility] Valley HospitalComment on above:VITAMIN D STATUS 25(OH)VITAMIN D RANGE (ng/mL) Deficient <20 Insufficient 20 to <98Eraszdhbtm62 to 100Reference: Fiaza MF,Christina KIMBLE, Marisol CASTILLO, et al. Evaluation,treatment, and prevention of vitamin D deficiency; an Endocrine Society clinical practice guideline. JCEM. 2010; 96 (7):1911-30.WBC Auto (Bld) [#/Vol]Ordered By: Salbador Ramirez on 74-82-9697JHB (Bld) [#/Vol]5.2 10*3/uL4.1-10.5FSelect Medical Specialty Hospital - TrumbullCNOVon 86-50-0348DXDWDwhahw Visit (CHUCKN) KARMEN CARLOS ([id number]) 1980 M Date Time Provider Department 09/12/22 [...] documentation for this note was completed by aYsmine Smith RN acting as scribe for Loki Basurto MD. September 12, 2022 5:37 PM. I agree with the Chief Complaint, ROS, and Past Histories independently gathered by the clinical business support liaison and the remaining scribed note accurately describes my personal service to the patient. Loki Basurto MD September 12, 2022 Referring Provider: LOKI BASURTO [[id number]] Allergies As of Date: 09/12/2022 (No Known [...] for Encounter Date Provider Department Center 09/12/2022 [id number] BASURTOBMN Mn A Bldg Encou (more content not included)...NormalMercy Health St. Elizabeth Boardman HospitalPNon 71-94-9776ZGFGXpmrfeiup (DPQ) KARMEN CARLOS ([id number]) 1980 M Date Time Provider Department 06/29/22 LOKI BASURTO DPQ During your visit today, we recorded the following information about you: Asia Sofie 06/29/2022 3:17 PM Signed Left VM / Sent SSN Logistics About getting a appt with per Staff [...] 03/07/2021 Encounter Status:Closed by ASIA CARRIZALES on 06/29/22[facility] [id number] (SP) Office (PLASCA) KARMEN CARLOS ([id number]) 1980 M Date Time Provider Department 02/13/22 9:00 AM CHANA CHANDRA During your visit today, we recorded the following information about you: Temperature Pulse Respiration Blood pressure 97.6 degrees 94/minute 20/minute 162/111 Chana Chandra APRN.AUTHORIZATION REP 02/13/2022 9:20 AM Signed Post-op Note DATE: [...] for the rest of his/her life Call [phone] or go to the Emergency Department if [...] doesn't work its way out Office number: [phone] (option 3) The patient is seen and examined by Chana Chandra APRN.CNP and the following reflects her service. Scribed by Citlaly Padgett RN I agree with the Chief Complaint, ROS, and Past Histories independently gathered by the clinical business support liaison and the remaining scribed note accurately describes [...] to help b (more content not included)... NormalVeterans Health AdministrationBRIEF OP NOTon 52-44-8199LAHRQ OP NOTHNO ID: [id number] Author: Agatha Rawls MD Service: Plastic Surgery Author Type: Resident Type: Brief Op Note Filed: 01/31/2022 8:38 AM Note Text: BRIEF OPERATIVE NOTE PLASTIC AND RECONSTRUCTIVE SURGERY LOG ID: [id number] Surgery/Procedure Date: 01/31/2022 Incision/Procedure Start Time: 8:04 AM Incision Close/Procedure End Time: 8:29 AM Surgeon(s)/Proceduralist(s) and Novelty Balloon Assembler And Packer(s): Surgeon(s) and Role: * Toan Chu MD [...] 31, 2022 TIME: 8:33 AM PAGER/CONTACT #: [phone] Clinic [place] HISTORY PHYSICALon 67-39-7224RBERKWU PHYSICALHNO ID: [id number] Author: Toan Chu MD Service: Plastic Surgery [...] of operative intervention and (more content not included)...NormalSum[facility] NOon 01-31-2022 OPERATIVE NOHNO ID: [id number] Author: Agatha Rawls MD Service: Plastic Surgery Author Type: Resident Type: Operative Report Filed: 01/31/2022 8:49 AM Note Text: Attestation signed by Toan Chu MD at 01/31/2022 9:26 AM Teaching statement: I was active and involved in all critical portions of the case. Toan Chu MD OPERATIVE REPORT PLASTIC AND RECONSTRUCTIVE SURGERY Log ID: [id number] Surgery/Procedure Date: 01/31/2022 Incision/Procedure Start Time: 8:04 AM Incision Close/Procedure End Time: 8:29 AM Surgeon(s)/Proceduralist(s) and Novelty Balloon Assembler And Packer(s): Surgeon(s) and Role: * Toan Chu MD [...] 31, 2022 TIME: 8:42 AM PAGER/CONTACT #: [facility] Eyad [phone] (DEION) KARMEN CARLOS ([id number]) 1980 M Date Time Provider Department 03/02/21 TOAN CHU During your visit today, we recorded the following information about you: Keya Nielsen Ma 03/02/2021 1:17 PM Signed Patient needs to have an echo done possibly before his surgery scheduled for Sunday03/07/2021. [facility] prefers to go [facility] the [facility] and on a Sunday if possible. Can you see what you can do? Kapil Alberts 03/02/2021 1:55 PM Signed Called and lm for pt. Scheduled only available echo (other than [place]) before 03/07/21. Pt is scheduled for 03/03/21 at [facility]. 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 [[id number]] Prescriptions as of 03/02/2021 - dapagliflozin (FARXIGA) [...] en*02/25/2021 Encounter Status:Closed by KAPIL ALBERTS on 03/02/21[facility] 61-23-4618SHHKLB HEALTHHNO ID: [id number] Author: LEEANN Roche Tech Service: Radiology Author Type: [facility] Psychiatrist Type: Allied Health Filed: 12/15/2020 3:50 PM [...] Completed: Head: Routine 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 No acute intracranial findings. Information Security Manager: MONISHA Transcribe Date/Time: Dec 15 2020 4:44P Dictated by : EVELYN JEROME DO This examination was interpreted and the report reviewed and electronically signed by: EVELYN JEROME DO on Dec 15 2020 4:56PM EST [id number] Steward Health Care SystemPOINT OF CARE GLUCOSEon 10-06-2020 Glucose [Mass/Vol]250 mg/dLCritically kzau85-563QhoClinton Memorial HospitalComment on above:Performed By: #### POCGLUC #### [facility] [address] [address] Fariba KarenGlucose [Mass/Vol]240 mg/dLCritically geej94-343ZrqClinton Memorial HospitalComment on above:Performed By: #### POCGLUC #### [facility] [address] [address] Fariba KarenGlucose [Mass/Vol]257 mg/dLCritically xmef68-769OqgClinton Memorial HospitalComment on above:Performed By: #### POCGLUC #### [facility] [address] [place] [address] Fariba KarenCovid-19 PCR (CVDTBH)on 01-52-0552QEAQ-CoV-2 (COVID-19) RNA SHAY+probe Ql (Unsp spec)Not detectedNormalNOT DETECTEDClinton Memorial Hospital Comment on above:Result Comment: This test is not yet approved or cleared by the [place] FDA. When there are no FDA-approved or cleared tests available, and other criteria are met, FDA can make tests available under an emergency access mechanism called an Emergency Use Authorization (EUA). The EUA for this test is supported by the Fire Coordinator of Health and Human Service's (HHS's) declaration [...] consistent with SARS-CoV-2.Performed By: #### CVDTBH #### [facility] [address] [place] [address] Fariba Herndon SCROTUM AND TESTICLESon 95-94-1525BQ SCROTUM AND TESTICLESFINAL REPORTEXAM: US SCROTUM AND [...] right hydrocele. Interpreted by:Katy MonsivaisSigned by:Katy Monsivais11/17/16Final resultNormalLakehealth Tripoint Medical CenterCult,Urine,CCon 92-12-3322Tgkl,Urine,CCSpecimen Description .URINE Performed at [address] [place] [address] Special Requests .CLEAN CATCH URINE Performed at [address] [place] [address] Culture NO SIGNIFICANT GROWTH Performed at [address] [address] Report Status FINAL 11/15/2016NormalLakehealth Tripoint Medical CenterComment on above: Performed By: #### CCUC ####[address] [place] [phone] [place] [address] Urinalysis w/ Microon 11-13-2016-----[facility]vue HospitalComment on above:Performed By: #### UAMIC ####[address] [place] [address] Acetaminophen mass concTRACE AbnormalNEGMerWooster Community Hospital HospitalComment on above:Performed By: #### UAMIC ####[address] [place] [address] Bilirubin (direct)NegativeNormalNEGMerWooster Community Hospital HospitalComment on above: Performed By: #### UAMIC ####[address] [place] [address] Hemoglobin mass conc (Bld)NegativeNormalNEGMerWooster Community Hospital HospitalComment on above:Performed By: #### UAMIC ####[address] [place] [address] Nitrite,UrNegativeNormalNEGMercy Alexander HospitalComment on above:Performed By: #### UAMIC ####[address] [place] [address] TurbidityCLEARNormal CLEARMercy Health St. Joseph Warren Hospitalcy Alexander HospitalComment on above:Performed By: #### UAMIC ####[address] [place] [address] Urine WBC's0 TO 2 Normal0-5Mercy Alexander HospitalComment on above:Performed By: #### UAMIC ####[address] [place] [address] Urine, colorYELLOWNormalYELMercy Alexander HospitalComment on above:Performed By: #### UAMIC ####[address] [place] [address] Urine, epithelial cells in sedimentNoneNormal0-5Mercy Alexander HospitalComment on above:Result Comment: Performed at [address] [place] [id number] Performed By: #### UAMIC ####[address] [place] [address] Urine, erythrocytes0 TO 2Zwhrqo9-8Qfnqy Alexander HospitalComment on above:Performed By: #### UAMIC ####[address] [place] [address] Urine, glucose presence3+AbnormalNEGMercy Alexander HospitalComment on above:Performed By: #### UAMIC ####[address] [place] [address] Urine, leukocyte esterase presenceNegativeNormalNEGMercy Alexander HospitalComment on above:Performed By: #### UAMIC ####[address] [place] [address] Urine, pH5.5 [pH]Normal 5.0-9.0Mercy Alexander HospitalComment on above:Performed By: #### UAMIC ####[address] [place] [address] Urine, protein presenceNegativeNormalNEGMercy Alexander HospitalComment on above:Performed By: #### UAMIC ####[address] [place] [address] Urine, specific gravity1.414Hdkjsa1.010-1.020Mercy Alexander HospitalComment on above:Performed By: #### UAMIC ####[address] [place] [address] Urobilinogen,UrNormalNormalNORM [facility] HospitalComment on above:Performed By: #### UAMIC ####[address] [place] [address] CommentNOT REPORTED NormalMercy Alexander HospitalComment on above:Performed By: #### UAMIC ####[address] [place] [address] Epithelial, Renal NOT NKUMYYTFHfnbun4Egxgu Alexander HospitalComment on above:Performed By: #### UAMIC ####[address] [place] [address] Mucus StrandsNOT REPORTEDNormalNONEMercy Alexander HospitalComment on above: Performed By: #### UAMIC ####[address] [place] [address] Other ObservationsNOT REPORTEDNormalNREQBlanchard Valley Health System [facility] Hospital Comment on above:Performed By: #### UAMIC ####[address] [place] [address] TrichomonasNOT REPORTEDNormalNONEMercy Alexander HospitalComment on above:Performed By: #### UAMIC ####[address] [place] [address] Urine, amorphous sediment presence in sedimentNOT REPORTEDNormalNONEMercy Alexander HospitalComment on above:Performed By: #### UAMIC ####[facility] [address] [place] [address] Urine, bacteria in sedimentNOT REPORTEDNormal NONEMercy Alexander HospitalComment on above:Performed By: #### UAMIC ####[address] [place] [address] Urine, casts in sedimentNOT REPORTEDNormalMercy Alexander HospitalComment on above:Performed By: #### UAMIC ####[address] [place] [address] Urine, crystals in sedimentNOT REPORTEDNormalNONEMeSouth Sunflower County Hospital HospitalComment on above:Performed By: #### UAMIC ####[address] [place] [address] Urine, yeast presence in sediment NOT REPORTEDNormalNONEMeSouth Sunflower County Hospital HospitalComment on above:Performed By: #### UAMIC ####[address] [place] [address] Vital Signs Date TimeVital SignValuePerforming RizjaeyzdUvechxgj82-22-7100 14:56-0400Body stduim267.88 cmSalbador Ramirez MD Work Phone: [phone] [place], [place] 6802810-14-2025 14:56-0400 Body mass index (BMI) [Ratio]42.7 kg/m2Salbador Ramirez MD Work Phone: [phone] [place], [place] 6802810-14-2025 14:56-0400 Body peiityxaunw02.5 [degF]Salbador Ramirez MD Work Phone: [phone] [place], [place] 6802810-14-2025 14:56-0400 Body mslukx544.88 kgSalbador Ramirez MD Work Phone: [phone] [place], [place] 6802810-14-2025 14:56-0400 Diastolic blood ywyyawkp63 mm[Hg]Salbador Ramirez MD Work Phone: [phone] [place], [place] 6802810-14-2025 14:56-0400 Heart kjzk794 /minSalbador Ramirez MD Work Phone: [phone] [place], [place] 6802810-14-2025 14:56-0400 Respiratory rate18 /minSalbador Ramirez MD Work Phone: [phone] [place], [place] 6802810-14-2025 14:56-0400 SaO2% (BldA) [Mass fraction]97 %Salbador Ramirez MD Work Phone: [phone] [place], [place] 6802810-14-2025 14:56-0400 Systolic blood ijugitkw131 mm[Hg]Salbador Ramirez MD Work Phone: 1(086)[address] [place], [place] 6802808-19-2025 15:04-0400 Body xfmxhi586.9 cmSalbador Ramirez MD Work Phone: [phone] [place], [place] [address]Yutsfepsmm26-87-1797 15:04-0400Body mass index (BMI) [Ratio]41.91 kg/m2Salbador Ramirez MD Work Phone: [phone] HospitalWwgxzvvbdq27-07-2234 15:04-0400Body temperature 97.5 [degF]Salbador Ramirez MD Work Phone: [facility] HospitalYwwoxanrai03-02-1765 15:04-0400Body .16 kgSalbador Ramirez MD Work Phone: [facility] HospitalWelevdluqy23-41-3325 15:04-0400Diastolic blood qxbcruyf14 mm[Hg]Salbador Ramirez MD Work Phone: [facility] HospitalPkigkfzqfk90-95-8165 15:04-0400Heart tyct668 /min Salbador Ramirez MD Work Phone: [address] [address]Hrrfhdzidw43-24-4693 15:04-0400Respiratory rate22 /minSalbador Ramirez MD Work Phone: [address] [address]Zelbhrdckg50-08-2781 15:04-2080CqI7% (BldA) [Mass fraction]97 %Salbador Ramirez MD Work Phone: [facility]' HospitalVvqidazjko37-39-1317 15:04-0400Systolic blood mm[Hg]Salbador Ramirez MD Work Phone: [facility]' HospitalIzrpwhtihv62-91-2980 08:48-0500Body temperature 97.59 [degF]Chana Chandra OUTSIDE COLLECTOR.AUTHORIZATION REP Work Phone: [facility]11-28-2022 08:48-0500Diastolic blood vapmyidf914 mm[Hg]Chana Chandra OUTSIDE COLLECTOR.AUTHORIZATION REP Work Phone: [facility]11-28-2022 08:48-0500Heart rate94 /min hCana Chandra OUTSIDE COLLECTOR.AUTHORIZATION REP Work Phone: [address] [address]-28-2022 08:48-0500Respiratory rate 20 /minChana Chandra OUTSIDE COLLECTOR.AUTHORIZATION REP Work Phone: [address] [address]-28-2022 08:48-0969JmW0% (BldA) [Mass fraction]96 %Chana Chandra OUTSIDE COLLECTOR.AUTHORIZATION REP Work Phone: [facility]11-28-2022 08:48-0500Systolic blood ludhowjd078 mm[Hg]Chana Chandra AUTHORIZATION REP Work Phone: [phone]11-15-2022 08:45-0500Body temperature 97.7 [degF]Toan Chu MD Work Phone: [phone]()[phone]11-15-2022 08:45-0500Diastolic blood pqbkmkyo63 mm[Hg]Toan Chu MD Work Phone: [phone]()[phone]11-15-2022 08:45-0500Heart rate96 /min Toan Chu MD Work Phone: [phone]()[phone]11-15-2022 08:45-0500Respiratory rate 16 /minToan Chu MD Work Phone: [phone]()[phone]11-15-2022 08:45-0500Systolic blood oepapykv470 mm[Hg]Toan Chu MD Work Phone: [phone]()[phone]11-15-2022 08:25-5697RhR6% (BldA) [Mass fraction]92 %Toan Chu MD Work Phone: [phone]()[phone]11-15-2022 07:32-0500Body ibcbpe757.5 kgToan Chu MD Work Phone: [phone]()[phone]06-22-2022 08:34-0400Body temperature 97.81 [degF]Toan Chu MD Work Phone: [phone]()[phone]06-22-2022 08:34-0400Diastolic blood czerdkjo59 mm[Hg]Toan Chu MD Work Phone: [phone]()[phone]06-22-2022 08:34-0400Heart rate96 /min Toan Chu MD Work Phone: [phone]()[phone]06-22-2022 08:34-0400Respiratory rate 20 /minToan Chu MD Work Phone: [phone]()[phone]06-22-2022 08:34-5863ZeY7% (BldA) [Mass fraction]99 %Toan Chu MD Work Phone: [facility]06-22-2022 08:34-0400Systolic blood qupbedmh967 mm[Hg]Toan Chu MD Work Phone: [facility] Encounters Encounter DateEncounter TypeCare ProviderFacilityStart: 12-30-2024 End: 72-87-4722aztlmajdzpMeng Naderer MD Work Phone: [facility] Work Phone: Start: 12-30-2024 End: 09-53-7963Atefgqv encounter procedureSalbador Ramirez [facility] Work Phone: Start: 11-06-2024 End: 53-23-1645Oulmxhrzg Result EncounterSalbador Ramirez MD Work Phone: [facility] External Department UnsolicitedStart: 11-06-2024 End: 13-19-1698Oinnrhivb Result EncounterSalbador Ramirez MD Work Phone: n[facility] External Department UnsolicitedStart: 11-04-2024 End: 36-75-4376Tvyota outpatient visit 25 minutesSalbador Ramirez MD Work Phone: [facility] CWM FMComment on above:Cervical spondylosis with radiculopathy (Primary Dx); Type 2 diabetes mellitus with hyperglycemia, without long-term current use of insulin (HCC); Benign hypertension ; Annual physical examStart: 11-04-2024 End: 85-74-4370Hoeqzcq encounter procedureSalbador Ramirez MD Work Phone: noms HealthcareStart: 11-04-2024 End: 03-14-4234xczaxsxlutUQLW NADERERNot AvailableStart: 11-04-2024 End: 79-65-2596Lqwaft flowsJose L Ramirez MD Work Phone: [facility] CWM FMStart: 11-04-2024 End: 15-32-2819Xqstynklarissa Ramirez MD Work Phone: [facility] CWM FMStart: 05-28-2024 End: 19-11-2501Vqudydl encounter procedureSalbador Ramirez MD Work Phone: [facility] [address] [place] Work Phone: Start: 05-28-2024 End: 47-06-1152hfgkclbzrbTozg Naderer MD Work Phone: [facility] Work Phone: Start: 05-22-2024 End: 62-65-1375jxotpfspldACFI NADERERNot AvailableStart: 03-30-2023 End: 75-49-9597vyceplfheyFJ Marc Naderer Work Phone: [facility] Work Phone: Start: 03-30-2023 End: 47-34-6254Zuotmen encounter procedureMD Salbador Ramirez Work Phone: [facility] [address] [place] Work Phone: Start: 49-62-1299Fdudhoz encounter procedureSalbador Ramirez MD Work Phone: noms HealthcareStart: 09-12-2022 End: 84-39-3804ormumunrugSWO G MEINEFacility:[facility] Hospitaltart: 04-68-4750Mwzqwcyiq encounterLoki Basurto MD Work Phone: [facility] Plastics InstituteComment on above: AppointmentStart: 02-13-2022 End: 11-48-7352gtmfqnhjyfIbgzwuTra Chandra APRN.CNP Work Phone: Plastic SurgeryComment on above:Post-operative state (Primary Dx)Start: 02-13-2022 End: 55-34-5443Phutqiu encounter Marek Chandra APRN.CNP Work Phone: [facility] MAINStart: 64-48-3478jjoinebzne TOAN GASTMANFacility:[facility] HospitalStart: 01-31-2022 End: 96-59-8491Swuuesctne hospital visit by physicianToan Chu MD Work Phone: Ambulatory SurgeryComment on above: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]Start: 09-07-2021 End: 47-32-5936uvbsuwogzsPrhqi Gastman MD Work Phone: Plastic SurgeryComment on above:Dermatofibrosarcoma protuberans (Primary Dx); S/P flap graftStart: 09-07-2021 End: 37-81-1866Tljiuev encounter procedureToan Chu MD Work Phone: [facility] MAINStart: 07-26-2021 End: 80-16-2309Mbbnawz encounter procedureLoki Basurto MD Work Phone: DermatologyComment on above:Dermatofibrosarcoma protuberans of scalp (Primary Dx)Start: 69-35-4766Hkhownyuo for preprocedural cardiovascular examinationDR KARMEN Borja [facility] HospitalStart: 22-40-0755Vhvtiteaf for preprocedural laboratory examinationDR KARMEN AKINS [facility] HospitalStart: 10-06-2020 End: 87-19-8640jcwblyuycrAZ KARMEN Prietocility:U6Zmord: 10-01-2020 End: 48-22-9469gwwblvgnxsWT SALBADOR Glover NADERERFacility:W8Hjxqa: 10-01-2020 End: 56-77-4552Jevymrlhh for preprocedural laboratory examinationDR SALBADOR Glover NADERERFacility:E9Nzznv: 11-16-2016 End: 94-31-6845GxhqlkaqgnUITUXVBrandenburg Center HospitalStart: 11-13-2016 End: 58-23-1135AiljdlrygeVOGABZINTEGRIS [facility] Procedures DateProcedureProcedure DetailPerforming ClinicianStart: 52-66-8308FB CERVICAL SPINE 2-3VMarc James RINCON Work Phone: Start: 51-42-8923Hvjhj X-ray of right shoulderMarc James RINCON Work Phone: Start: 01-31-2022 End: 22-42-4285Jswdy flap/sectioning flap scalp arms/legsToan Chu MD Work Phone: Start: 87-05-6056Yh scrotum & contentsTHOMAS SABRA Start: 07-58-7958KLWIX CULTURE CLEAN CATCHTHOMAS ZAGERIEWSKIStart: 11-13-2016 URINALYSIS WITH MICROSCOPICTHOMAS ALEJANDROGERIEWSAVIVAH/O: surgeryS/P flap graftToan Chu MD Work Phone: Plan of Treatment DateCare ActivityDetailAuthorStart: 12-16-2024 End: 44-19-9520Uiunoaq encounter kruhwrujm67/30/2025 10:30 AM EDT Office Visit [facility] [address] [place] [address] Salbador Ramirez MD [address] [place] [address] [facility] CW FMStart: 82-53-5027Qczbqkuyn vaccinationInfluenza Vaccine (#1)[facility] HealthcareStart: 11-04-2024 End: 23-82-5670Tjhylyx encounter rzmvxaimj35/19/2025 3:15 PM EDT [facility] [address] [place] [address] Salbador Ramirez MD [address] [place] [address] ArrivedNOMS CWM FMComment on above:ArrivedStart: 11-04-2024 End: 96-04-8202PTW W Auto Differential panel - BloodCBC and differential Lab Routine Annual physical exam Expected: 11/04/2024 (Approximate), Expires: 0 11/04/2025[facility] HealthcareComment on above:Expected: 11/04/2024 (Approximate), Expires: 11/04/2025Start: 11-04-2024 End: 18-18-6293Zghlnotyxvfkg metabolic 2000 panel - Serum or PlasmaComprehensive metabolic panel Lab Routine Annual physical exam Expected: 11/04/2024 (Approximate), Expires: 11/04/2025[facility] HealthcareComment on above:Expected: 11/04/2024 (Approximate), Expires: 11/04/2025Start: 11-04-2024 End: 81-59-0292Sgrqweixnk A1c/Hemoglobin.total in BloodHemoglobin A1c Lab Routine Type 2 diabetes mellitus with hyperglycemia, without long-term current use of insulin (HCC) Expected: 11/04/2024 (Approximate), Expires: 11/04/2025[facility] HealthcareComment on above:Expected: 11/04/2024 (Approximate), Expires: 11/04/2025Start: 11-04-2024 End: 80-62-3541Rcfcg 1996 panel - Serum or PlasmaLipid panel Lab Routine Annual physical exam Expected: 11/04/2024 (Approximate), Expires: 11/04/2025[facility] HealthcareComment on above:Expected: 11/04/2024 (Approximate), Expires: 11/04/2025Start: 11-04-2024 End: 83-00-6206Dqbdjbdsmtnx/Creatinine panel in random UrineMicroalbumin / creatinine, urine ratio Lab Routine Type 2 diabetes mellitus with hyperglycemia, without long-term current use of insulin (HCC) Expected: 11/04/2024 (Approximate), Expires: 11/04/2025[facility] HealthcareComment on above:Expected: 11/04/2024 (Approximate), Expires: 11/04/2025Start: 11-04-2024 End: 90-07-0319Daqdvcza specific Ag [Mass/volume] in Serum or PlasmaPSA Lab Routine Annual physical exam Expected: 11/04/2024 (Approximate), Expires: 11/04/2025[facility] HealthcareComment on above:Expected: 11/04/2024 (Approximate), Expires: 11/04/2025Start: 11-04-2024 End: 73-83-0418Ausoaeuxnna [Units/volume] in Serum or PlasmaTSH Lab Routine Annual physical exam Expected: 11/04/2024 (Approximate), Expires: 11/04/2025[facility] HealthcareComment on above:Expected: 11/04/2024 (Approximate), Expires: 11/04/2025Start: 11-04-2024 End: 87-50-8387FV Cervical spine 2 or 3 ViewsXR cervical spine 2 or 3 views Imaging Routine Cervical spondylosis with radiculopathy Expected: 11/04/2024, Expires: 11/04/2025[facility] Work Phone: Comment on above:Expected: 11/04/2024, Expires: 11/04/2025Start: 77-47-3349Epafw screening for proteinDiabetes: Urine Protein ScreeningHarry S. Truman Memorial Veterans' HospitalStart: 24-75-5502Yiugobuuhy A1c measurementDiabetes: Hemoglobin Y7CGQTLHarry S. Truman Memorial Veterans' HospitalStart: 07-72-4512Pqofnaxar vaccinationINFLUENZA (Season Ended)[facility]: 46-94-7020MMERIJDWET ASSESSMENTDEPRESSION ASSESSMENTProMedica Flower Hospitaltart: 47-83-6379Hovyksaxj vaccinationClinton Memorial Hospital Start: 06-98-7978Sbtdxgqomz A1c/Hemoglobin.total in QxulxQSE6PPtomwxakl Clinic Start: 06-05-9226CUKIURMYZN ASSESSMENTDEPRESSION ASSESSMENTClinton Memorial Hospital Start: 98-32-8554NBTQMUBIY B (1 of 3 - Risk 3-dose series)HEPATITIS B (1 of 3 - Risk 3-dose series)[facility]: 45-84-7629Zasyb microalbumin profile DTAP,TDAP,TD (1 - Tdap)[facility]: 14-59-3055JCKTKB PCP TEAM CHRONIC DISEASE VISITANNUAL PCP TEAM CHRONIC DISEASE VISITProMedica Flower Hospitaltart: 29-11-1099ZL CONTROLLED (<130/80)BP CONTROLLED (<130/80)[facility]: 58-62-1137Hwjomkyoj B surface antibody levelLDL CHOLESTEROLClinton Memorial Hospital Start: 57-18-6622YHJBUZLFL C SCREENINGHEPATITIS C SCREENINGClinton Memorial Hospital Start: 53-94-5393ZVL SCREENINGHIV SCREENINGProMedica F[facility] Hospitaltart: 86-45-0242AXU PNEUMOVAX PRIOR TO AGE 65ONE PNEUMOVAX PRIOR TO AGE 65[facility]: 54-63-6594Kgbek depression screening assessmentDEPRESSION SCREENINGProMedica [facility] Hospitaltart: comp foot exam completedDIABETIC FOOT EXAMProMedica F[facility] Hospitalt[facility]: 35-00-6373Zhqyyfli screeningDiabetes: Retinopathy ScreeningHarry S. Truman Memorial Veterans' HospitalStart: 13-66-8100Vkvuqzpsu B screeningURINE ALBUMIN:CREATININE RATIO [facility]: 69-25-3630Orlvqrrhl C antibody, confirmatory testDILATED RETINAL EXAMProMedica F[facility] Hospital[facility]: 21-74-1890NMDSPOLKHGAQ (1 - PCV)PNEUMOCOCCAL (1 - PCV)[facility]: 18-32-5887DCAWX-19 VACCINE (#1)COVID-19 VACCINE (#1)[facility]: 15-45-4278NMFTW-19 VACCINE (#1)COVID-19 VACCINE (#1) [facility]: 18-52-4460EOLNLDTGR B (1 of 3 - 3-dose series)HEPATITIS B (1 of 3 - 3-dose series)[facility]: 52-56-3792Wpftimkha for malignant neoplasm of [facility] End: 90-76-3144Agu brain brain stem w/o contrast materialMRI BRAIN WO IVCON Radiology Routine Dermatofibrosarcoma protuberans S/P flap graft 1 Occurrences starting 09/07/2021 until [facility] Work Phone: Comment on above:1 Occurrences starting 09/07/2021 until 3CN[facility] Payers DatePayer CategoryPayerPolicy [id number] Health InsuranceMEDICAL MUTUAL Member Subscriber Plan / Payer (Effective 2023- Present) Name: Karmen Carlosember ID: [id number] Relation to Subscriber: Spouse Name: BALBIR CARLOS Date of : 1974 Address: [address] [place] [id number] Payer ID: Not on file Type: Not on file Address: [address] [id number] MMO SUPER[employer] PLUS [id number] 2020-Present [phone] [address] [place] [address] [id number] [id number] [id number] 2.16.840.1.633157.3.57[id number] 2.16.840.1.990375.3.57[id number] 2.16.840.1.135582.3.57[id number] 2.16.840.1.720847.3.57[id number] 2.16.840.1.759714.3.579.2.531 Social History DateTypeDetailFacilityStart: 11-25-2020 End: 82-08-7483Eefnazk smoking status NHISEx-smokerProMedica Flower Hospitaltart: 03-19-1996 End: 63-31-1096Xgryhwz of tobacco useCurrent smokerProMedica Flower Hospitaltart: 03-19-1996 End: 27-59-0487Yuodaeo of tobacco useCigarette SmokerProMedica Flower Hospitaltart: 11-25-2020 End: 54-21-5748Iqzklkuktk smoked current (pack per day) - Qznogcya7Nlpocqmlc ClinicStart: 72-14-0130Xtgvmsk use and exposureFormer smokeless tobacco user [facility] End: 84-73-0919Eumhifn of tobacco useUser of smokeless tobaccoClinton Memorial Hospital Start: 10-56-7386Jiwzarj intakeCurrent drinker of alcohol (finding)[facility]: 60-05-1042Demhkru SDOH Alcohol Comment6-7 beers several times per weekProMedica Flower Hospitaltart: 59-13-6220Veh Assigned At BirthMalGlenbeigh [facility] Start: 07-16-2021 End: 89-81-2045Qezflbrg to SARS-CoV-2 (event)Not sureClinton Memorial HospitalTobacco smoking status NHISUnknown if ever smokedAshtabula General Hospital Work Phone: Start: 61-70-6674MdaAdcy (finding)[facility]art: 46-57-2285Vshmhzr use and exposureSmokeless tobacco non-userFILLMORE COMM[facility]ITY [facility] HealthcareStart: 05-22-2024 End: 74-09-1662Ufpzqjn use panelNOMD HealthcareStart: 11-97-2694Pzp assigned at birthNot on [facility] Medical Equipment Procedure CodeEquipment CodeEquipment Original TextEquipment IdentifierDates Graft Soft Tissue Frozen Cadaver - [id number]: 02-04-2021 Clinical Notes 07-26-2021 to 11-04-2024 Note Date & IjonXxakOtvynjki21-34-2327 History of Present illness Narrative* Salbador Ramirez MD - 11/04/2024 4:36 PM EDTAssociated Problem(s): Type 2 diabetes mellitus with hyperglycemia, without long-term current use of insulin (HCC) Not checking BS and due for A1C. * Salbador Ramirez MD - 11/04/2024 4:36 PM EDTAssociated Problem(s): Benign hypertension BP elevated but c/o pain. Monitor BP PRN. Discussed DASH diet. * Salbador Ramirez MD - 11/04/2024 4:36 [...] in this encounterHarry S. Truman Memorial Veterans' HospitalFmpparkhbk22-29-2877 NoteHNO ID: [id number] Author: Loki Basurto MD Service: ? Author [...] Past Histories independently gathered by the clinical business support liaison and the remaining scribed note accurately describes my personal service to the patient. Loki Basurto MD September 12[facility] Miscellaneous Notes* Telephone Encounter - Asia Carrizales - 06/29/2022 3:17 PM EDT Left VM / Sent MyCharts About getting a appt with per Staff Message documented in this encounterClinton Memorial Hospital11-28-2022 NoteHNO ID: [id number] Author: Chana Chandra APRN.AUTHORIZATION REP Service: ? Author Type: Nurse Practitioner Type: [...] for the rest of his/her life Call [phone] or go to the Emergency Department if [...] doesn't work its way out Office number: [phone] (option 3) The patient is seen and examined by Chana Chandra APRN.CNP and the following reflects her service. Scribed by Citlaly Padgett RN I agree with the Chief Complaint, ROS, and Past Histories independently gathered by the clinical business support liaison and the remaining scribed note accurately describes my personal service to the patient. Chana Chandra APRN.CNP February 13, 2022 9:20 [facility]11-28-2022 Instructions* Patient Instructions* Chana Chandra APRN.CNP - [...] for the rest of his/her life Call [phone] or go to the Emergency Department if [...] doesn't work its way out Office number: [phone] (option 3) documented in this encounterClinton Memorial Hospital11-28-2022 History of Present illness Narrative* Chana [...] for the rest of his/her life Call [phone] or go to the Emergency Department if [...] doesn't work its way out Office number: [phone] (option 3) The patient is seen and examined by Chana Chandra APRN.CNP and the following reflects her service. Scribed by Citllay Padgett RN I agree with the Chief Complaint, ROS, and Past Histories independently gathered by the clinical business support liaison and the remaining scribed note accurately describes my personal service to the patient. Chana Chandra APRN.CNP February 13, 2022 9:20 AM documented in this encounterClinton Memorial Hospital11-15-2022 Hospital Discharge instructions* Discharge Instr - [...] These instructions explain what you or your post acute care registered nurse need to do to continue your care at home or at another healthcare facility Please go over these instructions with your nurse and post acute care registered nurse. If you are not sure about something, [...] document) At your earliest convenience, please call [phone] to confirm or schedule a follow-up appointment with the office of Dr. Chu to be seen in clinic. Your existing appointments are listed below: Future Appointments Date Time Provider Department Center 02/13/2022 9:00 AM Chana Chandra APRN.AUTHORIZATION REP PLASCA [facility] EMILE[facility] [place] When to call your surgeon: [...] during business hours (8am to 5pm) call [phone] or after hours (including weekends) call [phone] ([facility]) and ask for the Plastic Surgery Resident / Fellow instructional facilitator. If calling long distance, please use [phone] ([phone]). Test results not currently available (to be reviewed at follow-up): No pending results. documented in this encounterClinton Memorial Hospital11-15-2022 Surgical operation note* Brief Op Note - Agatha Rawls MD - 01/31/2022 8:33 AM EST BRIEF OPERATIVE NOTE PLASTIC & RECONSTRUCTIVE SURGERY LOG ID: [id number] Surgery/Procedure Date: 01/31/2022 Incision/Procedure Start Time: 8:04 AM Incision Close/Procedure End Time: 8:29 AM Surgeon(s)/Proceduralist(s) and Novelty Balloon Assembler And Packer(s): Surgeon(s) and Role: * Toan Chu MD [...] 31, 2022 TIME: 8:33 AM PAGER/CONTACT #: [phone] * Operative Report - Agatha Rawls MD - 01/31/2022 7:49 AM EST OPERATIVE REPORT PLASTIC & RECONSTRUCTIVE SURGERY Log ID: [id number] Surgery/Procedure Date: 01/31/2022 Incision/Procedure Start Time: 8:04 AM Incision Close/Procedure End Time: 8:29 AM Surgeon(s)/Proceduralist(s) and Novelty Balloon Assembler And Packer(s): Surgeon(s) and Role: * Toan Chu MD [...] case. Toan Chu MD documented in this encounterClinton Memorial Hospital11-15-2022 History and physical note * Toan [...] 2022 TIME: 7:43 AM documented in this encounterClinton Memorial Hospital06-22-2022 History of Present illness Narrative* Toan [...] up 7-10 days after surgery Citlaly Padgett carpenter cradle and dolly note: I reviewed the information obtained and [...] complete 09/08/2021 9:09 AM documented in this encounterClinton Memorial Hospital05-10-2022 History of Present illness Narrative* Loki [...] Past Histories independently gathered by the clinical business support liaison and the remaining scribed note accurately describes my personal service to the patient. 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 scalp and skin of neck documented in this encounter [facility] HospitalEvaluchristianacare note* Diagnosis Dermatofibrosarcoma protuberans- Primary Other specified malignant neoplasm of skin, site unspecified S/P flap graft Other postprocedural status documented in this encounter [facility] HospitalEvaluation note* Diagnosis Acute post-operative pain- Primary documented in this encounter [facility] HospitalEvaluchristianacare note* Diagnosis Post-operative state- Primary Other postprocedural status documented in this encounter [facility] HospitalEvaluation noteNo assessment information availableAshtabula General Hospital Work Phone: Evaluation note* Diagnosis Annual [...] hyperglycemia, without long-term current use of insulin ([facility]) Class 3 severe obesity due to excess calories with serious comorbidity and body mass index (BMI) of40.0 to 44.9 in adult ([facility]) Dyslipidemia Other and unspecified hyperlipidemia Type 2 diabetes mellitus with other specified complication ([facility]) Cervical spondylosis with radiculopathy- Primary Cervical spondylosis with myelopathy Type 2 diabetes mellitus with hyperglycemia, without long-term current use of insulin (HCC) Benign hypertension Essential hypertension, benign Annual physical exam Routine general medical examination at a health care facility documented in this encounter [facility] HospitalEvaluation note* Diagnosis Onset Date Resolution Status Admit Date Annual physical exam acuteOctober 2024 2:31pm [facility] Work Phone: Relavv for referral (narrative)No reason for referral information availableMercy Health Willard Hospital Work Phone: Rexsfo for visit Narrative* Auth/CertSpecialty Diagnoses / ProceduresReferred By ContactReferred To ContactASC [facility] Diagnoses Dermatofibrosarcoma protuberans S/P flap graft Procedures DELAY/SECTN FLAP SCALP,ARM,LEG FLAP DELAY SCALP OR SECTIONING [facility] [place] [address] [place] [address] Referral IDStatusReasonStart DateExpiration DateVisits RequestedVisits [id number] [facility] Summary Purpose Family History No Family [...] RecordedPatient RepresentativeExplanation Advance Directive(s)12/15/2020 10:47 AMTypeDate RecordedPatient Suction Worker ExplanationAdvance Directive(s)12/15/2020 10:47 AM Advance Directive Response Recorded Date/ Time Advance Directives No August 03 8:17am Advance Directive Response Recorded Date/ Time Advance Directives No August 03 9:17am Reason for Referral SpecialtyDiagnoses / ProceduresReferred By ContactReferred To ContactMR IMAGING Diagnoses Dermatofibrosarcoma protuberans S/P flap graft Procedures MRI BRAIN WO IVCON MRI BRAIN BRAIN STEM [place] [address] [place] [address] Mr Imaging Referral IDStatusReasonStart DateExpiration DateVisits RequestedVisits [id number] Review Auto-Generated Referral Chief Complaint and Reason [...] section and content) DATE CREATED AUTHOR 09/12/2017 [facility] DATE CREATED AUTHOR AUTHOR'S ORGANIZ ATION 03/03/2021 [facility] DATE CREATED AUTHOR AUTHOR'S ORGANIZ ATION 08/19/2021 [facility] DATE CREATED AUTHOR AUTHOR'S ORGANIZ ATION 09/23/2022 [facility] DATE CREATED AUTHOR AUTHOR'S ORGANIZ ATION 06/06/2024 [facility] DATE CREATED AUTHOR AUTHOR'S ORGANIZ ATION 11/06/2024 [facility] EPIC Source Comments (unrecognize d section and content) In the event this informatio n is protected by the Federal Confidentiality of Alcohol and Drug Abuse Patient Records regulations: The Federal rules restrict any use of the information to criminally investigate or prosecute any alcohol or drug abuse patient.[facility] HospitalIn the event this information is protected by the Federal Confidentiality of Alcohol and Drug Abuse Patient Records regulations: The Federal rules restrict any use of the information to criminally investigate or prosecute any alcohol or drug abuse patient.[facility] HospitalIn the event this information is protected by the Federal Confidentiality of Alcohol and Drug Abuse Patient Records regulations: The Federal rules restrict any use of the information to criminally investigate or prosecute any alcohol or drug abuse patient.[facility] HospitalIn the event this information is protected by the Federal Confidentiality of Alcohol and Drug Abuse Patient Records regulations: The Federal rules restrict any use of the information to criminally investigate or prosecute any alcohol or drug abuse patient.[facility] HospitalIn the event this information is protected by the Federal Confidentiality of Alcohol and Drug Abuse Patient Records regulations: The Federal rules restrict any use of the information to criminally investigate or prosecute any alcohol or drug abuse patient.[facility] Reason for Visit (unrecogniz ed section and content) ReasonCommentsFollow UpReasonCommentsEstablished PatientReasonComments AppointmentReasonCommentsArm PainRight arm Care Teams (unrecognized sec tion and content) Team MemberRelationshipSpecialtyStart DateEnd Date Salbador Ramirez [address] [place] [address] PCP - GeneralFamily Practice12/15/20Team MemberRelationshipSpecialtyStart DateEnd Date Salbador Ramirez [address] [place] [address] PCP - GeneralFamily Practice12/15/20Team MemberRelationshipSpecialtyStart DateEnd Date Salbador Ramirez [address] [place] [address] PCP - GeneralFamily Medicine12/15/20Team MemberRelationshipSpecialtyStart DateEnd Date Salbador Ramirez [address] [place] [address] PCP - [facility] Medicine12/15/20Team MemberRelationshipSpecialtyStart DateEnd Date Salbador Ramirez [address] [place], [place] [id number] PCP - [facility] Medicine12/15/20 Team Status: Active Member Role Status [...] MD [address] [place] [address] PCP - Medical [employer]03/19/2311 Salbador Ramirez MD [address] [place] [address] PCP - [facility]05/22/24Team MemberRelationshipSpecialtyStart DateEnd Date Salbador Ramirez MD [address] [place] [address] PCP - Medical [employer]03/19/2311 Salbador Ramirez MD [address] [place] [address] PCP - Man [facility]05/22/24Team MemberRelationshipSpecialtyStart DateEnd Date Salbador Ramirez MD [address] [place] [address] PCP - Medical [facility]03/19/2311 Salbador Ramirez MD [address] [place] [address] [facility]/22/24 Team Status: Inactive Member Role [...] BE BASED ON THE PRIMARY CLINICAL RECORDS. [facility] [employer] [facility]. provides no warranty or guarantee of the accuracy or completeness of information in this document.
--- NOTE | 2025-01-15 14:49 | XR_ITS ---
The [address] [address] Patient Name: KARMEN CALROS MRN: [id number] date: 1980 Sex: M Assigned Patient Location: RAD Current Patient Location: [facility] Accession/Order Number: [id number] Exam Date: 01/15/2025 14:50 Report Date: 01/15/2025 15:04 At the request of: GINA RAMIREZ MD Procedure: XR foreign body eye STEVEN Orbits 2 views. Reason for exam: Pre-MRI. FINDINGS: No radiopaque foreign body involving the orbits. There appear to be surgical clips along the soft tissues of the calvarium. No bony destruction is seen. XR/XR foreign body eye STEVEN IMPRESSION: No radiopaque foreign body involving the orbits. Impression dictated by: Cherelle Rivera Jr.ONatalia 01/15/2025 3:04 PM Dictation Location: [place] [address] Electronically authenticated by: [id number] Y Date: 01/15/2025 15:04
== END 2025-01-15 14:13 | disposition home or self-care (01) ==
LOC: RAD 14:12
PROVIDERS: PCP Family Medicine; Visit Provider Family Medicine
DX: M47.22 Other spondylosis with radiculopathy, cervical region (principal); Z01.89 Encounter for other specified special examinations
CPT/HCPCS: 70030

== ENCOUNTER 2025-02-25 12:53 | Outpatient (OUT) | payer OTHER, SELFPAY ==
--- OUTSIDE RECORDS SUMMARY | 2025-02-25 12:58 | XMS_ITS | CCD ---
Author Organization [facility] CliniSymn Care Team Providers Care Author'S Agent Name Role Phone DORON MONTAÑO Unavailable Unavailable KARMEN LUNDBERG Unavailable Unavailable DORON MONTAÑO Unavailable Unavailable KARMEN LUNDBERG Unavailable Unavailable Salbador Ramirez Primary Care Provider [phone] JAMES, DR SALBADOR Glover Primary Care Unavailable MANDEEPILLIS, DR PERAZA Attending Unavailable GRILLIS, DR PERAZA Consulting Unavailable GRILLIS, DR PERAZA Admitting Unavailable GRILLIS, DR PERAZA Admitting Unavailable NADERER, DR SALBADOR Glover [facility] Unavailable GRILLIS, DR PERAZA Attending Unavailable GRILLIS, DR PERAZA Consulting Unavailable AGUBOSIM, LUMA Consulting Unavailable LONG, SHEILA Consulting Unavailable Salbador Ramirez Primary Care Provider Salbador Ramirez Primary Care Provider [phone] CHANA CHANDRA Attending Unavailable SALBADOR RAMIREZ Primary Care Unavailable LOKI BASURTO Referring Unavailable LOKI BASURTO Attending Unavailable SALBADOR RAMIREZ Primary Care Unavailable TOAN CHU Admitting Unavailable SALBADOR RAMIREZ Primary Care Unavailable TOAN CHU Attending Unavailable MD Salbador Ramirez Primary Care Provider [phone] MD Salbador Ramirez Attending Provider Salbador Ramirez MD Primary Care Provider [phone] Salbador Ramirez MD Attending Provider Salbador Ramirez Attending Unavailable Salbador Rmairez Primary Care Unavailable Salbador Ramirez Admitting Unavailable Salbador Ramirez MD Unavailable Salbador Ramirez MD Primary Care Provider SALBADOR RAMIREZ Attending Unavailable SALBADOR RAMIREZ Attending Unavailable Salbador Ramirez MD Primary Care Provider Salbador Ramirez MD Attending Provider [phone] Medications Current Medications MedicationDrug Class(es)DatesSig (Normalized)Sig (Original)acetaminophen 500 mg oral tablet (12 sources)Start: 01-31-2022 End: 25-76-2700ddic 2 tablets by mouth every six hours as needed for pain, then take 1-2 tablets by mouth every six hours as needed for painacetaminophen (TYLENOL) 500 mg tablet Take 2 tablets by mouth every 6 hours for 5 days, THEN 1-2 tablets every 6 hours as needed for pain for up to 10 days. 90 tablet 0 01/31/2022 02/15/2022 ActiveStart: 70-51-6302vque 2 tablets by mouth every four hours [...] mg oral tablet (10 sources)HMG-CoA Reductase InhibitorStart: 73-00-0640kkox 1 tablet by mouth once daily at bedtimeAtorvastatin 40 mg tablet Active 40 MG PO Daily at bedtime December 15, 2024 12:00am Complies with drug therapyStart: 98-84-0098lnez 1 tablet by mouth at bedtimeatorvastatin (Lipitor) 40 MG tablet Indications: Type 2 diabetes mellitus with microalbuminuria, without long-term current use of insulin (HCC) Take 1 tablet (40 mg) by mouth at bedtime 30 tablet 11 09/11/2023 Activeatorvastatin (LIPITOR) 40 mg tablet Take 40 mg by mouth. 0 ActiveComment on above:Take 40 mg by mouth.celecoxib 200 mg oral capsule (4 sources)Nonsteroidal Anti-inflammatory DrugStart: 40-70-3659jlpd 1 capsule by mouth twice daily at mealtimeCelecoxib 200 mg capsule Active 200 MG PO Twice daily December 15, 2024 12:00am Take with food Complies with drug therapy Start: 63-42-7206jkff 1 capsule by mouth in the morningcelecoxib (CeleBREX) 200 MG capsule Indications: Cervical spondylosis with radiculopathy Take 1 capsule (200 mg) by mouth in the morning and 1 capsule (200 mg) before bedtime. Take with food. 60 capsule 3 11/04/2024 ActiveglipiZIDE 10 mg oral tablet (11 sources)SulfonylureaStart: 12-15-2024 End: 61-24-8008amkg 2 tablets by mouth twice dailyGlipizide 10 mg tablet Active 20 MG PO Twice daily 60 December 18, 2024 9:32am Complies with drug therapy Start: 01-23-7886pexl 2 tablets by mouth twice dailyglipiZIDE (Glucotrol) [...] tablet (7 sources)Nonsteroidal Anti-inflammatory DrugStart: 01-31-2022 End: 86-75-0985hidd 3 tablets by mouth every eight hours [...] oral tablet (10 sources)Angiotensin Converting Enzyme InhibitorStart: 05-34-8021tqbs 1 tablet by mouth once dailyLisinopril 30 mg tablet Active 30 MG PO Daily December 15, 2024 12:00am Complies with drug therapyStart: 57-03-9403nnlg 1 tablet by mouth once daily in [...] mg extended release oral tablet (10 sources)BiguanideStart: 20-54-6244fxhu 1 tablet by mouth twice daily Metformin 500 mg tablet extended release 24hr Active 1000 MG PO Twice daily December 15, 2024 12:00am Complies with drug therapyStart: 04-30-1489lsaq 2 tablets by mouth twice dailymetFORMIN XR (Glucophage-XR) 500 MG 24 hr tablet Indications: Type 2 diabetes mellitus with hyperglycemia (HCC) TAKE 2 TABLETS BY MOUTH TWICE DAILY 120 tablet 5 04/22/2024 ActiveStart: 87-07-0083stll 1 tablet by mouth twice dailymetFORMIN ER (GLUCOPHAGE XR) 500 mg 24 hr tablet Take 1 tablet by mouth twice daily. 0 02/07/2021 ActiveComment on above:Take 1 tablet by mouth twice daily.ondansetron 4 mg oral tablet (1 source)Serotonin-3 Receptor AntagonistStart: 01-31-2022 End: 55-03-4974untd 1 tablet by mouth every eight hours [...] mL injection (DEFINITY) (3 sources)Start: 03-02-2021 End: 30-68-6409ylckququzy lipid microspheres 1.3 mL in NaCl (PF) 0.9% 10 mL injection (DEFINITY)pioglitazone 45 mg oral tablet (10 sources)Peroxisome Proliferator Receptor alpha Agonist, Peroxisome Proliferator Receptor gamma Agonist, ThiazolidinedioneStart: 02-24-1932tmeq 1 tablet by mouth once dailyPioglitazone 45 mg tablet Active 45 MG PO Daily December 15, 2024 12:00am Complies with drug therapyStart: 09-99-5236svsa 1 tablet by mouth once daily in [...] mg oral tablet (2 sources)Start: 01-31-2022 End: 53-03-4639mvuo 1 tablet by mouth every twelve hours as neededsenna (SENOKOT) 8.6 mg tab Take 1 tablet by mouth twice daily as needed for constipation for up to 15 days. 30 tablet 0 01/31/2022 02/15/2022 ActiveComment on above:Take 1 tablet by mouth twice daily as needed for constipation for up to 15 days.125 ml sodium chloride 9 mg/ml prefilled syringe (3 sources)Start: 03-02-2021 End: 71-62-5168omsfkz chloride 0.9 % (flush) 10 mL (BD POSIFLUSH) Completed/Discontinued Medications MedicationDrug Class(es)DatesSig (Normalized)Sig (Original)alpha lipoic acid- biotin 600 mg- 450 mcg TbER (5 sources)alpha lipoic acid-biotin 600 mg- 450 mcg TbER Take by mouth. 0 Active Comment on above:Take by mouth.cephalexin 500 mg oral capsule (5 sources)Cephalosporin AntibacterialStart: 10-93-0048dgwgOPOXlc (KEFLEX) 500 mg capsule Take 1 capsule daily for 10 days 20 capsule 0 02/18/2021 Active Comment on above:Take 1 capsule daily for 10 dayscholecalciferol 0.05 mg oral tablet (5 sources)Vitamin DStart: 12-15-2024 End: 79-75-8674zvow 1 tablet by mouth once dailyCholecalciferol (Vitamin D3) 50 mcg (2,000 unit) tablet Discontinued 50 MCG PO Daily December 15, 2024 12:00am December 30, 2024 2:57pmtake 1 tablet by mouth in the morning cholecalciferol (Vitamin D-3) 50 MCG (2000 UT) tablet Take 2,000 Units by mouth in the morning. Activedapagliflozin 10 mg oral tablet (8 sources)Sodium-Glucose Cotransporter 2 Inhibitor End: 57-45-0021amtd 10 mg by mouth in the morningdapagliflozin (Farxiga) 10 MG Take 10 mg by mouth in the morning. 11/04/2024 DiscontinuedComment on above:Take by mouth daily with breakfast.docusate sodium 100 mg oral capsule (5 sources)Start: 40-91-5280zthz 1 capsule by mouth every twelve hours as needed docusate sodium (COLACE) 100 mg capsule Take 1 capsule by mouth twice daily as needed for constipation. 10 capsule 0 03/07/2021 ActiveComment on above:Take 1 capsule by mouth twice daily as needed for constipation.oxyCODONE hydrochloride 5 mg oral tablet (3 sources)Opioid AgonistStart: 92-07-1675cqnc 1 tablet by mouth every six hours as needed for painoxyCODONE IR (ROXICODONE) 5 mg immediate release tablet Indications: Acute post-operative pain Take1 tablet by mouth every 6 hours as needed for pain. 5 tablet 0 01/31/2022 ActiveComment on above:Take 1 tablet by mouth every 6 hours as needed for pain.pregabalin 75 mg oral capsule (4 sources)Start: 11-04-2024 End: 89-80-0124nwks 1 capsule by mouth twice dailyPregabalin 75 mg capsule Discontinued 75 MG PO Twice daily December 15, 2024 12:00am December 30, 2024 2:57pm0.25 mg, 0.5 mg dose 1.5 ml semaglutide 1.34 mg/ml pen injector (3 sources)Start: 04-02-2023 End: 20-28-8830wtjdiseetbw (Ozempic, 0.25 or 0.5 MG/DOSE,) 2 MG/1.5ML [...] diabetes mellitus with other diabetic kidney complication]Onset: 531464-91-9134Wnffiud Diabetes mellitus without complication (6 sources)Type 2 diabetes mellitus without complication; Translations: [Type 2 diabetes mellitus without complications]Onset: hronic Disorders of lipid metabolism (11 sources)Hyperlipidemia; Translations: [Hyperlipidemia, unspecified]Onset: 975977-54-6398CfoddlzPdeghtjyv hypertension (13 sources)Hypertensive disorder; Translations: [Essential (primary) hypertension]Onset: 147315-84-1111HoegxsiYnkifgomdjy deficiencies (5 sources)Vitamin D deficiency; Translations: [Vitamin D deficiency, unspecified]Onset: 189565-39-7040FikhktkZzujc and unspecified benign neoplasm (1 source)Other benign neoplasm of skin of trunk; Translations: [Dermatofibroma of back]Onset: 03-11-4370CubvfyfgLagrz injuries and conditions due to external causes (1 source)Unspecified injury of muscle(s) and tendon(s) of the rotator cuff of right shoulder, initial encounter; Translations: [Unspecified injury of muscle(s) and tendon(s) of the rotator cuff of right shoulder, initial encounter]Onset: 18-13-9687VqzyriulPxbgq injuries and conditions due to external causes (1 source)Injury of tendon of the rotator cuff of shoulder; Translations: [Unspecified injury of muscle(s) and tendon(s) of the rotator cuff of right shoulder, initial encounter]37-18-8019QglmrqqdUnses nutritional; endocrine; and metabolic disorders (10 sources)Severe obesity; Translations: [Morbid (severe) obesity due to excess calories]Onset: 129535-54-7688IufsfphWusea nutritional; endocrine; and metabolic disorders (1 source)Morbid (severe) obesity due to excess calories; Translations: [MORBID SEVERE OBES D/T EXCESS DANIKA]Onset: 97-61-2280CyinjxnMrweo nutritional; endocrine; and metabolic disorders (1 source)Body mass index (BMI) 40.0-44.9, adult; Translations: [BODY MASS INDEX BMI 40.0-44.9 ADULT]Onset: 37-91-7088GnnkuvaLfrzzvxq codes; unclassified (5 sources)Obstructive sleep apnea syndrome; Translations: [Obstructive sleep apnea (adult) (pediatric)]Onset: 229515-91-8167EzufvqvRjguhity codes; unclassified (1 source)Postoperative state; Translations: [Other specified postprocedural states]EpisodicSpondylosis; intervertebral disc disorders; other back problems (11 sources)Degeneration of thoracic intervertebral disc; Translations: [Other intervertebral disc degeneration, thoracic region]Onset: 947293-42-9120 ChronicUnclassified (1 source)CONTACT W/AND (SUSP) EXPOS COVID-19; Translations: [CONTACT W/AND (SUSP) EXPOS COVID-19]Onset: 10-08-2020 Past or Other Problems Problem ClassificationProblemDateDocumented DateEpisodic/ChronicComplications of surgical procedures or medical care (5 sources)Difficult intubation; Translations: [Failed or difficult intubation, subsequent encounter]Onset: 824159-08-9593QfltxlikJpxsgzzyatma conditions of male genital organs (2 sources)Orchitis; Translations: [Epididymitis]Onset: 84-19-8015PxmhijnjHdejn aftercare (1 source)MCC (current) use of oral hypoglycemic drugs; Translations: [FOLDER INSPECTOR USE ORAL HYPOGLYCEMIC DX]Onset: 62-92-3464PtabuxexMejwn aftercare (1 source)Other termite exterminator (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 therapy; Translations: [OTH FOLDER INSPECTOR CURRENT DRUG THERAPY]Onset: 52-13-3127ZjpthkvhDatev injuries and conditions due to external causes (4 sources)Injury of right rotator cuff; Translations: [Unspecified injury of muscle(s) and tendon(s) of the rotator cuff of right shoulder, initial encounter]Onset: 665504-79-4108FpyduikvEewor nervous system disorders (6 sources)Acute postoperative pain; Translations: [Other acute postprocedural pain]Onset: 045115-39-2675JtjnkdvoIngoa non-epithelial cancer of skin (4 sources)Malignant neoplasm of scalp; Translations: [Other specified malignant neoplasm of skin of scalp andneck]Onset: 13-84-1733MrxublflRsizx non-traumatic joint disorders (4 sources)Derangement of right shoulder joint; Translations: [Other specific joint derangements of right shoulder, not elsewhere classified]Onset: 05-22-2024 Resolved: 168609-87-5138FknqytyMhuji skin disorders (3 sources)Epidermal cyst; Translations: [EPIDERMAL CYST]Onset: 10-06-2020 EpisodicOther skin disorders (1 source)Pilar cyst; Translations: [PILAR CYST]Onset: 07-54-1001Ulncjeeq Residual codes; unclassified (5 sources)History of clinical finding in subject; Translations: [Personal history of other specified conditions]Onset: 878466-48-6619Tqpqgfbt Residual codes; unclassified (1 source)Other specified postprocedural states; Translations: [S/P flap graft] Onset: 63-05-8268ZflxjsktCucamsjax and history of mental health and substance abuse codes (5 sources)Ex-smoker; Translations: [Personal history of nicotine dependence] Onset: 575756-17-4084Wgdbdqgt Results Test NameValueInterpretationReference RangeFacilityXR CERVICAL SPINE 2-3Von 85-16-9035[address] [place] [address] XRay Report Signed Patient: KARMEN CARLOS MR#: [id number] : 1980 Acct:[id number] Age/Sex: 44 / M ADM Date: 11/06/24 Loc: [facility] Attending Dr: Salbador Ramirez M.D. Ordering Physician: Salbador Ramirez M.D. Date of Service: 11/06/24 Procedure(s): XR cervical spine 2-3V Accession Number(s): [id number] cc: Salbador Ramirez M.D. [place] [id number] Patient Name: KARMEN CARLOS MRN: [facility]:[id number] date: 1980 Sex: M Assigned Patient Location: [facility] Current Patient Location: [facility] Accession/Order Number: [id number] Exam Date: 11/06/2024 12:05 Report Date: 11/06/2024 [...] Cohen M.D. 11/06/2024 12:07 PM Dictation Location: [place] [address] Electronically authenticated by: [id number] Y Date: 11/06/2024 12:07 Dictated By: Ilan Cohen M.D. Signed By: 11/06/24 1209 DD/ 120 TD/TT: Software Project Engineer:TBHRadiology, Radiologist, - 11/06/2024 [place] [phone] XRay Report Signed Patient: KARMEN CARLOS MR#: [id number] : 1980 Acct:[id number] Age/Sex: 44 / M ADM Date: 11/06/24 Loc: RAD Attending Dr: Salbador Ramirez M.D. Ordering Physician: Salbador Ramirez M.D. Date of Service: 11/06/24 Procedure(s): XR cervical spine 2-3V Accession Number(s): [id number] cc: Salbador Ramirez M.D. [place] [phone] Patient Name: KARMEN CARLOS MRN: [facility]:[id number] date: 1980 Sex: M Assigned Patient Location: [facility] Current Patient Location: RAD Accession/Order Number: [id number] Exam Date: 11/06/2024 12:05 Report Date: 11/06/2024 [...] Cohen M.D. 11/06/2024 12:07 PM Dictation Location: [place] [address] Electronically authenticated by: [id number] Y Date: 11/06/2024 12:07 Dictated By: Ilan Cohen M.D. Signed By: 11/06/24 1209 DD/ 1207 TD/TT: Software Project Engineer: NOMS HealthcareRadiology Study observation (narrative)NOMS HealthcareXR CERVICAL SPINE 2-3VOrdered By: Radiologist Radiology on 15-05-1763QSRW Healthcare Work Phone: X-ray reportOrdered By: Giancarlo Wolf on 05-28-2024 [facility] [place] [address] XRay Report Signed Patient: Karmen Carlos MR#: [id number] : 1980 Acct:[id number] Age/Sex: 43 / M ADM Date: 5 Loc: XD Room: Type: [facility] CLI Attending Dr: Salbador Ramirez MD Copies [...] Steven Rivera Jr..ONatalia05/28/2024 4:12 PM Dictation Location: [place] [address] Transcribed By: [facility] 05/28/24 161 Dictated By: Giancarlo Wolf Jr, DO 05/28/24 1611 Signed By: 05/28/24 1612 [facility] HospitalXR shoulder RT min 2V*on 25-25-3051LK shoulder RT min 2V*[facility] [place] [place] [address] XRay Report Signed Patient: Karmen Carlos MR#: [id number] : 1980 Acct:[id number] Age/Sex: 43 / M ADM Date: 05/28/24 Loc: XD Room: Type: [facility] CLI Attending Dr: Salbador Ramirez MD Copies [...] Jr, DO 05/28/24 161 Signed By: 05/28/24 161NoAtrium Health Physician GroupAlanine aminotransferase [Enzymatic activity/volume] in Serum or PlasmaOrdered By: Salbador Ramirez on 73-52-6944VCN [Catalytic activity/Vol]35 U/L7-52White HospitalAlbumin [Mass/volume] in Serum or Plasma by Bromocresol green (BCG) dye binding methoOrdered By: Salbador Ramirez on 90-63-5308Jndjtxd BCG dye [Mass/Vol]4.6 g/dL3.5-5.7FRiverside Methodist HospitalAlkaline phosphatase [Enzymatic activity/volume] in Serum or PlasmaOrdered By: Salbador Ramirez on 86-87-3475QAW [Catalytic activity/Vol]56 U/M10-978LwuugpozeWhite HospitalAspartate aminotransferase [Enzymatic activity/volume] in Serum or PlasmaOrdered By: Salbador Ramirez on 28-42-2640XCW [Catalytic activity/Vol]24 U/F72-70SmxqjdwacWhite HospitalBand form neutrophils/100 WBC Manual cnt (Bld)Ordered By: Salbador Ramirez on 24-41-1823Vlrr form neutrophils/100 WBC (Bld)8 %0-5FRiverside Methodist HospitalBasophils Auto (Bld) [#/Vol]Ordered By: Salbador Ramirez on 03-30-2023 Basophils (Bld) [#/Vol]N/AFRiverside Methodist HospitalBasophils/100 WBC Auto (Bld)Ordered By: Salbador Ramirez on 32-97-4926Uwdxzylhv/100 WBC (Bld)N/A White HospitalBasophils/100 WBC Manual cnt (Bld)Ordered By: Salbador Ramirez on 41-90-5264Catzirpmq/100 WBC (Bld)1 %0-2FRiverside Methodist HospitalBilirubin.direct [Mass/volume] in Serum or PlasmaOrdered By: Salbador Ramirez on 53-57-9316Ovkiuxixb.direct [Mass/Vol]0.10 mg/dL0.03-0.18Fire[facility] Regional Medical CenterBilirubin.total [Mass/volume] in Serum or PlasmaOrdered By: Salbador Ramirez on 55-08-4402Ojytgzpwl [Mass/Vol]0.7 mg/dL0.3-1.0White HospitalCalcium [Mass/volume] in Serum or PlasmaOrdered By: Salbador Ramirez on 59-22-5927Qjtphew [Mass/Vol]10.2 mg/dL8.6-10.3FRiverside Methodist HospitalCarbon dioxide, total [Moles/volume] in Serum or PlasmaOrdered By: Salbador Ramirez on 41-77-4971BG1 [Moles/Vol]22.3 mmol/L21.0-31.0White HospitalChloride [Moles/volume] in Serum or PlasmaOrdered By: Salbador Ramirez on 36-90-3736Upxezyjj [Moles/Vol]105 mmol/G30-951OacfliswqWhite HospitalCholesterol [Mass/volume] in Serum or PlasmaOrdered By: Salbador Ramirez on 87-73-2585Cynmcazhjnk [Mass/Vol]140 mg/rC597-674InxqnywyeWhite HospitalComment on above:Chol less than 200 mg/dl low riskChol 201-239 mg/dl borderline riskChol 240 mg/dl and greater high riskCholesterol in LDL Calc [Mass/Vol]Ordered By: Salbador Ramirez on 25-75-8906Vsulkfuvpox in LDL [Mass/Vol] TNPWhite HospitalComment on above:Test not performed Cholesterol in LDL [Mass/volume] in Serum or PlasmaOrdered By: Salbador Ramirez on 92-01-3679Micefyvcgay in LDL [Mass/Vol]56 mg/dL0-100White HospitalComment on above:LDL ATP III CLASSIFICATIONLDL less than 100 mg/dL OptimalLDL 100-129 mg/dL Near or above jvjmxxdNMW647-239 mg/dL Borderline highLDL 160-189 mg/dL HighLDL greater than 189 mg/dL Very highCholesterol in VLDL Calc [Mass/Vol]Ordered By: Salbador Ramirez on 12-40-2333Eincpqjqxdg in VLDL [Mass/Vol]93 mg/dLWhite HospitalCreatinine [Mass/volume] in Serum or PlasmaOrdered By: Salbador Ramirez on 60-57-1360Biqgjlqtgy [Mass/Vol]0.82 mg/dL0.70-1.30White HospitalCreatinine [Mass/volume] in Urine Ordered By: Salbador Ramirez on 11-28-2835Utwhbcpebp (U) [Mass/Vol]115.0 mg/dL 14.0-26.0White HospitalEosinophils Auto (Bld) [#/Vol]Ordered By: Salbador Ramirez on 94-16-0008Rbelpqsnhxt (Bld) [#/Vol]N/[facility] HospitalEosinophils/100 WBC Auto (Bld)Ordered By: Salbador Ramirez on 34-97-3269Gwkjrzmoczq/100 WBC (Bld)N/[facility] Eosinophils/100 WBC Manual cnt (Bld)Ordered By: Salbador Ramirez on 03-30-2023 Eosinophils/100 WBC (Bld)1 %1-3FRiverside Methodist HospitalErythrocyte distribution width Auto (RBC) [Ratio]Ordered By: Salbador Ramirez on 03-30-2023 Erythrocyte distribution width (RBC) [Ratio]12.7 %12.0-14.8White HospitalGiant platelets/100 leukocytes [Ratio] in Blood by Manual count Ordered By: Salbador Ramirez on 73-01-7867Kyito platelets/100 WBC Manual cnt (Bld) [Ratio]1 /100{WBC}White HospitalGlobulin Calc (S) [Mass/Vol] Ordered By: Salbador Ramirez on 34-09-8998Lmwmuiag (S) [Mass/Vol]2.3 g/dLWhite HospitalGlucose [Mass/volume] in Serum or PlasmaOrdered By: Salbador Ramirez on 73-76-3329Txjxjdc [Mass/Vol]161 mg/sJ48-092RvmgzbsbxWhite HospitalComment on above:ADA recommended reference rangeRandom Glucose Reference Range is dependent on time and content of last meal. Glucose of more than 200 mg/dL in a nonstressed, ambulatory subject supports the diagnosisof Diabetes Mellitus.Glucose mean value [Mass/volume] in Blood Estimated from glycated hemoglobinOrdered By: Salbador Ramirez on 32-71-9032Jtiwdav glucose Estimated from glycated hemoglobin (Bld) [Mass/Vol]255 mg/dLWhite Hospital Hematocrit Auto (Bld) [Volume fraction]Ordered By: Salbador Ramirez on 03-30-2023 Hematocrit (Bld) [Volume fraction]46.1 %38.8-50.0White HospitalHemoglobin A1c percentageOrdered By: Salbador Ramirez on 34-07-5765LsN2m (Bld) [Mass fraction]10.5 %4.3-5.6FRiverside Methodist HospitalComment on above: Increased risk for diabetes: 5.7 - 6.4diabetes: >6.4glycemic control for adults with diabetes: <7.0Hemoglobin [Mass/volume] in BloodOrdered By: Salbador Ramirez on 98-65-1719Lkvqgiafxz (Bld) [Mass/Vol]15.9 g/dL13.0-17.0White HospitalLeukocytes [#/volume] corrected for nucleated erythrocytes in Blood by Automated counOrdered By: Salbador Ramirez on 51-18-8676DDN corrected for nucl RBC Auto (Bld) [#/Vol]5.2 10*3/uL4.1-10.5FRiverside Methodist Hospital Lymphocytes Auto (Bld) [#/Vol]Ordered By: Salbador Ramirez on 10-18-8556Zuidogleqcm (Bld) [#/Vol]N/[facility] HospitalLymphocytes/100 WBC Auto (Bld) Ordered By: Salbador Ramirez on 47-35-9924Caydzdtnyav/100 WBC (Bld)N/[facility] HospitalLymphocytes/100 WBC Manual cnt (Bld)Ordered By: Salbador Ramirez on 69-91-2042Kqufeycxztd/100 WBC (Bld)24 %18-42WVUMedicine [facility] Community HospitalH Auto (RBC) [Entitic mass]Ordered By: Salbador Ramirez on 12-02-1693SLF (RBC) [Entitic mass]29.6 pg27.5-35.2FRiverside Methodist HospitalMCHC Auto (RBC) [Mass/Vol]Ordered By: Salbador Ramirez on 58-81-9278KUME (RBC) [Mass/Vol]34.5 g/dL32.5-35.6FRiverside Methodist HospitalMCV Auto (RBC) [Entitic vol]Ordered By: Salbador Ramirez on 68-41-6086KJK (RBC) [Entitic vol]85.9 fL83.5-101White HospitalMicroalbumin [Mass/volume] in Urine Ordered By: Salbador Ramirez on 62-51-6863Dthspod DL <= 20 mg/L (U) [Mass/Vol]2.1 mg/dL0.0-1.8White HospitalMonocytes Auto (Bld) [#/Vol]Ordered By: Salbador Ramirez on 55-41-3265Vbcobbufw (Bld) [#/Vol]N/[facility] HospitalMonocytes/100 WBC Auto (Bld)Ordered By: Salbador Ramirez on 03-30-2023 Monocytes/100 WBC (Bld)N/[facility] HospitalMonocytes/100 WBC Manual cnt (Bld)Ordered By: Salbador Ramirez on 25-20-0869Ovpxmdzrl/100 WBC (Bld)13 %2-11White HospitalNeutrophils Auto (Bld) [#/Vol]Ordered By: Salbador Ramirez on 80-92-5016Zpxmwkassxg (Bld) [#/Vol]N/[facility] HospitalNeutrophils/100 WBC Auto (Bld)Ordered By: Salbador Ramirez on 03-30-2023 Neutrophils/100 WBC (Bld)/[facility] HospitalNo Panel InformationOrdered By: Salbador Ramirez on 96-32-3948Mfjcyuemu GFR (CKD-EPI)> 60.0 mL/MinWhite HospitalPharmacy Creatinine Clearance (ChemN/A White HospitalNucleated erythrocytes [Presence] in Blood by Automated countOrdered By: Salbador Ramirez on 55-04-0672Tupfjxjkx RBC Auto Ql (Bld) N/[facility] HospitalPlatelet adequacy [Presence] in Blood by Light microscopyOrdered By: Salbador Ramirez on 18-83-2379Vrxrodmwi LM Ql (Bld) NormalNoRiverview Health InstitutePlatelet mean volume Auto (Bld) [Entitic vol]Ordered By: Salbador Ramirez on 91-71-7986Mveojtlj mean volume (Bld) [Entitic vol]9.6 fL6.6-10.1FRiverside Methodist HospitalPlatelet morphology finding [Identifier] in BloodOrdered By: Salbador Ramirez on 68-05-3919Tnybtjnl morphology finding Nom (Bld)NormalNoRiverview Health Institute Platelets Auto (Bld) [#/Vol]Ordered By: Salbador Ramirez on 92-24-9947Kjpiraylx (Bld) [#/Vol]149 10*3/eK056-207PewwrurkmWhite HospitalPotassium [Moles/volume] in Serum or PlasmaOrdered By: Salbador Ramirez on 13-80-3647Hgwdioqog [Moles/Vol]4.5 mmol/L3.5-5.1FRiverside Methodist HospitalProtein [Mass/volume] in Serum or PlasmaOrdered By: Salbador Ramirez on 12-64-4515Cqwzurf [Mass/Vol]6.9 g/dL6.4-8.9White HospitalRBC Auto (Bld) [#/Vol] Ordered By: Salbador Ramirez on 53-25-8705FLT (Bld) [#/Vol]5.37 10*6/uL3.90-5.60 White HospitalRBC morphologyOrdered By: Salbador Ramirez on 03-81-7053IEY morphology finding Nom (Bld)NormalCoshocton Regional Medical Centeregmented neutrophils/100 WBC Manual cnt (Bld)Ordered By: Salbador Ramirez on 29-62-9709Ukcqmztpx neutrophils/100 WBC (Bld)51 %50-70Ohio [facility] Surgical Hospitalerum or plasma albumin/globulin mass ratioOrdered By: Salbador Ramirez on 34-03-6931Vymeemn/Globulin [Mass ratio]2.0 {ratio}[facility] Surgical Hospitalerum or plasma anion gap determinationOrdered By: Salbador Ramirez on 26-75-8351Kwzcu gap [Moles/Vol]14.2 mmol/L6.0-15.0[facility] Surgical Hospitalerum or plasma high density lipoprotein (HDL) cholesterol measurement Ordered By: Salbador Ramirez on 31-13-5064Ssfkgrzxsoj in HDL [Mass/Vol]24 mg/dL23-92 White HospitalComment on above:HDL CHOL ATP-III CLASSIFICATION Cardiovascular RiskHDL > or equal to 60 mg/dL LOWHDL < 40 mg/dL HIGHSerum or plasma non-glucuronidated bilirubin measurement (mass/volume) Ordered By: Salbador Ramirez on 85-02-9820Ypmcooaiw.indirect [Mass/Vol]0.6 mg/dL [facility] Surgical Hospitalerum or plasma total cholesterol/high density lipoprotein (HDL) cholesterol mass ratOrdered By: Salbador Ramirez on 03-30-2023 Cholesterol.total/Cholesterol in HDL [Mass ratio]5.8 {ratio}<5.0[facility] Surgical Hospitalodium [Moles/volume] in Serum or PlasmaOrdered By: Salbador Ramirez on 99-06-7623Figcks [Moles/Vol]137 mmol/Y117-413FpxhwzhfbWhite HospitalThyrotropin [Units/volume] in Serum or PlasmaOrdered By: Salbador Ramirez on 21-17-3012JEP Qn1.53 m[IU]/L0.45-5.33White HospitalTriglyceride [Mass/volume] in Serum or PlasmaOrdered By: Salbador Ramirez on 20-21-6219Dkehlgapmnha [Mass/Vol]467 mg/dL0-149[facility] Comment on above:If the triglyceride result [...] Serum or PlasmaOrdered By: Salbador Ramirez on 19-23-9299Gsop nitrogen [Mass/Vol]26 mg/dL7-25[facility] Urine microalbumin/creatinine mass ratioOrdered By: Salbador Ramirez on 03-30-2023 Albumin/Creatinine DL <= 20 mg/L (U) [Mass ratio]18.0 mg/g0.0-30.0White HospitalComment on above:30-300 mg/g indicates an increased risk for diabetic nephropathy. Greater than 300 mg/g is consistent with clinical nephropathy. (Am. J. Kidney Disease 1995, 25:107)Variant lymphocytes/100 WBC Manual cnt (Bld)Ordered By: Salbador Ramirez on 15-04-2696Ihtvbzo lymphocytes/100 WBC (Bld)3 %0-White HospitalVitamin D+Metabolites [Mass/volume] in Serum or PlasmaOrdered By: Salbador Ramirez on 57-24-7166Psfvtlr D+Metabolites [Mass/Vol]28.2 ng/aU98-140YhuymiphlWhite HospitalComment on above:VITAMIN D STATUS 25(OH)VITAMIN D RANGE (ng/mL) Deficient <20 Insufficient 20 to <25Ayfolcttgo80 to 100Reference: Faiza MF,Christina KIMBLE, Marisol CASTILLO, et al. Evaluation,treatment, and prevention of vitamin D deficiency; an Endocrine Society clinical practice guideline. JCEM. 2010; 96 (7):1911-30.WBC Auto (Bld) [#/Vol]Ordered By: Salbador Ramirez on 40-40-4943MXJ (Bld) [#/Vol]5.2 10*3/uL4.1-10.5FRiverside Methodist HospitalCNOVon 45-48-7605POAODushjr Visit (CHUCKN) KARMEN CARLOS ([id number]) 1980 M Date Time Provider Department 09/12/22 [...] Past Histories independently gathered by the clinical net application support specialist and the remaining scribed note accurately describes my personal service to the patient. Loki Basurto MD September 12, 2022 Referring Provider: LOKI BASURTO [[id number]] Allergies As of Date: 09/12/2022 (No Known [...] for Encounter Date Provider Department Center 09/12/2022 [id number] BASURTOBMN Mn A Bldg Encou (more content not included)...NormalOhioHealth Dublin Methodist HospitalPNon 85-08-9015QMSHAwcidhygl (DPQ) KARMEN CARLOS ([id number]) 1980 M Date Time Provider Department 06/29/22 LOKI BASURTO DPQ During your visit today, we recorded the following information about you: Asia Sofie 06/29/2022 3:17 PM Signed Left VM / Sent [employer] About getting a appt with per Staff [...] 03/07/2021 Encounter Status:Closed by ASIA CARRIZALES on 06/29/22[facility] 24-55-1381NVVRFLEqozb (SP) Office (PLASCA) KARMEN CARLOS ([id number]) 1980 M Date Time Provider Department 02/13/22 9:00 AM CHANA CHANDRA During your visit today, we recorded the following information about you: Temperature Pulse Respiration Blood pressure 97.6 degrees 94/minute 20/minute 162/111 hCana Chandra APRN.LAND ACQUISITION SPECIALIST 02/13/2022 9:20 AM Signed Post-op Note DATE: [...] for the rest of his/her life Call [phone] or go to the Emergency Department if [...] doesn't work its way out Office number: [phone] (option 3) The patient is seen and examined by Chana Chandra APRN.CNP and the following reflects her service. Scribed by Citlaly Padgett RN I agree with the Chief Complaint, ROS, and Past Histories independently gathered by the clinical net application support specialist and the remaining scribed note accurately describes [...] to help b (more content not included)... NormalTrinity Health System Twin City Medical CenterBRIEF OP NOTon 59-07-3060JHBXO OP NOTHNO ID: [id number] Author: Agatha Rawls MD Service: Plastic Surgery Author Type: Resident Type: Brief Op Note Filed: 01/31/2022 8:38 AM Note Text: BRIEF OPERATIVE NOTE PLASTIC AND RECONSTRUCTIVE SURGERY LOG ID: [id number] Surgery/Procedure Date: 01/31/2022 Incision/Procedure Start Time: 8:04 AM Incision Close/Procedure End Time: 8:29 AM Surgeon(s)/Proceduralist(s) and Technical Sales Representative(s): Surgeon(s) and Role: * Toan Chu MD [...] 31, 2022 TIME: 8:33 AM PAGER/CONTACT #: [phone] [facility] HISTORY PHYSICALon 75-30-1779YHSRFML PHYSICALHNO ID: [id number] Author: Toan Chu MD Service: Plastic Surgery [...] of operative intervention and (more content not included)...Normal[facility] NOon 01-31-2022 OPERATIVE NOHNO ID: [id number] Author: Agatha Rawls MD Service: Plastic Surgery Author Type: Resident Type: Operative Report Filed: 01/31/2022 8:49 AM Note Text: Attestation signed by Toan Chu MD at 01/31/2022 9:26 AM Teaching statement: I was active and involved in all critical portions of the case. Toan Chu MD OPERATIVE REPORT PLASTIC AND RECONSTRUCTIVE SURGERY Log ID: [id number] Surgery/Procedure Date: 01/31/2022 Incision/Procedure Start Time: 8:04 AM Incision Close/Procedure End Time: 8:29 AM Surgeon(s)/Proceduralist(s) and Technical Sales Representative(s): Surgeon(s) and Role: * Toan Chu MD [...] 31, 2022 TIME: 8:42 AM PAGER/CONTACT #: [facility] Eyad [phone] (DEION) KARMEN CARLOS ([id number]) 1980 M Date Time Provider Department 03/02/21 TOAN CHU During your visit today, we recorded the following information about you: Keya Nielsen Ma 03/02/2021 1:17 PM Signed Patient needs to have an echo done possibly before his surgery scheduled for Sunday03/07/2021. He prefers to go to [facility] and on a Sunday if possible. Can you see what you can do? Kapil Alberts 03/02/2021 1:55 PM Signed Called and lm for pt. Scheduled only available echo (other than [place]) before 03/07/21. Pt is scheduled for 03/03/21 at [facility]. 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 No acute intracranial findings. Software Project Engineer: MONISHA Transcribe Date/Time: Dec 15 2020 4:44P Dictated by : EVELYN JEROME DO This examination was interpreted and the report reviewed and electronically signed by: EVELYN JEROME DO on Dec 15 2020 4:56PM EST [id number] [facility] HospitalPOINT OF CARE GLUCOSEon 10-06-2020 Glucose [Mass/Vol]250 mg/dLCritically amrj96-225MnlTwin City HospitalComment on above:Performed By: #### POCGLUC #### [facility] [address] [address] Fariba KarenGlucose [Mass/Vol]240 mg/dLCritically keef90-676KhsTwin City HospitalComment on above:Performed By: #### POCGLUC #### [facility] [address] [address] Fariba KarenGlucose [Mass/Vol]257 mg/dLCritically inkn78-228XywTwin City HospitalComment on above:Performed By: #### POCGLUC #### [facility] [address] [place] [address] Fariba KarenCovid-19 PCR (CVDTBH)on 65-59-1690AMPF-CoV-2 (COVID-19) RNA SHAY+probe Ql (Unsp spec)Not detectedNormalNOT DETECTEDTwin City Hospital Comment on above:Result Comment: This test is not yet approved or cleared by the [place] FDA. When there are no FDA-approved or cleared tests available, and other criteria are met, FDA can make tests available under an emergency access mechanism called an Emergency Use Authorization (EUA). The EUA for this test is supported by the Bioinformatics Analyst of Health and Human Service's (HHS's) declaration [...] consistent with SARS-CoV-2.Performed By: #### CVDTBH #### [facility] [address] [place] [address] Fariba Herndon SCROTUM AND TESTICLESon 11-87-4275IS SCROTUM AND TESTICLESFINAL REPORTEXAM: US SCROTUM AND [...] right hydrocele. Interpreted by:Katy MonsivaisSigned by:Katy Monsivais11/17/16Final resultNormalLicking Memorial HospitalCult,Urine,CCon 53-82-5043Yboz,Urine,CCSpecimen Description .URINE Performed at [address] [place] [address] Special Requests .CLEAN CATCH URINE Performed at [address] [place] [address] Culture NO SIGNIFICANT GROWTH Performed at [address] [address] Report Status FINAL 11/15/2016NormalLicking Memorial HospitalComment on above: Performed By: #### CCUC ####[address] [place] [phone] [place] [address] Urinalysis w/ Microon 11-13-2016-----[facility]aconess HospitalComment on above:Performed By: #### UAMIC ####[address] [place] [address] Acetaminophen mass concTRACE AbnormalNEGMerSt. Mary's Medical Center, Ironton Campus HospitalComment on above:Performed By: #### UAMIC ####[address] [place] [address] Bilirubin (direct)NegativeNormalNEGMerSt. Mary's Medical Center, Ironton Campus HospitalComment on above: Performed By: #### UAMIC ####[address] [place] [address] Hemoglobin mass conc (Bld)NegativeNormalNEGMerSt. Mary's Medical Center, Ironton Campus HospitalComment on above:Performed By: #### UAMIC ####[address] [place] [address] Nitrite,UrNegativeNormalNEGMercy West Bloomfield HospitalComment on above:Performed By: #### UAMIC ####[address] [place] [address] TurbidityCLEARNormal CLEARHolzer Medical Center – Jacksoncy [place] HospitalComment on above:Performed By: #### UAMIC ####[address] [place] [address] Urine WBC's0 TO 2 Normal0-5Mercy [facility] HospitalComment on above:Performed By: #### UAMIC ####[address] [place] [address] Urine, colorYELLOWNormalYELMercy West Bloomfield HospitalComment on above:Performed By: #### UAMIC ####[address] [place] [address] Urine, epithelial cells in sedimentNoneNormal0-5Mer[facility] [place] HospitalComment on above:Result Comment: Performed at [address] [place] [id number] Performed By: #### UAMIC ####[address] [place] [address] Urine, erythrocytes0 TO 0Yngzwy1-1Ycftf [place] HospitalComment on above:Performed By: #### UAMIC ####[address] [place] [address] Urine, glucose presence3+AbnormalNEGMercy West Bloom[place] HospitalComment on above:Performed By: #### UAMIC ####[address] [place] [address] Urine, leukocyte esterase presenceNegativeNormalNEGMercy [facility] [place] HospitalComment on above:Performed By: #### UAMIC ####[address] [place] [address] Urine, pH5.5 [pH]Normal 5.0-9.0Mer[facility] [place] HospitalComment on above:Performed By: #### UAMIC ####[address] [place] [address] Urine, protein presenceNegativeNormalNEGMercy West [place] HospitalComment on above:Performed By: #### UAMIC ####[address] [place] [address] Urine, specific gravity1.098Qumoxy3.010-1.020Mer[facility] [place] HospitalComment on above:Performed By: #### UAMIC ####[address] [place] [address] Urobilinogen,UrNormalNormalNORM [facility] HospitalComment on above:Performed By: #### UAMIC ####[address] [place] [address] CommentNOT REPORTED NormalMercy West Bloomfield HospitalComment on above:Performed By: #### UAMIC ####[address] [place] [address] Epithelial, Renal NOT VWDWOWUEOrekyn9Pzsni [place] HospitalComment on above:Performed By: #### UAMIC ####[address] [place] [address] Mucus StrandsNOT REPORTEDNormalNONEMercy West [place] HospitalComment on above: Performed By: #### UAMIC ####[address] [place] [address] Other ObservationsNOT REPORTEDNormalNREQMarion Hospital Hospital Comment on above:Performed By: #### UAMIC ####[address] [place] [address] TrichomonasNOT REPORTEDNormalNONEMercy West [place] HospitalComment on above:Performed By: #### UAMIC ####[address] [place] [address] Urine, amorphous sediment presence in sedimentNOT REPORTEDNormalNONEMercy [place] HospitalComment on above:Performed By: #### UAMIC ####[facility] [address] [place] [address] Urine, bacteria in sedimentNOT REPORTEDNormal NONEMercy [facility] [place] HospitalComment on above:Performed By: #### UAMIC ####[address] [place] [address] Urine, casts in sedimentNOT REPORTEDNormalMercy West Bloomfield HospitalComment on above:Performed By: #### UAMIC ####[address] [place] [address] Urine, crystals in sedimentNOT REPORTEDNormalNONEMeJohn C. Stennis Memorial Hospital HospitalComment on above:Performed By: #### UAMIC ####[address] [place] [address] Urine, yeast presence in sediment NOT REPORTEDNormalNONEMeJohn C. Stennis Memorial Hospital HospitalComment on above:Performed By: #### UAMIC ####[address] [place] [address] Vital Signs Date TimeVital SignValuePerforming HivxwiqqcElxqwtyc70-54-9036 14:56-0400Body dwoeor899.88 cmSalbador Ramirez MD Work Phone: [phone] [place], [place] 4622710-14-2025 14:56-0400 Body mass index (BMI) [Ratio]42.7 kg/m2Salbador Ramirez MD Work Phone: [phone] [place], [place] 4622710-14-2025 14:56-0400 Body euqpvbppybe45.5 [degF]Salbador Ramirez MD Work Phone: [phone] [place], [place] 4622710-14-2025 14:56-0400 Body .88 kgSalbador Ramirez MD Work Phone: [phone] [place], [place] 4622710-14-2025 14:56-0400 Diastolic blood sqvanvor59 mm[Hg]Salbador Ramirez MD Work Phone: [phone] [place], [place] 4622710-14-2025 14:56-0400 Heart pmgt185 /minSalbador Ramirez MD Work Phone: [phone] [place], [place] 4622710-14-2025 14:56-0400 Respiratory rate18 /minSalbador Ramirez MD Work Phone: [phone] [place], [place] 4622710-14-2025 14:56-0400 SaO2% (BldA) [Mass fraction]97 %Salbador Ramirze MD Work Phone: [phone] [place], [place] 4622710-14-2025 14:56-0400 Systolic blood louirtwj587 mm[Hg]Salbador Ramirez MD Work Phone: [phone] [place], [place] 4622708-19-2025 15:04-0400 Body ycuyhg203.9 cmSalbador Ramirez MD Work Phone: [phone] [place], [place] [address]Xmxmhtkrxg93-05-5754 15:04-0400Body mass index (BMI) [Ratio]41.91 kg/m2Salbador Ramirez MD Work Phone: [phone] CenterFyiydqsiqg15-47-0814 15:04-0400Body temperature 97.5 [degF]Salbador Ramirez MD Work Phone: [facility] CenterBxyfhmorcz68-85-6358 15:04-0400Body utfunv671.16 kgSalbador Ramirez MD Work Phone: [facility] CenterDezvyyzmgz54-81-1044 15:04-0400Diastolic blood ldektewg17 mm[Hg]Salbador Ramirez MD Work Phone: [facility] CenterUbjubqywtt36-16-7513 15:04-0400Heart oama433 /min Salbador Ramirez MD Work Phone: [address] [address]Ayduuhervj99-97-0237 15:04-0400Respiratory rate22 /minSalbador Ramirez MD Work Phone: [address] [address]Ylqujdcaqk66-06-0791 15:04-5545DxO7% (BldA) [Mass fraction]97 %Salbador Ramirez MD Work Phone: [facility] CenterTzhshnfehf27-10-8435 15:04-0400Systolic blood jblbjeux445 mm[Hg]Salbador Ramirez MD Work Phone: [facility] Medical CenterJhytwpiqyo75-85-1784 08:48-0500Body temperature 97.59 [degF]Chana Chandra UTILITY APPRAISER.LAND ACQUISITION SPECIALIST Work Phone: [facility]11-28-2022 08:48-0500Diastolic blood tnjlqfat010 mm[Hg]Chana Chandra UTILITY APPRAISER.LAND ACQUISITION SPECIALIST Work Phone: [facility]11-28-2022 08:48-0500Heart rate94 /min Chana Chandra UTILITY APPRAISER.LAND ACQUISITION SPECIALIST Work Phone: [address] [address]-28-2022 08:48-0500Respiratory rate 20 /minChana Chandra UTILITY APPRAISER.LAND ACQUISITION SPECIALIST Work Phone: [address] [address]-28-2022 08:48-0554CxW7% (BldA) [Mass fraction]96 %Chana Chandra UTILITY APPRAISER.LAND ACQUISITION SPECIALIST Work Phone: [facility]11-28-2022 08:48-0500Systolic blood uixuscbq112 mm[Hg]Chana Chandra LAND ACQUISITION SPECIALIST Work Phone: [phone]11-15-2022 08:45-0500Body temperature 97.7 [degF]Toan Chu MD Work Phone: [phone]()[phone]11-15-2022 08:45-0500Diastolic blood jzfswdeq93 mm[Hg]Toan Chu MD Work Phone: [phone]()[phone]11-15-2022 08:45-0500Heart rate96 /min Toan Chu MD Work Phone: [phone]()[phone]11-15-2022 08:45-0500Respiratory rate 16 /minToan Chu MD Work Phone: [phone]()[phone]11-15-2022 08:45-0500Systolic blood ftgpojtc102 mm[Hg]Toan Chu MD Work Phone: [phone]()[phone]11-15-2022 08:25-7940BfE2% (BldA) [Mass fraction]92 %Toan Chu MD Work Phone: [phone]()[phone]11-15-2022 07:32-0500Body adbpsx449.5 kgToan Chu MD Work Phone: [phone]()[phone]06-22-2022 08:34-0400Body temperature 97.81 [degF]Toan Chu MD Work Phone: [phone]()[phone]06-22-2022 08:34-0400Diastolic blood gwtsecdz77 mm[Hg]Toan Chu MD Work Phone: [phone]()[phone]06-22-2022 08:34-0400Heart rate96 /min Toan Chu MD Work Phone: [phone]()[phone]06-22-2022 08:34-0400Respiratory rate 20 /minToan Chu MD Work Phone: [phone]()[phone]06-22-2022 08:34-0951UtJ8% (BldA) [Mass fraction]99 %Toan Chu MD Work Phone: [facility]06-22-2022 08:34-0400Systolic blood zlyyzkzk124 mm[Hg]Toan Chu MD Work Phone: [facility] Encounters Encounter DateEncounter TypeCare ProviderFacilityStart: 12-30-2024 End: 02-84-4683tvmukwwdypMjof Naderer MD Work Phone: [facility] Work Phone: Start: 12-30-2024 End: 68-21-7484Oklogzn encounter procedureSalbador Ramirez MDST[facility] [place] Work Phone: Start: 11-06-2024 End: 06-47-1242Tkmsyldck Result EncounterSalbador Ramirez MD Work Phone: noms External Department UnsolicitedStart: 11-06-2024 End: 57-24-9464Cvbpfbycq Result EncounterSalbador Ramirez MD Work Phone: noms External Department UnsolicitedStart: 11-04-2024 End: 80-00-5382Isplyx outpatient visit 25 minutesSalbador Ramirez MD Work Phone: [facility] CWM FMComment on above:Cervical spondylosis with radiculopathy (Primary Dx); Type 2 diabetes mellitus with hyperglycemia, without long-term current use of insulin (HCC); Benign hypertension ; Annual physical examStart: 11-04-2024 End: 18-56-2265Vzlikhz encounter procedureaSlbador Ramirez MD Work Phone: noms HealthcareStart: 11-04-2024 End: 85-39-1086fumwgohwibIWNQ NADERERNot AvailableStart: 11-04-2024 End: 58-78-2055Ppopxw flowsJose L Ramirez MD Work Phone: n[facility] CWM FMStart: 11-04-2024 End: 93-32-8516Tipmixklarissa Ramirez MD Work Phone: n[facility] CWM FMStart: 05-28-2024 End: 05-96-0610Xrreefn encounter procedureSalbador Ramirez MD Work Phone: [facility] [place] Work Phone: Start: 05-28-2024 End: 67-84-4021gdypctlmliYwxz Naderer MD Work Phone: [facility] Work Phone: Start: 05-22-2024 End: 41-74-7018xskxatyucaHNWL NADERERNot AvailableStart: 03-30-2023 End: 39-80-5865kzsuhrrhmpCM Marc Naderer Work Phone: [facility] Work Phone: Start: 03-30-2023 End: 40-66-4502Gyerpxp encounter procedureMD Salbador Ramirez Work Phone: [facility] [address] [place] Work Phone: Start: 07-53-9648Uwfcgrg encounter procedureSalbador Ramirez MD Work Phone: noms HealthcareStart: 09-12-2022 End: 55-24-3407acqomtsszqFEX G MEINEFacility:[facility] Dublintart: 35-48-2192Locaeflrv encounterLoki Basurto MD Work Phone: [facility]ermatology and Plastics InstituteComment on above: AppointmentStart: 02-13-2022 End: 76-16-2231gbreoozfynAbidyxTra Chandra APRN.CNP Work Phone: Plastic SurgeryComment on above:Post-operative state (Primary Dx)Start: 02-13-2022 End: 86-43-5537Ztpkksf encounter Marek Chandra APRN.CNP Work Phone: [facility] MAINStart: 13-88-3058vhpcaiotjt TOAN GASTMANFacility:[facility] HospitalStart: 01-31-2022 End: 31-38-4662Xhifrsvpcj hospital visit by physicianToan Chu MD Work Phone: Ambulatory SurgeryComment on above: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]Start: 09-07-2021 End: 56-56-9499yebamtgyafAkkmn Gastman MD Work Phone: Plastic SurgeryComment on above:Dermatofibrosarcoma protuberans (Primary Dx); S/P flap graftStart: 09-07-2021 End: 33-08-9441Krkghlt encounter procedureToan Chu MD Work Phone: [facility] MAINStart: 07-26-2021 End: 73-12-5316Qgccsvl encounter procedureLoki Basurto MD Work Phone: DermatologyComment on above:Dermatofibrosarcoma protuberans of scalp (Primary Dx)Start: 33-30-9090Ftwzljdnn for preprocedural cardiovascular examinationDR KARMEN Borja [facility] HospitalStart: 78-93-9400Cjqssjttt for preprocedural laboratory examinationDR KARMEN AKINS [facility] HospitalStart: 10-06-2020 End: 53-20-7856ftqfugaxzgKJ KARMEN Prietocility:M9Hkbcy: 10-01-2020 End: 83-71-6753szyaapxafnCA SALBADOR Glover NADERERFacility:F1Revvk: 10-01-2020 End: 39-13-5222Nljurrpkz for preprocedural laboratory examinationDR SALBADOR Glover NADERERFacility:H6Nivgh: 11-16-2016 End: 45-69-0670WlwtscmxbmAWPGQLBaltimore VA Medical Center HospitalStart: 11-13-2016 End: 14-63-0694ZklfbvgwnyONYYHZLakeside [facility] Procedures DateProcedureProcedure DetailPerforming ClinicianStart: 13-95-1190JE CERVICAL SPINE 2-3VMarc James RINCON Work Phone: Start: 48-53-7940Cbrbm X-ray of right shoulderMarc James RINCON Work Phone: Start: 01-31-2022 End: 25-95-0350Bvhaw flap/sectioning flap scalp arms/legsToan Chu MD Work Phone: Start: 51-73-4710Qo scrotum & contentsTHOMAS SABRA Start: 68-43-1626ADCTP CULTURE CLEAN CATCHTHOMAS ZAGERIEWSKIStart: 11-13-2016 URINALYSIS WITH MICROSCOPICTHOMAS ALEJANDROGERIEWSAVIVAH/O: surgeryS/P flap graftToan Chu MD Work Phone: Plan of Treatment DateCare ActivityDetailAuthorStart: 12-16-2024 End: 33-21-1762Nvcootz encounter ppczrzycw88/30/2025 10:30 AM EDT Office Visit [facility] [address] [place] [phone] Salbador Ramirez MD [address] [place] [address] [facility] CW FMStart: 12-20-5403Kigynbzuv vaccinationInfluenza Vaccine (#1)[facility] HealthcareStart: 11-04-2024 End: 82-32-1013Vndtxun encounter fozawbgak90/19/2025 3:15 PM EDT [facility] [address] [place] [address] Salbador Ramirez MD [address] [place] [address] ArrivedNOMS CWM FMComment on above:ArrivedStart: 11-04-2024 End: 50-97-8473HHO W Auto Differential panel - BloodCBC and differential Lab Routine Annual physical exam Expected: 11/04/2024 (Approximate), Expires: 0 11/04/2025[facility] HealthcareComment on above:Expected: 11/04/2024 (Approximate), Expires: 11/04/2025Start: 11-04-2024 End: 48-18-0892Assvhkqgsvhlu metabolic 2000 panel - Serum or PlasmaComprehensive metabolic panel Lab Routine Annual physical exam Expected: 11/04/2024 (Approximate), Expires: 11/04/2025[facility] HealthcareComment on above:Expected: 11/04/2024 (Approximate), Expires: 11/04/2025Start: 11-04-2024 End: 37-75-3662Fspxnmxtyv A1c/Hemoglobin.total in BloodHemoglobin A1c Lab Routine Type 2 diabetes mellitus with hyperglycemia, without long-term current use of insulin (HCC) Expected: 11/04/2024 (Approximate), Expires: 11/04/2025[facility] HealthcareComment on above:Expected: 11/04/2024 (Approximate), Expires: 11/04/2025Start: 11-04-2024 End: 25-46-6310Umagt 1996 panel - Serum or PlasmaLipid panel Lab Routine Annual physical exam Expected: 11/04/2024 (Approximate), Expires: 11/04/2025[facility] HealthcareComment on above:Expected: 11/04/2024 (Approximate), Expires: 11/04/2025Start: 11-04-2024 End: 33-40-5558Qwertowyxehh/Creatinine panel in random UrineMicroalbumin / creatinine, urine ratio Lab Routine Type 2 diabetes mellitus with hyperglycemia, without long-term current use of insulin (HCC) Expected: 11/04/2024 (Approximate), Expires: 11/04/2025[facility] HealthcareComment on above:Expected: 11/04/2024 (Approximate), Expires: 11/04/2025Start: 11-04-2024 End: 05-34-8055Xamyizav specific Ag [Mass/volume] in Serum or PlasmaPSA Lab Routine Annual physical exam Expected: 11/04/2024 (Approximate), Expires: 11/04/2025[facility] HealthcareComment on above:Expected: 11/04/2024 (Approximate), Expires: 11/04/2025Start: 11-04-2024 End: 82-68-2067Yiwupyaekuu [Units/volume] in Serum or PlasmaTSH Lab Routine Annual physical exam Expected: 11/04/2024 (Approximate), Expires: 11/04/2025[facility] HealthcareComment on above:Expected: 11/04/2024 (Approximate), Expires: 11/04/2025Start: 11-04-2024 End: 55-23-2564JQ Cervical spine 2 or 3 ViewsXR cervical spine 2 or 3 views Imaging Routine Cervical spondylosis with radiculopathy Expected: 11/04/2024, Expires: 11/04/2025[facility] Work Phone: Comment on above:Expected: 11/04/2024, Expires: 11/04/2025Start: 24-15-6807Ccdrr screening for proteinDiabetes: Urine Protein ScreeningKansas City VA Medical CenterStart: 64-23-9717Okrzqfxdtz A1c measurementDiabetes: Hemoglobin U5GQGMKKansas City VA Medical CenterStart: 08-46-6116Dxnwnsjnn vaccinationINFLUENZA (Season Ended)[facility]: 31-55-8158SXBONAELXR ASSESSMENTDEPRESSION ASSESSMENTSheltering Arms Hospitaltart: 59-84-8751Hdfdkoype vaccinationC[facility] Clinic [facility] Start: 33-62-9009Uymgjfzofv A1c/Hemoglobin.total in ObtffYBT7AYgwqyboac Clinic Start: 59-38-6477PSKLAJRIPO ASSESSMENTDEPRESSION ASSESSMENTC[facility] Clinic [facility] Start: 07-83-5352MKBYCJPFG B (1 of 3 - Risk 3-dose series)HEPATITIS B (1 of 3 - Risk 3-dose series)[facility]: 95-90-4202Qapjo microalbumin profile DTAP,TDAP,TD (1 - Tdap)[facility]: 62-32-3936NYHVXD PCP TEAM CHRONIC DISEASE VISITANNUAL PCP TEAM CHRONIC DISEASE VISITSheltering Arms Hospitaltart: 54-33-7112HQ CONTROLLED (<130/80)BP CONTROLLED (<130/80)[facility]: 03-06-1949Pswyvsnsh B surface antibody levelLDL CHOLESTEROLCleveland Clinic [facility] Start: 83-06-5199PCOMPRXDX C SCREENINGHEPATITIS C SCREENINGCleveland Clinic [facility] Start: 90-84-7283BOD SCREENINGHIV SCREENINGSheltering Arms Hospitaltart: 44-78-6376MHF PNEUMOVAX PRIOR TO AGE 65ONE PNEUMOVAX PRIOR TO AGE 65[facility]: 96-32-7268Mhnix depression screening assessmentDEPRESSION SCREENINGSheltering Arms Hospitaltart: comp foot exam completedDIABETIC FOOT EXAMSheltering Arms Hospitaltart: 52-38-7691Axytgscw screeningDiabetes: Retinopathy ScreeningKansas City VA Medical CenterStart: 54-52-8082Lopygszgx B screeningURINE ALBUMIN:CREATININE RATIO [facility]: 95-55-7212Znjnoyvwm C antibody, confirmatory testDILATED RETINAL EXAMSheltering Arms Hospitaltart: 61-57-0228LDRVQODBSPGB (1 - PCV)PNEUMOCOCCAL (1 - PCV)[facility]: 90-50-2454FOJDY-19 VACCINE (#1)COVID-19 VACCINE (#1)[facility]: 08-80-5946UBSPD-19 VACCINE (#1)COVID-19 VACCINE (#1) [facility]: 77-06-1457HSATAHOTD B (1 of 3 - 3-dose series)HEPATITIS B (1 of 3 - 3-dose series)[facility]: 47-97-0192Riibandgv for malignant neoplasm of [facility], operated by [facility] End: 76-64-4789Hwn brain brain stem w/o contrast materialMRI BRAIN WO IVCON Radiology Routine Dermatofibrosarcoma protuberans S/P flap graft 1 [facility] Work Phone: Comment on above:1 Occurrences starting 09/07/2021 until 3C[facility] Payers DatePayer CategoryPayerPolicy [id number] Health InsuranceMEDICAL MUTUAL Member Subscriber Plan / Payer (Effective 2023- Present) Name: Karmen Carlosember ID: [id number] Relation to Subscriber: Spouse Name: BALBIR CARLOS Date of : 1974 Address: [address] [place] [id number] Payer ID: Not on file Type: Not on file Address: [address] [id number] MMO SUPERMED PLUS [id number] 2020-Present [phone] [address] [place] [address] [id number] [id number] [id number] 2.16.840.1.072475.3.57[id number] 2.16.840.1.675981.3.57[id number] [id number] 2.16.840.1.829514.3.5[id number] 2.16.840.1.686516.3.579.2.531 Social History DateTypeDetailFacilityStart: 11-25-2020 End: 89-86-4081Gflaocv smoking status NHISEx-smokerSheltering Arms Hospitaltart: 03-19-1996 End: 81-24-2430Rqrawye of tobacco useCurrent smokerSheltering Arms Hospitaltart: 03-19-1996 End: 37-69-8498Blclnzo of tobacco useCigarette SmokerSheltering Arms Hospitaltart: 11-25-2020 End: 43-49-4138Tlkoiscnrl smoked current (pack per day) - Qqilkrgz3Giqhuveci ClinicStart: 03-62-2535Vyafymc use and exposureFormer smokeless tobacco user [facility] End: 25-28-8857Okuqmnk of tobacco useUser of smokeless tobaccoCleveland Clinic [facility] Start: 97-96-4351Koqrvzw intakeCurrent drinker of alcohol (finding)[facility]: 52-20-2542Qkznsue SDOH Alcohol Comment6-7 beers several times per weekSheltering Arms Hospitaltart: 97-99-5877Vty Assigned At BirthMalTogus [facility] Start: 07-16-2021 End: 25-47-5080Knkiyljv to SARS-CoV-2 (event)Not sureCleveland Clinic [facility] General [facility] HospitalTobacco smoking status NHISUnknown if ever smokedRegional Medical Center Work Phone: Start: 51-81-3785AyeZftv (finding)[facility]: 16-99-9421Wudyigi use and exposureSmokeless tobacco non-userCACHE [facility]LEY [facility] HealthcareStart: 05-22-2024 End: 68-89-1291Ltuzfpm use panelNOIN HealthcareStart: 97-26-9224Qsc assigned at birthNot on [facility] Medical Equipment Procedure CodeEquipment CodeEquipment Original TextEquipment IdentifierDates Graft Soft Tissue Frozen Cadaver - [id number]: 02-04-2021 Clinical Notes 07-26-2021 to 11-04-2024 Note Date & IbqnIcdnDwkiksqv80-22-1912 History of Present illness Narrative* Salbador Ramirez [...] 2 or 3 views documented in this encounterKansas City VA Medical CenterPixuqokdon66-21-2696 NoteHNO ID: [id number] Author: Loki Basurto MD Service: ? Author [...] Past Histories independently gathered by the clinical net application support specialist and the remaining scribed note accurately describes my personal service to the patient. Loki Basurto MD [facility] 12[facility] Miscellaneous Notes* Telephone Encounter - Asia Carrizales - 06/29/2022 3:17 PM EDT Left VM / Sent MyCharts About getting a appt with per Staff Message documented in this encounterCleveland Clinic [facility]11-28-2022 NoteHNO ID: [id number] Author: Chana Chandra APRN.LAND ACQUISITION SPECIALIST Service: ? Author Type: Nurse Practitioner Type: [...] for the rest of his/her life Call [phone] or go to the Emergency Department if [...] doesn't work its way out Office number: [phone] (option 3) The patient is seen and examined by Chana Chandra APRN.CNP and the following reflects her service. Scribed by Citlaly Padgett RN I agree with the Chief Complaint, ROS, and Past Histories independently gathered by the clinical net application support specialist and the remaining scribed note accurately describes my personal service to the patient. Chana Chandra APRN.CNP February 13, 2022 9:20 [facility]11-28-2022 Instructions* Patient Instructions* Chana Chandra APRN.CNP [...] for the rest of his/her life Call [phone] or go to the Emergency Department if [...] doesn't work its way out Office number: [phone] (option 3) documented in this encounterCleveland Clinic [facility]11-28-2022 History of Present illness Narrative* Chana [...] for the rest of his/her life Call [phone] or go to the Emergency Department if [...] doesn't work its way out Office number: [phone] (option 3) The patient is seen and examined by Chana Chandra APRN.CNP and the following reflects her service. Scribed by Citlaly Padgett RN I agree with the Chief Complaint, ROS, and Past Histories independently gathered by the clinical net application support specialist and the remaining scribed note accurately describes my personal service to the patient. Chana Chandra APRN.CNP February 13, 2022 9:20 AM documented in this encounterCleveland Clinic [facility]11-15-2022 Hospital Discharge instructions* Discharge Instr - [...] These instructions explain what you or your sub acute care nurse need to do to continue your care at home or at another healthcare facility Please go over these instructions with your nurse and sub acute care nurse. If you are not sure about [...] document) At your earliest convenience, please call [phone] to confirm or schedule a follow-up appointment with the office of Dr. Chu to be seen in clinic. Your existing appointments are listed below: Future Appointments Date Time Provider Department Center 02/13/2022 9:00 AM Chana Chandra APRN.LAND ACQUISITION SPECIALIST [address]AS[address] EMILEE [place] When to call your surgeon: [...] during business hours (8am to 5pm) call [phone] or after hours (including weekends) call [phone] ([facility]) and ask for the Plastic Surgery Resident / Fellow marketing operations manager. If calling long distance, please use [phone] ([phone]). Test results not currently available (to be reviewed at follow-up): No pending results. documented in this encounterCleveland Clinic [facility]11-15-2022 Surgical operation note* Brief Op Note - Agatha Rawls MD - 01/31/2022 8:33 AM EST BRIEF OPERATIVE NOTE PLASTIC & RECONSTRUCTIVE SURGERY LOG ID: [id number] Surgery/Procedure Date: 01/31/2022 Incision/Procedure Start Time: 8:04 AM Incision Close/Procedure End Time: 8:29 AM Surgeon(s)/Proceduralist(s) and Technical Sales Representative(s): Surgeon(s) and Role: * Toan Chu MD [...] 31, 2022 TIME: 8:33 AM PAGER/CONTACT #: [phone] * Operative Report - Agatha Rawls MD - 01/31/2022 7:49 AM EST OPERATIVE REPORT PLASTIC & RECONSTRUCTIVE SURGERY Log ID: [id number] Surgery/Procedure Date: 01/31/2022 Incision/Procedure Start Time: 8:04 AM Incision Close/Procedure End Time: 8:29 AM Surgeon(s)/Proceduralist(s) and Technical Sales Representative(s): Surgeon(s) and Role: * Toan Chu MD [...] case. Toan Chu MD documented in this encounterCleveland Clinic [facility]11-15-2022 History and physical note * Toan [...] 2022 TIME: 7:43 AM documented in this encounterCleveland Clinic [facility]06-22-2022 History of Present illness Narrative* Toan [...] up 7-10 days after surgery Citlaly Padgett security professionals note: I reviewed the information obtained and [...] complete 09/08/2021 9:09 AM documented in this encounterCleveland Clinic [facility]05-10-2022 History of Present illness Narrative* Loki [...] Past Histories independently gathered by the clinical net application support specialist and the remaining scribed note accurately describes my personal service to the patient. 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 documented in this encounter [facility] HospitalEvalusaint francis healthcare note* Diagnosis Dermatofibrosarcoma protuberans- Primary Other specified malignant neoplasm of skin, site unspecified S/P flap graft Other postprocedural status documented in this encounter [facility] HospitalEvaluation note* Diagnosis Acute post-operative pain- Primary documented in this encounter [facility] HospitalEvalusaint francis healthcare note* Diagnosis Post-operative state- Primary Other postprocedural status documented in this encounter [facility] HospitalEvaluation noteNo assessment information availableRegional Medical Center Work Phone: Evaluation note* Diagnosis Annual physical [...] hyperglycemia, without long-term current use of insulin ([facility]) Class 3 severe obesity due to excess calories with serious comorbidity and body mass index (BMI) of40.0 to 44.9 in adult ([facility]) Dyslipidemia Other and unspecified hyperlipidemia Type 2 diabetes mellitus with other specified complication ([facility]) Cervical spondylosis with radiculopathy- Primary Cervical spondylosis with myelopathy Type 2 diabetes mellitus with hyperglycemia, without long-term current use of insulin (HCC) Benign hypertension Essential hypertension, benign Annual physical exam Routine general medical examination at a health care facility documented in this encounter [facility] CenterEvaluation note* Diagnosis Onset Date Resolution Status Admit Date Annual physical exam acuteOctober 2024 2:31pm [facility] Work Phone: Rejiub for referral (narrative)No reason for referral information availableKettering Health [facility] Work Phone: Redfhq for visit Narrative* Auth/CertSpecialty Diagnoses / ProceduresReferred By ContactReferred To ContactASC [facility] Diagnoses Dermatofibrosarcoma protuberans S/P flap graft Procedures DELAY/SECTN FLAP SCALP,ARM,LEG FLAP DELAY SCALP OR SECTIONING [facility] [place] [address] [place] [address] Referral IDStatusReasonStart DateExpiration DateVisits RequestedVisits [id number] [facility] Summary Purpose Family History No Family [...] RecordedPatient RepresentativeExplanation Advance Directive(s)12/15/2020 10:47 AMTypeDate RecordedPatient Digital Technician ExplanationAdvance Directive(s)12/15/2020 10:47 AM Advance Directive Response Recorded Date/ Time Advance Directives No August 03 8:17am Advance Directive Response Recorded Date/ Time Advance Directives No August 03 9:17am Reason for Referral SpecialtyDiagnoses / ProceduresReferred By ContactReferred To ContactMR IMAGING Diagnoses Dermatofibrosarcoma protuberans S/P flap graft Procedures MRI BRAIN WO IVCON MRI BRAIN BRAIN STEM [place] [address] [place] [address] Mr Imaging Referral IDStatusReasonStart DateExpiration DateVisits RequestedVisits [id number] Review Auto-Generated Referral Chief Complaint and Reason [...] section and content) DATE CREATED AUTHOR 09/12/2017 [facility] DATE CREATED AUTHOR AUTHOR'S ORGANIZ ATION 03/03/2021 [facility] DATE CREATED AUTHOR AUTHOR'S ORGANIZ ATION 08/19/2021 [facility] DATE CREATED AUTHOR AUTHOR'S ORGANIZ ATION 09/23/2022 [facility] DATE CREATED AUTHOR AUTHOR'S ORGANIZ ATION 06/06/2024 [facility] DATE CREATED AUTHOR AUTHOR'S ORGANIZ ATION 11/06/2024 [facility] EPIC Source Comments (unrecognize d section and content) In the event this informatio n is protected by the Federal Confidentiality of Alcohol and Drug Abuse Patient Records regulations: The Federal rules restrict any use of the information to criminally investigate or prosecute any alcohol or drug abuse patient.[facility] HospitalIn the event this information is protected by the Federal Confidentiality of Alcohol and Drug Abuse Patient Records regulations: The Federal rules restrict any use of the information to criminally investigate or prosecute any alcohol or drug abuse patient.[facility] HospitalIn the event this information is protected by the Federal Confidentiality of Alcohol and Drug Abuse Patient Records regulations: The Federal rules restrict any use of the information to criminally investigate or prosecute any alcohol or drug abuse patient.[facility] HospitalIn the event this information is protected by the Federal Confidentiality of Alcohol and Drug Abuse Patient Records regulations: The Federal rules restrict any use of the information to criminally investigate or prosecute any alcohol or drug abuse patient.[facility] HospitalIn the event this information is protected by the Federal Confidentiality of Alcohol and Drug Abuse Patient Records regulations: The Federal rules restrict any use of the information to criminally investigate or prosecute any alcohol or drug abuse patient.[facility] Reason for Visit (unrecogniz ed section and content) ReasonCommentsFollow UpReasonCommentsEstablished PatientReasonComments AppointmentReasonCommentsArm PainRight arm Care Teams (unrecognized sec tion and content) Team MemberRelationshipSpecialtyStart DateEnd Date Salbador Ramirez [address] [place] [address] PCP - GeneralFamily Practice12/15/20Team MemberRelationshipSpecialtyStart DateEnd Date Salbador Ramirez [address] [place] [address] PCP - GeneralFamily Practice12/15/20Team MemberRelationshipSpecialtyStart DateEnd Date Salbador Ramirez [address] [place] [address] PCP - GeneralFamily Medicine12/15/20Team MemberRelationshipSpecialtyStart DateEnd Date Salbador Ramirez [address] [place] [address] PCP - [facility] Medicine12/15/20Team MemberRelationshipSpecialtyStart DateEnd Date Salbador Ramirez [address] [place], [place] [phone] PCP - [facility] Medicine12/15/20 Team [...] MD [address] [place] [address] PCP - Medical [employer]03/19/2311 Salbador Ramirez MD [address] [place] [phone] PCP - [facility]05/22/24Team MemberRelationshipSpecialtyStart DateEnd Date Salbador Ramirez MD [address] [place] [address] PCP - Medical [employer]03/19/2311 Salbador Ramirez MD [address] [place] [address] PCP - [facility]05/22/24Team MemberRelationshipSpecialtyStart DateEnd Date Salbador Ramirez MD [address] [place] [address] PCP - Medical [facility]03/19/2311 Salbador Ramirez MD [address] [place] [address] [facility]/22/24 Team Status: Inactive Member [...] BE BASED ON THE PRIMARY CLINICAL RECORDS. [facility] hiogi [facility]. provides no warranty or guarantee of the accuracy or completeness of information in this document.
--- NOTE | 2025-02-25 13:04 | MR_ITS ---
[address] [address] Patient Name: KARMEN CARLOS MRN: [id number] date: 1980 Sex: M Assigned Patient Location: MRI Current Patient Location: Accession/Order Number: [id number] Exam Date: 02/25/2025 13:10 Report Date: 02/26/2025 19:18 At the request of: GINA RAMIREZ MD Procedure: MR cervical spine wo con EXAMINATION: MRI OF THE CERVICAL SPINE WITHOUT CONTRAST CLINICAL DATA: Spondylosis Of Cervical Spine With Radiculopathy TECHNIQUE: Multiecho imaging was performed in the sagittal and axial plane without contrast administration. FINDINGS: Mild motion degradation degrades evaluation. The craniocervical junction is maintained. Straightening and mild reversal of the normal cervical lordosis. Cervical vertebral body heights are preserved. Bone marrow signal is unremarkable. Mild disc space narrowing notably C5-T1 greatest C6-T1. The cervical cord demonstrates normal signal morphology. The prevertebral and paraspinal soft tissues are noncontributory.. C2-C3: Minimal left-sided endplate osteophytosis. Minor facet hypertrophy. Canal is patent. Mild left foraminal narrowing. Right foramen is patent. C3-C4: Minimal broad-based bulge with uncovertebral spurring. Suspect mild facet arthropathy right. Minor canal narrowing. Minimal bilateral neural foraminal narrowing. C4-C5: Broad-based disc osteophyte complex with uncovertebral spurring. Mild left neural from narrowing. Right foramen and canal grossly patent. C5-6: Small central disc osteophyte complex which contacts the ventral cord.. Uncovertebral spurring. Mild central canal stenosis. Mild bilateral neural foraminal narrowing. C6-C7: There is a central to right subarticular zone extrusion this causes mild ventral cord flattening. There is moderate predominantly right-sided central canal stenosis. Severe right neural foraminal and moderate narrowing. Moderate left neural foraminal narrowing. C7-T1: Central disc osteophyte complex with uncovertebral spurring. Mild canal mild neural from narrowing. Ajij-bz-fatnegbe facet arthropathy. MR/MR cervical spine wo con IMPRESSION: Severe degenerative changes on the right at C6-C7 with severe right foraminal narrowing is caused by a disc extrusion. Impression dictated by: Ilan Cohen M.D. 02/26/2025 7:18 PM Dictation Location: [place] [address] Electronically authenticated by: [id number] Y Date: 02/26/2025 19:18
== END 2025-02-25 12:54 | disposition home or self-care (01) ==
LOC: MRI 12:54
PROVIDERS: PCP Family Medicine; Visit Provider Family Medicine
DX: Z01.89 Encounter for other specified special examinations (principal); M47.22 Other spondylosis with radiculopathy, cervical region; M50.30 Other cervical disc degeneration, unspecified cervical region
CPT/HCPCS: 72141